=== PATIENT | male | born 1940 | race Two or more races ===

== ENCOUNTER 2017-01-29 12:46 | Observation (INO) | payer MEDICARE, BC ==
--- NOTE | 2017-01-29 13:29 | RAD ---
INDICATION: Near syncope COMPARISON: January 31, 2016; May 16, 2013 TECHNIQUE: PA and lateral dual-energy views were obtained. FINDINGS: Bones/Soft Tissues: There are no acute bony findings. Cardiomediastinal: The cardiomediastinal silhouette is unchanged. There is mild vascular ectasia. Lungs: There are no infiltrates. Pleura: There are no pleural effusions. Other: None IMPRESSION: NO ACTIVE DISEASE
--- NOTE | 2017-01-29 13:34 | RAD ---
INDICATION: Near syncope COMPARISON: January 31, 2016 TECHNIQUE: Noncontrast axial source images were acquired from the skull base to the vertex. FINDINGS: Ventricles/sulci: The ventricles and cisterns unchanged in size and configuration for age. 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 Brain parenchyma: There is no acute focal parenchymal finding, evidence of intracranial mass, or intracranial mass effect. There is an old left caudate nucleus infarct Intracranial hemorrhage:None. Extra-axial spaces: There are no abnormal extra axial fluid collections or evidence of extra-axial mass. Calvarium: There is no calvarial fracture or other calvarial abnormality. Scalp: There is no evidence of scalp or extracalvarial soft tissue abnormality. Paranasal sinuses/mastoid: The paranasal sinuses and mastoid air cells are clear. Other: None. IMPRESSION: No acute intracranial findings
[2017-01-29 14:11] LABS: Hematocrit 56 % (42-52); Hemoglobin 18.4 g/dl (14.0-18.0); Mean Corpuscular HGB Conc 33 g/dl (31-36); Mean Corpuscular Hemoglobin 29 pg (27-31); Mean Corpuscular Volume 87 fL (80-94); Mean Platelet Volume 8 um3 (7.4-10.4); Red Cell Distribution Width 15 % (10.5-15); White Blood Count 12.6 10^3/ul (3.5-10.8)
[2017-01-29 14:12] LABS: Albumin 4.2 g/dL (3.2-5.2); BUN/Creatinine Ratio 14.8 (8-20); Calcium 9.4 mg/dL (8.6-10.3); EGFR African American 62.7 (>60); EGFR Non-African American 48.7 (>60); Globulin 3.3 g/dL (2-4); Potassium 3.9 mmol/L (3.5-5.0); Total Bilirubin 0.8 mg/dL (0.2-1.0); Total Protein 7.5 g/dL (6.4-8.9)
[2017-01-29 14:17] LABS: Troponin I 0.08 ng/mL (<0.04)
[2017-01-29 14:35] LABS: TSH (Thyroid Stimulating Horm) 2.34 mcIU/mL (0.34-5.60)
[2017-01-29] MEDS ORDERED: Ondansetron INJ* 2 MG/ML VIAL IV PRN (17:12)
[2017-01-29] MEDS ORDERED: Acetaminophen TAB* 325 MG PO PRN (17:12)
[2017-01-29] MEDS ORDERED: NS 0.9% 1000 ML* 1,000 ML IV SCH (17:15)
[2017-01-29] MEDS ORDERED: Dextrose 50% Syringe 50 ML* 25 GM/50 ML SYRINGE IV PUSH PRN (17:26)
[2017-01-29] MEDS ORDERED: [UNRECOGNIZED DRUG - OTHER] SUBCUT SCH (18:00)
[2017-01-29] MEDS ORDERED: Atenolol TAB* 25 MG PO SCH ×2 (18:00→21:00)
[2017-01-29] MEDS ORDERED: INSULIN ASPART PROTAMINE SUBCUT SCH (18:00)
[2017-01-29] MEDS ORDERED: INSULIN ASPART SUBCUT SCH (18:00)
[2017-01-29] MEDS: Insulin LISPRO* 1 UNITS UNIT SUBCUT SCH (19:40)
[2017-01-29] MEDS ORDERED: Gabapentin CAP(*) 300 MG PO SCH (21:00)
[2017-01-29] MEDS ORDERED: metFORMIN* 850 MG TAB PO SCH (21:00)
[2017-01-29] MEDS ORDERED: Atorvastatin* 10 MG TAB PO SCH (21:00)
[2017-01-29] MEDS: Heparin VIAL(*) 5000 UNITS/ML VIAL (FIVE THOUSAND) SUBCUT SCH (22:29)
--- NOTE | 2017-01-29 23:31 | HP ---
CC: Dr. Nitesh Mendez* MEDICINE HISTORY AND PHYSICAL: DATE OF ADMISSION: 01/29/17 PROVIDER: Sandra Plummer NP ATTENDING PHYSICIAN: Dr. Dagmar Bennett* (dictated by Sandra Plummer NP) PRIMARY CARE PROVIDER: Dr. Nitesh Mendez. CHIEF COMPLAINT: Dizziness. HISTORY OF PRESENT ILLNESS: This is a 76-year-old gentleman who was brought in by ambulance for evaluation of dizziness and near syncopal episode. The patient was at his PCP office today for routine appointment. He states that he was feeling dizzy and was noted to have a blood sugar at 94 in the office. He states his normal sugar is around 200. Mr. Krueger endorses these dizzy episodes that have happened intermittently over the past few months. He states that usually occurs when he is looking up. He was demonstrating this to the physician today when he became dizzy. He says at home he usually takes something to eat with sugar and feels better. Of note, the patient does state that he took his morning insulin prior to his appointment, but did not eat, this was 90 units of NPH insulin. Mr. Krueger denies any recent fever, cold, or flu-like symptoms. He denies chest pain, palpitations, activity intolerance, or syncope. He denies any unintentional weight gain or edema. He denies cough, shortness of breath, abdominal pain, nausea, vomiting or diarrhea. He denies dysuria or focal weakness, aphasia or any sensory loss other than his chronic neuropathy. He denies any new complaints. In the ER, the patient notably had at WBC count of 12.6, H and H of 18.4 and 56, his troponin was 0.08. PAST MEDICAL HISTORY: Includes: 1. Hypertension. 2. Type 2 diabetes. 3. Neuropathy. 4. History of CVA in 2012. 5. Hypercholesterolemia. 6. 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 7. Obstructive sleep apnea. 8. Anxiety. HOME MEDICATIONS: 1. Metformin 850 mg b.i.d. 2. Glipizide XL 20 mg daily. 3. Amlodipine 5 mg daily. 4. Sertraline 25 mg daily. 5. Atorvastatin 20 mg at bedtime. 6. Lisinopril 40 mg daily. 7. NovoLog mixed 70/30 90 units q.a.m. and 44 units q.p.m. 8. Gabapentin 900 mg at bedtime. 9. Atenolol 25 mg q.p.m. 10. Aspirin 81 mg daily. ALLERGIES: No known drug allergies. FAMILY HISTORY: The patient is unable to answer as he is adopted. SOCIAL HISTORY: He denies tobacco, alcohol or illicit drug use. He is retired. He is a recent of approximately one and a half year ago. His son , Johnson Krueger, is his surrogate decision maker. REVIEW OF SYSTEMS: As per HPI. All those not mentioned are negative. PHYSICAL EXAMINATION GENERAL: This is a very pleasant well-developed, well-nourished male, who is lying comfortably in the stretcher. He is in no acute distress. VITAL SIGNS: Temperature 96.8, heart rate 56, respiratory rate 18, blood pressure 151/82, and O2 saturation 99% on room air. HEENT: Head is atraumatic, normocephalic. Face is symmetrical. Pupils are equal, round, and reactive to light. Extraocular movements are intact. Oral mucosa appears moist. There is no oropharyngeal erythema or exudate. NECK: Supple. No lymphadenopathy noted. No JVD noted. No carotid bruits noted. The patient has full range of motion to the neck. RESPIRATORY: Lungs are clear to auscultation. CARDIAC: S1 and S2 heart sounds, regular rate and rhythm. No murmurs, rubs, or gallops. No peripheral edema noted. Distal pulses are 2+ and equal. ABDOMEN: Soft, nontender, nondistended. Bowel sounds are normoactive. MUSCULOSKELETAL: There is no clubbing or cyanosis. The patient has full range of motion. NEURO: Cranial nerves II through XII are grossly intact. No acute focal deficits. He is alert and oriented x3. Speech is normal. He appropriately follows commands. Sensation is intact to light touch. LABORATORY DATA AND DIAGNOSTIC STUDIES: CBC: WBC 12.6, RBC 6.4, hemoglobin 18.4, hematocrit 56, platelet count 261. CMP: Sodium 133, potassium 3.9, chloride 99, carbon dioxide 25, BUN 21, creatinine 1.42, glucose 147, lactic acid 1.0, calcium 1.4, magnesium 2.0, total bilirubin 0.8, AST 23, ALT 25, alk phos 123, troponin 0.08, BNP 240, albumin 4.2, TSH 2.34. Chest x-ray shows no active cardiopulmonary disease. CT of the brain shows no acute intracranial findings. EKG shows sinus rhythm with prolonged WA interval and no ST changes and acute ischemia. Old medical records were reviewed. ASSESSMENT AND PLAN: Mr. Krueger is a 76-year-old male patient who presents today with complaint of dizziness. He will be admitted for further evaluation. The plan is as follows: 1. Complaint of dizziness. The origin of this is unclear. It is somewhat strange that the patient reports that he is dizzy whenever he is looking up and does not correspond with any other symptoms that he is having including the hypoglycemia that he reports to this morning. It could be a potential orthostatic hypotension as patient is positive for orthostasis here in the ER as his blood pressure did drop 20 points from sitting to standing; however, I did observe the monitoring of these orthostatics and he was asymptomatic at the time. In any event, we will continue to monitor him on telemetry and obtain an echocardiogram. We will recheck orthostatics again after further volume repletion, recheck labs in the morning. The patient appears neurologically intact. He did not show evidence for any acute neurological event and appears to be at his baseline. 2. Elevated troponin. The patient's initial troponin is 0.08. With his dizziness and other reports at home, it would be beneficial to continue trending his troponins. Additionally, I would like to evaluate the patient with a stress test as he does have risk factors for cardiac disease. 3. Polycythemia, the origin of this is unclear. The patient does not have a known history of chronic obstructive pulmonary disease. He is an ex smoker. He is not currently hypoxic. I have reviewed this patient with Dr. Cortes of Hematology, who recommended getting an overnight pulse oximetry as well as JAK2 mutation drawn. He could follow up with outpatient Hematology/Oncology unless there are findings that would precipitate a visit here in the hospital. Differential could include polycythemia vera and myeloproliferative neoplasm. The patient does not seem to be dehydrated, but again we will continue to follow these values and continue our evaluation. 4. Elevated creatinine. This appears to be within patient's baseline. I suspect an element of chronic kidney disease secondary to history of hypertension and diabetes. The patient's baseline appears to be between 1.3 and 1.45. 5. History of type 2 diabetes. The patient is on multiple medications at home including NPH, metformin, and glipizide. At this point in time, in the event that the patient will need contrast dye, I am going to hold his glipizide and metformin and he will be maintained on lispro sliding scale. I do wonder if the patient's blood sugars do dip down too low causing hypoglycemia and subsequent dizziness. We will monitor his blood sugars here on lispro sliding scale and see if he would benefit from medication adjustment. I will also check a hemoglobin A1c. 6. Hypertension. The patient's blood pressure has been rather labile here in the ER. We will maintain him on his current medication of atenolol and lisinopril and amlodipine. 7. Peripheral neuropathy. Continue on gabapentin. 8. History of cerebrovascular accident. Continue aspirin 81 mg. 9. History of hypercholesterolemia. Continue pravastatin. 10. FEN. The patient will be ordered additional fluids as well as consistent carbohydrate diet. 11. DVT prophylaxis. He is ordered subcu heparin. 12. Code status. He is a full code. TIME SPENT: Time spent on this admission was approximately 65 minutes, more than half that time was spent [id number] with the patient obtaining history and physical, performing the physical examination, and reviewing the plan of care. Plan of care was also reviewed with my attending, Dr. Bennett, who is in agreement. Of note, the patient initially was seen and evaluated and decided to leave A; however, after attempting to leave the ER, the patient's family was notified and the patient agreed to stay secondary to family discussion. SANDRA PLUMMER, LIDIA [id number]/[facility] #: [id number] GUIDO
[2017-01-30 05:21] LABS: Hematocrit 47 % (42-52); Mean Corpuscular HGB Conc 34 g/dl (31-36); Mean Corpuscular Hemoglobin 29 pg (27-31); Mean Corpuscular Volume 85 fL (80-94); Mean Platelet Volume 9 um3 (7.4-10.4); Red Blood Count 5.55 10^6/ul (4.0-5.4); Red Cell Distribution Width 14 % (10.5-15); White Blood Count 12.2 10^3/ul (3.5-10.8)
[2017-01-30 05:34] LABS: BUN/Creatinine Ratio 16.5 (8-20); Calcium 8.8 mg/dL (8.6-10.3); EGFR African American 75.4 (>60); EGFR Non-African American 58.6 (>60); Potassium 3.6 mmol/L (3.5-5.0)
[2017-01-30] MEDS: Heparin VIAL(*) 5000 UNITS/ML VIAL (FIVE THOUSAND) SUBCUT SCH ×2 (05:58→13:07)
[2017-01-30] MEDS ORDERED: Perflutren Lipid Microsphere* 3 ML VIAL ONE (08:00)
[2017-01-30] MEDS: Insulin LISPRO* 1 UNITS UNIT SUBCUT SCH ×3 (08:39→17:36)
[2017-01-30] MEDS ORDERED: INSULIN ASPART PROTAMINE SUBCUT SCH (09:00)
[2017-01-30] MEDS ORDERED: Sertraline* 25 MG TAB PO SCH (09:00)
[2017-01-30] MEDS ORDERED: amLODIPine TAB* 5 MG PO SCH (09:00)
[2017-01-30] MEDS ORDERED: INSULIN ASPART SUBCUT SCH (09:00)
[2017-01-30] MEDS ORDERED: glipiZIDE TAB.XL* 5 MG PO SCH (09:00)
[2017-01-30] MEDS ORDERED: Lisinopril TAB* 10 MG PO SCH (09:00)
[2017-01-30] MEDS ORDERED: Aspirin EC Low Dose* 81 MG TAB.EC PO SCH (09:00)
[2017-01-30] MEDS ORDERED: [UNRECOGNIZED DRUG - OTHER] SUBCUT SCH (09:00)
--- NOTE | 2017-01-30 10:05 | ECHO ---
Patient: ESTELLE BOUDREAUX V [facility] Rec#: [id number] : 1940 Date: 01/30/2017 Age: 76y Height: 175.26 cm / 69.0 in Weight: 97.98 kg / 215.9 lbs Sex: M BSA: 2.13 Room#: 453 Admit Date#: 01/29/2017 Type: Inpatient Referring: Denisse Sorto Reading: Airam Marrufo MD Floor Finisher Helper: Sarah Beth Dawkins [facility] Transthoracic Echocardiogram Indication: Syncope BP: 140/72 HR: 131 Rhythm: Tachycardia Findings History: DM,HTN,neuropathy,CVA 2002,KEILA,HLD. Technical Comments: The study is technically limited due to patient body habitus. Completed at 0850. Left Ventricle: The left ventricular chamber size is normal. Posterior wall hypertrophy is observed. The estimated ejection fraction is 50-55%. TDS and the endocardium is not well visualized. Abnormal left ventricular diastolic function is observed. Left Atrium: The left atrial chamber size is normal. Right Ventricle: The right ventricular cavity size is normal. The right ventricular global systolic function is normal. Right Atrium: The right atrial cavity size is normal. Aortic Valve: The aortic valve is trileaflet. The aortic valve leaflets are mildly thickened. There is evidence of aortic sclerosis without stenosis. There is a trace of aortic regurgitation. There is no evidence of aortic stenosis. Mitral Valve: The mitral valve leaflets are mildly thickened. There is a trace of mitral regurgitation. There is no evidence of mitral stenosis. Tricuspid Valve: The tricuspid valve leaflets are normal. There is no evidence of tricuspid valve regurgitation. Unable to estimate the right ventricular systolic pressure. There is no tricuspid stenosis. Pulmonic Valve: The pulmonic valve appears normal. There is no evidence of pulmonic regurgitation. There is no pulmonic stenosis. Pericardium: A pericardial fat pad is visualized. Aorta: There is no dilatation of the ascending aorta. There is no dilatation of the aortic arch. There is no dilation of the aortic root. Pulmonary Artery: The main pulmonary artery appears normal. Venous: The venous system is not well visualized. Contrast: Definity was used to optimize study. A total of 3 ml. utilized. Intravenous contrast was used to enhance endocardial border definition. Summary: There are changes noted when compared to the previous study done on 12/12/2012, now there is no sig instead of mild then. LV EF 50-55% instead of 55-60% then Conclusions The left ventricular chamber size is normal. The estimated ejection fraction is 50-55%. TDS and the endocardium is not well visualized. Abnormal left ventricular diastolic function is observed. There is a trace of aortic regurgitation. There is a trace of mitral regurgitation. Measurements Name Value Normal Range RVIDd (AP) 2D 2.5 cm (0.9 - 2.6) RVDdMajor (2D) 2.9 cm (2.2 - 4.4) RAd ISD 4CH 4.4 cm (3.4 - 4.9) RA (A4C)W 3 cm (2.9 - 4.6) IVSd (2D) 0.9 cm (0.6 - 1) LVPWd (2D) 1.5 cm (0.6 - 1) LVIDd (2D) 4.6 cm (3.6 - 5.4) LVIDs (2D) 3 cm - LV FS (2D) 35 % (25 - 45) Aortic Annulus 1.8 cm (1.4 - 2.6) Ao root diameter (2D) 2.9 cm (2.1 - 3.5) Ascending Ao 3.2 cm (2.1 - 3.4) Aortic arch 2.3 cm (1.8 - 3.4) Descending Ao 0.4 cm - LA dimension (AP) 2D 3.8 cm (2.3 - 3.8) LAd ISD 4CH 5.7 cm (2.9 - 5.3) LA ISD 4CH W 3.8 cm (2.5 - 4.5) Name Value Normal Range LA ESV SP 4CH (A/L) 43 ml - LA ESV SP 2CH (A/L) 58 ml - LA ESV BP (A/L) 52 ml - LA ESV BP (A/L) index 24.32 ml/m2 - LA ESV SP 4CH (MOD) 40 ml - LA ESV SP 2CH (MOD) 55 ml - Name Value Normal Range MV E-wave Vmax 0.9 m/sec - MV deceleration time 227 msec - MV A-wave Vmax 1 m/sec - MV E:A ratio 0.84 ratio - LV septal e' Vmax 0.05 m/sec - LV lateral e' Vmax 0.1 m/sec - LV E:e' septal ratio 18 ratio - LV E:e' lateral ratio 9 ratio - Name Value Normal Range AV Vmax 1.6 m/sec - AV VTI 36.1 cm - AV peak gradient 10.59 mmHg - AV mean gradient 4.72 mmHg - LVOT Vmax 0.8 m/sec - LVOT VTI 18.7 cm - LVOT peak gradient 2.61 mmHg - LVOT mean gradient 1.38 mmHg - Name Value Normal Range PV Vmax 0.7 m/sec - PV peak gradient 2.13 mmHg -
[2017-01-30] MEDS ORDERED: Regadenoson* 0.4 MG/5 ML SYRINGE ONE (11:22)
[2017-01-30] MEDS ORDERED: Aminophylline IV* 25 MG/ML 10 ML VIAL ONE (11:22)
--- NOTE | 2017-01-30 13:04 | RAD ---
INDICATION: Elevated troponin. Dizziness. Shortness of breath. Multiple risk factors for coronary artery disease. COMPARISON: No relevant prior exams available on the [facility] PACS for comparison. TECHNIQUE: 10.990 mCi of Tc-99m Myoview were administered IV. SPECT images of the heart were obtained. Later on the same day. Under the direction of Dr. Houston, the patient was given an IV injection of a pharmacologic stress agent. Subsequently, the patient was given an IV injection of 25.700 mCi Tc-99m Myoview. SPECT images of the heart were obtained and a gated wall motion study was performed. No CT performed due to limitation in range of motion of the arms. FINDINGS: Gated wall motion images were obtained at stress and demonstrate global hypokinesia with relative sparing of the anterior wall. The calculated left ventricular ejection fraction is 47 % at stress. Estimated LEFT ventricular end diastolic volume is 118 mL. TID 1.09. Diaphragmatic attenuation limiting assessment especially without CT for attenuation correction. Mild disproportionate decreased activity at the apical through mid inferolateral segments at stress relative to rest. No additional LEFT ventricular myocardial perfusion defects evident at stress or rest. IMPRESSION: 1. Global hypokinesia with relative sparing of the anterior wall. Mildly abnormal estimated LEFT ventricular ejection fraction at 47%. 2. Borderline elevated estimated LEFT ventricular end-diastolic volume of 118 mL. 3. While absence of CT for attenuation correction limits assessment in setting of diaphragmatic attenuation there is a potential small focus of stress-induced ischemia at the apical through mid inferolateral segments. ASSESSMENT: Intermediate risk Based on imaging criteria from ACC/AHA 2002 Guideline Update for the Management of Patients With Chronic Stable Angina Table 23. Noninvasive Risk Stratification.
[2017-01-30 17:05] VITALS: BP 138/63
--- NOTE | 2017-01-30 17:14 | PN ---
Subjective Date of Service: 01/30/17 Interval History: Patient seen and examined at bedside. Denies fever, chills, lightheadedness or dizziness, shortness of breath, chest discomfort, N/V/D. Pt states that he wants to go home and the plan is to return next week for a cardiac cath as an outpatient. Tele: Sinus rhythm, rate 80's. Family History: Unchanged from Admission Social History: Unchanged from Admission Past Medical History: Unchanged from Admission Objective Active Medications: Acetaminophen (Tylenol Tab*) 650 mg PO Q4H PRN Reason: FEVER/PAIN Amlodipine Besylate (Norvasc Tab*) 5 mg PO DAILY [facility] Aspirin (Aspirin Ec Low Dose*) 81 mg PO DAILY [facility] Atenolol (Tenormin Tab*) 25 mg PO QPM [facility] Atorvastatin Calcium (Lipitor*) 5 mg PO BEDTIME [facility] Dextrose (D50w Syringe 50 Ml*) 12.5 gm IV PUSH .FOR FS < 60 - SS PRN Reason: FS < 60 Gabapentin (Neurontin Cap(*)) 900 mg PO BEDTIME [facility] Heparin Sodium (Porcine) (Heparin Vial(*)) 5,000 units SUBCUT Q8HR [facility] Sodium Chloride (Ns 0.9% 1000 Ml*) 1,000 mls @ 100 mls/hr IV PER RATE [facility] Stop: 01/31/17 03:14 Insulin Human Lispro (Humalog*) 0 units SUBCUT AC [facility] Lisinopril (Prinivil Tab*) 40 mg PO DAILY [facility] Ondansetron HCl (Zofran Inj*) 4 mg IV Q6H PRN Reason: NAUSEA/VOMITING Sertraline HCl (Zoloft*) 25 mg PO DAILY [facility] Vital Signs 01/29/17 01/29/17 01/29/17 19:53 22:23 23:31 Temperature 98.2 F 97.7 F Pulse Rate 73 75 Respiratory 20 20 16 Rate Blood Pressure 155/80 158/82 (mmHg) O2 Sat by Pulse 100 Oximetry 01/30/17 01/30/17 01/30/17 00:23 03:29 08:00 Temperature 98.3 F Pulse Rate 65 Respiratory 16 16 18 Rate Blood Pressure 140/72 (mmHg) O2 Sat by Pulse 96 Oximetry 01/30/17 01/30/17 01/30/17 09:09 12:46 12:48 Temperature 97.3 F 97.1 F Pulse Rate 64 70 66 Respiratory 18 18 Rate Blood Pressure 158/77 148/73 153/80 (mmHg) O2 Sat by Pulse 99 98 99 Oximetry 01/30/17 12:49 Temperature Pulse Rate 68 Respiratory Rate Blood Pressure 135/80 (mmHg) O2 Sat by Pulse 98 Oximetry Oxygen Devices in Use Now: None Appearance: NAD, sitting up in a chair Ears/Nose/Mouth/Throat: Mucous Membranes Moist Respiratory: Symmetrical Chest Expansion and Respiratory Effort, Clear to Auscultation Cardiovascular: NL Sounds; No Murmurs; No JVD, RRR Abdominal: NL Sounds; No Tenderness; No Distention Extremities: No Edema Skin: No Rash or Ulcers Neurological: Alert and Oriented x 3, NL Muscle Strength and Tone Lines/Tubes/Other Access: Clean, Dry and Intact Peripheral IV - site benign Nutrition: Taking PO's Result Diagrams: 01/30/17 04:41 01/30/17 04:41 Assess/Plan/Problems-Billing Assessment: Mr. Krueger is a 76 yo male with PMH significant for DM, HTN, CVA, HLD, KEILA and anxiety who presented to the emergency room with complaints of dizziness. - Patient Problems (1) Dizziness Code(s): R42 - DIZZINESS AND GIDDINESS SNOMED Code(s): 557191707 Comment: - Resolved - Orthostatic in ED, but asymptomatic. - Orthostasis improved after IVFs (2) Elevated troponin Code(s): R74.8 - ABNORMAL LEVELS OF OTHER SERUM ENZYMES SNOMED Code(s): 968414857 Comment: - Tropinin 0.08, 0.03, 0.04, 0.04 - Denies chest pain - Has an intermediate stress test today - Cardiology consult, input appreciated (3) Abnormal cardiovascular stress test Code(s): R94.39 - ABNORMAL RESULT OF OTHER CARDIOVASCULAR FUNCTION STUDY SNOMED Code(s): 006357964 Comment: - Cardiology consult, input appreciated - Pt doesn't want to stay until Thursday - Plan for outpatient cardiac cath next week (4) Polycythemia Code(s): D75.1 - SECONDARY POLYCYTHEMIA SNOMED Code(s): 171236860 Comment: - ? partially related to dehydration and Hgb/Hct improved with hydration - RBCs continue to be elevated, but Hgb/Hct WNL - JAK2 mutation, pending - Pt will need to have overnight pulse oximetry as outpatient and possible sleep study - Will need outpatient follow-up with Hematology (5) Elevated serum creatinine Code(s): R79.89 - OTHER SPECIFIED ABNORMAL FINDINGS OF BLOOD CHEMISTRY SNOMED Code(s): 762452416 Comment: - Pt appears to be within his baseline - Suspect CKD stage 3 at baseline (6) Diabetes Code(s): E11.9 - TYPE 2 DIABETES MELLITUS WITHOUT COMPLICATIONS SNOMED Code(s) : 16633947 Comment: - HgA1C - 8.8 - Pt states that he has been eating a lot of sweats - Continue home medications - [facility] consult outpatient (7) HTN (hypertension) Code(s): I10 - ESSENTIAL (PRIMARY) HYPERTENSION SNOMED Code(s): 48417198 Comment: - SBP 130-170's - Continue home medications (8) Peripheral neuropathy Code(s): G62.9 - POLYNEUROPATHY, UNSPECIFIED SNOMED Code(s): 709655754 Comment: - Continue home gabapentin (9) History of CVA (cerebrovascular accident) Code(s): Z86.73 - PRSNL HX OF TIA (TIA), AND CEREB INFRC W/O RESID DEFICITS SNOMED Code(s): 264995143 Comment: - Continue ASA and statin (10) HLD (hyperlipidemia) Code(s): E78.5 - HYPERLIPIDEMIA, UNSPECIFIED SNOMED Code(s): 08810725 Comment: - Continue statin (11) DVT prophylaxis Code(s): RTI8888 - SNOMED Code(s): 742359143 (12) Full code status Code(s): Z78.9 - OTHER SPECIFIED HEALTH STATUS SNOMED Code(s): 756302231 Status and Disposition: OBV. Stable for discharge to home today.
--- NOTE | 2017-01-30 19:02 | ED ---
Edgar Tripathi Angela, scribed for Ranjeet Harvey MD on 01/29/17 at 1311 . Dizziness - HPI Summary HPI Summary: This pt is a 76 y/o male presenting to [facility] c/o dizziness today. Per EMS, pt was in his PCP's office for an appointment. Pt began to feel dizziness, like passing out, when looking up. EMS reports pt is diaphoretic. EMS states pt took 90 units of insulin at 09:30 with no food today. EMS notes pt's blood glucose is 95 and pt's normal sugar is around 200. EMS also states he has a new onset of bradycardia of 50-57, pt's baseline is 70-80. Pt has a stroke in 2012. PMHx: CVA (12/2012), DM2, HTN. - History Of Current Complaint Chief Complaint: EDDizziness Stated Complaint: LOW BLOOD SUGAR Hx Obtained From: Patient, EMS Onset/Duration: Still Present, Suddenly Timing: Constant Character: Dizzy Aggravating Factor(s): Change In Head Position - looking up Alleviating Factor(s): Nothing Associated Signs And Symptoms: Positive: Diaphoresis. Negative: Chest Pain, SOB , Palpitations - Allergies/Home Medications Allergies/Adverse Reactions: Allergies Allergy/AdvReac Type Severity Reaction Status Date / Time No Known Allergies Allergy Verified 12/09/15 18:50 Home Medications: Home Medications Aspirin EC Low Dose* [Ecotrin EC Low Dose 81 MG*] 81 mg PO DAILY 01/29/17 [ History Confirmed 01/29/17] Gabapentin CAP(*) [Neurontin 300 CAP(*)] 900 mg PO BEDTIME 01/29/17 [History Confirmed 01/29/17] Insulin Aspart Protamine & Asp [Novolog Mix 70/30 (70-30) 100 Unit/ml] 44 units SUBCUT QPM 01/29/17 [History Confirmed 01/29/17] Insulin Aspart Protamine & Asp [Novolog Mix 70/30 (70-30) 100 Unit/ml] 90 units SUBCUT QAM 01/29/17 [History Confirmed 01/29/17] Lisinopril [Lisinopril 40 MG-] 40 mg PO DAILY 01/29/17 [History Confirmed ] Sertraline* [Zoloft*] 25 mg PO DAILY 01/29/17 [History Confirmed 01/29/17] amLODIPine TAB* [Norvasc 5 mg TAB*] 5 mg PO DAILY 01/29/17 [History Confirmed ] glipiZIDE TAB.XL* [Glucotrol XL*] 20 mg PO DAILY 01/29/17 [History Confirmed ] PMH/Surg Hx/FS Hx/Imm Hx Endocrine/Hematology History: Reports: Hx Diabetes Cardiovascular History: Reports: Hx Hypertension Denies: Hx Pacemaker/ICD Respiratory History: Reports: Hx Sleep Apnea Musculoskeletal History: Reports: Hx Arthritis Sensory History: Reports: Hx Contacts or Glasses Denies: Hx Hearing Aid Opthamlomology History: Reports: Hx Contacts or Glasses Neurological History: Reports: Hx CVA Denies: Other Neuro Impairments/Disorders Psychiatric History: Denies: Hx Panic Disorder - Surgical History Surgery Procedure, Year, and Place: SEBACIOUS CYST REMOVED FROM BACK OF NECK Infectious Disease History: No Infectious Disease History: Denies: Traveled Outside the [place] in Last 30 Days - Family History Known Family History: Positive: Other - no ulcers or intestinal diseases - Social History Alcohol Use: None Hx Substance Use: No Substance Use Type: Reports: None Hx Tobacco Use: No Smoking Status (MU): Never Smoked Tobacco Review of Systems Positive: Skin Diaphoresis. Negative: Fever, Chills Negative: Palpitations, Chest Pain Negative: Shortness Of Breath Neurological: Other - dizziness, feeling of passing out All Other Systems Reviewed And Are Negative: Yes Physical Exam - Summary Physical Exam Summary: VITAL SIGNS: Reviewed. GENERAL: Patient is a well-developed and nourished male who is lying comfortable in the stretcher. Patient is not in any acute respiratory distress. Pt is diaphoretic. HEAD AND FACE: No signs of trauma. No ecchymosis, hematomas or skull depressions. No sinus tenderness. EYES: PERRLA, EOMI x 2, No injected conjunctiva, no nystagmus. EARS: Hearing grossly intact. Ear canals and tympanic membranes are within normal limits. MOUTH: Oropharynx within normal limits. NECK: Supple, trachea is midline, no adenopathy, no JVD, no carotid bruit, no c- spine tenderness, neck with full ROM. CHEST: Symmetric, no tenderness at palpation LUNGS: Clear to auscultation bilaterally. No wheezing or crackles. CVS: Regular rate and rhythm, S1 and S2 present, no murmurs or gallops appreciated. ABDOMEN: Soft, non-tender. No signs of distention. No rebound no guarding, and no masses palpated. Bowel sounds are normal. EXTREMITIES: FROM in all major joints, no edema, no cyanosis or clubbing. NEURO: Alert and oriented x 3. No acute neurological deficits. Speech is normal and follows commands. SKIN: Warm. Pt is diaphoretic. GCS: 15 Triage Information Reviewed: Yes Vital Signs On Initial Exam: Initial Vitals BP 142/75 01/29/17 12:50 Vital Signs Reviewed: Yes - Joe Coma Scale Coma Scale Total: 15 Diagnostics - Vital Signs Vital Signs Temp Pulse Resp BP Pulse Ox 01/29/17 12:51 98.1 F 60 16 142/75 100 01/29/17 12:50 142/75 - Laboratory Result Diagrams: 01/29/17 13:33 01/29/17 13:33 Lab Statement: Any lab studies that have been ordered have been reviewed, and results considered in the medical decision making process. - Radiology Chest XR Xray Interpretation: No Acute Changes - IMPRESSION: No active disease. ED physician has reviewed this radiology report and agrees. Radiology Interpretation Completed By: Radiologist - CT Brain CT CT Interpretation: No Acute Changes - IMPRESSION: No acute intracranial findings. ED physician has reviewed this radiology report and agrees. CT Interpretation Completed By: Radiologist - EKG 1323 Cardiac Rate: NL - 63 bpm EKG Rhythm: Sinus Rhythm EKG Interpretation: No ST elevation. Prolonged VA interval. Dizzy Course/Dx - Course Assessment/Plan: This pt is a 76 y/o male presenting to [facility] c/o dizziness today. Per EMS, pt was in his PCP's office for an appointment. Pt began to feel dizziness, like passing out, when looking up. EMS reports pt is diaphoretic. EMS states pt took 90 units of insulin at 09:30 with no food today. EMS notes pt 's blood glucose is 95 and pt's normal sugar is around 200. EMS also states he has a new onset of bradycardia of 50-57, pt's baseline is 70-80. Pt has a stroke in 2012. PMHx: CVA (12/2012), DM2, HTN. Test results show WBC of 12.6, increased H and H, possibly secondary to dehydration, creatinine of 1.42, troponin of 0.08, and BNP of 240. Chest XR shows no active disease. Head CT reveals no acute intracranial findings. Initially the pt was given IV fluids and the pt felt better. I discussed the case with Dr. Bennett, who accepted the pt for admission. Initially the pt accepted to be admitted but after the PA from Dr. Bennett saw the pt, the pt reported he wanted to sign out AMA. After I spoke to him he decided to stay to rule out acute coronary syndrome and therefore have a syncope workup. Pt is hemodynamically stable, alert and oriented x3. - Diagnoses Provider Diagnoses: near syncopal episode, increased troponin, rule out ACS - Provider Notifications Discussed Care Of Patient With: Dagmar Bennett Time Discussed With Above Provider: 14:46 Instructed by Provider To: Other - I discussed the pt's case with Dr. Bennett, hospitalist. She has accepted the pt for admission. Discharge - Discharge Plan Condition: Fair Disposition: ADMITTED TO [facility] The documentation as recorded by the Edgar arellano Angela accurately reflects the service I personally performed and the decisions made by me, Ranjeet Harvey MD.
--- NOTE | 2017-01-30 22:11 | CONS ---
CC: Hospital Service; Dr. Nitesh Mendez; Dr. Marrufo CARDIOLOGY CONSULTATION: DATE OF CONSULT: 01/30/17 HISTORY OF PRESENT ILLNESS: I was asked by hospitalist service to see this 76-year- old male patien t, who brought in from the PMD office after he had dizziness at Dr. Nitesh Mendez's office. Apparently , sugar was 90 in the notes, his usual sugar is 200. In talking to the patient, he said usually he had been having dizziness spells for a while, usually when he looks up, usually in a hot and humid r ooms. He had no syncopal episode. He gives no history of myocardial infarction or coronary artery disease. He gives no chest pain. No shortness of breath. No orthopnea. No PND. No syncope. No f ever. No chills. No skin rash. No tremors. No hematochezia. No swelling in the lower extremitie s is appreciated. Apparently, he was brought in and hospitalized. He did have a peak troponin of 0 .08. He never had symptoms of chest pain. His EKG showed no acute ST-T changes. He had an echocar diogram that was technically difficult to study and limited, but his EF was 50% to 55%. The endocar dium was not well visualized and there is no significant valvular disease. He is chest pain free. He feels much better actually today. He underwent nuclear Myoview stress test that showed intermedi ate risk with a global hypokinesis. EF was calculated at 47%. There is potential questionable smal l area of focus of ischemia of the apex through the mid lateral inferior wall. Cardiology consult w as further requested. PAST MEDICAL HISTORY: As mentioned above including systemic arterial hypertension, diabetes mellitu s type 2, neuropathy, history of CVA in 2013, hyperlipidemia, obstructive sleep apnea, and anxiety. MEDICATIONS: His medications as on outpatient include: 1. Metformin 850 mg twice a day. 2. Glipizide 20 mg daily. 3. Amlodipine 5 mg daily. 4. Lipitor 20 mg daily. 5. Lisinopril 40 mg daily. 6. Atenolol 25 mg daily. 7. Insulin. 8. Aspirin 81 mg daily. ALLERGIES: No known drug allergies. FAMILY HISTORY: No family history of premature coronary artery disease. SOCIAL HISTORY: No history of smoking, drinking, or illicit drug use. REVIEW OF SYSTEMS: Review of all other systems essentially is negative. PHYSICAL EXAM: On exam, he is awake, alert, and oriented. He is not in acute distress. His vitals , blood pressure 135/80, pulse is 60, sinus rhythm, he is afebrile. Head and Neck Exam: Normocepha lic, atraumatic head. Ears, Nose, and Throat: Essentially benign. Neck: Supple. JVP is not elev ated. No carotid bruit. No masses in the neck are appreciated. Chest: Clear to auscultation. No rales, no wheeze, no added sounds appreciated. Heart: Normal, regular, S1, S2. No added sounds, n o gallops and no rubs. Abdomen: Obese, soft, positive bowel sounds. Extremities: No edema, no cy anosis, no clubbing. Skin Exam: Normal. Psych: Normal affect and mood. 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 DIAGNOSTIC STUDIES/LAB DATA: White blood cells 12.2, hemoglobin 16, hematocrit 47, and platelets 27 1. Chemistry: Sodium 133, potassium 3.6, chloride 101, BUN 20, creatinine 1.21. Troponin 0.04 and 0.04, peak 0.08. BNP actually was mildly elevated at 240. TSH 2.234. EKG shows sinus rhythm, no acute ST-T changes. Echocardiogram as described. Nuclear as described. IMPRESSION: The patient is a 76-year-old male patient with: 1. Presentation with dizziness. From the way he describing, it is vasovagal in nature. 2. Troponin peaked at 0.08 of unclear etiology. Coronary artery disease cannot be ruled out. 3. Abnormal nuclear Myoview stress test as described. 4. Echo showed technically difficult study. EF 50% to 55%. No significant valvular disease. 5. Obesity. 6. Sleep apnea. 7. Diabetes mellitus type 2, insulin dependent. 8. Hyperlipidemia. 8. Systemic arterial hypertension. PLAN: I had a lengthy discussion with the patient. It is not immediately clear, his symptoms could be multifactorial, could be vasovagal, could be related to his blood sugar. I am concerned about c oronary artery disease. He does have significant comorbidities and risk factors as well. Unfortuna tely, his echo was technically difficult to study to visualize for wall motion abnormality. His nuc lear is abnormal as described. I strongly recommended a cardiac catheterization to the patient as a definite test to evaluate his coronary anatomy. He declined. He stated clearly that he wants to go home today. He does not want to stay in the hospital. I made him aware of the benefits and risks including arrhythmia, congestive heart failure, myocardial infarction, sudden . I have discuss ed him with the hospitalist service as well regarding his decision that he wants to go home and my r ecommendation for a cardiac catheterization to evaluate his coronary anatomy. There is no doubt he does have significant risks and comorbidities. At the present time, the patient wants to go home. We will leave a future discharge planning as per the hospitalist service. I will be more than happy to follow him as an outpatient for Cardiology. I did tell him that and if he decide to have a card iac catheterization in the future and agreeable, we will be more than happy to facilitate scheduling this. He is to avoid significant alcohol, caffeinated drinks, and stimulants. He is on low-salt, low-fat diet. He is to avoid any vigorous or exertional exercise activity till his cardiac evaluati on is completed. He is to continue on his outpatient medications. He is to continue on aspirin and we will add low dose beta-dale treatment for him. If he develops any further symptoms, he needs to come to the hospital for further evaluation including chest pain, shortness of breath, dizziness, near syncope, or syncope. Thank you very much for asking us to participate in the care of this patient. TIME SPENT: More than half of at least 60 to 65 plus minutes was in the education and counseling mo de, explaining all of the above and discussing this with the patient and the hospitalist service. [id number]/[facility] #: [id number]
--- NOTE | 2017-01-31 10:24 | DS ---
CC: Nitesh Mendez MD, [facility]* DISCHARGE SUMMARY: DATE OF ADMISSION: 01/29/17 DATE OF DISCHARGE: 01/30/17 ATTENDING PHYSICIAN: Miranda Valle MD* (dictated by Felicita Arshad NP) PRIMARY CARE PROVIDER: Nitesh Mendez MD PRIMARY DIAGNOSES: 1. Dizziness. 2. Abnormal stress test. 3. Orthostatic hypotension. 4. Polycythemia. 5. Elevated troponin. 6. Elevated creatinine, suspect chronic kidney disease stage 3. SECONDARY DIAGNOSES: 1. Uncontrolled diabetes mellitus. 2. Hypertension. 3. History of cerebrovascular accident. 4. Hypercholesterolemia. 5. Obstructive sleep apnea. 6. Peripheral neuropathy. CONSULTATIONS WHILE IN THE HOSPITAL: Dr. Germán Marrufo with Cardiology. STUDIES WHILE IN THE HOSPITAL: 1. Chest x-ray on 01/29/17. Radiologist's impression: No active cardiopulmonary disease. 2. Brain CT on 01/29/17. Radiologist's impression: No acute intracranial findings. 3. Transthoracic echocardiogram from today. [employer]'s summary, there are changes noted when compared to the previous study done on 12/12/12. Now, there is no significant evidence of aortic stenosis instead of mild then. LVEF 50% to 50% instead of 55% to 60% then. Conclusion: The left ventricular chamber size is normal. The estimated ejection fraction is 50% to 55%. ____ and the endocardium is not well visualized. Abnormal left ventricular diastolic function is observed. There is trace of aortic regurgitation. There is trace of mitral regurgitation. 4. Cardiac nuclear stress test from today. Radiologist's impression: Global hypokinesis with relative sparing of the anterior wall. Mildly abnormal estimated left ventricular ejection fraction at 47%. Borderline elevated estimated left ventricular end-diastolic volume of [address] for attenuation correct limits assessment in setting of diaphragmatic attenuation, there is a potential small focus of stress-induced ischemia at the apical through mid inferolateral segments. Assessment: Intermediate risk. [employer]'s observation: Resting EKG, normal sinus rhythm 64, average lead showed nonspecific T wave flattening. With administration of regadenoson, there were no definitive EKG changes of ischemia. No significant hemodynamic changes were seen. Conclusion: No definite evidence of myocardial ischemia by EKG criteria with regadenoson. DISCHARGE MEDICATIONS: Continued home medications: 1. NovoLog insulin 70/30, 44 units subcutaneous q.p.m. 2. NovoLog Mix 70/30 insulin 90 units subcutaneous every a.m. 3. Zoloft 25 mg oral daily. 4. Metformin 850 mg oral twice daily. 5. Atenolol 25 mg oral daily at bedtime. 6. Pravastatin 20 mg oral daily at bedtime. 7. Amlodipine 5 mg oral daily. 8. Glipizide XL 20 mg oral daily. 9. Lisinopril 40 mg oral daily. 10. Aspirin 81 mg oral daily. 11. Gabapentin 900 mg oral daily. HISTORY OF PRESENT ILLNESS/HOSPITAL COURSE: Mr. Krueger is a 76-year-old male with a past medical history significant for hypertension, diabetes mellitus, diabetic neuropathy, history of CVA, hyperlipidemia, and sleep apnea, who presented to the emergency room via ambulance for complaints of dizziness and a near-syncopal episode. The patient was at his primary care provider's office for routine appointment when he stated that he felt dizzy and was noted to have a blood glucose of 94 in the office. The patient states that his normal blood glucose is 200. Mr. Krueger endorsed a dizzy episode that happened intermittently over the past few months. He reported that it usually occurs when looking up. The patient was demonstrating this to his primary care provider when he became dizzy. The patient says at home he usually takes something with sugar and then feels better. It is to note that the patient had taken his morning insulin prior to his appointment, but had not eaten. He took a total of 90 units of NPH insulin. The patient denies any recent illnesses such as fever, cold, flu-like symptoms. He denied any chest pain, palpitations , activity intolerance, or syncope. The patient denies any unintentional weight gain or lower extremity swelling. Again, the patient was brought to the emergency room via EMS from his primary care provider's office. While in the emergency room, the patient had labs that were notable for white blood cell count of 12.6, hemoglobin of 18.4, and a hematocrit of 56. His troponin was 0.01. The patient also had a brain CT that was negative in addition to a chest x- ray with no acute findings. The patient had an EKG showing sinus rhythm, a prolonged MT interval and no ST changes or signs of acute ischemia. The hospitalists were asked to evaluate the patient for admission. While in the hospital, the patient was monitored on telemetry. He was noted to be in sinus rhythm with a rate of 70 to 80s. He was noted initially to have orthostasis while in the emergency room. He received IV fluids overnight and this did improve, although he was close to a 20-point drop from sitting to standing this morning. The patient did endorse not eating or drinking while the day prior to his admission. The patient has no neurological deficits. His troponins were trending down after the initial troponin. The patient again endorsed no chest pain, activity intolerance. He underwent a nuclear cardiac stress test today that showed an intermediate risk due to global hypokinesis with relative sparing of the anterior wall, an ejection fraction of 47%. There was a possibility of potential small focus of stress-induced ischemia at the apical through mid inferolateral segments, placing the patient at an intermediate risk. Dr. Marrufo saw the patient in consultation. He felt that the patient's symptoms could have been vasovagal in nature, but that these could also represent the potential of a 3- vessel heart disease and he recommended cardiac catheterization. The patient declined staying over the weekend and having a cardiac catheterization on Thursday. It was recommended that the patient be continued on aspirin and a beta-dale. During the patient's stay, his hemoglobin A1c was checked and it was found to be 8.8. The patient endorses eating sweets often. The patient was noted to have polycythemia on admission. This resolved after IV hydration. I suspect it could have been partially secondary to dehydration as the patient's hemoglobin was 16 and his hematocrit was 47 this morning. He does continue to have elevated red blood cells of 5.5, just barely above normal, although he looks like he consistently has elevated red blood cells. Dr. Cortes with Hematology was consulted. She recommended an overnight pulse oximetry study as well as a JULIO CÉSAR-2 mutation drawn. This lab is currently pending. The differential could include a polycythemia vera or a myeloproliferative neoplasm. The patient was also noted to have an elevated creatinine. This did improve after IV hydration, although I suspect he has chronic kidney disease stage 3 at baseline. The patient's blood pressures have been labile during his stay. He was continued on his home medications of atenolol, lisinopril, and amlodipine. Mr. Krueger is stable for discharge to home today. Vital signs are as follows: Temperature 97.5, heart rate 66, respiratory rate 18, O2 sat 97% on room air, blood pressure 138/63. DISCHARGE PLAN: Mr. Krueger will be discharged to home. Activity as tolerated. He should be on a consistent carbohydrate, heart healthy diet. As far as the patient's possibility of coronary artery disease, he will be set up for an outpatient cardiac catheterization next week. For the patient's dizziness, I suspect this was a combination of vasovagal and orthostasis. The patient has been encouraged to drink plenty of fluids and change his position slowly. He may need his blood pressure medications adjusted to assist with orthostasis if he continues to be symptomatic. As far as the patient's polycythemia, his hemoglobin and hematocrit are within normal range after hydration. I recommend that he have an overnight pulse oximetry reading as this could potentially be secondary to hypoxia and he should be followed up for his JULIO CÉSAR-[address] Cortes will see him as an outpatient. I did not set up any followup appointments. He should be assisted in referral to her if necessary. For the patient's diabetes, his hemoglobin A1c is 8.8. He has been encouraged to eat a healthy diet and he has been continued on his current home diabetic medications, although I have recommended and referred him to the [facility] if they can assist him with weight loss, hypertension, and his diabetes and in the event that he has coronary artery disease, he needs cardiac rehab. Again, please note we did discuss with the patient the risks of wheezing today without having a cardiac catheterization. He understands that he has high risk factors and comorbidities. The patient has a followup appointment with Juaquin Jo NP, on 02/03/17 at 10:45 a.m. The patient has been asked to return to the emergency room immediately for any chest discomfort, shortness of breath, or if he continues to have persistent dizziness. This is a summarized report of a complex medical history and hospitalization. For further details, please see the entire medical record. TIME SPENT: Time for this discharge is approximately 50 minutes, greater than half of that was spent with the patient and son discussing discharge plans and instructions. CONDITION ON DISCHARGE: Stable. FELICITA LIU, DIRECTOR OF BUSINESS SERVICES [id number]/[facility] #: [id number] GUIDO
[2017-02-02 18:04] LABS: JAK2 V617F Interpretation/Repo see interpretation
== END 2017-01-30 17:28 | disposition home or self-care (01) ==
LOC: ED 12:46 → UNDOADMOB 14:49 → MEDTELE 14:49 → ED 16:00
PROVIDERS: ADMIT Internal Medicine; ATTEND Internal Medicine
DX: R42 Dizziness and giddiness (principal); R94.39 Abnormal result of other cardiovascular function study; I95.1 Orthostatic hypotension; D75.1 Secondary polycythemia; R74.8 Abnormal levels of other serum enzymes; R94.4 Abnormal results of kidney function studies; E11.9 Type 2 diabetes mellitus without complications; I10 Essential (primary) hypertension; E78.00 Pure hypercholesterolemia, unspecified; G47.33 Obstructive sleep apnea (adult) (pediatric); G62.9 Polyneuropathy, unspecified; Z86.73 Personal history of transient ischemic attack (TIA), and cerebral infarction without residual deficits; Z79.899 Other long term (current) drug therapy; Z79.84 Long term (current) use of oral hypoglycemic drugs; Z79.82 Long term (current) use of aspirin; E66.9 Obesity, unspecified; R94.31 Abnormal electrocardiogram [ECG] [EKG]
CPT/HCPCS: 36415; 70450; 71020; 78452; 80048; 80053; 81270; 83036; 83605; 83735; 83880; 84443; 84484; 85025; 93005; 93017; 93306; 96360; 96361; 96372; 99283; A9270-GY; A9502; C8929; G0378; J0280; J1644; J2785

== ENCOUNTER 2017-09-19 12:45 | Emergency (ER) | payer BC, MEDICARE ==
--- NOTE | 2017-09-19 13:46 | RAD ---
INDICATION: Syncope COMPARISON: Most recent CT of the brain is dated January 29, 2017 TECHNIQUE: Contiguous axial sections of the brain were obtained from the skull base to the vertex without contrast. FINDINGS: Unless otherwise specified comparisons below reference the 1916 CT examination. The ventricles, cisterns and sulci involutional changes greater at the left anterior horn unchanged since the most recent CT examination.. There is stable encephalomalacia in the region of the left caudate head nucleus and anterior left basal ganglia unchanged from the previous CT of the brain. There is mild periventricular and subcortical white matter hypoattenuation, similar in appearance to the previous CT examination and most consistent with mild chronic microvascular disease. The bell-white matter differentiation is adequately maintained and there is no sulcal effacement. No significant focal abnormality or mass effect is present. There is no evidence for intracranial hemorrhage. No significant focal osseous abnormality is present. The visualized portion of the paranasal sinuses appear clear. The mastoid air cells are well aerated bilaterally. IMPRESSION: Chronic findings as described above have not changed significantly since the January 29, 2017 CT of the brain. There is no acute intracranial abnormality.
--- NOTE | 2017-09-19 14:01 | RAD ---
INDICATION: Syncope COMPARISON: Chest x-ray dated January 29, 2017 TECHNIQUE: PA and lateral views of the chest were obtained. FINDINGS: The heart and mediastinum are normal in size and contour. There is mild calcification overlying the arch of the aorta. The lungs are grossly clear. There is no evidence of large pleural effusion. Visualized bones are normal for the patient's age. There is no radiographic evidence of free air beneath the diaphragm IMPRESSION: No radiographic evidence of acute cardiopulmonary disease.
[2017-09-19 14:11] LABS: Hematocrit 53 % (42-52); Mean Corpuscular HGB Conc 34 g/dl (31-36); Mean Corpuscular Hemoglobin 30 pg (27-31); Mean Corpuscular Volume 86 fL (80-94); Platelet Count 302 10^3/ul (150-450); Red Blood Count 6.12 10^6/ul (4.0-5.4); Red Cell Distribution Width 14 % (10.5-15); White Blood Count 14.4 10^3/ul (3.5-10.8)
[2017-09-19 14:28] LABS: EGFR Non-African American 54.8 (>60)
[2017-09-19 14:34] LABS: ABS Basophils 0.3 10^3/ul (0-0.2); ABS Eosinophils 0.5 10^3/ul (0-0.6); ABS Lymphocytes 1.6 10^3/ul (1.0-4.8); ABS Monocytes 0.7 10^3/ul (0-0.8); ABS Neutrophils 11.4 10^3/ul (1.5-7.7); ABS Nucleated RBC 0 10^3/ul; Eosinophil % 3.2 % (0-6); Lymphocyte % 10.9 % (25-47); Nucleated Red Blood Cells % 0.2
[2017-09-19] MEDS ORDERED: NS 0.9% 1000 ML* 1,000 ML IV ONE (16:25)
--- NOTE | 2017-09-19 17:15 | ED ---
Gaviota Tripathi Julia, scribed for Ranjeet Harvey MD on 09/19/17 at 1355 . 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 Patient does not remember the syncopal event. Denies headache, CP , SOB, and fever. He ate breakfast this morning but no lunch. He has no other complaints at this time and is alert and oriented. - History Of Current Complaint Chief Complaint: EDSyncope Time Seen by Provider: 09/19/17 13:00 Hx Obtained From: Patient, EMS Onset/Duration: Sudden Onset Context: Witnessed, Loss Of Consciousness Activity At Onset: Unknown Alleviating Factor(s): Spontaneous Resolution Associated Signs And Symptoms: Negative - Allergies/Home Medications Allergies/Adverse Reactions: Allergies Allergy/AdvReac Type Severity Reaction Status Date / Time No Known Allergies Allergy Verified 12/09/15 18:50 Home Medications: Home Medications Gabapentin CAP(*) [Neurontin 300 CAP(*)] 900 mg PO BEDTIME 09/19/17 [History Confirmed 09/19/17] Insulin Lispro Protamin/Lispro [Humalog Mix 75/25 Kwikpen] 40 units SUBCUT QPM 09/19/17 [History Confirmed 09/19/17] Insulin Lispro Protamin/Lispro [Humalog Mix 75/25 Kwikpen] 80 units SUBCUT QAM 09/19/17 [History Confirmed 09/19/17] Lisinopril TAB* [Prinivil TAB*] 40 mg PO DAILY 09/19/17 [History Confirmed 09/19] Pravastatin (NF) [Pravachol (NF)] 20 mg PO BEDTIME 09/19/17 [History Confirmed 09/19/17] Sertraline* [Zoloft*] 25 mg PO DAILY 09/19/17 [History Confirmed 09/19/17] SitaGLIPtin (NF) [Januvia (NF)] 100 mg PO DAILY 09/19/17 [History Confirmed 12/29] amLODIPine TAB* [Norvasc 5 mg TAB*] 5 mg PO DAILY 09/19/17 [History Confirmed ] glipiZIDE TAB.XL* [Glucotrol XL*] 20 mg PO DAILY 09/19/17 [History Confirmed 12/29] metFORMIN* [Glucophage 850 MG TAB *] 850 mg PO BID 09/19/17 [History Confirmed 09/19/17] PMH/Surg Hx/FS Hx/Imm Hx Endocrine/Hematology History: Reports: Hx Diabetes Cardiovascular History: Reports: Hx Hypercholesterolemia, Hx Hypertension Denies: Hx Pacemaker/ICD Respiratory History: Reports: Hx Sleep Apnea Musculoskeletal History: Reports: Hx Arthritis Sensory History: Reports: Hx Contacts or Glasses Denies: Hx Hearing Aid Opthamlomology History: Reports: Hx Contacts or Glasses Neurological History: Reports: Hx CVA Denies: Other Neuro Impairments/Disorders Psychiatric History: Denies: Hx Panic Disorder - Surgical History Surgery Procedure, Year, and Place: SEBACIOUS CYST REMOVED FROM BACK OF NECK Infectious Disease History: No Infectious Disease History: Denies: Traveled Outside the [place] in Last 30 Days - Family History Known Family History: Positive: Other - no ulcers or intestinal diseases - Social History Alcohol Use: None Hx Substance Use: No Substance Use Type: Reports: None Hx Tobacco Use: No Smoking Status (MU): Never Smoked Tobacco Review of Systems Negative: Fever Negative: Chest Pain Negative: Shortness Of Breath Positive: Syncope. Negative: Headache All Other Systems Reviewed And Are Negative: Yes Physical Exam - Summary Physical Exam Summary: VITAL SIGNS: Reviewed. GENERAL: Patient is a well-developed and nourished male who is lying comfortable in the stretcher. Patient is not in any acute respiratory distress. HEAD AND FACE: No signs of trauma. No ecchymosis, hematomas or skull depressions. No sinus tenderness. EYES: PERRLA, EOMI x 2, No injected conjunctiva, no nystagmus. EARS: Hearing grossly intact. Ear canals and tympanic membranes are within normal limits. MOUTH: Oropharynx within normal limits. NECK: Supple, trachea is midline, no adenopathy, no JVD, no carotid bruit, no c- spine tenderness, neck with full ROM. CHEST: Symmetric, no tenderness at palpation LUNGS: Clear to auscultation bilaterally. No wheezing or crackles. CVS: Regular rate and rhythm, S1 and S2 present, no murmurs or gallops appreciated. ABDOMEN: Soft, non-tender. No signs of distention. No rebound no guarding, and no masses palpated. Bowel sounds are normal. EXTREMITIES: FROM in all major joints, no edema, no cyanosis or clubbing. NEURO: Alert and oriented x 3. No acute neurological deficits. Speech is normal and follows commands. SKIN: Dry and warm Triage Information Reviewed: Yes Vital Signs On Initial Exam: Initial Vitals Temp Pulse Resp BP Pulse Ox 97.4 F 72 14 134/79 99 09/19/17 13:02 09/19/17 13:02 09/19/17 13:02 09/19/17 13:02 09/19/17 13:02 Vital Signs Reviewed: Yes Diagnostics - Vital Signs Vital Signs Temp Pulse Resp BP Pulse Ox 09/19/17 13:05 71 18 98 09/19/17 13:02 97.4 F 72 14 134/79 99 - Laboratory Lab Results: Lab Results 09/19/17 09/19/17 09/19/17 Range/Units 14:03 14:03 14:03 WBC 14.4 H (3.5-10.8) 10^3/ul RBC 6.12 H (4.0-5.4) 10^6/ul Hgb 18.0 (14.0-18.0) g/dl Hct 53 H (42-52) % MCV 86 (80-94) fL MCH 30 (27-31) pg MCHC 34 (31-36) g/dl RDW 14 (10.5-15) % Plt Count 302 (150-450) 10^3/ul MPV 8.0 (7.4-10.4) um3 Neut % (Auto) 79.1 (38-83) % Lymph % (Auto) 10.9 L (25-47) % [place] % (Auto) 4.7 (0-7) % Eos % (Auto) 3.2 (0-6) % Baso % (Auto) 2.1 H (0-2) % Absolute Neuts (auto) 11.4 H (1.5-7.7) 10^3/ul Absolute Lymphs (auto) 1.6 (1.0-4.8) 10^3/ul Absolute Monos (auto) 0.7 (0-0.8) 10^3/ul Absolute Eos (auto) 0.5 (0-0.6) 10^3/ul Absolute Basos (auto) 0.3 H (0-0.2) 10^3/ul Absolute Nucleated RBC 0 10^3/ul Nucleated RBC % 0.2 APTT (26.0-36.3) seconds Sodium 137 L (139-145) mmol/L Potassium 5.0 (3.5-5.0) mmol/L Chloride 102 (101-111) mmol/L Carbon Dioxide 28 (22-32) mmol/L Anion Gap 7 (2-11) mmol/L BUN 25 H (6-24) mg/dL Creatinine 1.28 H (0.67-1.17) mg/dL Est GFR ( Amer) 70.5 (>60) Est GFR (Non-Af Amer) 54.8 (>60) BUN/Creatinine Ratio 19.5 (8-20) Glucose 69 L (70-100) mg/dL Lactic Acid 1.6 (0.5-2.0) mmol/L Calcium 10.0 (8.6-10.3) mg/dL Magnesium 2.1 (1.9-2.7) mg/dL Total Bilirubin 0.80 (0.2-1.0) mg/dL AST 18 (13-39) U/L ALT 19 (7-52) U/L Alkaline Phosphatase 111 H (34-104) U/L Total Creatine Kinase 35 (10-223) U/L Troponin I 0.02 (<0.04) ng/mL B-Natriuretic Peptide ( - 100) pg/mL Total Protein 7.3 (6.4-8.9) g/dL Albumin 4.1 (3.2-5.2) g/dL Globulin 3.2 (2-4) g/dL Albumin/Globulin Ratio 1.3 (1-3) TSH 2.34 (0.34-5.60) mcIU/mL 09/19/17 09/19/17 Range/Units 14:03 14:03 WBC (3.5-10.8) 10^3/ul RBC (4.0-5.4) 10^6/ul Hgb (14.0-18.0) g/dl Hct (42-52) % MCV (80-94) fL MCH (27-31) pg MCHC (31-36) g/dl RDW (10.5-15) % Plt Count (150-450) 10^3/ul MPV (7.4-10.4) um3 Neut % (Auto) (38-83) % Lymph % (Auto) (25-47) % [place] % (Auto) (0-7) % Eos % (Auto) (0-6) % Baso % (Auto) (0-2) % Absolute Neuts (auto) (1.5-7.7) 10^3/ul Absolute Lymphs (auto) (1.0-4.8) 10^3/ul Absolute Monos (auto) (0-0.8) 10^3/ul Absolute Eos (auto) (0-0.6) 10^3/ul Absolute Basos (auto) (0-0.2) 10^3/ul Absolute Nucleated RBC 10^3/ul Nucleated RBC % APTT 33.7 (26.0-36.3) seconds Sodium (139-145) mmol/L Potassium (3.5-5.0) mmol/L Chloride (101-111) mmol/L Carbon Dioxide (22-32) mmol/L Anion Gap (2-11) mmol/L BUN (6-24) mg/dL Creatinine (0.67-1.17) mg/dL Est GFR ( Amer) (>60) Est GFR (Non-Af Amer) (>60) BUN/Creatinine Ratio (8-20) Glucose (70-100) mg/dL Lactic Acid (0.5-2.0) mmol/L Calcium (8.6-10.3) mg/dL Magnesium (1.9-2.7) mg/dL Total Bilirubin (0.2-1.0) mg/dL AST (13-39) U/L ALT (7-52) U/L Alkaline Phosphatase (34-104) U/L Total Creatine Kinase (10-223) U/L Troponin I (<0.04) ng/mL B-Natriuretic Peptide 113 H ( - 100) pg/mL Total Protein (6.4-8.9) g/dL Albumin (3.2-5.2) g/dL Globulin (2-4) g/dL Albumin/Globulin Ratio (1-3) TSH (0.34-5.60) mcIU/mL Result Diagrams: 09/19/17 14:03 09/19/17 14:03 Lab Statement: Any lab studies that have been ordered have been reviewed, and results considered in the medical decision making process. - Radiology CXR Radiology Interpretation Completed By: Radiologist - No radiographic evidence of acute cardiopulmonary disease. ED Physician has reviewed this report. - CT Brain CT CT Interpretation Completed By: Radiologist - Chronic findings as described above have not changed significantly since the January 29, 2017 CT of the brain. There is no acute intracranial abnormality. ED Physician has reviewed this report. - EKG 1328 Cardiac Rate: NL - 70 BPM EKG Rhythm: Sinus Rhythm ST Segment: Normal EKG Interpretation: no ST elevation EKG Comparison: No Significant Change - 07/18/2017 Course/Dx Assessment/Plan: This patient is a 77-year-old male who presents to the emergency department after he sustained an syncopal episode with positive loss of consciousness. Hospital The Patient Did Not Have Any Tremors, Did Not Have Any diaphoresis typically from a hypoglycemic attack. He was on the and he syncopize. He has past medical history significant for dizziness. Polycythemia, Diabetes, Hypertension, CVA, Dyslipidemia. Blood test results without significant abnormality except for WBCs of 14.4,. 25, creatinine 1.28, glucose of 69, troponin is 0.02 and BNP is 113. Head CT impression: Chronic findings. There is no acute intracranial pathology. Chest x-ray impression: No radiographic evidence of acute cardiopulmonary disease. The patient continues to be asymptomatic. The patient had lunch and she doesnt have any complaints. Because of the extensive past medical history and syncopal episodes with positive loss of consciousness as per son. I believe that the patient should be admitted to the hospitalist services for further workup and management on syncope . Therefore, I discussed my physical exam, findings and to discuss with Dr. Bennett who requests for the patient to be discharged home with follow-up with primary care physician. Since I do not agree with discharge , I requested a consult from her before the patient is discharged. Dr. Bennett came and saw the patient and after her assessment she may recommendations to recheck the blood pressure, given IV fluids, and decreased the insulin dose to 60 units per day. I still do not believe that the patient should be discharged however Dr. Patel will be discharge the patient home with the recommendations and follow with PCP. I discussed the plan with the patient and the patients son and they agree. The patient is unremitting, he ate and he was given IV fluids. - Diagnoses Differential Diagnosis/HQI/PQRI: Positive: Cerebral Vascular Accident, Coronary Artery Disease, Hypoglycemia, Hypovolemia, Metabolic Reaction, Myocardial Infarction, Seizure, Transient Ischemic Attack, Vasovagal Episode, Other - Arrhytmia Provider Diagnoses: Syncope - Physician Notifications Discussed Care of Patient With: Dagmar Bennett - hospitalist Time Discussed With Above Provider: 15:35 Instructed by Provider To: Other - recommends discharging the patient and will see in ED. Dr. Bennett visted patient around 1600 and still recommends discharging patient. Discharge - Sign-Out/Discharge Documenting (check all that apply): Discharge/Admit/Transfer - Discharge Plan Condition: Stable Disposition: HOME Patient Education Materials: Syncope (ED) Referrals: Nitesh Mendez MD [Primary Care Provider] - 3 Days Additional Instructions: RETURN TO THE EMERGENCY DEPARTMENT FOR ANY WORSENING OR NEW SYMPTOMS. - Billing Disposition and Condition Condition: STABLE Disposition: Home The documentation as recorded by the Gaviota arellaon Julia accurately reflects the service I personally performed and the decisions made by Wes blanchard Walter, MD.
[2017-09-19 18:06] LABS: Urine Appearance Clear; Urine Blood Negative (Negative); Urine Color Yellow; Urine Ketones Negative (Negative); Urine Protein Negative (Negative); Urine Specific Gravity 1.012 (1.010-1.030); Urine Urobilinogen Negative (Negative)
[2017-09-19 18:09] VITALS: BP 155/92
--- NOTE | 2017-09-19 23:04 | CONS ---
CC: Dr. Harvey; Dr. Marrufo; Dr. Mendez * CONSULTATION REPORT: DATE OF CONSULTATION: 09/19/17 PRIMARY CARE PROVIDER: Dr. Nitesh Mendez. REASON FOR CONSULTATION: Near syncope and hypoglycemia and possibility of admission that was requested by Dr. Harvey. CHIEF COMPLAINT: Dizziness. HISTORY OF PRESENT ILLNESS: Dayton Krueger is a 77-year-old male with history of episodes of dizziness in the past that apparently got better when he ate something sweet. Mr. Krueger today ate cereal for breakfast at 4 a.m. in the morning and then at noon, he went to a friend's . He stood in the worship for about 10 minutes before the service started and he started feeling hot, sweaty and dizzy. He went to back to his car to sit down and continued to feel hot and his family brought him to the ED. The patient denies having a syncopal episode, losing consciousness, falling down, or hurting himself. Upon the evaluation in the emergency department, the patient had mild leukocytosis and his glucose level was 69. The patient was given crackers. His orthostatic blood pressures were also noted to be positive for orthostatic hypotension with a blood pressure systolic when lying down at 133 and when standing up at 114. A consultation was recommended with the possibility of patient's admission. History of recurrent episodes of dizziness in the past. During one of those episodes in January of 2017, the patient was admitted to the hospital and his cardiac evaluation noted to have cardiac stress test that showed small area of ischemia at the apical and inferolateral segments. His EF was noted to be 47. The patient's troponin at this point noted to be 0.08. The patient was offered cardiac catheterization for which he would have to stay over the weekend. He was not interested in that and he was discharged home with recommendation to follow up with cardiac catheterization a week later, that was still in January of 2017. So far, he has not had a cardiac catheterization. He himself is not sure what happened. It does not appear that he followed up with Dr. Marrufo as an outpatient. PAST MEDICAL HISTORY: 1. History of EF of 47% and inferior ischemia noted on stress in January of 2017. 2. History of hypertension. 3. Diabetes type 2. 4. Neuropathy. 5. History of CVA in 2012. 6. Hypercholesterolemia. 7. Carpal tunnel release in bilateral hands. 8. Obstructive sleep apnea. 9. Anxiety. MEDICATIONS: At home include: 1. Insulin 75/25 40 units in p.m. and 80 units in the morning. 2. Glipizide 20 mg daily. 3. Amlodipine 5 mg daily. 4. Zoloft 25 mg daily. 5. Pravachol 20 mg at bedtime. 6. Gabapentin 900 mg at bedtime. 7. Metformin 850 mg b.i.d. 8. Januvia 100 mg daily. 9. Lisinopril 40 mg daily. FAMILY HISTORY: Noncontributory. The patient is adopted and the history is unknown. SOCIAL HISTORY: The patient denies any tobacco, alcohol or drug use. He is retired from work in the [employer] department. He is a recent as of 2 years ago. He lives with his son, Johnson Krueger, who is his surrogate. REVIEW OF SYSTEMS: Please see history of present illness. All the remaining 12 systems were reviewed with the patient and were otherwise negative. PHYSICAL EXAM: Blood pressure of 114/64, heart rate of 69 and regular, respiratory rate 18, oxygen saturation 97% on room air, temperature of 97.4. General: The patient is a very pleasant 77-year-old male, who is in no acute distress. The patient is alert and oriented x3 with poor recall and rather poor historian. HEENT: Head: Atraumatic, normocephalic. Eyes: Pupils are equal, reactive to light and accommodation. Oropharynx clear. Mucosa moist. Neck: Supple. No JVD. No bruits bilaterally. Cardiovascular: Regular rate and rhythm. No murmur. Respiratory: Clear to auscultation bilaterally. Abdomen: Soft, nontender. Bowel sounds are present in all 4 quadrants. Extremities: There is no edema. No clubbing or cyanosis. Pedal pulses are +1 bilaterally. Neuro Evaluation: Speech clear. Cranial nerves II through XII are grossly intact. Motor strength is 5/5 bilaterally. LABORATORY DATA: Showed white blood cell count of 14.4, hemoglobin of 18.0, hematocrit of 43, and platelets of 302. Sodium was 137, potassium 5.0, chloride 102, carbon dioxide 28, BUN 25, creatinine 1.28. Liver function tests unremarkable. Glucose level of 69. Troponin of 0.02. Brain natriuretic peptide was 113. TSH was 2.3. The patient's EKG showed normal sinus rhythm with prolonged NC interval, unchanged from prior. No acute ST-T changes. Portable chest x-ray shows no radiographic evidence of cardiopulmonary disease. Brain CT, impression: "Chronic findings as described above. There are no changes significantly since the 01/29/17 CT of the brain." Furthermore in the body of the report, it shows that the patient has a stable encephalomalacia in the region of left caudate head nucleus and anterior left basal ganglia unchanged from the previous CT. ASSESSMENT AND PLAN: Today's near syncopal episode and the patient's symptoms are likely related to his hypoglycemia. He has not eaten for over 8 hours and he is diabetic. He also has orthostatic changes in blood pressure and orthostatic hypotension. At this point, my recommendations are as follows: 1. The patient should be treated with intravenous fluid bolus and rechecking his orthostatics. 2. I recommend feeding the patient a full meal and recheck his glucose level. I also advised for the patient to lower his morning insulin dose to 60 mg daily from previous 80. 3. The patient already has a scheduled appointment with his primary care provider on 09/22/17, which he is recommended to keep. Please note the patient was offered to be admitted for the near syncopal episodes and hypoglycemia, but he refused. The case was discussed with the Dr. Harvey from the emergency department. Thank you very much for allowing me to see your patient in consultation. TIME SPENT: Approximately 62 minutes were spent on the patient's consultation and half of that time was spent [id number] with the patient during evaluation. [id number]/[facility] #: [id number]
== END 2017-09-19 18:09 | disposition home or self-care (01) ==
LOC: ED 12:45
DX: R55 Syncope and collapse (principal); E11.9 Type 2 diabetes mellitus without complications; I10 Essential (primary) hypertension; D75.1 Secondary polycythemia; E78.5 Hyperlipidemia, unspecified; M19.90 Unspecified osteoarthritis, unspecified site; Z86.73 Personal history of transient ischemic attack (TIA), and cerebral infarction without residual deficits; Z79.4 Long term (current) use of insulin; Z79.84 Long term (current) use of oral hypoglycemic drugs
CPT/HCPCS: 36415; 70450; 71046; 80053; 80307; 81003; 82550; 83605; 83735; 83880; 84443; 84484; 85025; 85730; 93005; 99283

== ENCOUNTER 2017-09-21 11:00 | Observation (INO) | payer MEDICARE ==
[2017-09-21 12:33] LABS: ABS Basophils 0.1 10^3/ul (0-0.2); ABS Eosinophils 0.4 10^3/ul (0-0.6); ABS Lymphocytes 2.3 10^3/ul (1.0-4.8); ABS Monocytes 0.9 10^3/ul (0-0.8); ABS Neutrophils 8.3 10^3/ul (1.5-7.7); ABS Nucleated RBC 0 10^3/ul; Eosinophil % 3.3 % (0-6); Hematocrit 50 % (42-52); Hemoglobin 16.9 g/dl (14.0-18.0); Lymphocyte % 19.1 % (25-47); Mean Corpuscular HGB Conc 34 g/dl (31-36); Mean Corpuscular Hemoglobin 29 pg (27-31); Mean Corpuscular Volume 86 fL (80-94); Mean Platelet Volume 8.1 um3 (7.4-10.4); Nucleated Red Blood Cells % 0; Platelet Count 271 10^3/ul (150-450); Red Blood Count 5.78 10^6/ul (4.00-5.40); Red Cell Distribution Width 14 % (10.5-15); White Blood Count 11.9 10^3/ul (3.5-10.8)
[2017-09-21 12:53] LABS: EGFR Non-African American 59.6 (>60)
--- NOTE | 2017-09-21 13:11 | ED ---
Complex/Multi-Sys Presentation - HPI Summary HPI Summary: Patient presents here today for the second time since September 19 2017 - his chief complaint today is right mid axillary pain since syncopizing on the - concerned for rib fracture. He was seen September 19 for abrupt syncope while at a . He reports it was "hot in there" however after workup here, Dr. Harvey was concerned for possibly an arrhythmia among other differential diagnoses. Wes requested consult with Dr. Bennett who felt the patient's symptoms were due to hypoglycemia and that he could be d/c'd home w/ med adjustment. She recommended lowering his insulin outpatient from 80units to 60 units. He reports he takes this 2 x day. Patient has not been able to lease picker the new insulin order as he can't afford it so he has not been taking any insulin since 09/19. Furthermore, he reports he fell last night. It is unclear if it was a mechanical fall or a fall due to inbalance/weakness. He reports he was on the floor for "a while" and couldn't get up - was yelling to grandson who never came to help him. He eventually crawled to the couch to help himself up. He reports this was mostly due to pain in the right axillary area. He denies fever , chills, chest pain, shortness of breath, head injury, neck pain, numbness, tingling, weakness, cough, hemoptysis. He and his son reports he has been feeling "lethargic" over the past month or so and that he had unintentional weight loss (pt states he has been eating less but not sure why - appetite was decreased). Patient remarks he starting to gain some weight back but still feels lethargic. No other injuries as a result of fall. H/o CVA. - History Of Current Complaint Time Seen by Provider: 09/21/17 11:11 Hx Obtained From: Patient, Family/Survey Questionnaire Designer - son - Allergies/Home Medications Allergies/Adverse Reactions: Allergies Allergy/AdvReac Type Severity Reaction Status Date / Time No Known Allergies Allergy Verified 09/21/17 11:07 PMH/Surg Hx/FS Hx/Imm Hx Previously Healthy: Yes Endocrine/Hematology History: Reports: Hx Diabetes - insulin Denies: Hx Anticoagulant Therapy, Hx Thyroid Disease, Hx Anemia Cardiovascular History: Reports: Hx Hypercholesterolemia, Hx Hypertension Denies: Hx Pacemaker/ICD Respiratory History: Reports: Hx Sleep Apnea Musculoskeletal History: Reports: Hx Arthritis Sensory History: Reports: Hx Contacts or Glasses Denies: Hx Hearing Aid Opthamlomology History: Reports: Hx Contacts or Glasses Neurological History: Reports: Hx CVA Denies: Other Neuro Impairments/Disorders Psychiatric History: Denies: Hx Panic Disorder - Surgical History Surgery Procedure, Year, and Place: SEBACIOUS CYST REMOVED FROM BACK OF NECK Infectious Disease History: No Infectious Disease History: Denies: Traveled Outside the [place] in Last 30 Days - Family History Known Family History: Positive: Other - no ulcers or intestinal diseases - Social History Occupation: Retired Lives: With Family - lives in his house - son lives out back w/ grandson Alcohol Use: None Hx Substance Use: No Substance Use Type: Reports: None Hx Tobacco Use: No Smoking Status (MU): Never Smoked Tobacco Review of Systems Positive: Fatigue Eyes: Negative ENT: Negative Cardiovascular: Negative Respiratory: Negative Gastrointestinal: Negative Positive: no symptoms reported Positive: Arthralgia Skin: Negative Neurological: Negative Positive: Anxious All Other Systems Reviewed And Are Negative: Yes Physical Exam Triage Information Reviewed: Yes Vital Signs On Initial Exam: Initial Vitals Temp Pulse Resp BP Pulse Ox 96.7 F 67 17 134/62 99 09/21/17 11:03 09/21/17 11:03 09/21/17 11:03 09/21/17 11:03 09/21/17 11:03 Vital Signs Reviewed: Yes Appearance: Positive: Well-Appearing, Well-Nourished, Pain Distress - mild to moderate Skin: Positive: Warm, Skin Color Reflects Adequate Perfusion, Dry - no ecchymosis over affected area in Rt midaxillary region Head/Face: Positive: Normal Head/Face Inspection Eyes: Positive: Normal, EOMI, TRISHA, Conjunctiva Clear ENT: Positive: Normal ENT inspection, Hearing grossly normal, Pharynx normal - mucosa moist Neck: Positive: Supple, Nontender Respiratory/Lung Sounds: Positive: Clear to Auscultation, Breath Sounds Present , Other - pain w/ deep breathes. Negative: Stridor, Tracheal Deviation Cardiovascular: Positive: Normal, Pulses are Symmetrical in both Upper and Lower Extremities, S1, S2. Negative: Murmur, Rub, Leg Edema Left, Leg Edema Right Abdomen Description: Positive: Nontender, No Organomegaly, Soft Bowel Sounds: Positive: Present Musculoskeletal: Positive: Limited @ - Rt UE movement pain (shoulder) in Rt midaxillary region - TTP over ribs here - no flail chest, no crepitus, Other Neurological: Positive: Normal, Sensory/Motor Intact, Alert, Oriented to Person Place, Time, CN Intact II-III Psychiatric: Positive: Normal Diagnostics - Vital Signs Vital Signs Temp Pulse Resp BP Pulse Ox 09/21/17 12:30 70 116/69 09/21/17 11:03 96.7 F 67 17 134/62 99 - Laboratory Lab Results: Lab Results 09/21/17 09/21/17 09/21/17 Range/Units 12:20 12:20 12:20 WBC (3.5-10.8) 10^3/ul RBC (4.00-5.40) 10^6/ul Hgb (14.0-18.0) g/dl Hct (42-52) % MCV (80-94) fL MCH (27-31) pg MCHC (31-36) g/dl RDW (10.5-15) % Plt Count (150-450) 10^3/ul MPV (7.4-10.4) um3 Neut % (Auto) (38-83) % Lymph % (Auto) (25-47) % [place] % (Auto) (0-7) % Eos % (Auto) (0-6) % Baso % (Auto) (0-2) % Absolute Neuts (auto) (1.5-7.7) 10^3/ul Absolute Lymphs (auto) (1.0-4.8) 10^3/ul Absolute Monos (auto) (0-0.8) 10^3/ul Absolute Eos (auto) (0-0.6) 10^3/ul Absolute Basos (auto) (0-0.2) 10^3/ul Absolute Nucleated RBC 10^3/ul Nucleated RBC % D-Dimer, Quantitative (Less Than 230) ng/mL Sodium 134 L (139-145) mmol/L Potassium 4.2 (3.5-5.0) mmol/L Chloride 99 L (101-111) mmol/L Carbon Dioxide 28 (22-32) mmol/L Anion Gap 7 (2-11) mmol/L BUN 23 (6-24) mg/dL Creatinine 1.19 H (0.67-1.17) mg/dL Est GFR ( Amer) 76.6 (>60) Est GFR (Non-Af Amer) 59.6 (>60) BUN/Creatinine Ratio 19.3 (8-20) Glucose 211 H (70-100) mg/dL Lactic Acid 2.0 (0.5-2.0) mmol/L Calcium 9.3 (8.6-10.3) mg/dL Magnesium 1.8 L (1.9-2.7) mg/dL Total Bilirubin 1.10 H (0.2-1.0) mg/dL AST 13 (13-39) U/L ALT 16 (7-52) U/L Alkaline Phosphatase 93 (34-104) U/L C-Reactive Protein 26.95 H (< 5.00) mg/L B-Natriuretic Peptide 55 ( - 100) pg/mL Total Protein 6.6 (6.4-8.9) g/dL Albumin 3.6 (3.2-5.2) g/dL Globulin 3.0 (2-4) g/dL Albumin/Globulin Ratio 1.2 (1-3) 09/21/17 09/21/17 Range/Units 12:20 12:21 WBC 11.9 H (3.5-10.8) 10^3/ul RBC 5.78 H (4.00-5.40) 10^6/ul Hgb 16.9 (14.0-18.0) g/dl Hct 50 (42-52) % MCV 86 (80-94) fL MCH 29 (27-31) pg MCHC 34 (31-36) g/dl RDW 14 (10.5-15) % Plt Count 271 (150-450) 10^3/ul MPV 8.1 (7.4-10.4) um3 Neut % (Auto) 69.6 (38-83) % Lymph % (Auto) 19.1 L (25-47) % [place] % (Auto) 7.4 H (0-7) % Eos % (Auto) 3.3 (0-6) % Baso % (Auto) 0.6 (0-2) % Absolute Neuts (auto) 8.3 H (1.5-7.7) 10^3/ul Absolute Lymphs (auto) 2.3 (1.0-4.8) 10^3/ul Absolute Monos (auto) 0.9 H (0-0.8) 10^3/ul Absolute Eos (auto) 0.4 (0-0.6) 10^3/ul Absolute Basos (auto) 0.1 (0-0.2) 10^3/ul Absolute Nucleated RBC 0 10^3/ul Nucleated RBC % 0 D-Dimer, Quantitative 585 H (Less Than 230) ng/mL Sodium (139-145) mmol/L Potassium (3.5-5.0) mmol/L Chloride (101-111) mmol/L Carbon Dioxide (22-32) mmol/L Anion Gap (2-11) mmol/L BUN (6-24) mg/dL Creatinine (0.67-1.17) mg/dL Est GFR ( Amer) (>60) Est GFR (Non-Af Amer) (>60) BUN/Creatinine Ratio (8-20) Glucose (70-100) mg/dL Lactic Acid (0.5-2.0) mmol/L Calcium (8.6-10.3) mg/dL Magnesium (1.9-2.7) mg/dL Total Bilirubin (0.2-1.0) mg/dL AST (13-39) U/L ALT (7-52) U/L Alkaline Phosphatase (34-104) U/L C-Reactive Protein (< 5.00) mg/L B-Natriuretic Peptide ( - 100) pg/mL Total Protein (6.4-8.9) g/dL Albumin (3.2-5.2) g/dL Globulin (2-4) g/dL Albumin/Globulin Ratio (1-3) Result Diagrams: 09/21/17 12:21 09/21/17 12:20 Lab Statement: Any lab studies that have been ordered have been reviewed, and results considered in the medical decision making process. Complex Multi-Symp Course/Dx Course Of Treatment: Patient presents for second time to ED with persistent weakness and another fall last night. He initially came in to report he's having right-sided upper rib pain which he believes was the result of a fall on September 19 when he was first seen. Today, His CT of his chest does indicate he has a sixth rib fracture but no PE. Pain medication has been ordered for the rib fracture however after reviewing patient's last visit note which reveals ED provider wanted admission but he was DC'd home with efforts to better control his insulin and this has not helped, will admit today. Spoke w/ Dr. Harvey and Dr. Ca. Pt admitted in stable condition. - Diagnoses Provider Diagnoses: Rib fracture, Weakness Discharge - Sign-Out/Discharge Documenting (check all that apply): Discharge/Admit/Transfer - Discharge Plan Condition: Stable Disposition: ADMITTED TO [facility] - Billing Disposition and Condition Condition: STABLE Disposition: Admitted to [facility]
[2017-09-21] MEDS ORDERED: Iodixanol* (CONTRAST) 320 MG/ML 100 ML SDV IV ONE (13:16)
--- NOTE | 2017-09-21 13:53 | RAD ---
HISTORY: lethargy x 2 weeks, Rt axillary pain COMPARISONS: None TECHNIQUE: Multiple contiguous axial CT scans of the chest were obtained with intravenous contrast. Coronal and sagittal multiplanar reformations are also submitted for review. FINDINGS: NECK AND THYROID: The lower neck and thyroid are unremarkable. CHEST WALL: There is no lower cervical, axillary, or supraclavicular lymphadenopathy by size criteria. HEART AND PERICARDIUM: Coronary and valvular cardiac calcifications are noted. AORTA AND PULMONARY VASCULATURE: There is calcification of the thoracic aorta. The pulmonary vasculature is unremarkable. MEDIASTINUM: There are subcentimeter short axis lymph nodes with fatty gene. There is no lymphadenopathy by size criteria. GENE: There is no hilar lymphadenopathy by size criteria. AIRWAY AND ESOPHAGUS: The airway is unremarkable, without endobronchial filling defect. The esophagus is grossly normal. LUNG PARENCHYMA: The lungs are clear. PLEURA: No pleural abnormalities are noted. UPPER ABDOMEN: There is fatty infiltration of the liver. BONES AND SOFT TISSUES: Degenerative changes are noted of the spine. There is a nondisplaced fracture of the right sixth rib. OTHER: None. IMPRESSION: 1. NONDISPLACED FRACTURE OF THE RIGHT SIXTH RIB. 2. ATHEROSCLEROSIS. 3. FATTY INFILTRATION OF LIVER. 4. DEGENERATIVE CHANGES.
[2017-09-21] MEDS ORDERED: Acetaminophen TAB* 325 MG PO ONE (14:47)
[2017-09-21 16:31] LABS: Urine Appearance Clear; Urine Blood Negative (Negative); Urine Color Straw; Urine Ketones Trace (Negative); Urine Protein Negative (Negative); Urine Specific Gravity 1.028 (1.010-1.030); Urine Urobilinogen Negative (Negative)
[2017-09-21] MEDS ORDERED: [UNRECOGNIZED DRUG - OTHER] SUBCUT SCH (18:00)
[2017-09-21] MEDS ORDERED: INSULIN LISPRO PROTAMIN SUBCUT SCH (18:00)
[2017-09-21] MEDS ORDERED: LISPRO SUBCUT SCH (18:00)
[2017-09-21] MEDS ORDERED: Dextrose 50% Syringe 50 ML* 25 GM/50 ML SYRINGE IV PUSH PRN (20:06)
[2017-09-21] MEDS: Lidocaine PATCH 5%* 1 PATCH TRANSDERM SCH (20:39)
[2017-09-21] MEDS: Gabapentin CAP(*) 300 MG PO SCH (20:42)
[2017-09-21] MEDS: Acetaminophen TAB* 325 MG PO PRN (20:42)
[2017-09-21] MEDS: Atorvastatin* 10 MG TAB PO SCH (20:43)
[2017-09-21] MEDS: Heparin VIAL(*) 5000 UNITS/ML VIAL (FIVE THOUSAND) SUBCUT SCH ×2 (20:44→20:46)
--- NOTE | 2017-09-21 21:48 | HP ---
CC: Dr. Nitesh Mendez * HISTORY AND PHYSICAL: DATE OF ADMISSION: 09/21/17 PRIMARY CARE PROVIDER: Dr. Nitesh Mendez. ATTENDING PHYSICIAN: Milena Ca DO * (dictated by Christina Arshad NP). CHIEF COMPLAINT: Weakness and right axillary pain. HISTORY OF PRESENT ILLNESS: Mr. Krueger is a 77-year-old male with past medical history significant for hypertension, diabetes, neuropathy, history of CVA, hyperlipidemia, KEILA, and anxiety, who states that he was in his usual state of health, was attending a on 09/19/17 when he felt as though as he was not feeling well. So, he went out to go out to the car and waited out. He states that it was "hot in there" (at the ). Ultimately, he ended up syncopizing falling and hitting his right side on something in addition to his chin. He was seen in the emergency room and was seen in consultation by Dr. Bennett with the hospital medicine, who felt that the patient's symptoms were likely secondary to hypoglycemia and it was recommended that he be discharged home with medication adjustments, it was recommended that he decrease his insulin. The patient states that he ran out of insulin on 09/19/17 and he was unable to pick any up until Thursday, which has been 2 days and that he does not have money to pay for his insulin. The patient states that his insurance does not cover much of the cost of his insulin and it is very expensive for him to purchase his insulin. The patient reports that he fell last night. He reports this was a mechanical fall due to tripping over something. He reports lying on the floor for a little while and not being able to get up. He yelled for his grandson who he lives with who never came to help him. Eventually, he crawled to the couch and got himself up. He reports he was mostly unable to get up due to his right axillary pain. He denies any fevers, chills, chest pain, shortness of breath, head injuries, loss of consciousness with the fall yesterday, neck pain, numbness, tingling. He reports having a cough for one year. He reports poor appetite over the last few months and not eating well, but he feels that over the last week or so, he has been eating much better than he had previously. He reports feeling weak for approximately 3 months. He reports having an appointment tomorrow morning with his primary care doctor to discuss his insulin and the cost surrounding this. Due to his continued pain, he presented to the emergency room for further evaluation of his symptoms. While in the emergency room, he had an initial troponin that was 0.08 but repeat troponin was 0.01. He had a slightly elevated D-dimer of 585. CRP of 26.95. He had essentially negative urinalysis with trace ketones and glucose. He had an EKG showing sinus rhythm, rate of 75, and incomplete left bundle- branch block, just similar to previous EKGs from 09/19/17 and 07/18/17. Chest x -ray showing a nondisplaced fracture of his right 6th rib, atherosclerosis, fatty infiltrate of liver due to end-degenerative changes and the hospitalists were asked to evaluate the patient for admission. PAST MEDICAL HISTORY: 1. Hypertension. 2. Diabetes mellitus. 3. Neuropathy. 4. History of cerebrovascular accident. 5. Hyperlipidemia. 6. Obstructive sleep apnea. 7. Anxiety. PAST SURGICAL HISTORY: Status post excision of sebaceous cyst on his posterior neck. HOME MEDICATIONS: Include: 1. Metformin 850 mg oral twice daily. 2. Glipizide 20 mg oral daily. 3. Amlodipine 5 mg oral daily. 4. Januvia 100 mg oral daily. 5. Sertraline 25 mg oral daily. 6. Pravastatin 20 mg oral daily at bedtime. 7. Lisinopril 40 mg oral daily. 8. Humalog Mix 75/25, 80 units in the morning, 40 units in the evening. 9. Gabapentin 900 mg oral daily at bedtime. ALLERGIES: No known drug allergies. FAMILY HISTORY: He is unsure of his family history as he was adopted. SOCIAL HISTORY: He is a former smoker. He reports a pack lasting him approximately 2 weeks during the years that he smoked. He smoked for many years , reports quitting a few years ago. He denies alcohol or recreational drug use. His son, Johnson Krueger, will be his his surrogate decision maker in the event he is unable to make decisions for himself. Johnson's phone number is [phone]. REVIEW OF SYSTEMS: I performed an 11-point review of systems. All the pertinent positives and negatives are mentioned in the history of present illness. The remaining review of systems are negative. PHYSICAL EXAMINATION GENERAL APPEARANCE: The patient is alert, pleasant and appears to be in no acute distress. VITAL SIGNS: Temperature 96.7, heart rate 77, respiratory rate 17, O2 sat 98% on room air, blood pressure 162/94. HEENT: Normocephalic, atraumatic. Pupils are equal and reactive to light. Extraocular movements are intact. RESPIRATORY: There is no accessory muscle use. The lungs are clear to auscultation bilateral. CARDIOVASCULAR: Regular rate and rhythm. S1 and S2 present. There are no murmurs, rubs, or gallops heard. ABDOMEN: Soft, nontender, nondistended. Bowel sounds present x4. EXTREMITIES: No lower extremity edema. DP and PT pulses are 2+ and symmetric. MUSCULOSKELETAL: There is no clubbing or cyanosis noted. The patient exhibits good strength in all extremities. He does have tenderness to his right axillary area near his 6th rib to palpation. NEUROLOGIC: The patient is alert and oriented x4. Cranial nerves II through XII are grossly intact. PSYCHOLOGICAL: The patient is calm and cooperative. SKIN: There are no rashes or abnormalities seen. DIAGNOSTIC STUDIES/LABORATORY DATA: Sodium 134, potassium 4.2, chloride 99, CO2 of 28, BUN 23, creatinine 1.19, glucose 211, magnesium 1.8. D-dimer 585. Troponin 0.08 and 0.01. CRP 26.95. WBC 11.9, hemoglobin 16.9, hematocrit 50, and platelet count 271. Urinalysis significant for trace ketones and glucose. EKG shows a sinus rhythm at a rate of 75 and incomplete left bundle-branch block. The EKG is similar to previous from 09/19/17 and 07/18/17. Chest x-ray from today. Radiologist's impression: Nondisplaced fracture of the right 6th rib, atherosclerosis, fatty infiltrate of liver, and degenerative changes. IMPRESSION: Mr. Krueger is a 77-year-old with a past medical history significant for hypertension, diabetes mellitus, neuropathy, history of CVA, hyperlipidemia, obstructive sleep apnea, and anxiety who presents to the emergency room with complaints of weakness and right axillary pain. He will be admitted as an observation for weakness and orthostatic hypotension. ASSESSMENT AND PLAN: 1. Weakness. The patient reports generalized weakness for the last 3 months. I will have a physical therapy evaluate him in the morning. I suspect this could be secondary to deconditioning and hypotension. 2. Orthostatic hypotension. We will give the patient IV fluids overnight. We will recheck othostatic vital signs in the morning. it's to note that he was also orthostatic 2 days ago, when he was seen in the emergency room. 3. Inability to afford medications. I will ask social work to consult on the patient to see if they have anything that they can offer to assist with his inability to afford his insulin. 4. Right rib pain. The patient has a 6th right rib fracture from his syncopal episode 2 days ago. We will try a lidocaine patch. The patient will be encouraged to use an incentive spirometer. 5. Hypertension. Continue home lisinopril. 6. Diabetes mellitus. The patient was hypoglycemic 2 days ago when he was seen in the emergency room. He reports not eating that day. Today, his glucose is 211 and he has not been taking his insulin. I am going to hold his metformin, glipizide, and Januvia and to continue him on his Humalog Mix or something similar available while in the hospital. 7. Neuropathy. The patient will be continued on his home Neurontin. 8. Hyperlipidemia. Continue home Pravastatin or other substitute available at the hospital. 9. Obstructive sleep apnea. 10. Anxiety. The patient will receive supportive care and will be continued on his home sertraline. 11. Fluids, electrolytes, and nutrition. He will be on a consistent carbohydrate diet. 12. Code status. Full code. 13. DVT prophylaxis. High risk. 14. Disposition. Observation. TIME SPENT: Time for this admission was approximately 60 minutes, greater than half of that was spent [id number] discussing medications, past medical history , and the events leading up to his arrival today and performing a physical examination. The case has been reviewed with the attending, Dr. Ca, who agrees with the plan of care. Reviewed by SIDNEY JEFFRIES 09/24/17 1004 [id number]/[facility] [place]: [id number]
[2017-09-22] MEDS: Acetaminophen TAB* 325 MG PO PRN ×2 (04:41→20:32)
[2017-09-22] MEDS ORDERED: traMADol TAB* 50 MG PO PRN (04:53)
[2017-09-22] MEDS: Heparin VIAL(*) 5000 UNITS/ML VIAL (FIVE THOUSAND) SUBCUT SCH ×3 (05:19→20:58)
[2017-09-22] MEDS: Lidocaine Patch REMOVE* 1 NOTE MISC PATCH OFF SCH (05:19)
[2017-09-22] MEDS: Sertraline* 25 MG TAB PO SCH (08:07)
[2017-09-22] MEDS: amLODIPine TAB* 5 MG PO SCH (08:07)
[2017-09-22] MEDS: Insulin LISPRO* 1 UNITS UNIT SUBCUT SCH ×3 (08:44→17:11)
[2017-09-22] MEDS ORDERED: Lisinopril TAB* 10 MG PO SCH (09:00)
[2017-09-22] MEDS ORDERED: [UNRECOGNIZED DRUG - OTHER] SUBCUT SCH (09:00)
[2017-09-22] MEDS ORDERED: INSULIN LISPRO PROTAMIN SUBCUT SCH (09:00)
[2017-09-22] MEDS ORDERED: LISPRO SUBCUT SCH (09:00)
[2017-09-22] MEDS ORDERED: Lidocaine PATCH 5%* 1 PATCH TRANSDERM SCH (09:00)
[2017-09-22] MEDS ORDERED: NS 0.9% 500 ML* 500 ML IV ONE (10:21)
[2017-09-22] MEDS: NS 0.9% 1000 ML* 1,000 ML IV SCH ×2 (11:15→22:54)
[2017-09-22] MEDS ORDERED: NS 0.9% 1000 ML* 1,000 ML IV ONE (16:17)
[2017-09-22] MEDS: Lidocaine PATCH 5%* 1 PATCH TRANSDERM SCH (17:07)
[2017-09-22] MEDS: Gabapentin CAP(*) 300 MG PO SCH (20:31)
[2017-09-22] MEDS: Atorvastatin* 10 MG TAB PO SCH (20:34)
--- NOTE | 2017-09-22 23:09 | PN ---
Subjective Date of Service: 09/22/17 Interval History: Denies chest pain or shortness of breath. Denies abd pain n/v/d. Denies fever or chills. patient asymptomatic with BP drop when obtaining orthostatic vital signs. denies dizziness Family History: Unchanged from Admission Social History: Unchanged from Admission Past Medical History: Unchanged from Admission Objective Active Medications: Acetaminophen (Tylenol Tab*) 650 mg PO Q4H PRN PRN Reason: FEVER/PAIN Last Admin: 09/22/17 20:32 Dose: 650 mg Amlodipine Besylate (Norvasc Tab*) 5 mg PO DAILY [facility] Last Admin: 09/22/17 08:07 Dose: 5 mg Atorvastatin Calcium (Lipitor*) 5 mg PO BEDTIME [facility] PRN Reason: Protocol Last Admin: 09/22/17 20:34 Dose: 5 mg Dextrose (D50w Syringe 50 Ml*) 12.5 gm IV PUSH .FOR FS < 60 - SS PRN PRN Reason: FS < 60 Gabapentin (Neurontin Cap(*)) 900 mg PO BEDTIME [facility] Last Admin: 09/22/17 20:31 Dose: 900 mg Heparin Sodium (Porcine) (Heparin Vial(*)) 5,000 units SUBCUT Q8HR [facility] Last Admin: 09/22/17 20:58 Dose: Not Given Sodium Chloride (Ns 0.9% 1000 Ml*) 1,000 mls @ 100 mls/hr IV PER RATE [facility] Last Admin: 09/22/17 22:54 Dose: 100 mls/hr Insulin Human Lispro (Humalog*) 0 - 10 units SUBCUT AC [facility] PRN Reason: Protocol Last Admin: 09/22/17 17:11 Dose: 6 units Lidocaine (Lidoderm 5% Patch*) 1 patch TRANSDERM 1800 [facility] Last Admin: 09/22/17 17:07 Dose: 1 patch Lisinopril (Prinivil Tab*) 20 mg PO DAILY [facility] Pharmacy Profile Note (Lidocaine Patch Remove*) 1 note PATCH OFF 0600 [facility] Last Admin: 09/22/17 05:19 Dose: 1 note Sertraline HCl (Zoloft*) 25 mg PO DAILY [facility] Last Admin: 09/22/17 08:07 Dose: 25 mg Tramadol HCl (Ultram*) 50 mg PO Q8H PRN PRN Reason: PAIN Vital Signs - 8 hr 09/22/17 09/22/17 09/22/17 15:39 15:40 19:20 Temperature 98.2 F 97.5 F Pulse Rate 68 75 94 Respiratory 16 16 18 Rate Blood Pressure 122/73 108/76 141/65 (mmHg) O2 Sat by Pulse 100 97 Oximetry 09/22/17 09/22/17 20:00 20:31 Temperature Pulse Rate Respiratory 16 16 Rate Blood Pressure (mmHg) O2 Sat by Pulse Oximetry Oxygen Devices in Use Now: None Appearance: alert and oriented, elderly male, no acute distress Eyes: No Scleral Icterus Ears/Nose/Mouth/Throat: Clear Oropharnyx, Mucous Membranes Moist Neck: NL Appearance and Movements; NL JVP, Trachea Midline Respiratory: Symmetrical Chest Expansion and Respiratory Effort, Clear to Auscultation Cardiovascular: NL Sounds; No Murmurs; No JVD, RRR, No Edema Abdominal: NL Sounds; No Tenderness; No Distention Extremities: No Edema, No Clubbing, Cyanosis Skin: No Rash or Ulcers Neurological: Alert and Oriented x 3, NL Sensation, NL Muscle Strength and Tone Nutrition: Taking PO's Result Diagrams: 09/21/17 12:21 09/21/17 12:20 Additional Lab and Data: Lab Results 09/21/17 09/21/17 09/21/17 Range/Units 12:20 12:20 12:20 WBC (3.5-10.8) 10^3/ul RBC (4.00-5.40) 10^6/ul Hgb (14.0-18.0) g/dl Hct (42-52) % MCV (80-94) fL MCH (27-31) pg MCHC (31-36) g/dl RDW (10.5-15) % Plt Count (150-450) 10^3/ul MPV (7.4-10.4) um3 Neut % (Auto) (38-83) % Lymph % (Auto) (25-47) % Benson % (Auto) (0-7) % Eos % (Auto) (0-6) % Baso % (Auto) (0-2) % Absolute Neuts (auto) (1.5-7.7) 10^3/ul Absolute Lymphs (auto) (1.0-4.8) 10^3/ul Absolute Monos (auto) (0-0.8) 10^3/ul Absolute Eos (auto) (0-0.6) 10^3/ul Absolute Basos (auto) (0-0.2) 10^3/ul Absolute Nucleated RBC 10^3/ul Nucleated RBC % D-Dimer, Quantitative (Less Than 230) ng/mL Sodium 134 L (139-145) mmol/L Potassium 4.2 (3.5-5.0) mmol/L Chloride 99 L (101-111) mmol/L Carbon Dioxide 28 (22-32) mmol/L Anion Gap 7 (2-11) mmol/L BUN 23 (6-24) mg/dL Creatinine 1.19 H (0.67-1.17) mg/dL Est GFR ( Amer) 76.6 (>60) Est GFR (Non-Af Amer) 59.6 (>60) BUN/Creatinine Ratio 19.3 (8-20) Glucose 211 H (70-100) mg/dL Lactic Acid 2.0 (0.5-2.0) mmol/L Calcium 9.3 (8.6-10.3) mg/dL Magnesium 1.8 L (1.9-2.7) mg/dL Total Bilirubin 1.10 H (0.2-1.0) mg/dL AST 13 (13-39) U/L ALT 16 (7-52) U/L Alkaline Phosphatase 93 (34-104) U/L C-Reactive Protein 26.95 H (< 5.00) mg/L B-Natriuretic Peptide 55 ( - 100) pg/mL Total Protein 6.6 (6.4-8.9) g/dL Albumin 3.6 (3.2-5.2) g/dL Globulin 3.0 (2-4) g/dL Albumin/Globulin Ratio 1.2 (1-3) 09/21/17 09/21/17 Range/Units 12:20 12:21 WBC 11.9 H (3.5-10.8) 10^3/ul RBC 5.78 H (4.00-5.40) 10^6/ul Hgb 16.9 (14.0-18.0) g/dl Hct 50 (42-52) % MCV 86 (80-94) fL MCH 29 (27-31) pg MCHC 34 (31-36) g/dl RDW 14 (10.5-15) % Plt Count 271 (150-450) 10^3/ul MPV 8.1 (7.4-10.4) um3 Neut % (Auto) 69.6 (38-83) % Lymph % (Auto) 19.1 L (25-47) % Benson % (Auto) 7.4 H (0-7) % Eos % (Auto) 3.3 (0-6) % Baso % (Auto) 0.6 (0-2) % Absolute Neuts (auto) 8.3 H (1.5-7.7) 10^3/ul Absolute Lymphs (auto) 2.3 (1.0-4.8) 10^3/ul Absolute Monos (auto) 0.9 H (0-0.8) 10^3/ul Absolute Eos (auto) 0.4 (0-0.6) 10^3/ul Absolute Basos (auto) 0.1 (0-0.2) 10^3/ul Absolute Nucleated RBC 0 10^3/ul Nucleated RBC % 0 D-Dimer, Quantitative 585 H (Less Than 230) ng/mL Sodium (139-145) mmol/L Potassium (3.5-5.0) mmol/L Chloride (101-111) mmol/L Carbon Dioxide (22-32) mmol/L Anion Gap (2-11) mmol/L BUN (6-24) mg/dL Creatinine (0.67-1.17) mg/dL Est GFR ( Amer) (>60) Est GFR (Non-Af Amer) (>60) BUN/Creatinine Ratio (8-20) Glucose (70-100) mg/dL Lactic Acid (0.5-2.0) mmol/L Calcium (8.6-10.3) mg/dL Magnesium (1.9-2.7) mg/dL Total Bilirubin (0.2-1.0) mg/dL AST (13-39) U/L ALT (7-52) U/L Alkaline Phosphatase (34-104) U/L C-Reactive Protein (< 5.00) mg/L B-Natriuretic Peptide ( - 100) pg/mL Total Protein (6.4-8.9) g/dL Albumin (3.2-5.2) g/dL Globulin (2-4) g/dL Albumin/Globulin Ratio (1-3) Assess/Plan/Problems-Billing Assessment: Mr. Krueger is a 77 y.o male with a history of htn , hld, cva, dm, neuropathy and anxiety that presented to [facility] ER for the 2nd time for evaluation of weakness and right rib pain. patient fell on thursday hitting his chin. During the fall he sustained right fractured rib. - Patient Problems (1) Weakness Current Visit: Yes Status: Acute Code(s): R53.1 - WEAKNESS SNOMED Code(s) : 33051318 Comment: Suspect this could be related to hypotension or deconditioning - patient was found to have orthostatic hypotension today- will give fluid bolus and start IVF at 100 cc/hr (2) Orthostatic hypotension Current Visit: Yes Status: Acute Code(s): I95.1 - ORTHOSTATIC HYPOTENSION SNOMED Code(s): 28294525 Comment: suspect this could be related to dehydration or current BP medication dose, patient is asymptomatic - will given fluid bolus and IVF at 100 cc/hr and reassess - BP improved after fluid blous- will continue IVF at 100 cc/hr 1600 - orthostatic BP reassessed - remains orthostatic - will give another fluid bolus and run NS IV over night at 100 cc /hr - reassess orthostatic BP in the AM - decreased lisinopril to 20 mg po daily - did speak to PMD nurse and is aware of patient condition will see the patient next week (3) Diabetes Current Visit: No Status: Chronic Code(s): E11.9 - TYPE 2 DIABETES MELLITUS WITHOUT COMPLICATIONS SNOMED Code(s): 31149078 Comment: - blood sugar on arrival in the 200's - patient reports no insulin in 2 day because he is unable to afford the medicaiton.-SW consulted and MD office contact - new script sent to patient's pharmacy by PMD and is now able to afford new medicaiton. patient also is able to [employer] a box of insulin from his PMD. - will continue on lispro ss - fingersticks (4) HLD (hyperlipidemia) Current Visit: No Status: Chronic Code(s): E78.5 - HYPERLIPIDEMIA, UNSPECIFIED SNOMED Code(s): 45372852 Comment: - Continue statin (5) HTN (hypertension) Current Visit: No Status: Chronic Code(s): I10 - ESSENTIAL (PRIMARY) HYPERTENSION SNOMED Code(s): 58120274 Comment: - SBP 89-153 - lisinopril decreased to 20 mg d/t orthostatic hypotension (6) Full code status Current Visit: No Status: Acute Code(s): Z78.9 - OTHER SPECIFIED HEALTH STATUS SNOMED Code(s): 409605268 (7) DVT prophylaxis Current Visit: No Status: Acute Code(s): DVN4006 - SNOMED Code(s): 703382686 Status and Disposition: obv - suspect will most likely be discharged tomorrow
[2017-09-23] MEDS: Heparin VIAL(*) 5000 UNITS/ML VIAL (FIVE THOUSAND) SUBCUT SCH ×3 (05:10→12:46)
[2017-09-23] MEDS: Lidocaine Patch REMOVE* 1 NOTE MISC PATCH OFF SCH (05:11)
[2017-09-23] MEDS ORDERED: Lisinopril TAB* 10 MG PO SCH (09:00)
[2017-09-23] MEDS: NS 0.9% 1000 ML* 1,000 ML IV SCH (09:39)
[2017-09-23] MEDS: amLODIPine TAB* 5 MG PO SCH (09:40)
[2017-09-23] MEDS: Sertraline* 25 MG TAB PO SCH (09:40)
[2017-09-23] MEDS: Insulin LISPRO* 1 UNITS UNIT SUBCUT SCH ×2 (09:41→12:45)
[2017-09-23] MEDS: Acetaminophen TAB* 325 MG PO PRN (09:45)
[2017-09-23 10:32] VITALS: BP 128/73
--- NOTE | 2017-09-24 10:24 | DS ---
CC: Dr. Mendez * DISCHARGE SUMMARY: DATE OF ADMISSION: 09/21/17 DATE OF DISCHARGE: 09/23/17 PRINCIPAL DISCHARGE DIAGNOSES: 1. Fall. 2. Rib fracture. 3. Orthostatic hypotension. 4. Poorly controlled diabetes. SECONDARY DISCHARGE DIAGNOSES: 1. Hypertension. 2. Diabetic neuropathy. 3. History of cerebrovascular accident. 4. Obstructive sleep apnea. DISCHARGE MEDICATIONS: 1. Humalog 75/25 at 20 units b.i.d. 2. Glipizide 20 mg daily. 3. Amlodipine 5 mg daily. 4. Sertraline 25 mg daily. 6. Pravastatin 20 mg daily. 7. Gabapentin 900 mg q.h.s. 8. Metformin 850 mg b.i.d. 9. Januvia 100 mg daily. 10. Lisinopril 20 mg daily. HOSPITAL COURSE BY PROBLEM: 1. Recurrent falls. Mr. Krueger had been in the emergency room twice in 2 days for falls. He was then asked by the hospitalist to be evaluated for admission due to recurrent falls. At the first ED visit, he was found to be hypoglycemic, so his insulin dose was reduced; however, he did not go to pick up man the new prescription, because he said it was too expensive. His falls may be multifactorial and may have been related to orthostatic hypotension, hypoglycemia, and/or autonomic dysfunction. He was evaluated by physical therapy during this admission and they reported that he was able to ambulate independently without loss of balance and without drop in blood pressure and he was functioning at his baseline. He is instructed to stand from lying and sitting very slowly. 2. Rib fracture. A chest CT was obtained in the emergency department and found a right sixth rib fracture, likely secondary to the fall. He was encouraged to use incentive spirometer and is being discharged with an incentive spirometer and instructed to continue using it. 3. Orthostatic hypotension. He was found to be orthostatic at the time of admission, the subsequent day after IV fluids, and the third day after more IV fluids. Because he had no explanation for being being volume deplete and because the hypotension did not resolve after volume resuscitation, I suspect this is related to autonomic dysfunction due to poorly controlled diabetes. His lisinopril dose was cut in half and he is instructed to rise from lying and sitting very slowly. As mentioned above, he worked with Physical Therapy and felt well without lightheadedness or falls. 4. Poorly controlled type 2 diabetes. Mr. Krueger admitted to me that he does not always use his insulin and he also does not always have a steady diet. He sometimes is unable to purchase food due to not having enough money, so I discussed his case with case management and they provided him the contact information for [employer], encouraged him to get connected with meals on wheels. I decreased his dose of 75/25 to 20 units b.i.d. instead of 80 units in the morning 40 units in the evening. While he was admitted for the 2 days, he was here, he was on no long-acting insulin and his blood sugar was in the low 200s, so I suspect hypoglycemia may be contributing to his frequent falls. Mr. Krueger is discharged to home on 09/23/17 and is instructed to come back to the emergency department should he develop lightheadedness, shortness of breath, chest pain, weakness, and he is instructed to follow up with his PCP within 1 week. [id number]/[facility] #: [id number] GUIDO
== END 2017-09-23 14:20 | disposition home or self-care (01) ==
LOC: ED 11:00 → MED 16:54
PROVIDERS: ADMIT Internal Medicine; ATTEND Internal Medicine
DX: R53.1 Weakness (principal); Z91.81 History of falling; S22.31XA Fracture of one rib, right side, initial encounter for closed fracture; W19.XXXA Unspecified fall, initial encounter; Y92.9 Unspecified place or not applicable; I95.1 Orthostatic hypotension; Z79.4 Long term (current) use of insulin; I10 Essential (primary) hypertension; E11.40 Type 2 diabetes mellitus with diabetic neuropathy, unspecified; E11.65 Type 2 diabetes mellitus with hyperglycemia; Z86.73 Personal history of transient ischemic attack (TIA), and cerebral infarction without residual deficits; G47.33 Obstructive sleep apnea (adult) (pediatric); F41.9 Anxiety disorder, unspecified; E78.5 Hyperlipidemia, unspecified
CPT/HCPCS: 36415; 71260; 80053; 81003; 83605; 83735; 83880; 84484; 85025; 85379; 86140; 93005; 96374; 99284; A9270-GY; G0378; G8978-GP-CI; G8979-GP-CI; G8980-GP-CI; J1644; Q9967

== ENCOUNTER 2017-09-26 09:23 | Emergency (ER) | payer MEDICARE ==
[2017-09-26 11:26] VITALS: BP 177/85
--- NOTE | 2017-09-26 18:43 | ED ---
Miguel Tripathi Jade, scribed for Ole Driscoll MD on 09/26/17 at 1052 . Skin Complaint - HPI Summary HPI Summary: Pt is a 77 y/o male who presents to the ED c/o a rash. Pt states he was [place] [facility] [place], and a lidocaine patch was placed on his anterior chest. The patch has made his skin red and itchy over his chest, abdomen, and his back. Pain intensity is 2/10. Pt denies any difficulty swallowing. PMHx diabetes. - History of Current Complaint Chief Complaint: EDRashSkinAbscess Time Seen by Provider: 09/26/17 10:38 Stated Complaint: RASH Hx Obtained From: Patient Onset/Duration: Still Present Timing: Constant Current Severity: Mild Pain Intensity: 2 Pain Scale Used: 0-10 Numeric Skin Location: Chest, Abdomen, Other: - Back Character: Pruritus, Redness Aggravating Symptom(s): Other: - Lidocaine patch - Additional Pertinent History Primary Care Physician: [id number] - Allergy/Home Medications Allergies/Adverse Reactions: Allergies Allergy/AdvReac Type Severity Reaction Status Date / Time No Known Allergies Allergy Verified 09/26/17 09:34 PMH/Surg Hx/FS Hx/Imm Hx Endocrine/Hematology History: Reports: Hx Diabetes - insulin Denies: Hx Anticoagulant Therapy, Hx Thyroid Disease, Hx Anemia Cardiovascular History: Reports: Hx Hypercholesterolemia, Hx Hypertension Denies: Hx Pacemaker/ICD Respiratory History: Reports: Hx Sleep Apnea History: Denies: Hx Renal Disease Musculoskeletal History: Reports: Hx Arthritis Sensory History: Reports: Hx Contacts or Glasses Denies: Hx Hearing Aid Opthamlomology History: Reports: Hx Contacts or Glasses Neurological History: Reports: Hx CVA Denies: Other Neuro Impairments/Disorders Psychiatric History: Denies: Hx Panic Disorder - Surgical History Surgery Procedure, Year, and Place: SEBACIOUS CYST REMOVED FROM BACK OF NECK Infectious Disease History: No Infectious Disease History: Denies: Traveled Outside the [place] in Last 30 Days - Family History Known Family History: Positive: Other - no ulcers or intestinal diseases - Social History Alcohol Use: None Hx Substance Use: No Substance Use Type: Reports: None Hx Tobacco Use: No Smoking Status (MU): Never Smoked Tobacco Review of Systems Negative: Fever ENT: Negative - Difficulty swallowing Positive: Rash - Chest, abdomen, back, Other - Itching All Other Systems Reviewed And Are Negative: Yes Physical Exam - Summary Physical Exam Summary: Appearance: Well appearing, no pain distress Skin: warm, dry, reflects adequate perfusion. Rectangular pattern on anterior right chest where lidocaine patch was. Light papular rash over back and abdomen. Head/face: normal Eyes: EOMI, TRISHA ENT: normal. Moist mucosa. No tongue or lip swelling. Neck: supple, non-tender Respiratory: CTA, breath sounds present Cardiovascular: RRR, pulses symmetrical Abdomen: non-tender, soft Bowel Sounds: present Musculoskeletal: normal, strength/ROM intact Neuro: normal, sensory motor intact, A&Ox3 Triage Information Reviewed: Yes Vital Signs On Initial Exam: Initial Vitals Temp Pulse Resp BP Pulse Ox 98.1 F 73 20 144/70 100 09/26/17 09:29 09/26/17 09:29 09/26/17 09:29 09/26/17 09:29 09/26/17 09:29 Vital Signs Reviewed: Yes Diagnostics - Vital Signs Vital Signs Temp Pulse Resp BP Pulse Ox 09/26/17 09:29 98.1 F 73 20 144/70 100 - Laboratory Lab Statement: Any lab studies that have been ordered have been reviewed, and results considered in the medical decision making process. Course/Dx - Course Course Of Treatment: Patient with an area of contact dermatitis in the area of a Lidoderm patch. He now is light erythema and a papular eruption around the upper thorax. Likely this is drug allergy. Diabetic who will watch his sugars closely and add insulin as necessary while on steroids. No distress or sign of more significant allergy. Discharged in good condition. - Differential Diagnoses - Skin Complaint Differential Diagnoses: Other - Contact dermatitis, drug allergy, serum sickness - Diagnoses Provider Diagnoses: Contact dermatitis, Drug allergy Discharge - Sign-Out/Discharge Documenting (check all that apply): Discharge/Admit/Transfer - Discharge - Discharge Plan Condition: Good Disposition: HOME Prescriptions: Famotidine TAB* [Pepcid 20 MG TAB*] 20 mg PO BID PRN #10 tab PRN Reason: itching, allergy symptoms predniSONE [Prednisone 20 MG TAB] 40 mg PO DAILY #8 tablet Patient Education Materials: Contact Dermatitis (ED), Allergies (ED) Referrals: Nitesh Mendez MD [Primary Care Provider] - Additional Instructions: Used topical hydrocortisone 1% ointment which is [id number] to treat the itchy area on your anterior chest. Check her sugars frequently. You may need more insulin if there going up on the prednisone. Follow-up with Dr. Griffiths on Thursday as scheduled. - Billing Disposition and Condition Condition: GOOD Disposition: Home The documentation as recorded by the Miguel arellano Jade accurately reflects the service I personally performed and the decisions made by me, Ole Driscoll MD.
== END 2017-09-26 11:26 | disposition home or self-care (01) ==
LOC: ED 09:23
DX: L23.3 Allergic contact dermatitis due to drugs in contact with skin (principal); T41.45XA Adverse effect of unspecified anesthetic, initial encounter; Y92.9 Unspecified place or not applicable; E11.9 Type 2 diabetes mellitus without complications; Z79.4 Long term (current) use of insulin
CPT/HCPCS: 99282

== ENCOUNTER 2017-10-02 21:51 | Inpatient (IN) | payer MEDICARE ==
[2017-10-02] MEDS ORDERED: NS 0.9% 1000 ML* 1,000 ML IV ONE (22:05)
[2017-10-02 22:34] LABS: ABS Basophils 0.1 10^3/ul (0-0.2); ABS Eosinophils 0.3 10^3/ul (0-0.6); ABS Neutrophils 12.7 10^3/ul (1.5-7.7); ABS Nucleated RBC 0 10^3/ul; Eosinophil % 1.9 % (0-6); Hematocrit 50 % (42-52); Hemoglobin 17.5 g/dl (14.0-18.0); Lymphocyte % 12.4 % (25-47); Mean Corpuscular HGB Conc 35 g/dl (31-36); Mean Corpuscular Hemoglobin 30 pg (27-31); Mean Corpuscular Volume 85 fL (80-94); Mean Platelet Volume 8.1 um3 (7.4-10.4); Nucleated Red Blood Cells % 0; Platelet Count 270 10^3/ul (150-450); Red Blood Count 5.91 10^6/ul (4.00-5.40); Red Cell Distribution Width 14 % (10.5-15)
[2017-10-02 22:51] LABS: EGFR Non-African American 67.4 (>60)
[2017-10-02 23:14] LABS: INR 0.95 (0.77-1.02)
[2017-10-02] MEDS ORDERED: Iodixanol* (CONTRAST) 320 MG/ML 100 ML SDV IV ONE (23:15)
[2017-10-03 03:12] LABS: Urine Appearance Clear; Urine Blood Negative (Negative); Urine Color Straw; Urine Ketones Negative (Negative); Urine Protein Negative (Negative); Urine Specific Gravity 1.019 (1.010-1.030); Urine Urobilinogen Negative (Negative)
[2017-10-03] MEDS: Enoxaparin(*) 40 MG/0.4 ML SYR SUBCUT SCH (04:07)
[2017-10-03] MEDS: Insulin GLARGINE(*) 1 UNITS UNIT SUBCUT SCH (04:07)
--- NOTE | 2017-10-03 07:22 | RAD ---
INDICATION: Neurologic change. Code bell COMPARISON: Chest x-ray September 19, 2017 TECHNIQUE: An AP portable view obtained at 2235 hours is submitted. FINDINGS: Bones/Soft Tissues: There are no acute bony findings. Cardiomediastinal: The cardiomediastinal silhouette is normal. Lungs: There are no infiltrates. Pleura: There are no pleural effusions. Other: None IMPRESSION: NO ACTIVE DISEASE.
--- NOTE | 2017-10-03 07:22 | RAD ---
INDICATION: Right arm weakness. History of CVA. COMPARISON: CT brain September 19, 2017 TECHNIQUE: Noncontrast axial source images were acquired from the skull base to the vertex. FINDINGS: Ventricles/sulci: The ventricles are unchanged with expansion of the frontal horn left lateral ventricle secondary to prior infarct with volume loss. Brain parenchyma: There are no acute focal parenchymal findings. There is the sequela of prior left caudate nucleus with volume loss. There is underlying chronic microvascular ischemic change. Intracranial hemorrhage:None. Extra-axial spaces: There are no abnormal extra axial fluid collections or evidence of extra-axial mass. Calvarium: There is no calvarial fracture or other calvarial abnormality. Scalp: There is no evidence of scalp or extracalvarial soft tissue abnormality. Paranasal sinuses/mastoid: The paranasal sinuses and mastoid air cells are clear. Other: None. IMPRESSION: No acute intracranial findings. 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 Underlying chronic microvascular ischemic change.
--- NOTE | 2017-10-03 07:36 | RAD ---
INDICATION: Right arm weakness COMPARISON: CT brain same date TECHNIQUE: Axial source images were acquired with coronal and sagittal reconstructions. CT angiographic technique was utilized with injection of 80 mL Visipaque 320. FINDINGS: Aortic arch: There are no significant CT angiogram abnormalities of the arch or the great vessels arising from the arch. There are minor atherosclerotic changes. Right carotid: The common carotid artery, carotid bifurcation, extracranial portions of the internal carotid artery, carotid artery at the skull base, carotid siphon, and carotid termination appear patent. There is calcific plaque formation at the bifurcation with an estimated 50% diameter stenosis at the level of the bulb. There are calcifications of the cavernous segment on the right with an estimated 80% diameter stenosis. Left carotid:The common carotid artery, carotid bifurcation, extracranial portions of the internal carotid artery, carotid artery at the skull base, carotid siphon, and carotid termination appear patent. There are ossifications at the carotid bifurcation with an estimated 30% diameter stenosis at the bifurcation. There are calcifications of the cavernous segment of the left with estimated 70% diameter stenosis Right middle and anterior cerebral arteries: There are no CT angiographic abnormalities of the middle or anterior cerebral arteries. Left middle and anterior cerebral arteries: There are no CT angiographic abnormalities of the middle or anterior cerebral arteries Right vertebral: The CT angiographic appearance of the vertebral artery is patent. Left vertebral: The CT angiographic appearance of the vertebral artery is patent. Basilar artery: The basilar artery and basilar tip appear normal. Posterior cerebral arteries: The distal distribution of the right and left posterior cerebral arteries is normal. [place] of [place]: The CT angiographic appearance of the [place] of [place] is normal. Source images show no evidence of mass or adenopathy within the neck. There are no acute focal brain parenchymal abnormalities or abnormal areas of enhancement. IMPRESSION: Moderate bilateral calcific plaque formation about the carotid bifurcations bilaterally without evidence of a hemodynamically significant stenosis. There is atherosclerotic plaque formation about the cavernous and supracavernous segments bilaterally with high-grade stenoses estimated at 80% on the right and 70% on the left CPT II Codes: 3100F PQRS
[2017-10-03] MEDS: Insulin LISPRO* 1 UNITS UNIT SUBCUT SCH ×4 (08:42→21:40)
[2017-10-03] MEDS: glipiZIDE TAB.XL* 5 MG PO SCH (08:44)
[2017-10-03] MEDS: amLODIPine TAB* 5 MG PO SCH (08:44)
[2017-10-03] MEDS: Sertraline* 25 MG TAB PO SCH (08:44)
[2017-10-03] MEDS: Lisinopril TAB* 10 MG PO SCH (08:44)
[2017-10-03] MEDS: metFORMIN* 850 MG TAB PO SCH ×2 (08:44→21:14)
[2017-10-03] MEDS: SitaGLIPtin (NF) 100 MG TAB PO SCH (08:48)
[2017-10-03] MEDS ORDERED: LISPRO SQ SCH (09:00)
[2017-10-03] MEDS ORDERED: INSULIN LISPRO PROTAMIN SQ SCH (09:00)
[2017-10-03] MEDS ORDERED: Aspirin EC TAB* 325 MG PO ONE (10:59)
[2017-10-03] MEDS ORDERED: Aspirin EC TAB* 81 MG TAB.EC PO SCH (11:00)
[2017-10-03] MEDS ORDERED: Clopidogrel TAB* 75 MG PO SCH (11:00)
[2017-10-03] MEDS ORDERED: diPHENhydraMINE IV* 50 MG/ML 1 ml VIAL (BENADRYL) IV PRN (13:56)
[2017-10-03] MEDS ORDERED: diPHENhydraMINE IV* 50 MG/ML 1 ml VIAL (BENADRYL) ONE (13:58)
--- NOTE | 2017-10-03 14:01 | HP ---
CC: Dr. Nitesh Mendez* HISTORY AND PHYSICAL: DATE OF ADMISSION: 10/03/17 CHIEF COMPLAINT: Right arm weakness. HISTORY OF PRESENT ILLNESS: Mr. Krueger is a 77-year-old man who is a poor historian. He reports that he fell at home this afternoon around 2 p.m. He does not know whether he lost consciousness, but he thinks not. He does not know how he fell. He does not remember tripping but he says he spent 2 hours on the floor because he could not get up. He could not tell me why he could not get up but he says he was awake on the floor for 2 hours. Eventually, his son arrived and called the ambulance. When they tried to get him off the floor they noticed that his right hand was not moving and right arm was weak, so he was brought to the emergency department with suspicion of a stroke. The patient denies any trauma to the right arm. He was not lying on the right arm when he was on the floor. He denies any pain in the area. The patient reports he had a stroke in 2012 with no residual after effects. The patient was admitted to this hospital on 09/21/17 with generalized weakness and right axillary pain. At that point, the weakness was due to uncontrolled diabetes brought on by inability to pay for insulin and other medications. He states that this has been solved since discharge. PAST MEDICAL HISTORY: Hypertension, type 2 diabetes, obstructive sleep apnea, anxiety, peripheral neuropathy, history of stroke in 2012. PAST SURGICAL HISTORY: Sebaceous cyst removed from his neck on the left. MEDICATIONS: 1. Amlodipine 5 mg p.o. daily. 2. Gabapentin 900 mg p.o. q. h.s. 3. Glipizide XL 20 mg p.o. daily. 4. Metformin 850 mg p.o. b.i.d. 5. Pravastatin 20 mg p.o. q.h.s. 6. Sertraline 25 mg p.o. q.a.m. 7. Januvia 100 mg p.o. daily. 8. Insulin lispro protamine and regular lispro 75/25 ratio 20 units subcu b.i.d. 9. Lisinopril 20 mg p.o. q.a.m. FAMILY HISTORY: He does not know of his family history because he was adopted. 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 He is , he has three children, his son Johnson is his surrogate healthcare decision maker. He is a former smoker, no alcohol or drug use. REVIEW OF SYSTEMS: The patient denies any fevers, weight loss, or anorexia. The patient denies chest pain or palpitations. The patient denies any shortness of breath or cough. Remainder of a 14-point review of systems is negative other than mentioned in the HPI. PHYSICAL EXAMINATION GENERAL: He is alert in no distress VITAL SIGNS: Temperature is 36.7, pulse 67, respirations 16, blood pressure 178 /89, O2 sat is 100%. HEENT: Head is normocephalic and atraumatic. Sclerae anicteric. Pupils equally round, reactive to light and accommodation. Oropharynx is moist. No lesions. NECK: No JVD, no carotid bruits, no thyromegaly. LUNGS: Clear to auscultation and percussion. HEART: Regular rate and rhythm. No murmurs or gallops. ABDOMEN: Soft, nontender. Positive bowel sounds. No hepatosplenomegaly. EXTREMITIES: No peripheral edema. Dorsalis pedis pulses 1+ bilaterally. NEUROLOGIC: Cranial nerves II through XII are intact. The right arm has 0/5 weakness in shoulder abduction and 0/5 in elbow flexion. Hand marketing systems manager is 4/5 on the right and radials only 3/5 strength in his fingers. Deep tendon reflexes are absent. Bilateral leg strength is 5/5. He is alert and cooperative, oriented to place and self. LABORATORY DATA: Sodium 135, potassium 4.4, chloride 101, bicarb 27, BUN 22, creatinine 1.07, glucose 192, calcium 8.8, lactic acid 1.4, troponin 0.03. Alk phos 121, AST 14, ALT 17. White count of 16.0, hemoglobin 17.5, hematocrit 50% , platelets of 280, cholesterol 425, LDL 69, HDL 35. EKG shows normal sinus rhythm, normal axis no ischemic or ST-T wave changes. Chest x-ray negative for infiltrates or effusion. Head CT shows no infarct or bleed. CT angiogram of head and neck showed about 50% bilateral carotid stenosis but there are several branches in the internal cerebral vasculature that have up to 80% stenosis but there is no clear cutoff point to cause this particular syndrome in the left parietal area. IMPRESSION: 1. A 77-year-old man presenting with apparent stroke with possible right arm weakness. The patient's stroke could come from cardioembolic symptoms or atrial fibrillation so the patient will be admitted to observation, placed on telemetry for heart rhythm. The patient may benefit from upgrade from aspirin to aspirin and Plavix. The patient already has telemedicine and neurology consult to try if he is not a candidate for tPA or any interventional catheter- based treatment. Patient will have a consultation with our local neurologist in the morning regarding further management, but I think he will be integrated into the physical therapy, followed by evaluation, etc., to prevent complications to help recovery from stroke. His cholesterol treatment seems appropriate since his LDL is at goal less than 70. Blood pressure control may be inadequate and we will watch for this and titrate medications as needed. 2. Code status is full. 3. DVT prophylaxis will be with subcutaneous Lovenox and sequential compression device as he is high risk of DVT. Thank you very much. [id number]/[facility] #: [id number] GUIDO
[2017-10-03] MEDS ORDERED: Famotidine IV* 10 MG/ML 2 ML (20 mg) IV SLOW PU ONE (14:14)
[2017-10-03] MEDS: Hydrocortisone 1% CREAM* 30 GM TUBE TOPICAL SCH ×2 (16:55→22:34)
--- NOTE | 2017-10-03 17:31 | PN ---
Subjective Date of Service: 10/03/17 Interval History: Patient seen and examined. Per RN, patient having rash on trunk, back legs and arms. This has happened approximately 2 hours after having plavix for the first time. Patient states it is pruritic. 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 Objective Active Medications: Amlodipine Besylate (Norvasc Tab*) 5 mg PO DAILY [facility] Last Admin: 10/03/17 08:44 Dose: 5 mg Aspirin (Aspirin Ec Tab*) 81 mg PO DAILY [facility] Atorvastatin Calcium (Lipitor*) 20 mg PO BEDTIME [facility]; Protocol Diphenhydramine HCl (Benadryl Iv*) 25 mg IV Q6H PRN PRN Reason: PRURITIS Last Admin: 10/03/17 14:00 Dose: 25 mg Enoxaparin Sodium (Lovenox(*)) 40 mg SUBCUT Q24H [facility] Last Admin: 10/03/17 04:07 Dose: 40 mg Gabapentin (Neurontin Cap(*)) 900 mg PO BEDTIME [facility] Glipizide (Glucotrol Xl*) 20 mg PO DAILY [facility] Last Admin: 10/03/17 08:44 Dose: 20 mg Hydrocortisone (Hytone Cream 1%*) 1 applic TOPICAL TID [facility] Last Admin: 10/03/17 16:55 Dose: 1 applic Insulin Glargine (Lantus(*)) 25 units SUBCUT Q24H [facility] Last Admin: 10/03/17 04:07 Dose: 25 units Insulin Human Lispro (Humalog*) 0 units SUBCUT ACHS [facility]; Protocol Last Admin: 10/03/17 12:29 Dose: 3 unit Lisinopril (Prinivil Tab*) 20 mg PO DAILY [facility] Last Admin: 10/03/17 08:44 Dose: 20 mg Metformin HCl (Glucophage*) 850 mg PO BID [facility] Last Admin: 10/03/17 08:44 Dose: 850 mg Sertraline HCl (Zoloft*) 25 mg PO DAILY [facility] Last Admin: 10/03/17 08:44 Dose: 25 mg Sitagliptin Phosphate (Januvia (Nf)) 100 mg PO DAILY [facility]; Protocol Last Admin: 10/03/17 08:48 Dose: Not Given Vital Signs - 8 hr 10/03/17 10/03/17 10/03/17 11:19 14:00 15:50 Temperature 97.4 F 97.9 F Pulse Rate 91 92 Respiratory 16 18 14 Rate Blood Pressure 132/74 110/70 (mmHg) O2 Sat by Pulse 99 98 Oximetry 10/03/17 16:59 Temperature Pulse Rate Respiratory 18 Rate Blood Pressure (mmHg) O2 Sat by Pulse Oximetry Oxygen Devices in Use Now: None Appearance: Alert, NAD Eyes: No Scleral Icterus, PERRLA Ears/Nose/Mouth/Throat: NL Teeth, Lips, Gums, Mucous Membranes Moist Neck: NL Appearance and Movements; NL JVP, Trachea Midline Respiratory: Symmetrical Chest Expansion and Respiratory Effort, Clear to Auscultation Cardiovascular: NL Sounds; No Murmurs; No JVD, RRR, No Edema Abdominal: NL Sounds; No Tenderness; No Distention Extremities: No Edema, No Clubbing, Cyanosis Skin: - - generalized mac/pap body rash with significant erythema and pruritis Neurological: Alert and Oriented x 3, - - weak right side, difficulty opening fingers when in supercharge repair supervisor position Nutrition: Taking PO's Result Diagrams: 10/02/17 22:24 10/02/17 22:24 Diagnostic Imaging: Patient Name: ESTELLE BOUDREAUX V Medical Record#: [id number] Ordering Physician: Hilda Stanley MD Acct.#: [id number] : 1940 Age: 77 Sex: M Location: [address] [place] [address] MEDICAL/TELEMETRY Exam Date: 10/02/172205 ADM Status: ADM IN Order Information: CT BRAIN WO Accession Number: [id number] CPT: 07988 INDICATION: Right arm weakness. History of CVA. COMPARISON: CT brain September 19, 2017 TECHNIQUE: Noncontrast axial source images were acquired from the skull base to the vertex. FINDINGS: Ventricles/sulci: The ventricles are unchanged with expansion of the frontal horn left lateral ventricle secondary to prior infarct with volume loss. Brain parenchyma: There are no acute focal parenchymal findings. There is the sequela of prior left caudate nucleus with volume loss. There is underlying chronic microvascular ischemic change. Intracranial hemorrhage:None. Extra-axial spaces: There are no abnormal extra axial fluid collections or evidence of extra-axial mass. Calvarium: There is no calvarial fracture or other calvarial abnormality. Scalp: There is no evidence of scalp or extracalvarial soft tissue abnormality. Paranasal sinuses/mastoid: The paranasal sinuses and mastoid air cells are clear. Other: None. IMPRESSION: No acute intracranial findings. 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 Underlying chronic microvascular ischemic change. <Electronically signed by Nitish De Los Santos MD in [place]> 10/03/17717 Dictated By: Nitish De Los Santos MD Dictated Date/Time: 10/03/17717 Transcribed Date/Time: 10/03/17714 Copy to: Patient Name: ESTELLE BOUDREAUX V Medical Record#: [id number] Ordering Physician: Hilda Stanley MD Acct.#: [id number] : 1940 Age: 77 Sex: M Location: [address] [place] [address] MEDICAL/TELEMETRY Exam Date: 10/02/172241 ADM Status: ADM IN Order Information: CTA HEAD/NECK Accession Number: [id number] CPT: 62160 INDICATION: Right arm weakness COMPARISON: CT brain same date TECHNIQUE: Axial source images were acquired with coronal and sagittal reconstructions. CT angiographic technique was utilized with injection of 80 mL Visipaque 320. FINDINGS: Aortic arch: There are no significant CT angiogram abnormalities of the arch or the great vessels arising from the arch. There are minor atherosclerotic changes. Right carotid: The common carotid artery, carotid bifurcation, extracranial portions of the internal carotid artery, carotid artery at the skull base, carotid siphon, and carotid termination appear patent. There is calcific plaque formation at the bifurcation with an estimated 50% diameter stenosis at the level of the bulb. There are calcifications of the cavernous segment on the right with an estimated 80% diameter stenosis. Left carotid:The common carotid artery, carotid bifurcation, extracranial portions of the internal carotid artery, carotid artery at the skull base, carotid siphon, and carotid termination appear patent. There are ossifications at the carotid bifurcation with an estimated 30% diameter stenosis at the bifurcation. There are calcifications of the cavernous segment of the left with estimated 70% diameter stenosis Right middle and anterior cerebral arteries: There are no CT angiographic abnormalities of the middle or anterior cerebral arteries. Left middle and anterior cerebral arteries: There are no CT angiographic abnormalities of the middle or anterior cerebral arteries Right vertebral: The CT angiographic appearance of the vertebral artery is patent. Left vertebral: The CT angiographic appearance of the vertebral artery is patent. Basilar artery: The basilar artery and basilar tip appear normal. Posterior cerebral arteries: The distal distribution of the right and left posterior cerebral arteries is normal. [place]: The CT angiographic appearance of the [place] is normal. Source images show no evidence of mass or adenopathy within the neck. There are no acute focal brain parenchymal abnormalities or abnormal areas of enhancement. IMPRESSION: Moderate bilateral calcific plaque formation about the carotid bifurcations bilaterally without evidence of a hemodynamically significant stenosis. There is atherosclerotic plaque formation about the cavernous and supracavernous segments bilaterally with high-grade stenoses estimated at 80% on the right and 70% on the left CPT II Codes: 3100F PQRS <Electronically signed by Nitish De Los Santos MD in [place]> 10/03/17 0732 1 of 2 Assess/Plan/Problems-Billing Assessment: this is a 77 year old man that presents to ER with right-sided deficit 2/2 new CVA, with apparent allergy to plavix. - Patient Problems (1) Right sided weakness Code(s): R53.1 - WEAKNESS SNOMED Code(s): 607410671 Comment: - CTs as above - Neuro consult appreciated - Continue medical optimization with statin, ASA, glycemic control and PT/OT - No plavix 2/2 new allergy today, discussed with pharmacy and Dr. Rose (2) Diabetes Code(s): E11.9 - TYPE 2 DIABETES MELLITUS WITHOUT COMPLICATIONS SNOMED Code(s) : 71473327 Comment: - Uncontrolled - A1C=11.8 - Blood glucose ACHS - Lantus with lispro SS, home doses of metformin, sitagliptan, consistent carb diet (3) HLD (hyperlipidemia) Current Visit: No Status: Chronic Code(s): E78.5 - HYPERLIPIDEMIA, UNSPECIFIED SNOMED Code(s): 20906693 Comment: - Continue statin, dose increased per neuro (4) HTN (hypertension) Current Visit: No Status: Chronic Code(s): I10 - ESSENTIAL (PRIMARY) HYPERTENSION SNOMED Code(s): 65772239 Comment: - Orthostasis in the past admission - BP currently stable on home regimen (5) Peripheral neuropathy Code(s): G62.9 - POLYNEUROPATHY, UNSPECIFIED SNOMED Code(s): 438877414 Comment: - Continue home gabapentin (6) Allergy Code(s): T78.40XA - ALLERGY, UNSPECIFIED, INITIAL ENCOUNTER SNOMED Code(s): 929662078 Comment: - Rash errupted after plavix administration - Benadryl IVq6h with pepcid IV, topical steroid for comfort - Monitor skin, no airway compromise or wheez Status and Disposition: Remain inpatient - will need PT/OT rehab at [facility]
--- NOTE | 2017-10-03 17:58 | CONS ---
CC: Dr. Mendez.* CONSULTATION REPORT: DATE OF CONSULT: 10/03/17 ADMITTING PHYSICIAN: Lul Faith MD. PRIMARY CARE PROVIDER: Dr. Nitesh Mendez. REASON FOR CONSULTATION: Right-sided weakness. HISTORY OF PRESENT ILLNESS: Mr. Krueger is a 77-year-old gentleman who is somewhat of a poor historian. He has a history of hyperlipidemia, hypertension , diabetes, peripheral neuropathy, depression, has had a prior stroke in the past, about 4 years ago, with no residual but some left-sided involvement. He was in his usual state of health when visiting with a friend around 2 or 3 yesterday, he suddenly tried to get up and was unable to move his right arm. He states that he felt very unsteady on his legs. Meanwhile, he denies any right leg weakness; he appears to have some now. The symptoms came on suddenly. He denies any chest pain, shortness of breath, dyspnea on exertion, headache, vision changes, speech difficulties, swallowing difficulties. He denies any falls or head trauma. He has other been in his usual state of health. He states that his prior stroke did not present in a similar way, with no weakness at the time. Since his admission to the hospital, he has had dense right upper extremity hemiparesis and he has not tried to walk. He states that he was on aspirin at home, but he ran out several weeks ago and has not been on it for the last few weeks. He notes compliance with his other medications. PAST MEDICAL HISTORY: As noted above. PAST SURGICAL HISTORY: He denies. MEDICATIONS: At home include: 1. Lisinopril 20 mg daily. 2. Insulin 20 units subcu b.i.d. 3. Gabapentin 900 mg at bedtime. 4. Glipizide 20 mg daily. 5. Amlodipine 5 mg daily. 6. Januvia 100 mg daily. 7. Sertraline 25 mg daily. 8. Pravastatin 20 mg at bedtime. 9. Metformin 850 mg p.o. b.i.d. ALLERGIES: No known drug allergies. FAMILY HISTORY: Noncontributory. No history of strokes or neurologic disorders. No history of early heart attacks. SOCIAL HISTORY: No tobacco, alcohol, or drug use reported. PHYSICAL EXAMINATION: Vital Signs: Temperature 97.3 to 98.7, pulse is 60s to 81, respiratory rate in the 18 to 20 range, O2 sats 99% to 100%. Current blood pressure 145/88. He has been ranging 171/87 to 143/68. General: He is a well- nourished, well-developed gentleman sitting in his chair beside the bed. He is pleasant, well dressed, well groomed. He is a poor historian. HEENT: He is normocephalic, atraumatic. Sclerae are anicteric. Mucous membranes are moist. Oropharynx is clear. Nares are patent. Neck is supple. No thyromegaly. No carotid bruits. No meningismus. Chest: Clear to auscultation bilaterally. Cardiovascular: Has regular rate and rhythm without murmurs. Abdomen is nontender, nondistended, and obese. Extremities: No clubbing, cyanosis, or edema. His skin is warm and dry without lesions. On neurologic exam, he is awake, alert, oriented x3. His speech is fluent. There is no dysarthria. Repetition is intact. Recall of recent or remote events is intact. Vocabulary is intact. His mood is dysthymic. Affect, mood congruent. Cranial Nerves II through XII: Pupils are equally round and reactive to light. Extraocular muscles are intact. No nystagmus. No diplopia. Face has a slight right lower facial droop. Sensation is intact bilaterally. His hearing is intact bilaterally. His palate raises symmetrically. Tongue is midline. Sternocleidomastoid and trapezius are 5/5. He spontaneously moves his left upper extremity, 5/5 throughout. He is moving his left lower extremity 5/5 throughout. Tone is normal in those extremities. Right upper extremity has dense hemiparesis with some slight movement of his fingers. Otherwise, no movement. Tone is down. He has good movement in his right lower extremity with 4+/5 weakness proximally and distally in all muscle groups. His sensation is intact to light tough and pinprick throughout. There is no hemisensory loss. No extinction. Qvxruz-ae-ozsk and rapid alternating movements on the left were intact, could not perform on the right. DTRs were 1 + and symmetric at the biceps and brachioradialis, absent at the triceps, absent at the patella, absent at the ankles, downgoing Babinski's bilaterally. Gait was not tested as he is too unsteady. DIAGNOSTIC STUDIES/LAB DATA: Lab work includes a white count of 16, lymphocytes 12.4, absolute neutrophils 12.7, absolute monocytes 1.0, INR 0.95, PTT of 32.9. His complete metabolic profile is significant for BUN and creatinine of , glucose of 192, lactic acid of 148, triglycerides of 106, cholesterol of 125, LDL of 69, HDL of 35. Urine was negative. Studies: He had a head CTA done, shows moderate bilateral calcific plaque in the carotid bifurcations bilaterally without evidence of hemodynamically significant stenosis. There is atherosclerotic plaque formation about the cavernous and supracavernous segments bilaterally with high-grade stenosis estimated at 80% on the right and 70% on the left. The posterior circulation is patent, with normal flow. CT of the head, no acute intracranial findings, prior caudate stroke with encephalomalacia, underlying chronic microvascular changes. Chest x-ray, no active disease. ASSESSMENT AND PLAN: Mr. Krueger is a 77-year-old gentleman with multiple stroke risk factors including a prior stroke about 4 years ago, hypertension, diabetes, hyperlipidemia, who presented to the hospital with acute onset of right upper extremity and right lower extremity weakness, upper extremity much greater than lower extremity, with persistent dense hemiparesis in the right upper extremity. No sensory loss observed. He states he was previously on aspirin, but stopped it several weeks ago and presents with what appears to be a stroke, likely left subcortical in nature. Carotid ultrasound does show 80% stenosis on the right and 70% stenosis on the left. The plan is to add aspirin and I will start him on some Plavix as well. I am going to order an MRI of the brain as well as an echocardiogram to rule out any cardioembolic source, although my suspicion that this is an embolic stroke is low. We will check some blood work to rule out reversible causes of stroke. I would maintain his blood pressure in the mid to high range and not be aggressive with treatment given the likelihood of an acute stroke given his findings. He does have 70% stenosis on the left and 80% on the right, and this is something that will need to be followed. We will order physical therapy for him, continue to monitor him closely in the hospital. He will need to be discharged on aspirin and Plavix given his carotid stenosis and will need a followup with the vascular surgeon at discharge for long-term management of his carotid disease. I would recommend tight diabetes control at this point. He is a nonsmoker. I will continue to follow him closely and make further recommendations as necessary. Thank you for the opportunity to participate in the care of this very interesting patient. [id number] #: [id number] GUIDO
[2017-10-03] MEDS ORDERED: Atorvastatin* 10 MG TAB PO SCH ×2 (21:00)
--- NOTE | 2017-10-03 21:02 | ED ---
Ronni Tripathi Tariq, scribed for Hilda Stanley MD on 10/02/17 at 2253 . Complex/Multi-Sys Presentation - HPI Summary HPI Summary: A 77 y/o male ZACHARIAH presents to ED c/o right-arm weakness. According to pt's son , he found him on the floor around 2130. He was picked up by ambulance, but when he attempted to grab the rail when going up the stairs he could not do so. Additionally as per son, pt was dizzy at 1430. As per triage, "Left house at 1430, 15 before that he walked over to neighbors. Pt was moving arms before. He was laying on floor walk downstarts when first got and grabbed pillow, moving to left side". As per EMT, "pt was laying on back, and cringed down and could not hold handrail". According to the pt, he can squeeze his fingers, however he cannot move his arm. Currently, his arm is slightly starting to come back. PMHx of CVA. CODE JADE. No blood thinners. 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 Onset/Duration: Sudden Onset, Still Present Timing: Constant Severity Currently: None Aggravating Factor(s): nothing Alleviating Factor(s): nothing Associated Signs And Symptoms: Positive: Dizziness - Allergies/Home Medications Allergies/Adverse Reactions: Allergies Allergy/AdvReac Type Severity Reaction Status Date / Time clopidogrel [From Plavix] Allergy Severe Hives Verified 10/03/17 14:07 PMH/Surg Hx/FS Hx/Imm Hx Endocrine/Hematology History: Reports: Hx Diabetes - insulin Denies: Hx Anticoagulant Therapy, Hx Thyroid Disease, Hx Anemia Cardiovascular History: Reports: Hx Hypercholesterolemia, Hx Hypertension Denies: Hx Pacemaker/ICD Respiratory History: Reports: Hx Sleep Apnea History: Denies: Hx Renal Disease Musculoskeletal History: Reports: Hx Arthritis Sensory History: Reports: Hx Contacts or Glasses Denies: Hx Hearing Aid Opthamlomology History: Reports: Hx Contacts or Glasses Neurological History: Reports: Hx CVA Denies: Other Neuro Impairments/Disorders Psychiatric History: Denies: Hx Panic Disorder - Surgical History Surgery Procedure, Year, and Place: SEBACIOUS CYST REMOVED FROM BACK OF NECK Infectious Disease History: Denies: Traveled Outside the [place] in Last 30 Days - Family History Known Family History: Positive: Other - no ulcers or intestinal diseases - Social History Alcohol Use: None Hx Substance Use: No Substance Use Type: Reports: None Hx Tobacco Use: No Smoking Status (MU): Never Smoked Tobacco Review of Systems Positive: Fever Positive: Other - Unable to move right arm Neurological: Other - POSITIVE: Dizziness All Other Systems Reviewed And Are Negative: Yes Physical Exam - Summary Physical Exam Summary: GENERAL: Patient is a well developed and nourished male who is lying comfortable in the stretcher. Patient is not in any acute respiratory distress. HEAD AND FACE: Normocephalic EYES: PERRLA, EOMI x 2. EARS: Hearing grossly intact. MOUTH: Oropharynx within normal limits. NECK: Supple, trachea is midline, no adenopathy, no JVD, no carotid bruit. CHEST: Symmetric, no tenderness at palpation LUNGS: Clear to auscultation bilaterally. No wheezing or crackles. CVS: Regular rate and rhythm, S1 and S2 present, no murmurs or gallops appreciated. ABDOMEN: Soft, non-tender. Bowel sounds are normal. No abdominal abnormal pulsations. EXTREMITIES: Full ROM in all major joints, no edema, no cyanosis or clubbing. NEURO: Alert and oriented x 3. Weak RUE 2/5 motor on RUE, 5/5 otherside. Speech is normal and follows commands. SKIN: Dry and warm Neuro exam extended: Cranial nerves II-XII grossly intact, no dysmetria finger to nose, nml heel to chaudhry GCS: 15 Triage Information Reviewed: Yes Vital Signs On Initial Exam: Initial Vitals Temp Pulse Resp BP Pulse Ox 36.7 C 67 19 166/93 98 10/02/17 22:05 10/02/17 22:05 10/02/17 22:05 10/02/17 22:05 10/02/17 22:05 Vital Signs Reviewed: Yes Diagnostics - Vital Signs Vital Signs Temp Pulse Resp BP Pulse Ox 10/03/17 01:45 17 168/95 10/03/17 01:15 19 176/94 10/03/17 01:00 19 10/03/17 00:45 19 158/98 10/03/17 00:16 17 164/85 10/03/17 00:00 14 10/02/17 23:59 21 10/02/17 23:15 67 16 178/89 100 10/02/17 23:14 70 99 10/02/17 22:46 64 18 155/72 98 10/02/17 22:15 68 16 166/93 98 10/02/17 22:05 36.7 C 67 19 166/93 98 - Laboratory Lab Results: Lab Results 10/02/17 10/02/17 10/02/17 Range/Units 22:24 22:24 22:24 WBC 16.0 H (3.5-10.8) 10^3/ul RBC 5.91 H (4.00-5.40) 10^6/ul Hgb 17.5 (14.0-18.0) g/dl Hct 50 (42-52) % MCV 85 (80-94) fL MCH 30 (27-31) pg MCHC 35 (31-36) g/dl RDW 14 (10.5-15) % Plt Count 270 (150-450) 10^3/ul MPV 8.1 (7.4-10.4) um3 Neut % (Auto) 79.4 (38-83) % Lymph % (Auto) 12.4 L (25-47) % [place] % (Auto) 6.0 (0-7) % Eos % (Auto) 1.9 (0-6) % Baso % (Auto) 0.3 (0-2) % Absolute Neuts (auto) 12.7 H (1.5-7.7) 10^3/ul Absolute Lymphs (auto) 2.0 (1.0-4.8) 10^3/ul Absolute Monos (auto) 1.0 H (0-0.8) 10^3/ul Absolute Eos (auto) 0.3 (0-0.6) 10^3/ul Absolute Basos (auto) 0.1 (0-0.2) 10^3/ul Absolute Nucleated RBC 0 10^3/ul Nucleated RBC % 0 Sodium 135 (135-145) mmol/L Potassium 4.4 (3.5-5.0) mmol/L Chloride 101 (101-111) mmol/L Carbon Dioxide 27 (22-32) mmol/L Anion Gap 7 (2-11) mmol/L BUN 22 (6-24) mg/dL Creatinine 1.07 (0.67-1.17) mg/dL Est GFR ( Amer) 81.5 (>60) Est GFR (Non-Af Amer) 67.4 (>60) BUN/Creatinine Ratio 20.6 H (8-20) Glucose 192 H (70-100) mg/dL Lactic Acid 1.4 (0.5-2.0) mmol/L Calcium 8.8 (8.6-10.3) mg/dL Total Bilirubin 0.70 (0.2-1.0) mg/dL AST 14 (13-39) U/L ALT 17 (7-52) U/L Alkaline Phosphatase 121 H (34-104) U/L Troponin I Pending Total Protein 6.3 L (6.4-8.9) g/dL Albumin 3.6 (3.2-5.2) g/dL Globulin 2.7 (2-4) g/dL Albumin/Globulin Ratio 1.3 (1-3) Triglycerides 106 mg/dL Cholesterol 125 mg/dL LDL Cholesterol 69 mg/dL HDL Cholesterol 35.0 mg/dL Blood Type Antibody Screen 10/02/17 Range/Units 22:24 WBC (3.5-10.8) 10^3/ul RBC (4.00-5.40) 10^6/ul Hgb (14.0-18.0) g/dl Hct (42-52) % MCV (80-94) fL MCH (27-31) pg MCHC (31-36) g/dl RDW (10.5-15) % Plt Count (150-450) 10^3/ul MPV (7.4-10.4) um3 Neut % (Auto) (38-83) % Lymph % (Auto) (25-47) % [place] % (Auto) (0-7) % Eos % (Auto) (0-6) % Baso % (Auto) (0-2) % Absolute Neuts (auto) (1.5-7.7) 10^3/ul Absolute Lymphs (auto) (1.0-4.8) 10^3/ul Absolute Monos (auto) (0-0.8) 10^3/ul Absolute Eos (auto) (0-0.6) 10^3/ul Absolute Basos (auto) (0-0.2) 10^3/ul Absolute Nucleated RBC 10^3/ul Nucleated RBC % Sodium (135-145) mmol/L Potassium (3.5-5.0) mmol/L Chloride (101-111) mmol/L Carbon Dioxide (22-32) mmol/L Anion Gap (2-11) mmol/L BUN (6-24) mg/dL Creatinine (0.67-1.17) mg/dL Est GFR ( Amer) (>60) Est GFR (Non-Af Amer) (>60) BUN/Creatinine Ratio (8-20) Glucose (70-100) mg/dL Lactic Acid (0.5-2.0) mmol/L Calcium (8.6-10.3) mg/dL Total Bilirubin (0.2-1.0) mg/dL AST (13-39) U/L ALT (7-52) U/L Alkaline Phosphatase (34-104) U/L Troponin I Total Protein (6.4-8.9) g/dL Albumin (3.2-5.2) g/dL Globulin (2-4) g/dL Albumin/Globulin Ratio (1-3) Triglycerides mg/dL Cholesterol mg/dL LDL Cholesterol mg/dL HDL Cholesterol mg/dL Blood Type O Positive Antibody Screen Pending Result Diagrams: 10/02/17 22:24 10/02/17 22:24 Lab Statement: Any lab studies that have been ordered have been reviewed, and results considered in the medical decision making process. - Radiology CXR Radiology Interpretation Completed By: ED Physician - NO PNEUMONIA - CT CT HEAD CT Interpretation Completed By: Radiologist - No evidence of intracranial hemorrhage or mass. Minimal patchy and focal areas of low-attenuation are present in the brain. Findings suggest chronic ischemic changes. Note: Negative or nonspecific CT should not exclude further evaluation if the patients current symptoms persist. If further evaluation is felt to be indicated, follow-up should be considered with MRI. ED PHYSICIAN REVIEWED THIS RADIOLOGY REPORT. CTA HEAD NECK CT Interpretation Completed By: Radiologist - DOMINANT LEFT VERTEBRAL ARTERY. MODERATE VASCULAR CALCIFICATION AND THE PROIMAL 3RD. THIS EXTENDS FROM NEAR THE BIFURCATION. UP TO 50% STENOSIS SUGGESTED. REMAINDER OF THE VESSEL THROUGH THE FORAMEN MAGNUM IS UNREMARKABLE. MODERATE DEGENERATIVE SPONDYLOSIS. IF INDICATED FOR FURTHER EVALUATION, SPECIFIC EXAMINATION SHOULD BE OBTAINED. ED PHYSICIAN REVIEWED THIS RADIOLOGY REPORT. - EKG 2229 Cardiac Rate: NL - 65 BPM EKG Rhythm: Sinus Rhythm EKG Interpretation: No ischemic changes. Complex Multi-Symp Course/Dx Course Of Treatment: 77-year-old male who presents to the emergency room of right arm weakness. CT head of the head shows no acute intracranial etiology. CTA head and neck show stenosis of the internal carotids. Patient is not a TPA candidate because his NH stroke scale is a 1 plus last known normal is outside the window. Patient will be admitted for full stroke workup. Case discussed with hospitalist. Results and plan of care discussed the patient. - Diagnoses Provider Diagnoses: CVA (cerebral vascular accident) During the Visit The Following Alert/Code Occurred: Code Jade Discharge - Sign-Out/Discharge Documenting (check all that apply): Discharge/Admit/Transfer - Discharge Plan Condition: Stable Disposition: ADMITTED TO [facility] - Billing Disposition and Condition Condition: STABLE Disposition: Admitted to [facility] The documentation as recorded by the Ronni arellano Tariq accurately reflects the service I personally performed and the decisions made by , Hilda Stanley MD.
[2017-10-03] MEDS: Atorvastatin* 10 MG TAB PO SCH (21:11)
[2017-10-03] MEDS: Gabapentin CAP(*) 300 MG PO SCH (21:12)
[2017-10-04] MEDS: Enoxaparin(*) 40 MG/0.4 ML SYR SUBCUT SCH (01:31)
[2017-10-04] MEDS: Insulin GLARGINE(*) 1 UNITS UNIT SUBCUT SCH (02:24)
--- NOTE | 2017-10-04 07:56 | PN ---
Subjective Date of Service: 10/04/17 Interval History: Developed a pruritic rash yesterday about 2 hours after Plavix. This was stopped and cream applied. No SOA, no dysphagia reported. VSS. The nurse this morning reports and episode where he was sitting in a chair and got weak. BP lower, and has a history of orthostatis. The nurse was unclear if it was BG or BP but he recovered and has had no further episodes. No seizure like activity reported and the patient was awake and responsive during. Otherwise, he feels that the right sided weakness may be slightly better. No new focal weakness or problems Objective Active Medications: Amlodipine Besylate (Norvasc Tab*) 5 mg PO DAILY [facility] Last Admin: 10/03/17 08:44 Dose: 5 mg Aspirin (Ecotrin Ec Tab*) 325 mg PO DAILY [facility] Atorvastatin Calcium (Lipitor*) 20 mg PO BEDTIME [facility]; Protocol Last Admin: 10/03/17 21:11 Dose: 20 mg Diphenhydramine HCl (Benadryl Iv*) 25 mg IV Q6H PRN PRN Reason: PRURITIS Last Admin: 10/03/17 14:00 Dose: 25 mg Enoxaparin Sodium (Lovenox(*)) 40 mg SUBCUT Q24H [facility] Last Admin: 10/04/17 01:31 Dose: 40 mg Gabapentin (Neurontin Cap(*)) 900 mg PO BEDTIME [facility] Last Admin: 10/03/17 21:12 Dose: 900 mg Glipizide (Glucotrol Xl*) 20 mg PO DAILY [facility] Last Admin: 10/03/17 08:44 Dose: 20 mg Hydrocortisone (Hytone Cream 1%*) 1 applic TOPICAL TID [facility] Last Admin: 10/03/17 22:34 Dose: 1 applic Insulin Glargine (Lantus(*)) 25 units SUBCUT Q24H [facility] Last Admin: 10/04/17 02:24 Dose: 25 units Insulin Human Lispro (Humalog*) 0 units SUBCUT ACHS [facility]; Protocol Last Admin: 10/03/17 21:40 Dose: 9 unit Lisinopril (Prinivil Tab*) 20 mg PO DAILY [facility] Last Admin: 10/03/17 08:44 Dose: 20 mg Metformin HCl (Glucophage*) 850 mg PO BID [facility] Last Admin: 10/03/17 21:14 Dose: 850 mg Sertraline HCl (Zoloft*) 25 mg PO DAILY [facility] Last Admin: 10/03/17 08:44 Dose: 25 mg Sitagliptin Phosphate (Januvia (Nf)) 100 mg PO DAILY [facility]; Protocol Last Admin: 10/03/17 08:48 Dose: Not Given Vital Signs 10/03/17 10/03/17 10/03/17 08:00 11:19 14:00 Temperature 97.4 F Pulse Rate 91 Respiratory 18 16 18 Rate Blood Pressure 132/74 (mmHg) O2 Sat by Pulse 99 99 Oximetry 10/03/17 10/03/17 10/03/17 15:50 16:59 19:27 Temperature 97.9 F 95.3 F Pulse Rate 92 80 Respiratory 14 18 12 Rate Blood Pressure 110/70 118/68 (mmHg) O2 Sat by Pulse 98 99 Oximetry 10/03/17 10/03/17 10/03/17 20:00 21:12 23:50 Temperature 99.0 F Pulse Rate 85 Respiratory 12 18 16 Rate Blood Pressure 107/65 (mmHg) O2 Sat by Pulse 97 Oximetry 10/04/17 01:20 Temperature Pulse Rate Respiratory 18 Rate Blood Pressure (mmHg) O2 Sat by Pulse Oximetry Oxygen Devices in Use Now: None Neurology Exam: General: HEENT: Normocephalic/atraumatic, sclera anicteric, mucous membranes moist Neck: Supple Chest: Clear to auscultation bilaterally Cardiovascular: Regular rate and rhythm without murmurs, rubs, gallops Abdomen: Soft, nontender/nondistended Extremities: No clubbing, cyanosis, or edema Neurological Findings: Awake, Alert, Oriented x3 Speech: fluent without dysarthria, repetition intact, recall intact. Slow to answer at times but appropriate Cranial Nerve: PEERL, EOM intact, VFF, no nystagmus, flattening of right NLF, facial sensation intact, hearing intact to finger rub bilaterally, palate elevates symmetrically, tongue midline Motor: Dense HP of the RUE with minimal movement of fingers. 4+/5 weakness of the RLE proximally with some drift, 5/5 distally. 5/5 left side upper and lower. Tone is down in the RUE Sensation: Approx 10% loss of LT/PP in the right upper and lower extremity Finger to nose, rapid alternating movements intact without tremor on the right, could not test on the left Result Diagrams: 10/02/17 22:24 10/02/17 22:24 Additional Lab and Data: Lab Results 10/02/17 10/02/17 10/02/17 Range/Units 22:24 22:24 22:24 WBC 16.0 H (3.5-10.8) 10^3/ul RBC 5.91 H (4.00-5.40) 10^6/ul Hgb 17.5 (14.0-18.0) g/dl Hct 50 (42-52) % MCV 85 (80-94) fL MCH 30 (27-31) pg MCHC 35 (31-36) g/dl RDW 14 (10.5-15) % Plt Count 270 (150-450) 10^3/ul MPV 8.1 (7.4-10.4) um3 Neut % (Auto) 79.4 (38-83) % Lymph % (Auto) 12.4 L (25-47) % [place] % (Auto) 6.0 (0-7) % Eos % (Auto) 1.9 (0-6) % Baso % (Auto) 0.3 (0-2) % Absolute Neuts (auto) 12.7 H (1.5-7.7) 10^3/ul Absolute Lymphs (auto) 2.0 (1.0-4.8) 10^3/ul Absolute Monos (auto) 1.0 H (0-0.8) 10^3/ul Absolute Eos (auto) 0.3 (0-0.6) 10^3/ul Absolute Basos (auto) 0.1 (0-0.2) 10^3/ul Absolute Nucleated RBC 0 10^3/ul Nucleated RBC % 0 Sodium 135 (135-145) mmol/L Potassium 4.4 (3.5-5.0) mmol/L Chloride 101 (101-111) mmol/L Carbon Dioxide 27 (22-32) mmol/L Anion Gap 7 (2-11) mmol/L BUN 22 (6-24) mg/dL Creatinine 1.07 (0.67-1.17) mg/dL Est GFR ( Amer) 81.5 (>60) Est GFR (Non-Af Amer) 67.4 (>60) BUN/Creatinine Ratio 20.6 H (8-20) Glucose 192 H (70-100) mg/dL Lactic Acid 1.4 (0.5-2.0) mmol/L Calcium 8.8 (8.6-10.3) mg/dL Total Bilirubin 0.70 (0.2-1.0) mg/dL AST 14 (13-39) U/L ALT 17 (7-52) U/L Alkaline Phosphatase 121 H (34-104) U/L Troponin I Pending Total Protein 6.3 L (6.4-8.9) g/dL Albumin 3.6 (3.2-5.2) g/dL Globulin 2.7 (2-4) g/dL Albumin/Globulin Ratio 1.3 (1-3) Triglycerides 106 mg/dL Cholesterol 125 mg/dL LDL Cholesterol 69 mg/dL HDL Cholesterol 35.0 mg/dL Blood Type Antibody Screen 10/02/17 Range/Units 22:24 WBC (3.5-10.8) 10^3/ul RBC (4.00-5.40) 10^6/ul Hgb (14.0-18.0) g/dl Hct (42-52) % MCV (80-94) fL MCH (27-31) pg MCHC (31-36) g/dl RDW (10.5-15) % Plt Count (150-450) 10^3/ul MPV (7.4-10.4) um3 Neut % (Auto) (38-83) % Lymph % (Auto) (25-47) % [place] % (Auto) (0-7) % Eos % (Auto) (0-6) % Baso % (Auto) (0-2) % Absolute Neuts (auto) (1.5-7.7) 10^3/ul Absolute Lymphs (auto) (1.0-4.8) 10^3/ul Absolute Monos (auto) (0-0.8) 10^3/ul Absolute Eos (auto) (0-0.6) 10^3/ul Absolute Basos (auto) (0-0.2) 10^3/ul Absolute Nucleated RBC 10^3/ul Nucleated RBC % Sodium (135-145) mmol/L Potassium (3.5-5.0) mmol/L Chloride (101-111) mmol/L Carbon Dioxide (22-32) mmol/L Anion Gap (2-11) mmol/L BUN (6-24) mg/dL Creatinine (0.67-1.17) mg/dL Est GFR ( Amer) (>60) Est GFR (Non-Af Amer) (>60) BUN/Creatinine Ratio (8-20) Glucose (70-100) mg/dL Lactic Acid (0.5-2.0) mmol/L Calcium (8.6-10.3) mg/dL Total Bilirubin (0.2-1.0) mg/dL AST (13-39) U/L ALT (7-52) U/L Alkaline Phosphatase (34-104) U/L Troponin I Total Protein (6.4-8.9) g/dL Albumin (3.2-5.2) g/dL Globulin (2-4) g/dL Albumin/Globulin Ratio (1-3) Triglycerides mg/dL Cholesterol mg/dL LDL Cholesterol mg/dL HDL Cholesterol mg/dL Blood Type O Positive Antibody Screen Pending Diagnostic Imaging: Patient Name: ESTELLE BOUDREAUX V Medical Record#: [id number] Ordering Physician: Hilda Stanley MD Acct.#: [id number] : 1940 Age: 77 Sex: M Location: [address] [place] [address] MEDICAL/TELEMETRY Exam Date: 10/02/172205 ADM Status: ADM IN Order Information: CT BRAIN WO Accession Number: [id number] CPT: 24062 INDICATION: Right arm weakness. History of CVA. COMPARISON: CT brain September 19, 2017 TECHNIQUE: Noncontrast axial source images were acquired from the skull base to the vertex. FINDINGS: Ventricles/sulci: The ventricles are unchanged with expansion of the frontal horn left lateral ventricle secondary to prior infarct with volume loss. Brain parenchyma: There are no acute focal parenchymal findings. There is the sequela of prior left caudate nucleus with volume loss. There is underlying chronic microvascular ischemic change. Intracranial hemorrhage:None. Extra-axial spaces: There are no abnormal extra axial fluid collections or evidence of extra-axial mass. Calvarium: There is no calvarial fracture or other calvarial abnormality. Scalp: There is no evidence of scalp or extracalvarial soft tissue abnormality. Paranasal sinuses/mastoid: The paranasal sinuses and mastoid air cells are clear. Other: None. IMPRESSION: No acute intracranial findings. 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 Underlying chronic microvascular ischemic change. <Electronically signed by Nitish De Los Santos MD in [facility]> 10/03/17717 Dictated By: Nitish De Los Santos MD Dictated Date/Time: 10/03/17717 Transcribed Date/Time: 10/03/17714 Copy to: Patient Name: ESTELLE BOUDREAUX V Medical Record#: [id number] Ordering Physician: Hilda Stanley MD Acct.#: [id number] : 1940 Age: 77 Sex: M Location: [address] [place] [address] MEDICAL/TELEMETRY Exam Date: 10/02/172241 ADM Status: ADM IN Order Information: CTA HEAD/NECK Accession Number: [id number] CPT: 57720 INDICATION: Right arm weakness COMPARISON: CT brain same date TECHNIQUE: Axial source images were acquired with coronal and sagittal reconstructions. CT angiographic technique was utilized with injection of 80 mL Visipaque 320. FINDINGS: Aortic arch: There are no significant CT angiogram abnormalities of the arch or the great vessels arising from the arch. There are minor atherosclerotic changes. Right carotid: The common carotid artery, carotid bifurcation, extracranial portions of the internal carotid artery, carotid artery at the skull base, carotid siphon, and carotid termination appear patent. There is calcific plaque formation at the bifurcation with an estimated 50% diameter stenosis at the level of the bulb. There are calcifications of the cavernous segment on the right with an estimated 80% diameter stenosis. Left carotid:The common carotid artery, carotid bifurcation, extracranial portions of the internal carotid artery, carotid artery at the skull base, carotid siphon, and carotid termination appear patent. There are ossifications at the carotid bifurcation with an estimated 30% diameter stenosis at the bifurcation. There are calcifications of the cavernous segment of the left with estimated 70% diameter stenosis Right middle and anterior cerebral arteries: There are no CT angiographic abnormalities of the middle or anterior cerebral arteries. Left middle and anterior cerebral arteries: There are no CT angiographic abnormalities of the middle or anterior cerebral arteries Right vertebral: The CT angiographic appearance of the vertebral artery is patent. Left vertebral: The CT angiographic appearance of the vertebral artery is patent. Basilar artery: The basilar artery and basilar tip appear normal. Posterior cerebral arteries: The distal distribution of the right and left posterior cerebral arteries is normal. [place]: The CT angiographic appearance of the [place] is normal. Source images show no evidence of mass or adenopathy within the neck. There are no acute focal brain parenchymal abnormalities or abnormal areas of enhancement. IMPRESSION: Moderate bilateral calcific plaque formation about the carotid bifurcations bilaterally without evidence of a hemodynamically significant stenosis. There is atherosclerotic plaque formation about the cavernous and supracavernous segments bilaterally with high-grade stenoses estimated at 80% on the right and 70% on the left CPT II Codes: 3100F PQRS <Electronically signed by Nitish De Los Santos MD in [facility]> 10/03/17 0732 1 of 2 Assessment/Plan Assessment: 77 year old with prior stroke 4 years ago (no residuals) with multiple risk factors including hyperlipidemia, HTN, DM presented with acute onset RUE>>RLE weakness (dense in RUE) with some mild sensory loss on the right as well. MRI/ Echo pending. CT shows no acute changes. Has 80% ICA stenosis on the non- right side (non-symptomatic) and 70% on the left. He was previously on ASA for his prior stroke but ran out several weeks and and did not resume. Stroke: --Continue tele monitoring: no evidence of A.fib at this point --MRI Brain tomorrow --Echo this evening --Increase ASA to 325 mg q day. Allergic to Plavix. --Maximize stroke risk factor reduction: BP control, DM control, Lipid control with goal LDL < 70. Can start to titrate BP meds tomorrow if necessary. Watch for hypotension in the setting of acute stroke. Most recent BPs are soft. Will bolus 1 L NS. --Carotid stenosis: non-critical at this point but will need close follow up. I can see him as outpatient and arrange for appointment with vascular surgery or PCP can do this. Continue full strength ASA, cannot take Plavix. --PT/OT are paramount for his RUE weakness. May be good candidate for inpatient rehab. PM&R referral sent --Fall precautions --Please arrange for outpatient follow up with me in 1 month
[2017-10-04] MEDS ORDERED: NS 0.9% 1000 ML* 1,000 ML IV ONE (08:03)
[2017-10-04] MEDS: Insulin LISPRO* 1 UNITS UNIT SUBCUT SCH ×4 (08:53→21:02)
[2017-10-04] MEDS: amLODIPine TAB* 5 MG PO SCH (08:55)
[2017-10-04] MEDS: glipiZIDE TAB.XL* 5 MG PO SCH (08:55)
[2017-10-04] MEDS: Aspirin EC TAB* 325 MG PO SCH (08:55)
[2017-10-04] MEDS: Sertraline* 25 MG TAB PO SCH (08:55)
[2017-10-04] MEDS: metFORMIN* 850 MG TAB PO SCH ×2 (08:55→21:01)
[2017-10-04] MEDS: Lisinopril TAB* 10 MG PO SCH (08:55)
[2017-10-04] MEDS: SitaGLIPtin (NF) 100 MG TAB PO SCH (08:57)
[2017-10-04] MEDS ORDERED: Aspirin EC TAB* 81 MG TAB.EC PO SCH (09:00)
[2017-10-04] MEDS: Hydrocortisone 1% CREAM* 30 GM TUBE TOPICAL SCH ×3 (09:19→21:08)
--- NOTE | 2017-10-04 18:11 | PN ---
Subjective Date of Service: 10/04/17 Interval History: Patient has regained a moderate amount of movement in right hand but still dense hemiparesis. Denies symptomatic hypostension with dizziness, palpitations , CP, SOB. Denies F/C, N/V, abdominal pain, diarrhea, constipation, or other pain. Family History: Unchanged from Admission Social History: Unchanged from Admission Past Medical History: Unchanged from Admission Objective Active Medications: Amlodipine Besylate (Norvasc Tab*) 5 mg PO DAILY [facility] Last Admin: 10/04/17 08:55 Dose: 5 mg Aspirin (Ecotrin Ec Tab*) 325 mg PO DAILY [facility] Last Admin: 10/04/17 08:55 Dose: 325 mg Atorvastatin Calcium (Lipitor*) 20 mg PO BEDTIME [facility]; Protocol Last Admin: 10/03/17 21:11 Dose: 20 mg Diphenhydramine HCl (Benadryl Iv*) 25 mg IV Q6H PRN PRN Reason: PRURITIS Last Admin: 10/03/17 14:00 Dose: 25 mg Enoxaparin Sodium (Lovenox(*)) 40 mg SUBCUT Q24H [facility] Last Admin: 10/04/17 01:31 Dose: 40 mg Gabapentin (Neurontin Cap(*)) 900 mg PO BEDTIME [facility] Last Admin: 10/03/17 21:12 Dose: 900 mg Glipizide (Glucotrol Xl*) 20 mg PO DAILY [facility] Last Admin: 10/04/17 08:55 Dose: 20 mg Hydrocortisone (Hytone Cream 1%*) 1 applic TOPICAL TID [facility] Last Admin: 10/04/17 17:49 Dose: Not Given Insulin Glargine (Lantus(*)) 25 units SUBCUT Q24H [facility] Last Admin: 10/04/17 02:24 Dose: 25 units Insulin Human Lispro (Humalog*) 0 units SUBCUT ACHS [facility]; Protocol Last Admin: 10/04/17 17:55 Dose: 3 unit Lisinopril (Prinivil Tab*) 20 mg PO DAILY [facility] Last Admin: 10/04/17 08:55 Dose: 20 mg Metformin HCl (Glucophage*) 850 mg PO BID [facility] Last Admin: 10/04/17 08:55 Dose: 850 mg Sertraline HCl (Zoloft*) 25 mg PO DAILY [facility] Last Admin: 10/04/17 08:55 Dose: 25 mg Sitagliptin Phosphate (Januvia (Nf)) 100 mg PO DAILY [facility]; Protocol Last Admin: 10/04/17 08:57 Dose: Not Given Vital Signs - 8 hr 10/04/17 11:25 Temperature 98.9 F Pulse Rate 83 Respiratory 12 Rate Blood Pressure 118/62 (mmHg) O2 Sat by Pulse 96 Oximetry Oxygen Devices in Use Now: None Appearance: Patient is a 77yo male who appears stated age and is sitting in the bed in [facility]. Eyes: No Scleral Icterus, PERRLA Ears/Nose/Mouth/Throat: NL Teeth, Lips, Gums, Clear Oropharnyx, Mucous Membranes Moist Neck: NL Appearance and Movements; NL JVP, Trachea Midline Respiratory: Symmetrical Chest Expansion and Respiratory Effort, Clear to Auscultation Cardiovascular: NL Sounds; No Murmurs; No JVD, RRR, No Edema Abdominal: NL Sounds; No Tenderness; No Distention, No Hepatosplenomegaly Lymphatic: No Cervical Adenopathy Extremities: No Edema, No Clubbing, Cyanosis Skin: No Rash or Ulcers, No Nodules or Sclerosis Neurological: Alert and Oriented x 3, NL Sensation, - - 2/5 stength in right hand. 1/5 in RUE. 4/5 in RLE. Result Diagrams: 10/02/17 22:24 10/02/17 22:24 Additional Lab and Data: Lab Results Diagnostic Imaging: Patient Name: ESTELLE BOUDREAUX V Medical Record#: [id number] Ordering Physician: Hilda Stanley MD Acct.#: [id number] : 1940 Age: 77 Sex: M Location: [address] [place] [address] MEDICAL/TELEMETRY Exam Date: 10/02/172205 ADM Status: ADM IN Order Information: CT BRAIN WO Accession Number: [id number] CPT: 80330 INDICATION: Right arm weakness. History of CVA. COMPARISON: CT brain September 19, 2017 TECHNIQUE: Noncontrast axial source images were acquired from the skull base to the vertex. FINDINGS: Ventricles/sulci: The ventricles are unchanged with expansion of the frontal horn left lateral ventricle secondary to prior infarct with volume loss. Brain parenchyma: There are no acute focal parenchymal findings. There is the sequela of prior left caudate nucleus with volume loss. There is underlying chronic microvascular ischemic change. Intracranial hemorrhage:None. Extra-axial spaces: There are no abnormal extra axial fluid collections or evidence of extra-axial mass. Calvarium: There is no calvarial fracture or other calvarial abnormality. Scalp: There is no evidence of scalp or extracalvarial soft tissue abnormality. Paranasal sinuses/mastoid: The paranasal sinuses and mastoid air cells are clear. Other: None. IMPRESSION: No acute intracranial findings. 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 Underlying chronic microvascular ischemic change. <Electronically signed by Nitish De Los Santos MD in [place]> 10/03/17717 Dictated By: Nitish De Los Santos MD Dictated Date/Time: 10/03/17717 Transcribed Date/Time: 10/03/17714 Copy to: Patient Name: ESTELLE BOUDREAUX V Medical Record#: [id number] Ordering Physician: Hilda Stanley MD Acct.#: [id number] : 1940 Age: 77 Sex: M Location: [address] [place] [address]/TELEMETRY Exam Date: 10/02/172241 ADM Status: ADM IN Order Information: CTA HEAD/NECK Accession Number: [id number] CPT: 08076 INDICATION: Right arm weakness COMPARISON: CT brain same date TECHNIQUE: Axial source images were acquired with coronal and sagittal reconstructions. CT angiographic technique was utilized with injection of 80 mL Visipaque 320. FINDINGS: Aortic arch: There are no significant CT angiogram abnormalities of the arch or the great vessels arising from the arch. There are minor atherosclerotic changes. Right carotid: The common carotid artery, carotid bifurcation, extracranial portions of the internal carotid artery, carotid artery at the skull base, carotid siphon, and carotid termination appear patent. There is calcific plaque formation at the bifurcation with an estimated 50% diameter stenosis at the level of the bulb. There are calcifications of the cavernous segment on the right with an estimated 80% diameter stenosis. Left carotid:The common carotid artery, carotid bifurcation, extracranial portions of the internal carotid artery, carotid artery at the skull base, carotid siphon, and carotid termination appear patent. There are ossifications at the carotid bifurcation with an estimated 30% diameter stenosis at the bifurcation. There are calcifications of the cavernous segment of the left with estimated 70% diameter stenosis Right middle and anterior cerebral arteries: There are no CT angiographic abnormalities of the middle or anterior cerebral arteries. Left middle and anterior cerebral arteries: There are no CT angiographic abnormalities of the middle or anterior cerebral arteries Right vertebral: The CT angiographic appearance of the vertebral artery is patent. Left vertebral: The CT angiographic appearance of the vertebral artery is patent. Basilar artery: The basilar artery and basilar tip appear normal. Posterior cerebral arteries: The distal distribution of the right and left posterior cerebral arteries is normal. [place]: The CT angiographic appearance of the [place] is normal. Source images show no evidence of mass or adenopathy within the neck. There are no acute focal brain parenchymal abnormalities or abnormal areas of enhancement. IMPRESSION: Moderate bilateral calcific plaque formation about the carotid bifurcations bilaterally without evidence of a hemodynamically significant stenosis. There is atherosclerotic plaque formation about the cavernous and supracavernous segments bilaterally with high-grade stenoses estimated at 80% on the right and 70% on the left CPT II Codes: 3100F PQRS <Electronically signed by Nitish De Los Santos MD in [facility]> 10/03/17 0732 1 of 2 Assess/Plan/Problems-Billing Neurology Progress Note 77 year old with prior stroke 4 years ago (no residuals) with multiple risk factors including hyperlipidemia, HTN, DM presented with acute onset RUE>>RLE weakness (dense in RUE) with some mild sensory loss on the right as well. MRI/ Echo pending. CT shows no acute changes. Has 80% ICA stenosis on the non- right side (non-symptomatic) and 70% on the left. He was previously on ASA for his prior stroke but ran out several weeks and and did not resume. Stroke: --Continue tele monitoring: no evidence of A.fib at this point --MRI Brain tomorrow --Echo this evening --Increase ASA to 325 mg q day. Allergic to Plavix. --Maximize stroke risk factor reduction: BP control, DM control, Lipid control with goal LDL < 70. Can start to titrate BP meds tomorrow if necessary. Watch for hypotension in the setting of acute stroke. Most recent BPs are soft. Will bolus 1 L NS. --Carotid stenosis: non-critical at this point but will need close follow up. I can see him as outpatient and arrange for appointment with vascular surgery or PCP can do this. Continue full strength ASA, cannot take Plavix. --PT/OT are paramount for his RUE weakness. May be good candidate for inpatient rehab. PM&R referral sent --Fall precautions --Please arrange for outpatient follow up with me in 1 month - Patient Problems (1) Right sided weakness Current Visit: Yes Status: Acute Code(s): R53.1 - WEAKNESS SNOMED Code(s) : 307623659 Comment: Neuro consult appreciated Continue medical optimization with statin, ASA, glycemic control and PT/OT No plavix, full dose aspirin. Possible LORNA. (2) Allergy Current Visit: Yes Status: Acute Code(s): T78.40XA - ALLERGY, UNSPECIFIED, INITIAL ENCOUNTER SNOMED Code(s): 459113729 Comment: Rash errupted after plavix administration. Significantly improved Topical steroid and PRN benadryl for comfort No Airway involvement. (3) Elevated serum creatinine Current Visit: No Status: Acute Code(s): R79.89 - OTHER SPECIFIED ABNORMAL FINDINGS OF BLOOD CHEMISTRY SNOMED Code(s): 546150920 Comment: Pt appears to be within his baseline Suspect CKD stage 3 at baseline (4) Diabetes Current Visit: No Status: Chronic Code(s): E11.9 - TYPE 2 DIABETES MELLITUS WITHOUT COMPLICATIONS SNOMED Code(s): 50683293 Comment: Uncontrolled, A1C=11.8 Blood glucose ACHS Lantus with lispro SS, home doses of metformin, sitagliptan, consistent carb diet (5) HLD (hyperlipidemia) Current Visit: No Status: Chronic Code(s): E78.5 - HYPERLIPIDEMIA, UNSPECIFIED SNOMED Code(s): 50361005 Comment: Continue statin, dose increased per neuro LDL 69 (6) HTN (hypertension) Current Visit: No Status: Chronic Code(s): I10 - ESSENTIAL (PRIMARY) HYPERTENSION SNOMED Code(s): 97541607 Comment: Orthostasis in the past admission BP decreased this AM. Bolused. No new neuroligcal deficits. Will monitor. Currently normotensive. (7) Peripheral neuropathy Current Visit: No Status: Chronic Code(s): G62.9 - POLYNEUROPATHY, UNSPECIFIED SNOMED Code(s): 271267034 Comment: Continue home gabapentin Likely due to DM. (8) Full code status Current Visit: No Status: Acute Code(s): Z78.9 - OTHER SPECIFIED HEALTH STATUS SNOMED Code(s): 272193378 (9) DVT prophylaxis Current Visit: No Status: Acute Code(s): ISL2253 - SNOMED Code(s): 340991047 Comment: Lovenox Status and Disposition: Remain inpatient - will need PT/OT rehab at [place]
[2017-10-04] MEDS: Atorvastatin* 10 MG TAB PO SCH (21:02)
[2017-10-04] MEDS: Gabapentin CAP(*) 300 MG PO SCH (21:02)
[2017-10-05] MEDS: Enoxaparin(*) 40 MG/0.4 ML SYR SUBCUT SCH (02:40)
[2017-10-05] MEDS: Insulin GLARGINE(*) 1 UNITS UNIT SUBCUT SCH (02:40)
[2017-10-05 05:57] LABS: ABS Basophils 0.1 10^3/ul (0-0.2); ABS Eosinophils 0.9 10^3/ul (0-0.6); ABS Lymphocytes 3.9 10^3/ul (1.0-4.8); ABS Monocytes 0.9 10^3/ul (0-0.8); ABS Neutrophils 7.3 10^3/ul (1.5-7.7); ABS Nucleated RBC 0 10^3/ul; Hematocrit 47 % (42-52); Hemoglobin 15.9 g/dl (14.0-18.0); Lymphocyte % 29.5 % (25-47); Mean Corpuscular HGB Conc 34 g/dl (31-36); Mean Corpuscular Hemoglobin 29 pg (27-31); Mean Corpuscular Volume 86 fL (80-94); Mean Platelet Volume 8.2 um3 (7.4-10.4); Nucleated Red Blood Cells % 0.1; Platelet Count 239 10^3/ul (150-450); Red Blood Count 5.49 10^6/ul (4.00-5.40); Red Cell Distribution Width 14 % (10.5-15); White Blood Count 13.2 10^3/ul (3.5-10.8)
[2017-10-05 06:16] LABS: EGFR Non-African American 57.9 (>60)
[2017-10-05] MEDS: glipiZIDE TAB.XL* 5 MG PO SCH (08:42)
[2017-10-05] MEDS: Hydrocortisone 1% CREAM* 30 GM TUBE TOPICAL SCH ×3 (08:42→22:43)
[2017-10-05] MEDS: Aspirin EC TAB* 325 MG PO SCH (08:42)
[2017-10-05] MEDS: Lisinopril TAB* 10 MG PO SCH (08:42)
[2017-10-05] MEDS: Insulin LISPRO* 1 UNITS UNIT SUBCUT SCH ×4 (08:43→22:43)
[2017-10-05] MEDS: amLODIPine TAB* 5 MG PO SCH (08:43)
[2017-10-05] MEDS: CMC: SitaGLIPtin (NF) 100 MG TAB PO SCH (08:43)
[2017-10-05] MEDS: Sertraline* 25 MG TAB PO SCH (08:43)
[2017-10-05] MEDS: metFORMIN* 850 MG TAB PO SCH ×2 (08:43→22:41)
--- NOTE | 2017-10-05 17:00 | PN ---
Subjective Date of Service: 10/05/17 Interval History: Patient has no new complaints. No progression of neurological deficits. No CP, SOB, N/V, abdominal pain, diarrhea, F/C, new weakness, or other pain. Patient states that he does not believe he would be able to function at home and is interested in rehab at discharge. Family History: Unchanged from Admission Social History: Unchanged from Admission Past Medical History: Unchanged from Admission Objective Active Medications: Amlodipine Besylate (Norvasc Tab*) 5 mg PO DAILY [facility] Last Admin: 10/05/17 08:43 Dose: 5 mg Aspirin (Ecotrin Ec Tab*) 325 mg PO DAILY [facility] Last Admin: 10/05/17 08:42 Dose: 325 mg Atorvastatin Calcium (Lipitor*) 20 mg PO BEDTIME [facility]; Protocol Last Admin: 10/04/17 21:02 Dose: 20 mg Diphenhydramine HCl (Benadryl Iv*) 25 mg IV Q6H PRN PRN Reason: PRURITIS Last Admin: 10/03/17 14:00 Dose: 25 mg Enoxaparin Sodium (Lovenox(*)) 40 mg SUBCUT Q24H [facility] Last Admin: 10/05/17 02:40 Dose: 40 mg Gabapentin (Neurontin Cap(*)) 900 mg PO BEDTIME [facility] Last Admin: 10/04/17 21:02 Dose: 900 mg Glipizide (Glucotrol Xl*) 20 mg PO DAILY [facility] Last Admin: 10/05/17 08:42 Dose: 20 mg Hydrocortisone (Hytone Cream 1%*) 1 applic TOPICAL TID [facility] Last Admin: 10/05/17 14:31 Dose: Not Given Insulin Glargine (Lantus(*)) 25 units SUBCUT Q24H [facility] Last Admin: 10/05/17 02:40 Dose: 25 units Insulin Human Lispro (Humalog*) 0 units SUBCUT ACHS [facility]; Protocol Last Admin: 10/05/17 12:52 Dose: 6 unit Lisinopril (Prinivil Tab*) 20 mg PO DAILY [facility] Last Admin: 10/05/17 08:42 Dose: 20 mg Metformin HCl (Glucophage*) 850 mg PO BID [facility] Last Admin: 10/05/17 08:43 Dose: 850 mg Sertraline HCl (Zoloft*) 25 mg PO DAILY [facility] Last Admin: 10/05/17 08:43 Dose: 25 mg Sitagliptin Phosphate (Januvia (Nf)) 100 mg PO DAILY [facility]; Protocol Last Admin: 10/05/17 08:43 Dose: 100 mg Vital Signs - 8 hr 10/05/17 10/05/17 11:15 15:32 Temperature 97.5 F 98.0 F Pulse Rate 77 81 Respiratory 16 16 Rate Blood Pressure 127/61 135/65 (mmHg) O2 Sat by Pulse 97 98 Oximetry Oxygen Devices in Use Now: None Appearance: Patient is a 77yo male who appears stated age and is sitting in the bed in [facility]. Eyes: No Scleral Icterus, PERRLA Ears/Nose/Mouth/Throat: NL Teeth, Lips, Gums, Clear Oropharnyx, Mucous Membranes Moist Neck: NL Appearance and Movements; NL JVP, Trachea Midline Respiratory: Symmetrical Chest Expansion and Respiratory Effort, Clear to Auscultation Cardiovascular: NL Sounds; No Murmurs; No JVD, RRR, No Edema Abdominal: NL Sounds; No Tenderness; No Distention, No Hepatosplenomegaly Lymphatic: No Cervical Adenopathy Extremities: No Edema, No Clubbing, Cyanosis Skin: No Rash or Ulcers, No Nodules or Sclerosis Neurological: Alert and Oriented x 3, NL Sensation, - - CN II-XII intact. 0/5 strength in the RUE proximally. 4/5 strength in wrist and hand intrinsics. Normal sensation. Result Diagrams: 10/05/17 05:41 10/05/17 05:41 Additional Lab and Data: Lab Results Diagnostic Imaging: Patient Name: ESTELLE BOUDREAUX V Medical Record#: [id number] Ordering Physician: Hilda Stanley MD Acct.#: [id number] : 1940 Age: 77 Sex: M Location: [address] [place] [address] MEDICAL/TELEMETRY Exam Date: 10/02/172205 ADM Status: ADM IN Order Information: CT BRAIN WO Accession Number: [id number] CPT: 88887 INDICATION: Right arm weakness. History of CVA. COMPARISON: CT brain September 19, 2017 TECHNIQUE: Noncontrast axial source images were acquired from the skull base to the vertex. FINDINGS: Ventricles/sulci: The ventricles are unchanged with expansion of the frontal horn left lateral ventricle secondary to prior infarct with volume loss. Brain parenchyma: There are no acute focal parenchymal findings. There is the sequela of prior left caudate nucleus with volume loss. There is underlying chronic microvascular ischemic change. Intracranial hemorrhage:None. Extra-axial spaces: There are no abnormal extra axial fluid collections or evidence of extra-axial mass. Calvarium: There is no calvarial fracture or other calvarial abnormality. Scalp: There is no evidence of scalp or extracalvarial soft tissue abnormality. Paranasal sinuses/mastoid: The paranasal sinuses and mastoid air cells are clear. Other: None. IMPRESSION: No acute intracranial findings. 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 Underlying chronic microvascular ischemic change. <Electronically signed by Nitish De Los Santos MD in [facility]> 10/03/17717 Dictated By: Nitish De Los Santos MD Dictated Date/Time: 10/03/17717 Transcribed Date/Time: 10/03/17714 Copy to: Patient Name: ESTELLE BOUDREAUX V Medical Record#: [id number] Ordering Physician: iHlda Stanley MD Acct.#: [id number] : 1940 Age: 77 Sex: M Location: [address] [place] [address] MEDICAL/TELEMETRY Exam Date: 10/02/172241 ADM Status: ADM IN Order Information: CTA HEAD/NECK Accession Number: [id number] CPT: 25257 INDICATION: Right arm weakness COMPARISON: CT brain same date TECHNIQUE: Axial source images were acquired with coronal and sagittal reconstructions. CT angiographic technique was utilized with injection of 80 mL Visipaque 320. FINDINGS: Aortic arch: There are no significant CT angiogram abnormalities of the arch or the great vessels arising from the arch. There are minor atherosclerotic changes. Right carotid: The common carotid artery, carotid bifurcation, extracranial portions of the internal carotid artery, carotid artery at the skull base, carotid siphon, and carotid termination appear patent. There is calcific plaque formation at the bifurcation with an estimated 50% diameter stenosis at the level of the bulb. There are calcifications of the cavernous segment on the right with an estimated 80% diameter stenosis. Left carotid:The common carotid artery, carotid bifurcation, extracranial portions of the internal carotid artery, carotid artery at the skull base, carotid siphon, and carotid termination appear patent. There are ossifications at the carotid bifurcation with an estimated 30% diameter stenosis at the bifurcation. There are calcifications of the cavernous segment of the left with estimated 70% diameter stenosis Right middle and anterior cerebral arteries: There are no CT angiographic abnormalities of the middle or anterior cerebral arteries. Left middle and anterior cerebral arteries: There are no CT angiographic abnormalities of the middle or anterior cerebral arteries Right vertebral: The CT angiographic appearance of the vertebral artery is patent. Left vertebral: The CT angiographic appearance of the vertebral artery is patent. Basilar artery: The basilar artery and basilar tip appear normal. Posterior cerebral arteries: The distal distribution of the right and left posterior cerebral arteries is normal. [place]: The CT angiographic appearance of the [place] is normal. Source images show no evidence of mass or adenopathy within the neck. There are no acute focal brain parenchymal abnormalities or abnormal areas of enhancement. IMPRESSION: Moderate bilateral calcific plaque formation about the carotid bifurcations bilaterally without evidence of a hemodynamically significant stenosis. There is atherosclerotic plaque formation about the cavernous and supracavernous segments bilaterally with high-grade stenoses estimated at 80% on the right and 70% on the left CPT II Codes: 3100F PQRS <Electronically signed by Nitish De Los Santos MD in [facility]> 10/03/17 0732 1 of 2 Assess/Plan/Problems-Billing Neurology Progress Note 77 year old with prior stroke 4 years ago (no residuals) with multiple risk factors including hyperlipidemia, HTN, DM presented with acute onset RUE>>RLE weakness (dense in RUE) with some mild sensory loss on the right as well. MRI/ Echo pending. CT shows no acute changes. Has 80% ICA stenosis on the non- right side (non-symptomatic) and 70% on the left. He was previously on ASA for his prior stroke but ran out several weeks and and did not resume. Stroke: --Continue tele monitoring: no evidence of A.fib at this point --MRI Brain tomorrow --Echo this evening --Increase ASA to 325 mg q day. Allergic to Plavix. --Maximize stroke risk factor reduction: BP control, DM control, Lipid control with goal LDL < 70. Can start to titrate BP meds tomorrow if necessary. Watch for hypotension in the setting of acute stroke. Most recent BPs are soft. Will bolus 1 L NS. --Carotid stenosis: non-critical at this point but will need close follow up. I can see him as outpatient and arrange for appointment with vascular surgery or PCP can do this. Continue full strength ASA, cannot take Plavix. --PT/OT are paramount for his RUE weakness. May be good candidate for inpatient rehab. PM&R referral sent --Fall precautions --Please arrange for outpatient follow up with me in 1 month - Patient Problems (1) Right sided weakness Current Visit: Yes Status: Acute Code(s): R53.1 - WEAKNESS SNOMED Code(s) : 574869733 Comment: Neuro consult appreciated Continue medical optimization with statin, ASA, glycemic control and PT/OT No plavix, full dose aspirin. Possible LORAN. Concern for dermatomal distribution on right side with possible cervical spine pathology. MRI cervical spine ordered. (2) Allergy Current Visit: Yes Status: Acute Code(s): T78.40XA - ALLERGY, UNSPECIFIED, INITIAL ENCOUNTER SNOMED Code(s): 159218271 Comment: Rash errupted after plavix administration. Significantly improved Topical steroid and PRN benadryl for comfort No Airway involvement. (3) Elevated serum creatinine Current Visit: No Status: Acute Code(s): R79.89 - OTHER SPECIFIED ABNORMAL FINDINGS OF BLOOD CHEMISTRY SNOMED Code(s): 254593660 Comment: Pt appears to be within his baseline Suspect CKD stage 3 at baseline (4) Diabetes Current Visit: No Status: Chronic Code(s): E11.9 - TYPE 2 DIABETES MELLITUS WITHOUT COMPLICATIONS SNOMED Code(s): 46825627 Comment: Uncontrolled, A1C=11.8 Blood glucose ACHS Lantus with lispro SS, home doses of metformin, sitagliptan, consistent carb diet (5) HLD (hyperlipidemia) Current Visit: No Status: Chronic Code(s): E78.5 - HYPERLIPIDEMIA, UNSPECIFIED SNOMED Code(s): 46707648 Comment: Continue statin, dose increased per neuro LDL 69 (6) HTN (hypertension) Current Visit: No Status: Chronic Code(s): I10 - ESSENTIAL (PRIMARY) HYPERTENSION SNOMED Code(s): 30156566 Comment: Orthostasis in the past admission BP decreased this AM. Bolused. No new neuroligcal deficits. Will monitor. Currently normotensive. (7) Peripheral neuropathy Current Visit: No Status: Chronic Code(s): G62.9 - POLYNEUROPATHY, UNSPECIFIED SNOMED Code(s): 792767107 Comment: Continue home gabapentin Likely due to DM. (8) Full code status Current Visit: No Status: Acute Code(s): Z78.9 - OTHER SPECIFIED HEALTH STATUS SNOMED Code(s): 737510800 (9) DVT prophylaxis Current Visit: No Status: Acute Code(s): UIN0150 - SNOMED Code(s): 044941952 Comment: Lovenox Status and Disposition: Remain inpatient - will need PT/OT rehab at [place]
--- NOTE | 2017-10-05 18:24 | RAD ---
HISTORY: Right-sided weakness COMPARISONS: MR the brain June 27, 2013 TECHNIQUE: The following sequences were obtained of the head: Sagittal T1-weighted images, axial T2-weighted images, axial FLAIR images, axial susceptibility weighted images, axial T1-weighted images. Additionally, axial diffusion-weighted images were obtained with calculated apparent diffusion coefficients.. FINDINGS: HEMORRHAGE/INFARCT: On the diffusion-weighted imaging there are multiple foci of bright signal involving the postcentral gyrus on the left parietal lobe and further posterior at the bilateral right parietal lobes, overall more severely affecting the right than the left. At the white matter tracts of the right parietal lobe there is a focus of T2 bright signal measuring 7 x 14 mm corresponding to bright signal on diffusion-weighted imaging. MASSES/SHIFT: There is no mass or shift. EXTRA-AXIAL SPACES/MENINGES: There are no extra-axial fluid collections. SULCI AND VENTRICLES: The sulci and ventricles are normal in size and position for the patient's stated age. CEREBRUM: Corresponding to the diffusion-weighted imaging there are T2 bright foci at the bilateral parietal lobes. In addition there is periventricular and subcortical white matter T2 bright foci that does not correspond to increase his and diffusion-weighted imaging more consistent with chronic microvascular disease. There is encephalomalacia involving the white matter adjacent to the left frontal horn as well as the caudate head nucleus stable when compared to the 2014 MRI of the brain. The bell-white matter differentiation is otherwise adequately maintained. BRAINSTEM: There are no focal parenchymal abnormalities. CEREBELLUM: There are no focal parenchymal abnormalities. The cerebellar tonsils are normal in size and position. SELLA: The sella is normal. PINEAL: The pineal region is clear. CP ANGLE/TEMPORAL BONES: The labyrinthine structures are grossly normal. VESSELS: Normal flow-voids are noted within the visualized vertebral vasculature. DIFFUSION ABNORMALITIES: There are no diffusion abnormalities. PARANASAL SINUSES/MASTOIDS: The paranasal sinuses are clear. ORBITS: The orbits are unremarkable. BONES AND SOFT TISSUE: No bone or soft tissue abnormalities are noted. IMPRESSION: 1. MR FINDINGS ARE CONSISTENT WITH MULTIFOCAL CORTICAL AND WHITE MATTER INFARCTS INVOLVING THE BILATERAL PARIETAL LOBES, OVERALL AFFECTING THE RIGHT POSTERIOR PARIETAL LOBE MOST SEVERELY. 2. ENCEPHALOMALACIA INVOLVING THE LEFT CAUDATE HEAD NUCLEUS, PUTAMEN AND LEFT INTERNAL CAPSULE.
--- NOTE | 2017-10-05 20:28 | ECHO ---
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 Technical Comments: The study quality is good. Completed at 1410. Left Ventricle: The left ventricular chamber size is normal. Septal wall hypertrophy is observed. Global left ventricular wall motion and contractility are within normal limits. There is normal left ventricular systolic function. The estimated ejection fraction is 50-55%. Abnormal left ventricular diastolic function is observed. Left Atrium: The left atrium is mildly dilated. Right Ventricle: The right ventricular cavity size is normal. Right Atrium: There is no patent foramen ovale visualized. There is no evidence of patent foramen ovale shunting. A patent foramen ovale is not demonstrated with color Doppler and agitated contrast. Aortic Valve: The aortic valve is trileaflet. There is a trace of aortic regurgitation. There is no evidence of aortic stenosis. Mitral Valve: The mitral valve leaflets are mildly thickened. There is no evidence of mitral regurgitation. There is no evidence of mitral stenosis. Tricuspid Valve: The tricuspid valve leaflets are normal. There is no evidence of tricuspid valve regurgitation. Unable to estimate the right ventricular systolic pressure. There is no tricuspid stenosis. Pulmonic Valve: The pulmonic valve appears normal. There is no evidence of pulmonic regurgitation. There is no pulmonic stenosis. Pericardium: A pericardial fat pad is visualized. Aorta: There is no dilatation of the ascending aorta. There is no dilatation of the aortic arch. There is no dilation of the aortic root. Pulmonary Artery: The main pulmonary artery appears normal. Venous: The venous system is not well visualized. Contrast: Normal saline was used as contrast for the bubble study. Intravenous contrast was used to help determine presence of intracardiac shunting. Conclusions Global left ventricular wall motion and contractility are within normal limits. There is normal left ventricular systolic function. The estimated ejection fraction is 50-55%. Abnormal left ventricular diastolic function is observed. A patent foramen ovale is not demonstrated with color Doppler and agitated contrast. There is no evidence of aortic stenosis. There is no evidence of mitral regurgitation. There is no evidence of tricuspid valve regurgitation. Unable to estimate the right ventricular systolic pressure. Measurements Name Value Normal Range RVIDd (AP) 2D 2.8 cm (0.9 - 2.6) RVDdMajor (2D) 2.8 cm (2.2 - 4.4) RAd ISD 4CH 4.4 cm (3.4 - 4.9) RA (A4C)W 3.1 cm (2.9 - 4.6) IVSd (2D) 1.1 cm (0.6 - 1) LVPWd (2D) 1 cm (0.6 - 1) LVIDd (2D) 4.2 cm (3.6 - 5.4) LVIDs (2D) 3.3 cm - LV FS (2D) 23 % (25 - 45) Aortic Annulus 1.8 cm (1.4 - 2.6) Ao root diameter (2D) 3 cm (2.1 - 3.5) Ascending Ao 2.8 cm (2.1 - 3.4) Aortic arch 2.8 cm (1.8 - 3.4) Descending Ao 0.6 cm - LA dimension (AP) 2D 4.3 cm (2.3 - 3.8) LAd ISD 4CH 5.7 cm (2.9 - 5.3) LA ISD 4CH W 3.7 cm (2.5 - 4.5) Name Value Normal Range LA ESV SP 4CH (A/L) 61 ml - LA ESV SP 2CH (A/L) 28 ml - LA ESV BP (A/L) 47 ml - LA ESV BP (A/L) index 23.03 ml/m2 - LA ESV SP 4CH (MOD) 56 ml - LA ESV SP 2CH (MOD) 26 ml - Name Value Normal Range MV E-wave Vmax 1.1 m/sec - MV deceleration time 172 msec - MV A-wave Vmax 1.2 m/sec - MV E:A ratio 0.91 ratio - LV septal e' Vmax 0.06 m/sec - LV lateral e' Vmax 0.1 m/sec - LV E:e' septal ratio 18.33 ratio - LV E:e' lateral ratio 11 ratio - Name Value Normal Range AV Vmax 1.9 m/sec - AV VTI 37.3 cm - AV peak gradient 14 mmHg - AV mean gradient 6.92 mmHg - LVOT Vmax 0.7 m/sec - LVOT VTI 16.8 cm - LVOT peak gradient 2.15 mmHg - LVOT mean gradient 1.02 mmHg - AR PHT 479 msec - AR peak gradient 46.58 mmHg - Name Value Normal Range PV Vmax 1.1 m/sec - PV peak gradient 5.03 mmHg -
[2017-10-05] MEDS: Atorvastatin* 10 MG TAB PO SCH (22:41)
[2017-10-05] MEDS: Gabapentin CAP(*) 300 MG PO SCH (22:42)
[2017-10-06] MEDS: Insulin GLARGINE(*) 1 UNITS UNIT SUBCUT SCH (04:00)
[2017-10-06] MEDS: Enoxaparin(*) 40 MG/0.4 ML SYR SUBCUT SCH (04:01)
--- NOTE | 2017-10-06 07:03 | PN ---
NEUROLOGY PROGRESS NOTE: DATE OF SERVICE: 10/05/17 PRIMARY PROVIDER: MARLYN Burgess REASON FOR FOLLOWUP: Neurology is following for the evaluation of right arm and right leg weakness. CHIEF COMPLAINT: Right arm weakness. SUBJECTIVE: The patient continues to have a significant weakness in the right arm. The weakness is mostly localized to the myotomal distribution of C5-6 as he cannot raise the arm up or flex and extend the elbow. He does have some retained strength on wrist extension and flexion. He does not have any facial involvement. He denied any double vision, blurry vision, headaches, swallowing dysfunction, or slurred speech. The problem is fixed since Thursday. The patient also reported that he had fallen Thursday, a night before EMS picked him up. He did not have any weakness before the fall but did notice the right arm weakness after he fell. He denied any loss of consciousness. He denied any head injury. He was unable to stand up independently. He has not walked since then. I reviewed the images and the workup that was obtained since 10/02/17. The CT of the brain that was obtained on 10/02/17 showed no acute intracranial abnormality but there is left caudate nucleus infarction with encephalomalacia. The patient does report a history of stroke in 2012. He has no residual deficits. He had a CTA of the head and neck that was done in the ER that showed moderate bilateral calcific plaque formation in the carotid bifurcation bilaterally without any evidence of hemodynamically significant stenosis. There is also an atherosclerotic plaque formation in the cavernous in the supracavernous segment, bilaterally with high-grade stenosis estimated at 80% on the right and 70% on the left. It is important to note that the patient was taking aspirin at home, but he was not taking it regularly and he ran out over the last few weeks. I was called by Nitish Ramon who informed me that the MRI is occupied today and the patient will obtain an MRI study tomorrow. I agreed with this recommendation as obtaining MRI at this time will not change the medical management. MEDICATIONS: 1. Amlodipine. 2. Aspirin 325 mg daily. 3. Lipitor 20 mg daily. 4. Benadryl 25 mg as needed for pruritus. 5. Enoxaparin for DVT prophylaxis 40 mg subcutaneous every 24 hours. 6. Gabapentin 900 mg p.o. at bedtime. 7. Glipizide 20 mg p.o. daily. 8. Hydrocortisone cream. 9. Insulin. 10. Lisinopril. 11. Metformin. 12. Sertraline. 13. Januvia. Important to add that the patient received a dose of PLAVIX and had an allergic reaction. Therefore, aspirin was increased. REVIEW OF SYSTEMS: As stated in the HPI. PHYSICAL EXAMINATION: Vitals: Temperature 97.5, pulse of 77, respiratory rate of 16, oxygen saturation is 97%, blood pressure 127/61. 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 He is alert, cooperative and appears stated age. Head: Normocephalic without obvious abnormality. Eyes: Conjunctivae/corneas are clear. Neck: Supple and symmetrical. There are no carotid bruits. He has no Spurling sign bilaterally. Lungs are clear to auscultation bilaterally. Cardiovascular: Regular rhythm. Normal S1, S2. Extremities: Normal range of motion with no cyanosis on the left or bilateral lower extremity. Restrictive range of motion on the right due to weakness. Skin: No skin lesions or lacerations. Psych: Affect is broad and normal mood. He is easy to establish rapport with. Neurologic Examination: Mental status, the patient is awake, alert, oriented to person, place, time, and general circumstance. Speech and language including expression, naming, repetition, and comprehension were assessed and found to be normal. Cranial nerves: Normal confrontation testing. Pupils equal, round, and reactive to light with pupils constricting from 4 mm to 3 mm bilaterally and symmetrically. Extraocular muscles are intact with no ptosis. Sensation is intact on forehead, cheeks, and jaw region bilaterally. There is no facial asymmetry or facial droop. The patient is able to hear throughout the history process. There is a symmetrical palatal elevation. Tongue is symmetric and midline with no atrophy or fasciculation. Motor right/left: No abnormal movements. There is slight increase in tone in the right upper extremity. He has significant weakness on the right upper extremity. Shoulder abduction 2/5. Elbow flexion 1/5, extension 2/5. Wrist flexion 3/5, extension 3/5. Finger flexion 4/5, extension 4/5, abduction 4/5. Hip flexion 4/5, abduction 4/5. Knee flexion/extension 5/5. Ankle dorsiflexion 4/5. Plantar flexion 4/5. Reflexes right/left: Brachioradialis trace/trace, biceps trace/trace, triceps trace/trace, patella 2+/2+, ankle 0/0, plantar mute on the right and flexor on the left. Sensation is intact to light touch, vibratory sensation and proprioception were normal at the toes. Coordination normal finger- to-nose and rapid alternating movement on the left, but unable to perform on the right. Gait was not assessed due to the patient's weakness. LABORATORY DATA: WBC 13.2. Sodium of 134, glucose of 244. ASSESSMENT: 1. Mr. Dayton Krueger is a pleasant 77-year-old man with multiple risk factors for cerebrovascular disease including hypertension, dyslipidemia, diabetes, carotid disease who presented with inability to ambulate and fall followed by significant right arm weakness. Based on my clinical evaluation today, I suspect the patient most likely has focal infarction involving the motor strip on the left precentral gyrus or cervical spondylosis with myelopathy as an explanation to his right hemiparesis, which is involving the right upper extremity in a myotomal distribution of the C5-C6 and C6-7. I cannot entirely exclude a cerebrovascular insult especially given his risk factors. However, the patient does not have any facial involvement. If we suspect this is a lacunar stroke, we should have more facial involvement and more dysarthria. If this is a cortical infarct, I doubt there is one cortical distribution that may only affect the arm and leg, but again, given his risk factors, I would initially evaluate for stroke and then evaluate for degenerative disk disease of the cervical spine causing spinal cord compression worse on the right side. I have ordered an MRI of the cervical spine without contrast in addition to the MRI of the brain. We will also please obtain a PT/OT evaluation and treatment. Continue aspirin 325 mg daily. Continue Lipitor 20 mg at nighttime. His LDL was checked and it was 69 and given his age, the risk of increasing the statin therapy and causing myalgia outweighs the benefit. 2. Bilateral internal carotid artery stenosis involving the right greater than the left - continue aspirin and statin therapy. 3. Diabetes, hypertension, defer to the primary team. 4. DVT prophylaxis: The patient is on enoxaparin. 5. Anticoagulation therapy not required as the patient has no history of atrial arrhythmia. I will continue to follow. I have discussed this case with Nitish. [id number]/[facility] #: [id number] GUIDO
[2017-10-06] MEDS: metFORMIN* 850 MG TAB PO SCH (08:28)
[2017-10-06] MEDS: amLODIPine TAB* 5 MG PO SCH (08:28)
[2017-10-06] MEDS: Lisinopril TAB* 10 MG PO SCH (08:28)
[2017-10-06] MEDS: CMC: SitaGLIPtin (NF) 100 MG TAB PO SCH (08:29)
[2017-10-06] MEDS: Sertraline* 25 MG TAB PO SCH (08:29)
[2017-10-06] MEDS: Aspirin EC TAB* 325 MG PO SCH (08:30)
[2017-10-06] MEDS: glipiZIDE TAB.XL* 5 MG PO SCH (08:30)
[2017-10-06] MEDS: Insulin LISPRO* 1 UNITS UNIT SUBCUT SCH ×2 (08:31→12:49)
[2017-10-06] MEDS: Hydrocortisone 1% CREAM* 30 GM TUBE TOPICAL SCH (08:31)
[2017-10-06] MEDS ORDERED: amLODIPine TAB* 5 MG PO SCH (09:00)
[2017-10-06] MEDS ORDERED: Lisinopril TAB* 10 MG PO SCH (09:00)
--- NOTE | 2017-10-06 09:10 | PN ---
Subjective Date of Service: 10/06/17 Interval History: Mr. Krueger is having breakfast this morning. He continues to have fixed right hemiplegia mostly involving the proximal limb. He denied any worsening of weakness. He denied any swallowing difficulty, headaches, visual disturbance, or left sided weakness. ROS: Denied CP, SOB, or palpitations. Family History: Unchanged from Admission Social History: Unchanged from Admission Past Medical History: Unchanged from Admission Objective Active Medications: Amlodipine Besylate (Norvasc Tab*) 5 mg PO DAILY [facility] Aspirin (Ecotrin Ec Tab*) 325 mg PO DAILY [facility] Last Admin: 10/06/17 08:30 Dose: 325 mg Atorvastatin Calcium (Lipitor*) 20 mg PO BEDTIME [facility]; Protocol Last Admin: 10/05/17 22:41 Dose: 20 mg Diphenhydramine HCl (Benadryl Iv*) 25 mg IV Q6H PRN PRN Reason: PRURITIS Last Admin: 10/03/17 14:00 Dose: 25 mg Enoxaparin Sodium (Lovenox(*)) 40 mg SUBCUT Q24H [facility] Last Admin: 10/06/17 04:01 Dose: 40 mg Gabapentin (Neurontin Cap(*)) 900 mg PO BEDTIME [facility] Last Admin: 10/05/17 22:42 Dose: 900 mg Glipizide (Glucotrol Xl*) 20 mg PO DAILY [facility] Last Admin: 10/06/17 08:30 Dose: 20 mg Hydrocortisone (Hytone Cream 1%*) 1 applic TOPICAL TID [facility] Last Admin: 10/06/17 08:31 Dose: 1 applic Insulin Glargine (Lantus(*)) 25 units SUBCUT Q24H [facility] Last Admin: 10/06/17 04:00 Dose: 25 units Insulin Human Lispro (Humalog*) 0 units SUBCUT ACHS [facility]; Protocol Last Admin: 10/06/17 08:31 Dose: 3 unit Lisinopril (Prinivil Tab*) 20 mg PO DAILY [facility] Metformin HCl (Glucophage*) 850 mg PO BID [facility] Last Admin: 10/06/17 08:28 Dose: 850 mg Sertraline HCl (Zoloft*) 25 mg PO DAILY [facility] Last Admin: 10/06/17 08:29 Dose: 25 mg Sitagliptin Phosphate (Januvia (Nf)) 100 mg PO DAILY [facility]; Protocol Last Admin: 10/06/17 08:29 Dose: 100 mg Vital Signs 10/05/17 10/05/17 10/05/17 11:15 15:32 19:34 Temperature 97.5 F 98.0 F 98.1 F Pulse Rate 77 81 92 Respiratory 16 16 16 Rate Blood Pressure 127/61 135/65 135/46 (mmHg) O2 Sat by Pulse 97 98 99 Oximetry 10/05/17 10/05/17 10/05/17 20:30 22:42 23:21 Temperature 98.5 F Pulse Rate 87 Respiratory 16 16 16 Rate Blood Pressure 136/66 (mmHg) O2 Sat by Pulse 98 Oximetry 10/06/17 10/06/17 02:29 03:50 Temperature 98.7 F Pulse Rate 87 Respiratory 14 14 Rate Blood Pressure 142/84 (mmHg) O2 Sat by Pulse 98 Oximetry Oxygen Devices in Use Now: None Neurology Exam: General: Well nourished obese man in no acute distress. HEENT: Normocephelic/atraumstic, sclera anicteric, mucous membranes moist Neck: Supple Chest: Clear to auscultation bilaterally Cardiovascular: Regular rate and rhythm without murmurs, rubs, gallops Extremities: No clubing, cyanosis, or edema Neurological Findings: Awake, Alert, Oriented x3 Speech: fluent without dysarthric, repetition intact Cranial Nerve: PEERL, EOM intact, VFF, no nystagmus, face symmetric bilaterally , facial sensation intact, hearing intact to finger rub bilaterally, palate elevates symmetrically, tongue midline, SCM and Trapezius s/s. Motor R/L: flaccid tone on the right arm. He has 0/5 strength to right shoulder abduction, elbow flexion and extension, and 4/5 wrist extension and flexion, and finger abduction. He has normal strength in the left arm and leg and 4/5 strength in the left lower extremity mostly to hip flexion, knee flexion , and ankle dorsiflexion. Sensation: intact to LT/PP bilaterally upper and lower extremities Deep Tendon Reflex: 0 to right biceps and brachioradialis, 1 on the left biceps and brachioradialis. 0 at the knees and ankles bilaterally. Finger to nose, rapid alternating movements intact without tremor, no dysdiadochokinesia Gait: not assessed due to weakness Result Diagrams: 10/05/17 05:41 06/25/18 05:41 Additional Lab and Data: Total Cholesterol: 125 LDL 69 Diagnostic Imaging: CT head without contrast: No acute intracranial abnormalities. CTA HEAD/NECK- reviewed. Reported to show moderate bilateral calcific plaque formation about the carotid bifurcations bilaterally without evidence of a hemodynamically significant stenosis. There is atherosclerotic plaque formation about the cavernous and supracavernous segments bilaterally with high-grade stenoses estimated at 80% on the right and 70% on the left. MRI brain without contrast: bilateral parietal stroke in a MCA-COIN MACHINE OPERATOR watershed distribution. There is also some areas of infarct in the cortical region on the precentral gyrus in the left frontal lobe in the MCA distribution. Transthoracic ECHO: no PFO. EF 50-55%. ` EKG Data: Reviewed telemetry. There has been no atrial fibrillation since admission. Assessment/Plan Mr. Dayton Krueger is a 77-year-old man with bilateral distal ICA stenosis, hypertension, DMII, dyslipidemia who presented with acute onset right hemiparesis. He had an episode of hypotension during hospitalization. Unfortunately he has fixed motor plegia on the proximal right upper extremity. MRI brain without contrast showed bilateral cortical infarctions in the MCA distribution with a component of MCA-COIN MACHINE OPERATOR watershed infarction involving the right more than left cerebral hemisphere. The patient is symptomatic from the left focal pre-central cortical infarction. ECHO showed no left atrial enlargement, EF of 50-55%, and no PFO. 1. Acute multifocal infarction in the watershed distribution in the setting of bilateral distal carotid stenosis 2. Bilateral carotid stenosis involving the supracavernous portions 80% on the right and 70% on the left 3. Hypertension 4. DMII 5. Dyslipidemia Recommendations: - Continue aspirin 325 mg daily. He had a rash on Plavix. - Increased atorvastatin to 80 mg nightly. Monitor for myalgia. - Place holding parameters on all anti-hypertensive medications (e.g., hold if SBP is less than 140 mmHg). His SBP should be on the higher range of normal or event slightly hypertensive (e.g., 120-<160 mmHg). - We discussed secondary stroke preventions that include taking aspirin daily, watching his diet, and exercising regularly. - I contacted vascular neurosurgery to schedule an outpatient follow-up as the patient should be following up with a vascular specialist for the ICA stenosis. Please fax a demographic sheet, recent imaging studies (e.g., CTA and MRI), and my progress note to [phone]. An appointment will be scheduled the same day the patient's information is sent. Please make sure the patient has a follow-up appointment before discharge within the next 4-6 weeks. - Cancelled the MRI C spine as his stroke is the cause of the right arm weakness. - The patient will benefit from acute rehabilitation. He is ready for rehabilitation from the neurology stand-point. I spent a total of 40 minutes of which 50% was spent examining the patient, reviewing intracranial imaging, and discussing the case and prognosis with the patient and primary provider.
[2017-10-06] MEDS ORDERED: Hydrocortisone 1% CREAM* 30 GM TUBE TOPICAL PRN (09:41)
[2017-10-06] MEDS ORDERED: Nystatin TOP POWDER* 15 GM BTL TOPICAL SCH (10:00)
[2017-10-06 15:29] VITALS: BP 149/74
[2017-10-06] MEDS ORDERED: Atorvastatin* 80 MG TAB PO SCH (21:00)
[2017-10-07] MEDS ORDERED: Enoxaparin(*) 40 MG/0.4 ML SYR SUBCUT SCH (06:00)
[2017-10-07] MEDS ORDERED: Insulin GLARGINE(*) 1 UNITS UNIT SUBCUT SCH ×2 (06:00)
--- NOTE | 2017-10-07 08:59 | DS ---
CC: Dr. Nitesh Mendez; Dr. Clay Rose * DISCHARGE SUMMARY: DATE OF ADMISSION: 10/02/17 DATE OF DISCHARGE: 10/06/17 PRIMARY CARE PROVIDER: Dr. Nitesh Mendez. CONSULTING NEUROLOGIST: Dr. Clay Rose. MY ATTENDING WHILE IN THE HOSPITAL: Dr. Mega Solorzano.* (DICTATED BY MARLYN VALENTINO) PRIMARY DISCHARGE DIAGNOSES: 1. 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 2. Carotid stenosis. SECONDARY DISCHARGE DIAGNOSES: 1. Diabetes mellitus, type 2. 2. Hyperlipidemia. 3. Hypertension. 4. Obstructive sleep apnea. 5. Peripheral neuropathy. 6. History of previous stroke. 7. Anxiety. 8. Chronic kidney disease, stage 3. STUDIES DONE WHILE IN THE HOSPITAL: Brain CT from 10/02/17 read as no acute intracranial findings. Findings compatible with prior left caudate nucleus encephalomalacia, chronic microvascular ischemic change. Chest x-ray from 10/02/17 read as no active disease. Electrocardiogram from 10/02/17 shows normal sinus rhythm, early repolarization in V1, V2, V3. No other significant abnormalities. Left axis deviation. Rate of 65, QTc of 451. No hypertrophy or enlargement. Head CTA from 10/02/17 read as mild bilateral calcific plaque formation about the carotid bifurcation bilaterally without evidence of hemodynamic significant stenosis with atherosclerotic plaque formation about the cavernous and supracavernous segments bilaterally with high-grade stenosis, estimated 80% on the right and 70% on the left. Transthoracic echocardiogram from 10/03/17 read as global left ventricular wall motion and contractility within normal limits. There is normal left ventricular systolic function. Estimated ejection fraction of 50% to 55% and normal left ventricular diastolic function. Patent foramen ovale was not demonstrated with color Doppler and agitated contrast. There is no evidence for aortic stenosis. No evidence for mitral regurgitation. No evidence for tricuspid regurgitation. Unable to estimate right ventricular systolic pressure. Brain MRI of from 10/05/17 read as MR findings consistent with multifocal cortical and white matter infarcts involving the bilateral parietal lobes, overall affecting the right posterior parietal lobe most severely. Encephalomalacia involving left caudate head nucleus retained in left internal capsule. MEDICATIONS AT DISCHARGE: 1. Glipizide 20 mg p.o. daily. 2. Amlodipine 5 mg p.o. daily, hold for systolic blood pressure less than 140. 3. Sertraline 25 mg p.o. daily. 4. Gabapentin 900 mg p.o. at bedtime. 5. Metformin 850 mg p.o. b.i.d. 6. Januvia 100 mg p.o. daily. 7. Lisinopril 20 mg p.o. daily. 8. Aspirin 325 mg p.o. daily. 9. Lipitor 80 mg p.o. at bedtime. 10. Lovenox 40 mg subcutaneous daily. 11. Hydrocortisone 1% topical t.i.d. as needed for itching. 12. Insulin glargine 30 units subcutaneous q.a.m. 13. Insulin lispro sliding scale at a.c. and h.s. 14. Nystatin topical powder 1 application to groin b.i.d. Medications discontinued at discharge: 1. Pravastatin 20 mg p.o. daily. 2. Insulin protamine lispro mix 75/25, 20 units subcutaneous b.i.d. HOSPITAL COURSE: This is a brief summary of the patient's presentation. For more details, please see the history and physical from Dr. Lul Faith on and the consultation from Dr. Clay Rose on 10/03/17. In brief, the patient is a 77-year-old male with past medical history significant for the above, who presents after a fall. He does not know how he fell. He does not remember tripping or any other mechanical fall. He says he was on the floor for 2 hours and could not get up. He was eventually found by ambulance and when he was gotten up, his right hand was not moving. He was brought to emergency department for a concern for stroke and was seen in consultation by Dr. Clay Rose of Neurology who diagnosed him with dense right upper hemiparesis. The patient was found to have not been taking his aspirin now for several weeks. His CTA of his head was read as above, but it was not deemed that he would need emergent transport for endarterectomy. The patient was started on aspirin and Plavix and his statin was increased with a goal of less than 70. His lipid profile came back with a LDL of 69. The patient was recommended for follow up with the vascular surgeon. The patient's diabetes was uncontrolled with a hemoglobin A1c of 11.5. The patient was continued on his glipizide, metformin, Januvia as well as his basal insulin and sliding scale insulin while in the hospital and still only had moderate blood glucose control. The patient regained a slight amount of movement in his right hand and right arm during the hospital. The patient had a rash that erupted on his trunk 2 hours after he had his Plavix for the first time and it was pruritic. The patient also had slight weakness in his right leg. In the morning of , the patient's blood pressure dropped. He was given fluids to help bring this back up to maintain perfusion to his ischemic area. The patient's blood pressure at one point dropped as low as 92/52. The patient's blood pressure then came back up to be approximately in the one teens to 140s. The patient had no hypoxia, difficulty swallowing or other laboratory abnormalities while in the hospital. The patient's blood pressure on admission was 178/89 and then decreased without intervention as above. The patient was seen in consultation by Physical Therapy and Occupational Therapy and they identified rehab needs for him, particularly pertaining to using his right arm. The patient was unable to feed himself when first seen by Occupational Therapy. The patient had no other acute symptoms. The patient had no progression in his neurological symptoms or other new weakness. The patient was accepted for rehab at [facility] and was stable and amenable with discharge on 10/06/17. Referrals were sent out to [facility] on 10/06/17, who were contacted by Dr. Lam of Neurology for followup appointment within the 4 to 6 weeks. The patient's blood pressure was also deemed to be too tightly controlled, and Dr. Lam recommended trying to maintain the blood pressure between 120 and 160 with hold parameter on his antihypertensives with SBP above 140 as above. PHYSICAL EXAM ON THE DAY OF DISCHARGE: General: The patient is 77-year-old male who appears of stated age and sitting comfortably in the chair, in no acute distress. Vital Signs: At the time of evaluation, temperature 98.1, pulse rate 67, respiratory rate 16, oxygen saturation 100% on room air, blood pressure 155/66. HEENT: Head normocephalic, atraumatic. Sclerae anicteric. No conjunctival injection. Nasal mucosa moist. Oral mucosa moist. No pharyngeal erythema, discharge or exudate. Neck: Supple, nontender. No lymphadenopathy. No carotid bruit auscultated. No JVD. Cardiac: Regular rate and rhythm. No clicks, murmurs, gallops or rubs. Pulses are 2+ in the bilateral dorsalis pedis, posterior tibialis and radial areas. No lower extremity edema noted. No bilateral calf tenderness noted. Respiratory: Clear to auscultation bilaterally. No wheezes, rales or rhonchi. Good air exchange bilaterally. Abdomen: Soft, nontender, nondistended. Bowel sounds present and normoactive in all 4 quadrants. No hepatosplenomegaly. No abdominal bruits auscultated. No hepatojugular reflux. Genitourinary: No suprapubic or CVA tenderness. Skin: Yeast-like rash in the bilateral axillae and groin. Varicose veins in the bilateral lower extremities. Neurological: Cranial nerves II through XII intact. 1/5 strength in right shoulder abduction , 0/5 strength in elbow flexion and extension, 4/5 strength in wrist extension and extracorporeal technician. Normal strength in the left arm and left leg. 4/5 strength in left lower extremity. Hyperactive reflex in the right compared to the left, 2+ on the right, 1+ on the left. Sensation intact to light touch. Cerebellar testing without abnormality. Psychiatric: Pleasant and cooperative. LABORATORY DATA: Most recently, white blood cell count 13.2, hemoglobin 15.9, platelet count 239. Sodium 134, potassium 3.9, chloride 104, carbon dioxide 22 , anion gap 8, BUN 26, creatinine 1.22, glucose 244, calcium 8.1. DISCHARGE PLAN: The patient will be discharged to [facility] for occupational therapy and physical therapy with the goal of restoring independence and returning home. The patient should follow up with Dr. Clay Rose of Neurology within 1 month to assess his improvement. The patient should be continued on increased statin, increased aspirin. The patient should have blood pressure control as above. Due to carotid stenosis, the patient should follow up in 4 to 6 weeks with [facility] at [facility]. The patient should have tight glucose control as much as possible. The patient should have oral medications as above as well as basal Lantus insulin of 30 units daily as well as insulin sliding while he is in the hospital. The patient should have repeat hemoglobin A1c in 3 months. The patient should follow up with his primary care provider within 1 week from discharge from rehab for general medical management. The patient should have a heart-healthy diet without caffeine and consistent carbohydrate. The patient should engage in activity as tolerated. MARLYN VALENTINO [id number]/[facility] #: [id number] [place]
== END 2017-10-06 16:08 | DRG 65 ==
LOC: ED 21:51 → MEDTELE 10-03 01:58
PROVIDERS: ADMIT Internal Medicine; ATTEND Student in an Organized Health Care Education/Training Program
DX: I63.233 Cerebral infarction due to unspecified occlusion or stenosis of bilateral carotid arteries (principal); G81.91 Hemiplegia, unspecified affecting right dominant side; E11.42 Type 2 diabetes mellitus with diabetic polyneuropathy; E78.00 Pure hypercholesterolemia, unspecified; M19.90 Unspecified osteoarthritis, unspecified site; G47.33 Obstructive sleep apnea (adult) (pediatric); R40.2412 Glasgow coma scale score 13-15, at arrival to emergency department; E66.9 Obesity, unspecified; E11.22 Type 2 diabetes mellitus with diabetic chronic kidney disease; N18.3 Chronic kidney disease, stage 3 (moderate); I12.9 Hypertensive chronic kidney disease with stage 1 through stage 4 chronic kidney disease, or unspecified chronic kidney disease; F32.9 Major depressive disorder, single episode, unspecified; W19.XXXA Unspecified fall, initial encounter; G93.89 Other specified disorders of brain; F41.9 Anxiety disorder, unspecified; I95.9 Hypotension, unspecified; L27.0 Generalized skin eruption due to drugs and medicaments taken internally; T45.525A Adverse effect of antithrombotic drugs, initial encounter; Y92.239 Unspecified place in hospital as the place of occurrence of the external cause; Z68.29 Body mass index [BMI] 29.0-29.9, adult; Z87.891 Personal history of nicotine dependence; Z86.73 Personal history of transient ischemic attack (TIA), and cerebral infarction without residual deficits; Z88.8 Allergy status to other drugs, medicaments and biological substances; Z79.4 Long term (current) use of insulin; Z79.82 Long term (current) use of aspirin; Z79.01 Long term (current) use of anticoagulants; Y92.009 Unspecified place in unspecified non-institutional (private) residence as the place of occurrence of the external cause
CPT/HCPCS: 36415; 70450; 70496; 70498; 70551; 71045; 80048; 80053; 80061; 81003; 83036; 83605; 84484; 85025; 85610; 85730; 86850; 86900; 86901; 93005; 93306; 99285; A9270-GY; G8978-GP-CL; G8979-GP-CJ; J1200; J1650; Q9967

== ENCOUNTER 2017-10-06 13:49 | Inpatient (IN) | payer MEDICARE ==
[2017-10-06] MEDS ORDERED: Bisacodyl SUPP* 10 MG SUPP PR PRN (18:15)
[2017-10-06] MEDS ORDERED: Senna TAB PO PRN (18:15)
[2017-10-06] MEDS ORDERED: Magnesium Hydroxide LIQ* 30 ML UDC PO PRN (18:15)
[2017-10-06] MEDS ORDERED: Dextrose 50% Syringe 50 ML* 25 GM/50 ML SYRINGE IV PUSH PRN (18:24)
[2017-10-06] MEDS ORDERED: Atorvastatin* 80 MG TAB PO ONE (21:00)
[2017-10-06] MEDS: Gabapentin CAP(*) 300 MG PO SCH (22:33)
[2017-10-06] MEDS: Docusate CAP* 100 MG PO SCH (22:34)
[2017-10-06] MEDS: Insulin LISPRO* 1 UNITS UNIT SUBCUT SCH (22:35)
[2017-10-06] MEDS: Hydrocortisone 1% CREAM* 30 GM TUBE TOPICAL SCH (23:30)
[2017-10-07] MEDS ORDERED: diPHENhydraMINE PO* 25 MG PO ONE (01:00)
--- NOTE | 2017-10-07 04:36 | HP ---
HISTORY AND PHYSICAL: DATE OF ADMISSION: 10/06/17 REASON FOR ADMISSION: Left-sided stroke with right hemiparesis. HISTORY OF PRESENT ILLNESS: Dayton Krueger is a 77-year-old male with a medical history significant for diabetes mellitus. He was in his normal state of health until 10/02/17. He was sitting on the steps with a friend and when he went to get up, he felt very unsteady on his legs. The patient went back to his own home with his son. The patient went down to his family room and fell and was unable to get up. When his son returned from work, he called for his son who called 911 and brought him to the hospital. The patient was found to have right upper extremity and lower extremity weakness more so in the right arm. He was admitted with what was felt to be a new stroke. He was seen in consultation by Dr. Rose, the neurologist. Dr. Rose recommended adding Plavix to his aspirin. It was noted that the patient was on aspirin, but ran out and did not resume. The patient developed a rash, which was felt to be secondary to Plavix. His baby aspirin was then increased to a full strength aspirin. He had an MRI showing multiple old strokes. He had multifocal cortical and white matter infarcts involving the bilateral parietal lobes felt to be more severe in the right posterior parietal lobe. However, he was symptomatic from the stroke noted on the left internal capsule. He had a CTA of his head and neck showing bilateral calcific plaque formation at the carotid bifurcations, but there was also high grade stenosis noted. It is 80% on the right and 70% on the left. Echo showed no left atrial enlargement with an ejection fraction of 50% to 55% with no PFO. It was felt that he had an acute multifocal infarct in the watershed distribution in the setting of bilateral distal carotid stenosis. It was felt that he should continue on aspirin and increase his Lipitor to 80 mg nightly unless his blood pressure ride high. The patient was felt to have physical therapy and occupational therapy needs. He is now being admitted for inpatient rehab so that he might return to independent living. PAST MEDICAL HISTORY: Significant for a prior infarct 4 years ago. He has a history of diabetes mellitus. He has noted diabetic peripheral neuropathy, obstructive sleep apnea. CURRENT MEDICATIONS: Include: 1. Full strength aspirin every day. 2. He is on Lipitor. 3. Norvasc. 4. Lovenox. 5. Colace. 6. Neurontin. 7. Glucotrol. 8. Lantus insulin. 9. Lisinopril. 10. Metformin. 11. Zoloft. 12. Januvia. ALLERGIES: To PLAVIX. SOCIAL HISTORY: He is a nonsmoker, nondrinker. He lives with his son in a 1- story house with a family room in the basement. REVIEW OF SYSTEMS: The patient reports no current shortness of breath or chest pain. PHYSICAL EXAMINATION VITAL SIGNS: The patient's temperature is 97.9, blood pressure is 137/77, pulse 87, respirations 14. HEENT: His extraocular movements were intact. NECK: Supple. LUNGS: Sounded clear to auscultation bilaterally. HEART: Sounds were regular. S1 and S2 audible. ABDOMEN: Soft and nontender. EXTREMITIES: His right upper extremity has decreased tone. Some edema is noted in the right hand. Peripheral pulses were intact. NEUROLOGIC: He is awake and alert. Muscle strength in his right arm is no active movement in his biceps or triceps. No active movement with wrist extension. He has some hand stem cutter on the right side. His right leg shows roughly 4/5 strength. Left side appear to be close to normal. FUNCTIONAL EXAM: He transferred with min-to-mod assistance. ASSESSMENT: Multifocal cerebrovascular accident symptomatic from the left focal precentral cortical infarct. PLAN: Integrate him into a comprehensive and therapeutic rehab program with the following goals: 1. Physical Therapy will see with the patient. They are going to work on functional transfer training and ambulation training with a walker. 2. Occupational Therapy will see the patient and work on his activities of daily living including toileting and toilet transfers. 3. We will have Speech Therapy see the patient, evaluate his swallow and his speech. 4. His bowels will be regulated. 5. Lovenox for DVT prophylaxis. 6. Aspirin for secondary stroke prevention. 7. The patient is on low-dose Zoloft now. We may discontinue this in favor of Prozac. 8. Family training as indicated. 9. [employer] Program Coordinator will be closely involved to make sure that any services and equipment that the patient requires are in place prior to discharge. 10. Home with appropriate services. ESTIMATED LENGTH OF STAY: 7 days. [id number]/[facility] #: [id number] [facility] [place] [facility]
[2017-10-07] MEDS: Insulin GLARGINE(*) 1 UNITS UNIT SUBCUT SCH (05:30)
[2017-10-07 05:43] LABS: ABS Basophils 0.1 10^3/ul (0-0.2); ABS Eosinophils 0.6 10^3/ul (0-0.6); ABS Lymphocytes 3.1 10^3/ul (1.0-4.8); ABS Monocytes 0.9 10^3/ul (0-0.8); ABS Neutrophils 6.5 10^3/ul (1.5-7.7); ABS Nucleated RBC 0 10^3/ul; Eosinophil % 5.3 % (0-6); Hematocrit 47 % (42-52); Hemoglobin 16.5 g/dl (14.0-18.0); Lymphocyte % 27.9 % (25-47); Mean Corpuscular HGB Conc 35 g/dl (31-36); Mean Corpuscular Hemoglobin 30 pg (27-31); Mean Corpuscular Volume 85 fL (80-94); Mean Platelet Volume 7.9 um3 (7.4-10.4); Nucleated Red Blood Cells % 0; Platelet Count 249 10^3/ul (150-450); Red Blood Count 5.56 10^6/ul (4.00-5.40); Red Cell Distribution Width 14 % (10.5-15); White Blood Count 11.2 10^3/ul (3.5-10.8)
[2017-10-07 05:58] LABS: EGFR Non-African American 62.6 (>60)
[2017-10-07] MEDS: Hydrocortisone 1% CREAM* 30 GM TUBE TOPICAL SCH ×3 (09:55→20:20)
[2017-10-07] MEDS: Insulin LISPRO* 1 UNITS UNIT SUBCUT SCH ×4 (09:55→21:06)
[2017-10-07] MEDS: Enoxaparin(*) 40 MG/0.4 ML SYR SUBCUT SCH (09:56)
[2017-10-07] MEDS: glipiZIDE TAB.XL* 5 MG PO SCH (09:58)
[2017-10-07] MEDS: amLODIPine TAB* 5 MG PO SCH (09:58)
[2017-10-07] MEDS: Aspirin EC TAB* 325 MG PO SCH (09:58)
[2017-10-07] MEDS: metFORMIN* 850 MG TAB PO SCH ×2 (09:58→17:05)
[2017-10-07] MEDS: Lisinopril TAB* 10 MG PO SCH (09:58)
[2017-10-07] MEDS: CMC:SitaGLIPtin (NF) 100 MG TAB PO SCH (09:58)
[2017-10-07] MEDS: Sertraline* 25 MG TAB PO SCH (09:58)
[2017-10-07] MEDS: Docusate CAP* 100 MG PO SCH ×2 (09:58→20:19)
[2017-10-07] MEDS ORDERED: diPHENhydraMINE PO* 25 MG PO PRN (17:14)
--- NOTE | 2017-10-07 18:30 | PN ---
Progress Note Date of Service: 10/07/17 Note: ESTELLE BOUDREAUX was visited. Therapy notes read and reviewed. Some increased movement in his right arm. Feels excited he is doing better. Blood sugars fairly well controlled Current Medications: Active Medications Generic Name Dose Route Start Last Admin Trade Name Napoleon PRN Reason Stop Dose Admin Amlodipine Besylate 5 mg 10/07/17 09:00 10/07/17 09:58 Norvasc Tab* PO 5 mg DAILY YUMIKO Administration Aspirin 325 mg 10/07/17 09:00 10/07/17 09:58 Ecotrin Ec Tab* PO 325 mg DAILY YUMIKO Administration Bisacodyl 10 mg 10/06/17 18:15 Dulcolax Supp* MN DAILY PRN CONSTIPATION Dextrose 12.5 gm 10/06/17 18:24 D50w Syringe 50 Ml* IV PUSH .FOR FS < 60 - SS PRN FS < 60 Diphenhydramine HCl 12.5 mg 10/07/17 17:14 Benadryl Po* PO Q6H PRN ITCHING Docusate Sodium 100 mg 10/06/17 21:00 10/07/17 09:58 Colace Cap* PO 100 mg BID YUMIKO Administration Enoxaparin Sodium 40 mg 10/07/17 07:00 10/07/17 09:56 Lovenox(*) SUBCUT 40 mg Q24H YUMIKO Administration Gabapentin 900 mg 10/06/17 21:00 10/06/17 22:33 Neurontin Cap(*) PO 900 mg BEDTIME YUMIKO Administration Glipizide 20 mg 10/07/17 09:00 10/07/17 09:58 Glucotrol Xl* PO 20 mg DAILY YUMIKO Administration Hydrocortisone 1 applic 10/06/17 23:00 10/07/17 14:16 Hytone Cream 1%* TOPICAL 1 applic TID YUMIKO Administration Insulin Glargine 25 units 10/07/17 06:00 10/07/17 05:30 Lantus(*) SUBCUT 25 units 0600 YUMIKO Administration Insulin Human Lispro 0 - 18 units 10/06/17 21:00 10/07/17 17:06 Humalog* SUBCUT 9 units ACHS YUMIKO Administration Protocol Lisinopril 20 mg 10/07/17 09:00 10/07/17 09:58 Prinivil Tab* PO 20 mg DAILY YUMIKO Administration Magnesium Hydroxide 30 ml 10/06/17 18:15 Milk Of Christal Liq* PO Q6H PRN CONSTIPATION Metformin HCl 850 mg 10/07/17 08:00 10/07/17 17:05 Glucophage* PO 850 mg 0800,1700 YUMIKO Administration Nystatin 1 applic 10/07/17 21:00 Nystatin Top Powder* TOPICAL BID YUMIKO Senna 2 tab 10/06/17 18:15 Senokot Tab* PO BEDTIME PRN CONSTIPATION Sertraline HCl 25 mg 10/07/17 09:00 10/07/17 09:58 Zoloft* PO 25 mg DAILY YUMIKO Administration Sitagliptin Phosphate 100 mg 10/07/17 09:00 10/07/17 09:58 Januvia (Nf) PO 100 mg DAILY YUMIKO Administration Vital Signs: Vital Signs Temp Pulse Resp BP Pulse Ox 97.7 F 87 16 145/74 100 10/07/17 15:46 10/07/17 15:46 10/07/17 15:46 10/07/17 15:46 10/07/17 16:39 Lab Results: Laboratory Results - last 24 hr 10/06/17 10/07/17 10/07/17 21:09 05:26 05:27 WBC 11.2 H RBC 5.56 H Hgb 16.5 Hct 47 MCV 85 MCH 30 MCHC 35 RDW 14 Plt Count 249 MPV 7.9 Neut % (Auto) 57.6 Lymph % (Auto) 27.9 [place] % (Auto) 8.3 H Eos % (Auto) 5.3 Baso % (Auto) 0.9 Absolute Neuts (auto) 6.5 Absolute Lymphs (auto) 3.1 Absolute Monos (auto) 0.9 H Absolute Eos (auto) 0.6 Absolute Basos (auto) 0.1 Absolute Nucleated RBC 0 Nucleated RBC % 0 Sodium 137 Potassium 4.0 Chloride 104 Carbon Dioxide 28 Anion Gap 5 BUN 18 Creatinine 1.14 Est GFR ( Amer) 75.8 Est GFR (Non-Af Amer) 62.6 BUN/Creatinine Ratio 15.8 Glucose 161 H POC Glucose (mg/dL) POC Glucose Confirm 233 H Calcium 8.8 Total Bilirubin 0.80 AST 19 ALT 22 Alkaline Phosphatase 94 Total Protein 5.8 L Albumin 3.2 Globulin 2.6 Albumin/Globulin Ratio 1.2 10/07/17 10/07/17 10/07/17 05:28 07:37 11:33 WBC RBC Hgb Hct MCV MCH MCHC RDW Plt Count MPV Neut % (Auto) Lymph % (Auto) [place] % (Auto) Eos % (Auto) Baso % (Auto) Absolute Neuts (auto) Absolute Lymphs (auto) Absolute Monos (auto) Absolute Eos (auto) Absolute Basos (auto) Absolute Nucleated RBC Nucleated RBC % Sodium Potassium Chloride Carbon Dioxide Anion Gap BUN Creatinine Est GFR ( Amer) Est GFR (Non-Af Amer) BUN/Creatinine Ratio Glucose POC Glucose (mg/dL) 157 H 151 H 249 H POC Glucose Confirm Calcium Total Bilirubin AST ALT Alkaline Phosphatase Total Protein Albumin Globulin Albumin/Globulin Ratio 10/07/17 16:27 WBC RBC Hgb Hct MCV MCH MCHC RDW Plt Count MPV Neut % (Auto) Lymph % (Auto) [place] % (Auto) Eos % (Auto) Baso % (Auto) Absolute Neuts (auto) Absolute Lymphs (auto) Absolute Monos (auto) Absolute Eos (auto) Absolute Basos (auto) Absolute Nucleated RBC Nucleated RBC % Sodium Potassium Chloride Carbon Dioxide Anion Gap BUN Creatinine Est GFR ( Amer) Est GFR (Non-Af Amer) BUN/Creatinine Ratio Glucose POC Glucose (mg/dL) 269 H POC Glucose Confirm Calcium Total Bilirubin AST ALT Alkaline Phosphatase Total Protein Albumin Globulin Albumin/Globulin Ratio Exam: HEENT: Face symmetric LUNGS: Clear bilaterally HEART: reg rhythm ABDOMEN: Soft, +BS EXTREMITIES: Some swelling right hand NEUROLOGIC: Alert and oriented. Biceps in right arm 3/5 Assessment/Plan: 1. Left CVA/left precentral gyrus infarct: PT/OT/REBRANDER. ASA. He's allergic to Plavix 2. DM: Lantus/Glucophage/Januvia/Glipizide 3. DVT Prophylaxis: Lovenox 4. HTN: Norvasc/Zestril. BPs are acceptable 5. Advanced Directives: Full code 10/07/17 18:31
[2017-10-07] MEDS: Gabapentin CAP(*) 300 MG PO SCH (20:18)
[2017-10-07] MEDS ORDERED: diPHENhydraMINE LIQ* 12.5 MG/5 ML UDC PO PRN (21:00)
[2017-10-07] MEDS: Nystatin TOP POWDER* 15 GM BTL TOPICAL SCH (21:07)
[2017-10-08] MEDS: Insulin GLARGINE(*) 1 UNITS UNIT SUBCUT SCH (06:58)
[2017-10-08] MEDS: glipiZIDE TAB.XL* 5 MG PO SCH (09:03)
[2017-10-08] MEDS: Docusate CAP* 100 MG PO SCH ×2 (09:04→21:03)
[2017-10-08] MEDS: Aspirin EC TAB* 325 MG PO SCH (09:04)
[2017-10-08] MEDS: Lisinopril TAB* 10 MG PO SCH (09:04)
[2017-10-08] MEDS: metFORMIN* 850 MG TAB PO SCH ×2 (09:04→16:55)
[2017-10-08] MEDS: amLODIPine TAB* 5 MG PO SCH (09:04)
[2017-10-08] MEDS: Sertraline* 25 MG TAB PO SCH (09:04)
[2017-10-08] MEDS: CMC:SitaGLIPtin (NF) 100 MG TAB PO SCH (09:04)
[2017-10-08] MEDS: Enoxaparin(*) 40 MG/0.4 ML SYR SUBCUT SCH (09:06)
[2017-10-08] MEDS: Insulin LISPRO* 1 UNITS UNIT SUBCUT SCH ×4 (09:09→21:04)
[2017-10-08] MEDS: Nystatin TOP POWDER* 15 GM BTL TOPICAL SCH ×2 (09:44→21:16)
[2017-10-08] MEDS: Hydrocortisone 1% CREAM* 30 GM TUBE TOPICAL SCH ×3 (09:47→21:04)
--- NOTE | 2017-10-08 12:57 | PMRUTEAM ---
PMRU: Team Meeting Current Status: Nursing: Current Status Skin Deviations [Groin] Other Skin Deviations [Back] Rash Skin Deviation Description [ Yeasty rash. Nystatin powder applied. Groin] Skin Deviation Description [ Benadry given, and Hydrocortisone applied to his Back] back. Physical Therapy: Current Status Bed Mobility Assistance Supervision Transfer Moblility Assistance Contact Guard Assist Transfer/Bed Mobility Rolling Walker Recommended Devices Ambulation Assistance Unable Ambulation Assistive Devices Rolling Walker Number of Feet Patient 100, 300 Ambulated Stairs Assistance Supervision Stairs Recommended Devices One Rail Number of Stairs 3 Occupational Therapy: Current Status Upper Body Dressing Mod Assist Lower Body Dressing Mod Assist Bathing Min Assist Toileting Supervision Toilet Transfer Contact Guard Assist Shower Transfer Contact Guard Assist Eating Supervision Rec Therapy: Current Status Summary of Assessment and Pt. was open to conversation - very engaged Clinical Impression throughout. Pt. was pleasant and cooperative. Pt . states he enjoys his life and was open to leisure visits on the unit. Treatment Goals Pt. will engage in leisure activities while on the unit. Treatment Plan Provide RT services and encourage involvement. Social Work: Current Status Discharge Plan return home with home care svs and family support Potential for Family Training TBD Anticipated Discharge Home Destination Discharge With home care svs and family support Speech: Current Status Speech Current Status Goal 1 Mild-Moderate impairment Goals: Physical Therapy: Updated Goals Transfer/Bed Mobility Hand Hold Recommended Devices Occupational Therapy: Initial Goals Goals to be Completed in (Days 7-10 ) Upper Body Bathing Routine Modified Independent with Lower Body Bathing Routine Modified Independent with Upper Body Dressing Routine Modified Independent with Lower Body Dressing Routine Modified Independent with Toilet Hygeine and Clothing Modified Independent with Management Routine Toilet Transfer Routine Modified Independent with Step-In Shower Transfer Modified Independent with Routine Functional Transfers for ADL Independent Grooming Routine Modified Independent with Feeding Routine Modified Independent with Speech: Goals Speech Goal 1 Expressive language Speech Evaluation Status Goal Mild-Moderate impairment 1 Speech Current Status Goal 1 Mild-Moderate impairment Goal 1 Comments Long-Term Goal: Pt will use conversational repair strategies to cooperatively find words in structured conversation, 100% accuracy, given extra time, Independently. Short-Term Goal: Pt will use conversational repair strategies to cooperatively find words in structured language activities, 80% accuracy, given Moderate skilled instruction and cueing. Social Work: Goals Discharge Plan return home with home care svs and family support Potential for Family Training TBD Anticipated Discharge Home Destination Discharge With home care svs and family support Care Plan: Care Plan DVT Prophylaxis- Improve/Maintain Start: 10/06/17 17:58 Freq: QSHIFT Status: Active Target: Protocol: Activity Type Activity Date Activity User E-Sign Co-Sign Detail Recorded Client Recorded Date Recorded By Document 10/08/17 01:35 [id number] [email or web address] 10/08/17 01:35 [id number] 10/08/17 01:35 PMRU Outcome: DVT Prophylaxis Outcome/Goals Free of complications from current DVT Complies with DVT Prophylaxis /Treatment Demonstrates Knowledge of DVT Prevention/ Treatment Progression Toward Outcome/Goals Progressing Discharge Planning - Improve/Maintain Start: 10/06/17 17:58 Freq: DAILY Status: Active Target: Protocol: Activity Type Activity Date Activity User E-Sign Co-Sign Detail Recorded Client Recorded Date Recorded By Document 10/08/17 01:35 [id number] [email or web address] 10/08/17 01:35 [id number] 10/08/17 01:35 PMRU Outcome: Discharge Planning Update Patient Family No Outcome/Goals Demonstrates Understanding of Discharge Plan Education-Improve/Maintain Start: 10/06/17 17:58 Freq: QSHIFT Status: Active Target: Protocol: Activity Type Activity Date Activity User E-Sign Co-Sign Detail Recorded Client Recorded Date Recorded By Document 10/08/17 01:35 [id number] [email or web address] 10/08/17 01:35 [id number] 10/08/17 01:35 PMRU Outcome: Education Outcome/Goals Encourage Questions Progression Toward Outcome/Goals Progressing Medication Administration Start: 10/06/17 17:58 Freq: QSHIFT Status: Active Target: Protocol: Activity Type Activity Date Activity User E-Sign Co-Sign Detail Recorded Client Recorded Date Recorded By Document 10/08/17 01:35 [id number] [email or web address] 10/08/17 01:35 [id number] 10/08/17 01:35 PMRU Outcome: Medication Administration Assess Patient Knowledge/Teach Med Yes Education for all Meds Outcome/Goals Demonstrates Understanding Progression Towards Outcome/Goals Progressing Is Patient Going Home on Lovenox? No Metabolic Status- Improve/Maintain Start: 10/06/17 17:58 Freq: QSHIFT Status: Active Target: Protocol: Activity Type Activity Date Activity User E-Sign Co-Sign Detail Recorded Client Recorded Date Recorded By Document 10/08/17 01:35 [id number] [email or web address] 10/08/17 01:35 [id number] 10/08/17 01:35 PMRU Outcome: Metabolic Status Have Fingersticks Been Ordered Yes Fingerstick Order Frequency AC & HS Outcome/Goals Demonstrate Knowledge of Prevention/ Treatment of Metabolic Imbalances Progression Toward Outcome/Goals Progressing Neurological- Improve/Maintain Start: 10/06/17 17:58 Freq: QSHIFT Status: Active Target: Protocol: Activity Type Activity Date Activity User E-Sign Co-Sign Detail Recorded Client Recorded Date Recorded By Document 10/08/17 01:35 [id number] [email or web address] 10/08/17 01:35 [id number] 10/08/17 01:35 PMRU Outcome: Neurological Weakness/Aphasia Weakness Outcome/Goals Maintain/ Achieve Baseline Neurological Status Improve Neurological Status Prevent Avoidable Neurological Decline Maintain/ Improve Strength/ROM Progression Toward Outcome/Goals Progressing Safety- Improve/Maintain Start: 10/06/17 17:58 Freq: QSHIFT Status: Active Target: Protocol: Activity Type Activity Date Activity User E-Sign Co-Sign Detail Recorded Client Recorded Date Recorded By Document 10/08/17 01:35 [id number] [email or web address] 10/08/17 01:35 [id number] 10/08/17 01:35 PMRU Outcome: Safety Outcome/Goals Remain Free of Injury or Harm Cooperates with Safety Measures for Least Restrictive Environment Progression Toward Outcome/Goals Progressing Outcome/Goals Met Comment PA in place Skin- Improve/Maintain Start: 10/06/17 17:58 Freq: QSHIFT Status: Active Target: Protocol: Activity Type Activity Date Activity User E-Sign Co-Sign Detail Recorded Client Recorded Date Recorded By Document 10/08/17 01:35 [id number] [email or web address] 10/08/17 01:35 [id number] 10/08/17 01:35 PMRU Outcome: Skin Skin Risk Level Medium Skin Orders Turn/Position q2hr While in Bed Outcome/Goals Maintain/ Improve Skin Intergrity Free from Decubitus Progression Toward Outcome/Goals Progressing Medicine Note: Length of Stay: 8 days Anticipated Discharge Destination: Home Tentative Discharge Date: 10/16/17 Discharged to: Home
[2017-10-08] MEDS: NS 0.9% 1000 ML* 1,000 ML IV SCH (15:42)
[2017-10-08] MEDS: Gabapentin CAP(*) 300 MG PO SCH (21:03)
--- NOTE | 2017-10-08 21:11 | PN ---
Progress Note Date of Service: 10/08/17 Note: ESTELLE BOUDREAUX was visited. Therapy notes read and reviewed. He was discussed in interdisciplinary plan of care rounds. Seems to be getting some return with his arm. He was dizzy with therapy today. BP was low, 82/50 standing. Ordered IV fluids. Will check CBC in am, holding Norvasc Current Medications: Active Medications Generic Name Dose Route Start Last Admin Trade Name Freq PRN Reason Stop Dose Admin Aspirin 325 mg 10/07/17 09:00 10/08/17 09:04 Ecotrin Ec Tab* PO 325 mg DAILY YUMIKO Administration Bisacodyl 10 mg 10/06/17 18:15 Dulcolax Supp* [place] DAILY PRN CONSTIPATION Dextrose 12.5 gm 10/06/17 18:24 D50w Syringe 50 Ml* IV PUSH .FOR FS < 60 - SS PRN FS < 60 Diphenhydramine HCl 12.5 mg 10/07/17 21:00 10/08/17 09:04 Benadryl Liq* PO 12.5 mg Q6H PRN Administration ITCHING Docusate Sodium 100 mg 10/06/17 21:00 10/08/17 21:03 Colace Cap* PO 100 mg BID YUMIKO Administration Enoxaparin Sodium 40 mg 10/07/17 07:00 10/08/17 09:06 Lovenox(*) SUBCUT 40 mg Q24H YUMIKO Administration Gabapentin 900 mg 10/06/17 21:00 10/08/17 21:03 Neurontin Cap(*) PO 900 mg BEDTIME YUMIKO Administration Glipizide 20 mg 10/07/17 09:00 10/08/17 09:03 Glucotrol Xl* PO 20 mg DAILY YUMIKO Administration Hydrocortisone 1 applic 10/06/17 23:00 10/08/17 21:04 Hytone Cream 1%* TOPICAL 1 applic TID YUMIKO Administration Sodium Chloride 1,000 mls @ 75 mls/hr 10/08/17 15:00 10/08/17 15:42 Ns 0.9% 1000 Ml* IV 10/10/17 04:19 75 mls/hr PER RATE YUMIKO Administration Insulin Glargine 25 units 10/07/17 06:00 10/08/17 06:58 Lantus(*) SUBCUT 25 units 0600 YUMIKO Administration Insulin Human Lispro 0 - 18 units 10/06/17 21:00 10/08/17 21:04 Humalog* SUBCUT 6 units ACHS YUMIKO Administration Protocol Lisinopril 5 mg 10/09/17 09:00 Prinivil Tab* PO DAILY YUMIKO Magnesium Hydroxide 30 ml 10/06/17 18:15 Milk Of Magntrinidad Liq* PO Q6H PRN CONSTIPATION Metformin HCl 850 mg 10/07/17 08:00 10/08/17 16:55 Glucophage* PO 850 mg 0800,1700 YUMIKO Administration Nystatin 1 applic 10/07/17 21:00 10/08/17 09:44 Nystatin Top Powder* TOPICAL 1 applic BID YUMIKO Administration Senna 2 tab 10/06/17 18:15 Senokot Tab* PO BEDTIME PRN CONSTIPATION Sertraline HCl 25 mg 10/07/17 09:00 10/08/17 09:04 Zoloft* PO 25 mg DAILY YUMIKO Administration Sitagliptin Phosphate 100 mg 10/07/17 09:00 10/08/17 09:04 Januvia (Nf) PO 100 mg DAILY YUMIKO Administration Vital Signs: Vital Signs Temp Pulse Resp BP Pulse Ox 97.5 F 92 18 108/75 95 10/08/17 16:22 10/08/17 16:22 10/08/17 21:03 10/08/17 16:22 10/08/17 18:09 Lab Results: Laboratory Results - last 24 hr 10/08/17 10/08/17 10/08/17 08:18 12:08 16:27 POC Glucose (mg/dL) 276 H 266 H 208 H 10/08/17 20:26 POC Glucose (mg/dL) 245 H Exam: HEENT: Face symmetric LUNGS: Clear bilaterally HEART: reg rhythm ABDOMEN: Soft, +BS EXTREMITIES: Some swelling right hand NEUROLOGIC: Alert and oriented. Biceps in right arm 2-3/5 Assessment/Plan: 1. 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 He's allergic to Plavix 2. DM: Lantus/Glucophage/Januvia/Glipizide 3. DVT Prophylaxis: Lovenox. Check CBC in am 4. Orthostatic Hypotension: Have held Norvasc and lowered Zestril. IV fluids 5. Advanced Directives: Full code 10/08/17 21:12 10/08/17 21:13
[2017-10-09] MEDS: NS 0.9% 1000 ML* 1,000 ML IV SCH (04:43)
[2017-10-09] MEDS: Insulin GLARGINE(*) 1 UNITS UNIT SUBCUT SCH (04:52)
--- NOTE | 2017-10-09 05:21 | PN ---
Progress Note Date of Service: 10/09/17 Note: ESTELLE BOUDREAUX was visited. Therapy notes read and reviewed. His BP which was low yesterday is high this morning. Have adjusted Lisinopril to 10 mg instead of 20. Will hold Norvasc and see how he does. May stop IV fluids Current Medications: Active Medications Generic Name Dose Route Start Last Admin Trade Name Freq PRN Reason Stop Dose Admin Aspirin 325 mg 10/07/17 09:00 10/08/17 09:04 Ecotrin Ec Tab* PO 325 mg DAILY YUMIKO Administration Bisacodyl 10 mg 10/06/17 18:15 Dulcolax Supp* [place] DAILY PRN CONSTIPATION Dextrose 12.5 gm 10/06/17 18:24 D50w Syringe 50 Ml* IV PUSH .FOR FS < 60 - SS PRN FS < 60 Diphenhydramine HCl 12.5 mg 10/07/17 21:00 10/08/17 09:04 Benadryl Liq* PO 12.5 mg Q6H PRN Administration ITCHING Docusate Sodium 100 mg 10/06/17 21:00 10/08/17 21:03 Colace Cap* PO 100 mg BID YUMIKO Administration Enoxaparin Sodium 40 mg 10/07/17 07:00 10/08/17 09:06 Lovenox(*) SUBCUT 40 mg Q24H YUMIKO Administration Gabapentin 900 mg 10/06/17 21:00 10/08/17 21:03 Neurontin Cap(*) PO 900 mg BEDTIME YUMIKO Administration Glipizide 20 mg 10/07/17 09:00 10/08/17 09:03 Glucotrol Xl* PO 20 mg DAILY YUMIKO Administration Hydrocortisone 1 applic 10/06/17 23:00 10/08/17 21:04 Hytone Cream 1%* TOPICAL 1 applic TID YUMIKO Administration Sodium Chloride 1,000 mls @ 75 mls/hr 10/08/17 15:00 10/09/17 04:43 Ns 0.9% 1000 Ml* IV 10/10/17 04:19 75 mls/hr PER RATE YUMIKO Administration Insulin Glargine 25 units 10/07/17 06:00 10/09/17 04:52 Lantus(*) SUBCUT 25 units 0600 YUMIKO Administration Insulin Human Lispro 0 - 18 units 10/06/17 21:00 10/08/17 21:04 Humalog* SUBCUT 6 units ACHS YUMIKO Administration Protocol Magnesium Hydroxide 30 ml 10/06/17 18:15 Milk Of Magntrinidad Liq* PO Q6H PRN CONSTIPATION Metformin HCl 850 mg 10/07/17 08:00 10/08/17 16:55 Glucophage* PO 850 mg 0800,1700 YUMIKO Administration Nystatin 1 applic 10/07/17 21:00 10/08/17 21:16 Nystatin Top Powder* TOPICAL 1 applic BID YUMIKO Administration Senna 2 tab 10/06/17 18:15 Senokot Tab* PO BEDTIME PRN CONSTIPATION Sertraline HCl 25 mg 10/07/17 09:00 10/08/17 09:04 Zoloft* PO 25 mg DAILY YUMIKO Administration Sitagliptin Phosphate 100 mg 10/07/17 09:00 10/08/17 09:04 Januvia (Nf) PO 100 mg DAILY YUMIKO Administration Vital Signs: Vital Signs Temp Pulse Resp BP Pulse Ox 98.4 F 84 18 178/105 98 10/09/17 04:54 10/09/17 04:54 10/09/17 04:54 10/09/17 04:54 10/09/17 04:54 Lab Results: Laboratory Results - last 24 hr 10/08/17 10/08/17 10/08/17 08:18 12:08 16:27 POC Glucose (mg/dL) 276 H 266 H 208 H 10/08/17 20:26 POC Glucose (mg/dL) 245 H Exam: HEENT: Face symmetric LUNGS: Clear bilaterally HEART: reg rhythm ABDOMEN: Soft, +BS EXTREMITIES: Some swelling right hand NEUROLOGIC: Alert and oriented. Biceps in right arm 2-3/5 Assessment/Plan: 1. 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 DM: Lantus/Glucophage/Januvia/Glipizide 3. DVT Prophylaxis: Lovenox. Check CBC in am 4. Orthostatic Hypotension: Have held Norvasc and lowered Zestril. IV fluids. BP now rising. 5. Advanced Directives: Full code 10/09/17 05:21
[2017-10-09 07:15] LABS: ABS Basophils 0.1 10^3/ul (0-0.2); ABS Eosinophils 0.7 10^3/ul (0-0.6); ABS Lymphocytes 2.8 10^3/ul (1.0-4.8); ABS Monocytes 0.9 10^3/ul (0-0.8); ABS Neutrophils 6.6 10^3/ul (1.5-7.7); ABS Nucleated RBC 0 10^3/ul; Hematocrit 47 % (42-52); Hemoglobin 16.4 g/dl (14.0-18.0); Lymphocyte % 25.2 % (25-47); Mean Corpuscular HGB Conc 35 g/dl (31-36); Mean Corpuscular Hemoglobin 30 pg (27-31); Mean Corpuscular Volume 85 fL (80-94); Mean Platelet Volume 8.3 um3 (7.4-10.4); Nucleated Red Blood Cells % 0; Platelet Count 242 10^3/ul (150-450); Red Blood Count 5.53 10^6/ul (4.00-5.40); Red Cell Distribution Width 14 % (10.5-15)
[2017-10-09] MEDS: Docusate CAP* 100 MG PO SCH ×2 (08:31→21:11)
[2017-10-09] MEDS: Sertraline* 25 MG TAB PO SCH (08:31)
[2017-10-09] MEDS: metFORMIN* 850 MG TAB PO SCH ×2 (08:31→17:03)
[2017-10-09] MEDS: Aspirin EC TAB* 325 MG PO SCH (08:32)
[2017-10-09] MEDS: glipiZIDE TAB.XL* 5 MG PO SCH (08:32)
[2017-10-09] MEDS: CMC:SitaGLIPtin (NF) 100 MG TAB PO SCH (08:32)
[2017-10-09] MEDS: Insulin LISPRO* 1 UNITS UNIT SUBCUT SCH ×4 (08:35→21:12)
[2017-10-09] MEDS: Enoxaparin(*) 40 MG/0.4 ML SYR SUBCUT SCH (08:37)
[2017-10-09] MEDS ORDERED: Lisinopril TAB* 10 MG PO SCH (09:00)
[2017-10-09] MEDS ORDERED: Lisinopril TAB* 5 MG PO SCH (09:00)
[2017-10-09] MEDS: Hydrocortisone 1% CREAM* 30 GM TUBE TOPICAL SCH ×3 (09:38→22:02)
[2017-10-09] MEDS: Nystatin TOP POWDER* 15 GM BTL TOPICAL SCH ×2 (09:48→22:02)
[2017-10-09] MEDS ORDERED: NS 0.9% 1000 ML* 1,000 ML IV SCH (19:15)
[2017-10-09] MEDS ORDERED: hydrOXYzine HCL TAB* 25 MG PO PRN (19:18)
--- NOTE | 2017-10-09 19:30 | PN ---
Hospitalist Progress Note Date of Service: 10/09/17 Pt seen and examined after CAT call. Pt seen interacting with staff and oriented and able to state why he is at PMRU. He stated he has had a recent stroke and since then his right side had been weaker than the other side, although it has gotten better. He mentions that he felt "weird" as if he had a hot flush. He mentions that this is nothing new for him and has been previously diagnosed with anxiety although unclear if he had been diagnosed with panic attacks. Pt was found to have SBPs in 180s and when repeated was in the 130s-140s ROS: Denies any CORDOVA/Dizziness, F/C, N/V/D, abd pain, myalgias, arthralgias, other than hot flashes, the rest of the 14 point ROS was unremarkable PE: AAOx3 NC/AT, PERRL, (-) icterus Neck: Soft, supple, (-)CLAD HEART: S1S2 slightly tachycardic, RRR, No MRG CHEST: CTA, BL ABD: Soft, ND/NT, NABS 4 xQ EXT: No C/C/E Neuro: Right sided weakness due to recent CVA; no other forcal lesions identified A/P: 1. Flushing -Possibly due to panic attack where pt mentioned that this was not the first time he experienced hot flashes and had been diagnosed with anxiety in the past but unclear if there was any diagnosed panic attacks -Given recent history of CVA, will ask nursing staff to perform Neurochecks q4 -EKG sent, will send troponins and defer to night hospitalist -CXR pending -CBC and CMP -ordered for Buspirone 10 mg BID and PRN Hydroxyzine 2. Uncontrolled DM: -Continue SS insulin -Adjusted Lantus
[2017-10-09 19:40] LABS: ABS Basophils 0.1 10^3/ul (0-0.2); ABS Eosinophils 0.6 10^3/ul (0-0.6); ABS Lymphocytes 2.7 10^3/ul (1.0-4.8); ABS Monocytes 0.8 10^3/ul (0-0.8); ABS Neutrophils 7.1 10^3/ul (1.5-7.7); ABS Nucleated RBC 0 10^3/ul; Hematocrit 47 % (42-52); Hemoglobin 16.1 g/dl (14.0-18.0); Lymphocyte % 24.1 % (25-47); Mean Corpuscular HGB Conc 34 g/dl (31-36); Mean Corpuscular Hemoglobin 29 pg (27-31); Mean Corpuscular Volume 85 fL (80-94); Mean Platelet Volume 8.1 um3 (7.4-10.4); Nucleated Red Blood Cells % 0.1; Platelet Count 263 10^3/ul (150-450); Red Blood Count 5.48 10^6/ul (4.00-5.40); Red Cell Distribution Width 14 % (10.5-15); White Blood Count 11.3 10^3/ul (3.5-10.8)
--- NOTE | 2017-10-09 19:46 | RAD ---
Indication: Chest pressure. Comparison: October 02, 2017 and January 29, 2017 Technique: Upright AP 1915 hours Report: No focal pulmonary lesion, compelling alveolar consolidation, pleural effusion, pneumothorax. Negative for cardiomegaly. Tortuous thoracic aorta without significant change. Unremarkable central pulmonary vasculature. Stable mediastinal contours compared with the 2017 exam without concern. IMPRESSION: #. No evidence for acute intrathoracic disease.
--- NOTE | 2017-10-09 19:47 | PN ---
Progress Note Date of Service: 10/09/17 Note: ESTELLE BOUDREAUX was visited. Came to see patient after call that he felt weird with heavy numbness that included his chest. His SBP was 180's and HR 117. Clinical assessment team was called and he was seen by Dr. Solorzano. Symptoms were resolving and vital signs had improved. Pt reports having similar episodes in the past which he has not sought medical attention. Last was months ago. Denies chest pain or dyspnea. No nausea or vomiting. Earlier this week was dizzy and orthostatic. He received IVF and medications were adjusted. Current Medications: Active Medications Generic Name Dose Route Start Last Admin Trade Name Freq PRN Reason Stop Dose Admin Aspirin 325 mg 10/07/17 09:00 10/09/17 08:32 Ecotrin Ec Tab* PO 325 mg DAILY YUMIKO Administration Bisacodyl 10 mg 10/06/17 18:15 Dulcolax Supp* [place] DAILY PRN CONSTIPATION Buspirone HCl 10 mg 10/09/17 21:00 Buspar Tab* PO BID YUMIKO Dextrose 12.5 gm 10/06/17 18:24 D50w Syringe 50 Ml* IV PUSH .FOR FS < 60 - SS PRN FS < 60 Diphenhydramine HCl 12.5 mg 10/07/17 21:00 10/08/17 09:04 Benadryl Liq* PO 12.5 mg Q6H PRN Administration ITCHING Docusate Sodium 100 mg 10/06/17 21:00 10/09/17 08:31 Colace Cap* PO 100 mg BID YUMIKO Administration Enoxaparin Sodium 40 mg 10/07/17 07:00 10/09/17 08:37 Lovenox(*) SUBCUT 40 mg Q24H YUMIKO Administration Gabapentin 900 mg 10/06/17 21:00 10/08/17 21:03 Neurontin Cap(*) PO 900 mg BEDTIME YUMIKO Administration Glipizide 20 mg 10/07/17 09:00 10/09/17 08:32 Glucotrol Xl* PO 20 mg DAILY YUMIKO Administration Hydrocortisone 1 applic 10/06/17 23:00 10/09/17 14:34 Hytone Cream 1%* TOPICAL 1 applic TID YUMIKO Administration Hydroxyzine HCl 25 mg 10/09/17 19:18 Atarax Tab* PO Q6H PRN ANXIETY Sodium Chloride 1,000 mls @ 75 mls/hr 10/08/17 15:00 10/09/17 04:43 Ns 0.9% 1000 Ml* IV 10/10/17 04:19 75 mls/hr PER RATE YUMIKO Administration Sodium Chloride 1,000 mls @ 100 mls/hr 10/09/17 19:15 10/09/17 19:33 Ns 0.9% 1000 Ml* IV 10/10/17 05:14 100 mls/hr PER RATE YUMIKO Administration Insulin Glargine 27 units 10/10/17 06:00 Lantus(*) SUBCUT 0600 YUMIKO Insulin Human Lispro 0 - 18 units 10/06/17 21:00 10/09/17 17:03 Humalog* SUBCUT 6 units ACHS YUMIKO Administration Protocol Lisinopril 10 mg 10/09/17 09:00 10/09/17 08:32 Prinivil Tab* PO 10 mg DAILY YUMIKO Administration Magnesium Hydroxide 30 ml 10/06/17 18:15 Milk Of Magnesia Liq* PO Q6H PRN CONSTIPATION Metformin HCl 850 mg 10/07/17 08:00 10/09/17 17:03 Glucophage* PO 850 mg 0800,1700 YUMIKO Administration Nystatin 1 applic 10/07/17 21:00 10/09/17 09:48 Nystatin Top Powder* TOPICAL Not Given BID YUMIKO Senna 2 tab 10/06/17 18:15 Senokot Tab* PO BEDTIME PRN CONSTIPATION Sertraline HCl 25 mg 10/07/17 09:00 10/09/17 08:31 Zoloft* PO 25 mg DAILY YUMIKO Administration Sitagliptin Phosphate 100 mg 10/07/17 09:00 10/09/17 08:32 Januvia (Nf) PO 100 mg DAILY YUMIKO Administration Vital Signs: Vital Signs Temp Pulse Resp BP Pulse Ox 98.3 F 109 18 139/91 98 10/09/17 18:50 10/09/17 19:07 10/09/17 15:51 10/09/17 19:07 10/09/17 19:07 Lab Results: Laboratory Results - last 24 hr 10/08/17 10/09/17 10/09/17 20:26 06:37 07:58 WBC 11.0 H RBC 5.53 H Hgb 16.4 Hct 47 MCV 85 MCH 30 MCHC 35 RDW 14 Plt Count 242 MPV 8.3 Neut % (Auto) 60.0 Lymph % (Auto) 25.2 [place] % (Auto) 7.9 H Eos % (Auto) 6.0 Baso % (Auto) 0.9 Absolute Neuts (auto) 6.6 Absolute Lymphs (auto) 2.8 Absolute Monos (auto) 0.9 H Absolute Eos (auto) 0.7 H Absolute Basos (auto) 0.1 Absolute Nucleated RBC 0 Nucleated RBC % 0 POC Glucose (mg/dL) 245 H 218 H 10/09/17 10/09/17 10/09/17 11:26 16:41 19:03 WBC RBC Hgb Hct MCV MCH MCHC RDW Plt Count MPV Neut % (Auto) Lymph % (Auto) [place] % (Auto) Eos % (Auto) Baso % (Auto) Absolute Neuts (auto) Absolute Lymphs (auto) Absolute Monos (auto) Absolute Eos (auto) Absolute Basos (auto) Absolute Nucleated RBC Nucleated RBC % POC Glucose (mg/dL) 292 H 225 H 245 H 10/09/17 19:33 WBC 11.3 H RBC 5.48 H Hgb 16.1 Hct 47 MCV 85 MCH 29 MCHC 34 RDW 14 Plt Count 263 MPV 8.1 Neut % (Auto) 63.0 Lymph % (Auto) 24.1 L [place] % (Auto) 7.3 H Eos % (Auto) 5.0 Baso % (Auto) 0.6 Absolute Neuts (auto) 7.1 Absolute Lymphs (auto) 2.7 Absolute Monos (auto) 0.8 Absolute Eos (auto) 0.6 Absolute Basos (auto) 0.1 Absolute Nucleated RBC 0 Nucleated RBC % 0.1 POC Glucose (mg/dL) Exam: GEN: no acute distress. Noted intermittently left corner of mouth twitching. Speech is with pauses, but he stays on subject. LUNGS: clear bilaterally CV: slightly tachy and regular ABD: + bowel sounds, soft, non-tender, non-distended EXT: no edema NEURO: CN II-XII intact. Follows commands easily. Motor LUE/LLE grade 4 with normal sensation. EKG 10/09/17 shows sinus tachycardia rate 106. Compared to 10/02/17 it looks similar except there is some flattening of T-waves on V4/5/6 that is new. CXR 10/09/17 is negative for acute process. 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 1. 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 DM: Lantus/Glucophage/Januvia/Glipizide. Lantus adjusted by hospitalist 3. DVT Prophylaxis: Lovenox. Check CBC stable 4. Orthostatic Hypotension 10/08 now with some tachycardia, brief hypertension and body heaviness: Seen by hospitalist this evening. May be some anxiety. Otherwise unclear event. Keep off norvasc for now and still on lower 10mg zestril (prior 20mg). Receiving additional IVF now per hospitalist and troponins pending now and in 6hrs. Hospitalist f/u. 5. Left lip twitching: follow clinically. D/w neurology if persistent. 6. Advanced Directives: Full code 7. Estimated LOS: anticipate potential d/c on 10/16. 10/09/17 19:53
[2017-10-09 20:04] LABS: EGFR Non-African American 68.1 (>60)
[2017-10-09] MEDS ORDERED: busPIRone TAB* 10 MG PO SCH (21:00)
[2017-10-09] MEDS: Gabapentin CAP(*) 300 MG PO SCH (21:10)
--- NOTE | 2017-10-10 05:17 | PN ---
Progress Note Date of Service: 10/10/17 Note: Troponin elevated on recheck overnight. He has no additional symptoms, but after discussion with hospitalist decided to have him worked up and evaluated on telemetry. Current Medications: Active Medications Generic Name Dose Route Start Last Admin Trade Name Freq PRN Reason Stop Dose Admin Aspirin 325 mg 10/07/17 09:00 10/09/17 08:32 Ecotrin Ec Tab* PO 325 mg DAILY YUMIKO Administration Bisacodyl 10 mg 10/06/17 18:15 Dulcolax Supp* TN DAILY PRN CONSTIPATION Buspirone HCl 10 mg 10/09/17 21:00 10/09/17 21:11 Buspar Tab* PO 10 mg BID YUMIKO Administration Dextrose 12.5 gm 10/06/17 18:24 D50w Syringe 50 Ml* IV PUSH .FOR FS < 60 - SS PRN FS < 60 Diphenhydramine HCl 12.5 mg 10/07/17 21:00 10/08/17 09:04 Benadryl Liq* PO 12.5 mg Q6H PRN Administration ITCHING Docusate Sodium 100 mg 10/06/17 21:00 10/09/17 21:11 Colace Cap* PO 100 mg BID YUMIKO Administration Enoxaparin Sodium 40 mg 10/07/17 07:00 10/09/17 08:37 Lovenox(*) SUBCUT 40 mg Q24H YUMIKO Administration Gabapentin 900 mg 10/06/17 21:00 10/09/17 21:10 Neurontin Cap(*) PO 900 mg BEDTIME YUMIKO Administration Glipizide 20 mg 10/07/17 09:00 10/09/17 08:32 Glucotrol Xl* PO 20 mg DAILY YUMIKO Administration Hydrocortisone 1 applic 10/06/17 23:00 10/09/17 22:02 Hytone Cream 1%* TOPICAL 1 applic TID YUMIKO Administration Hydroxyzine HCl 25 mg 10/09/17 19:18 Atarax Tab* PO Q6H PRN ANXIETY Sodium Chloride 1,000 mls @ 100 mls/hr 10/09/17 19:15 10/09/17 19:33 Ns 0.9% 1000 Ml* IV 10/10/17 05:14 100 mls/hr PER RATE YUMIKO Administration Insulin Glargine 27 units 10/10/17 06:00 Lantus(*) SUBCUT 0600 [facility] Insulin Human Lispro 0 - 18 units 10/06/17 21:00 10/09/17 21:12 Humalog* SUBCUT 6 units ACHS YUMIKO Administration Protocol Lisinopril 10 mg 10/09/17 09:00 10/09/17 08:32 Prinivil Tab* PO 10 mg DAILY YUMIKO Administration Magnesium Hydroxide 30 ml 10/06/17 18:15 Milk Of Magnesia Liq* PO Q6H PRN CONSTIPATION Metformin HCl 850 mg 10/07/17 08:00 10/09/17 17:03 Glucophage* PO 850 mg 0800,1700 YUMIKO Administration Nystatin 1 applic 10/07/17 21:00 10/09/17 22:02 Nystatin Top Powder* TOPICAL 1 applic BID YUMIKO Administration Senna 2 tab 10/06/17 18:15 Senokot Tab* PO BEDTIME PRN CONSTIPATION Sertraline HCl 25 mg 10/07/17 09:00 10/09/17 08:31 Zoloft* PO 25 mg DAILY YUMIKO Administration Sitagliptin Phosphate 100 mg 10/07/17 09:00 10/09/17 08:32 Januvia (Nf) PO 100 mg DAILY YUMIKO Administration Vital Signs: Vital Signs Temp Pulse Resp BP Pulse Ox 97.9 F 92 18 145/78 99 10/09/17 23:01 10/09/17 23:01 10/09/17 23:33 10/09/17 23:01 10/09/17 23:01 Lab Results: Laboratory Results - last 24 hr 10/09/17 10/09/17 10/09/17 06:37 07:58 11:26 WBC 11.0 H RBC 5.53 H Hgb 16.4 Hct 47 MCV 85 MCH 30 MCHC 35 RDW 14 Plt Count 242 MPV 8.3 Neut % (Auto) 60.0 Lymph % (Auto) 25.2 [place] % (Auto) 7.9 H Eos % (Auto) 6.0 Baso % (Auto) 0.9 Absolute Neuts (auto) 6.6 Absolute Lymphs (auto) 2.8 Absolute Monos (auto) 0.9 H Absolute Eos (auto) 0.7 H Absolute Basos (auto) 0.1 Absolute Nucleated RBC 0 Nucleated RBC % 0 Sodium Potassium Chloride Carbon Dioxide Anion Gap BUN Creatinine Est GFR ( Amer) Est GFR (Non-Af Amer) BUN/Creatinine Ratio Glucose POC Glucose (mg/dL) 218 H 292 H Calcium Total Bilirubin AST ALT Alkaline Phosphatase Troponin I Total Protein Albumin Globulin Albumin/Globulin Ratio 10/09/17 10/09/17 10/09/17 16:41 19:03 19:33 WBC 11.3 H RBC 5.48 H Hgb 16.1 Hct 47 MCV 85 MCH 29 MCHC 34 RDW 14 Plt Count 263 MPV 8.1 Neut % (Auto) 63.0 Lymph % (Auto) 24.1 L [place] % (Auto) 7.3 H Eos % (Auto) 5.0 Baso % (Auto) 0.6 Absolute Neuts (auto) 7.1 Absolute Lymphs (auto) 2.7 Absolute Monos (auto) 0.8 Absolute Eos (auto) 0.6 Absolute Basos (auto) 0.1 Absolute Nucleated RBC 0 Nucleated RBC % 0.1 Sodium Potassium Chloride Carbon Dioxide Anion Gap BUN Creatinine Est GFR ( Amer) Est GFR (Non-Af Amer) BUN/Creatinine Ratio Glucose POC Glucose (mg/dL) 225 H 245 H Calcium Total Bilirubin AST ALT Alkaline Phosphatase Troponin I Total Protein Albumin Globulin Albumin/Globulin Ratio 10/09/17 10/10/17 10/10/17 19:33 00:52 03:28 WBC RBC Hgb Hct MCV MCH MCHC RDW Plt Count MPV Neut % (Auto) Lymph % (Auto) [place] % (Auto) Eos % (Auto) Baso % (Auto) Absolute Neuts (auto) Absolute Lymphs (auto) Absolute Monos (auto) Absolute Eos (auto) Absolute Basos (auto) Absolute Nucleated RBC Nucleated RBC % Sodium 134 L Potassium 4.2 Chloride 101 Carbon Dioxide 22 Anion Gap 11 BUN 17 Creatinine 1.06 Est GFR ( Amer) 82.4 Est GFR (Non-Af Amer) 68.1 BUN/Creatinine Ratio 16.0 Glucose 246 H POC Glucose (mg/dL) Calcium 9.1 Total Bilirubin 0.40 AST 18 ALT 30 Alkaline Phosphatase 115 H Troponin I 0.03 0.12 H* 0.12 H* Total Protein 6.1 L Albumin 3.4 Globulin 2.7 Albumin/Globulin Ratio 1.3 Assessment/Plan: 77yo man with 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 1. Left CVA/left precentral gyrus infarct: PT/OT/[employer]. ASA. 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 DM: Lantus/Glucophage/Januvia/Glipizide. 3. DVT Prophylaxis: Lovenox. 4. Orthostatic Hypotension 10/08 with tachycardia 10/09, brief hypertension and body heaviness: Elevated troponins. D/c to hospitalist service. 5. Left lip twitching: follow clinically. D/w neurology if persistent. 6. Advanced Directives: Full code 7. Dispo to telemetry in hospital. 10/10/17 05:15
[2017-10-10 05:19] VITALS: BP 154/82
[2017-10-10] MEDS ORDERED: Insulin GLARGINE(*) 1 UNITS UNIT SUBCUT SCH (06:00)
--- NOTE | 2017-10-10 10:29 | DS ---
CC: Dr. Mendez. REHABILITATION DISCHARGE NOTE: DATE OF ADMISSION: 10/06/17. DATE OF DISCHARGE: 10/10/17. PRIMARY CARE PROVIDER: Dr. Mendez. REASON FOR ADMISSION: Left-sided stroke with right hemiparesis. HISTORY OF PRESENT ILLNESS: For full details of his acute hospitalization leading up to his admission, please see the note dictated by Dr. Mcclani on . Briefly, he is a 77-year-old man. On 10/02/17, he developed new right sided weakness, arm more than leg. He was seen by Neurology and was found to have carotid disease bilaterally. It was felt that this was the likely cause of multifocal infarcts in watershed areas of his MRI, but it was the left area acutely affected causing right sided hemiparesis. He started Plavix, but developed a rash. He has been treated with full dose aspirin. He was also started on atorvastatin 80 mg daily. REHABILITATION COURSE: During his time on the [facility], on 10/08/17, he developed dizziness and was found to be orthostatic with a systolic blood pressure in the 80s. He responded to 2 liters of IV fluids, discontinuation of his Norvasc, and decrease of his lisinopril. On the following day, he became hypertensive and later in the day had tachycardia with heart rate up to 117 and a sensation of heaviness through his body, which included his chest. He was seen by the hospitalist service. EKG was unrevealing and his initial troponin was negative. Repeat troponin six hours later was elevated at 0.12. This was repeated to make sure it was not the lab error and it stayed the same. On followup with the hospitalist, it was decided that he should be transferred to the telemetry unit for further evaluation. During the time of the RU, he participated with Occupational Therapy. At his last visit, he was requiring a minimum amount of assistance for upper and lower body dressing. Minimum assistance for bathing and supervision for eating using a rocker knife. With Physical Therapy, he required supervision for bed mobility and contact guard assistance for transfers and ambulation using a rolling walker. He was evaluated by Speech Therapy and is able to eat regular consistency foods with thin liquids and a straw is okay. He was also seen with Speech Therapy for some deficits in expressive language with a [id number] impairment. It was noted during his rehabilitation course that he was having some twitching of his left lower lip. The patient stated he did this due to a chronic tooth issue. DISCHARGE DISPOSITION: Telemetry at [facility]. DISCHARGE CONDITION: Guarded. DISCHARGE MEDICATIONS: 1. Aspirin 325 mg daily. 2. Atorvastatin 80 mg q.p.m. 3. Dulcolax p.r.n. 4. BuSpar 10 mg b.i.d., recently started by the hospitalist when he had this heaviness event questioning anxiety. 5. Benadryl 12.5 mg q.6 hours p.r.n. itching. 6. Colace 100 mg b.i.d. 7. Lovenox 40 mg subcutaneously daily for DVT prophylaxis. 8. Gabapentin 900 mg q.h.s.. 9. Glucotrol XL 20 mg daily. 10. Hydrocortisone cream 1% t.i.d. 11. Lantus 27 units q.a.m. 12. Humalog sliding scale insulin. 13. Lisinopril 10 mg daily. 14. Milk of magnesia p.r.n. 15. Glucophage 850 mg b.i.d. 16. Nystatin Topical b.i.d. 17. Senna p.r.n. 18. Zoloft 25 mg daily. 19. Januvia 100 mg daily. DISCHARGE DIAGNOSES: 1. Right-sided hemiplegia secondary to ischemic stroke. 2. Carotid stenosis, bilateral. 3. Poorly controlled diabetes mellitus. 4. Hypertension. 5. Diabetic peripheral neuropathy. 6. Obstructive sleep apnea. 7. Depression. 8. Elevated troponins in setting of tachycardia. 9. Orthostatic hypotension. [id number]/[facility] #: [id number] [facility] LANGONE HEALTH SYSTEMTiffanie
== END 2017-10-10 05:14 | disposition short-term general hospital (02) | DRG 57 ==
LOC: PMRU 16:09
PROVIDERS: ADMIT Physical Medicine & Rehabilitation; ATTEND Physical Medicine & Rehabilitation
PROC: F07Z5ZZ Bed Mobility Treatment (ICD-10-PCS; principal; 2017-10-06)
PROC: F07Z9ZZ Gait Training/Functional Ambulation Treatment (ICD-10-PCS; 2017-10-06)
PROC: F07Z8ZZ Transfer Training Treatment (ICD-10-PCS; 2017-10-06)
PROC: F08Z0ZZ Bathing/Showering Techniques Treatment (ICD-10-PCS; 2017-10-06)
PROC: F08Z1ZZ Dressing Techniques Treatment (ICD-10-PCS; 2017-10-06)
PROC: F08Z3ZZ Feeding/Eating Treatment (ICD-10-PCS; 2017-10-06)
PROC: F06ZBZZ Receptive/Expressive Language Treatment (ICD-10-PCS; 2017-10-06)
DX: I69.351 Hemiplegia and hemiparesis following cerebral infarction affecting right dominant side (principal); I65.23 Occlusion and stenosis of bilateral carotid arteries; I10 Essential (primary) hypertension; E11.65 Type 2 diabetes mellitus with hyperglycemia; E11.42 Type 2 diabetes mellitus with diabetic polyneuropathy; G47.33 Obstructive sleep apnea (adult) (pediatric); F32.9 Major depressive disorder, single episode, unspecified; R74.8 Abnormal levels of other serum enzymes; F41.0 Panic disorder [episodic paroxysmal anxiety]; R25.3 Fasciculation; I95.1 Orthostatic hypotension; Z79.84 Long term (current) use of oral hypoglycemic drugs; Z79.82 Long term (current) use of aspirin; Z79.4 Long term (current) use of insulin; Z79.899 Other long term (current) drug therapy; Z88.8 Allergy status to other drugs, medicaments and biological substances
CPT/HCPCS: 36415; 71045; 80053; 82947; 84484; 85025; 93005; A9270-GY; J1650

== ENCOUNTER 2017-10-10 05:23 | Inpatient (IN) | payer MEDICARE ==
--- NOTE | 2017-10-10 05:42 | HP ---
H&P (Free Text) History and Physical: PCP: Yrn Mendez MD Date: 10/10/2017 CC: flushing, elevated troponin HPI: Mr Krueger is a 77YO male HX DM2, KEILA, anxiety, peripheral neuropathy, HX CVA 2012 who was admitted to [facility] 10/04/2015 with an acute CVA and subsequently discharged to [facility]. On the evening of 10/09 he was a CAT call for "feeling funny ", HTN, mild tachycardia, & feeling flushed in the face. Please see CAT report for further details. He denies any chest pain/pressure, SOB, N/V, sweating, palpitations, or light-headedness associated with the CAT call. Initial labwork from was reasonably stable. However, a repeat troponin came back at 0.12 from 0.00. Patient has remained asymptomatic. A recheck was done to determine the accuracy. It was unable to be drawn for 2-3 hours and again returned at 0.12. He has known carotid vascular disease which is a significant risk factor for concurrent cardiovascular disease. Case was reviewed with Dr Workman, equipment records supervisor who agreed to discharge from [facility] in order to be admitted observation and further work up. PMedHx DM2 carotid artery disease w/ plan for CEA HX CVA 2017 KEILA not on CPAP peripheral neuropathy Ambulatory Orders Gabapentin CAP(*) [Neurontin 300 CAP(*)] 900 mg PO BEDTIME 09/19/17 Sertraline* [Zoloft*] 25 mg PO DAILY 09/19/17 SitaGLIPtin (NF) [Januvia (NF)] 100 mg PO DAILY 09/19/17 amLODIPine TAB* [Norvasc 5 mg TAB*] 5 mg PO DAILY 09/19/17 glipiZIDE TAB.XL* [Glucotrol Xl*] 20 mg PO DAILY 09/19/17 metFORMIN* [Glucophage 850 MG TAB *] 850 mg PO BID 09/19/17 Lisinopril TAB* [Prinivil TAB 10 MG*] 20 mg PO DAILY tab 09/23/17 Aspirin EC TAB* [Ecotrin EC TAB*] 325 mg PO DAILY tab.ec 10/06/17 Atorvastatin* [Lipitor 80 MG*] 80 mg PO BEDTIME tab 10/06/17 Enoxaparin(*) [Lovenox(*)] 40 mg SUBCUT 0600 #0 syringe 10/06/17 Hydrocortisone 1% CREAM* [Hytone Cream 1%*] 1 applic TOPICAL TID PRN tube 10/06 Insulin GLARGINE(*) [Lantus(*)] 30 units SUBCUT BID 10/06/17 Insulin LISPRO* [HumaLOG*] 0 units SUBCUT ACHS unit 10/06/17 Nystatin TOP POWDER* 1 applic TOPICAL BID btl 10/06/17 Additionally he should be on atorvastatin 80mg PO daily. 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 status FamHx: adopted, no information known ROS: as above, otherwise reviewed and all were negative vitals to be done on arrival to 3 S Constitutional: NAD, normally developed, overweight elderly white male HEENM: atraumatic; sclera/conjunctiva: anicteric; hearing: clinically intact; oropharynx: clear, mucosa moist Neck: soft tissue: non-tender; thyroid: normal Pulmonary: clear to auscultation bilaterally, good aeration, no accessory muscle use CV: RR/RR, normal S1S2, no carotid bruit, no jugular venous distention, 2+ B DP/ PT Abdominal: soft, non-distended, non-tender, no rebound/guarding/rigidity, normoactive bowel sounds, no hepatosplenomegaly or masses, no costovertebral angle tenderness Musculoskeletal: general: grossly intact; 4/5 strength with reduced ROM of RUE as sequlae of recent CVA Integumental: normal appearance and texture of exposed skin Psychiatric orientation: AA&O to PPS affect: calm mood: cooperative eye contact: fair to good content: reliable responses: timely insight: good to fair Testing: AM labs ordered ECG, personally reviewed: 1st degree sinus AV block rate 85, no ischemia Impression: 77M HX CVA x2, HTN, HLD, DM2 carotid artery disease admitted to [facility] post-CVA w/ CAT call evening of 10/09 and now with elevated troponin DIAGNOSIS & PLAN Primary elevated troponin : telemetry : trend : supplemental oxygen : aspirin 325mg po daily : supplemental oxygen : consider cardiology consult in AM : supportive care Secondary DM2 : 11.5 A1c 09/2017 : insulin carb ratio diet : basal/bolus/correctional insulin : hold metformin : continue sitagliptin & glipizide carotid artery disease w/ plan for CEA @ [facility] CVA 2012, 2018 : hold PT until cardiac evaluation complete : no exertional OT until cardia evaluation is complete : continue atrovastatin KEILA not on CPAP : no acute issues peripheral neuropathy : continue gabapentin HTN : continue lisinopril & amlodipine depression : continue sertraline Admission Rational: observation for elevated troponin in setting of carotid artery disease, HTN, HLD, recent CVA DVTp: enoxaparin SQ Code Status: full HCP: son, Johnson
[2017-10-10] MEDS ORDERED: Acetaminophen TAB* 325 MG PO PRN (05:58)
[2017-10-10] MEDS ORDERED: Hydrocortisone 1% CREAM* 30 GM TUBE TOPICAL PRN (05:59)
[2017-10-10] MEDS: Enoxaparin(*) 40 MG/0.4 ML SYR SUBCUT SCH (06:21)
[2017-10-10 07:09] LABS: ABS Basophils 0.1 10^3/ul (0-0.2); ABS Eosinophils 0.6 10^3/ul (0-0.6); ABS Lymphocytes 2.7 10^3/ul (1.0-4.8); ABS Monocytes 0.8 10^3/ul (0-0.8); ABS Neutrophils 7.3 10^3/ul (1.5-7.7); ABS Nucleated RBC 0 10^3/ul; Eosinophil % 5.5 % (0-6); Hematocrit 49 % (42-52); Hemoglobin 16.8 g/dl (14.0-18.0); Lymphocyte % 23.3 % (25-47); Mean Corpuscular HGB Conc 34 g/dl (31-36); Mean Corpuscular Hemoglobin 29 pg (27-31); Mean Corpuscular Volume 86 fL (80-94); Mean Platelet Volume 8.1 um3 (7.4-10.4); Nucleated Red Blood Cells % 0.2; Platelet Count 259 10^3/ul (150-450); Red Blood Count 5.71 10^6/ul (4.00-5.40); Red Cell Distribution Width 14 % (10.5-15); White Blood Count 11.6 10^3/ul (3.5-10.8)
[2017-10-10 07:27] LABS: EGFR Non-African American 74.6 (>60)
[2017-10-10] MEDS: Nystatin TOP POWDER* 15 GM BTL TOPICAL SCH ×2 (09:51→21:55)
[2017-10-10] MEDS: amLODIPine TAB* 5 MG PO SCH (09:52)
[2017-10-10] MEDS: Aspirin EC TAB* 325 MG PO SCH (09:53)
[2017-10-10] MEDS: Sertraline* 25 MG TAB PO SCH (09:53)
[2017-10-10] MEDS: Lisinopril TAB* 10 MG PO SCH (09:53)
[2017-10-10] MEDS: CMC:SitaGLIPtin (NF) 100 MG TAB PO SCH (09:55)
--- NOTE | 2017-10-10 18:38 | PN ---
Subjective Date of Service: 10/10/17 Interval History: Pt seen and examined. Meds and labs reviewed. Responded to pt CAT call last night and was found to be hypertensive and tachycardic. Serial troponins were found to be mildly elevated, hence, pt transferred to [facility]. ROS: Denied CORDOVA/dizziness, F/C, N/V, CP, SOB, increased cough, sputum production , abd pain, diarrhea, constipation, dysuria, myalgias, arthralgias, throat pain , and new skin lesions. The rest of the 14 point ROS are unremarkable. PHYSICAL EXAM: GEN APPEARANCE: Awake, not in acute distress HEENT: NC/AT, PERRLA, moist oral mucosa, (-) throat erythema NECK: Soft, supple, (-) cervical LAD, (-)JVD HEART: S1S2 WNL, RRR, No MRG CHEST: CTA, BL, GAE, No W/R/R ABD: Soft, ND/NT, NABS 4x Q EXT: No C/C/E SKIN: Warm to touch PSYCH: No active psychosis, hallucinations, depression, SI/HI Objective Active Medications: Acetaminophen (Tylenol Tab*) 650 mg PO Q6H PRN PRN Reason: FEVER/PAIN Amlodipine Besylate (Norvasc Tab*) 5 mg PO DAILY [facility] Last Admin: 10/10/17 09:52 Dose: 5 mg Aspirin (Ecotrin Ec Tab*) 325 mg PO DAILY [facility] Last Admin: 10/10/17 09:53 Dose: 325 mg Atorvastatin Calcium (Lipitor*) 80 mg PO BEDTIME [facility] Carvedilol (Coreg Tab*) 12.5 mg PO BID [facility] Enoxaparin Sodium (Lovenox(*)) 40 mg SUBCUT 0600 [facility] Last Admin: 10/10/17 06:21 Dose: 40 mg Gabapentin (Neurontin Cap(*)) 900 mg PO BEDTIME [facility] Hydrocortisone (Hytone Cream 1%*) 1 applic TOPICAL TID PRN PRN Reason: ITCHING Lisinopril (Prinivil Tab*) 20 mg PO DAILY [facility] Last Admin: 10/10/17 09:53 Dose: 20 mg Nystatin (Nystatin Top Powder*) 1 applic TOPICAL BID [facility] Last Admin: 10/10/17 09:51 Dose: 1 applic Sertraline HCl (Zoloft*) 25 mg PO DAILY [facility] Last Admin: 10/10/17 09:53 Dose: 25 mg Sitagliptin Phosphate (Januvia (Nf)) 100 mg PO DAILY YUMIKO; Protocol Last Admin: 10/10/17 09:55 Dose: Not Given Vital Signs - 8 hr 10/10/17 10/10/17 11:47 15:25 Temperature 97.3 F 98.3 F Pulse Rate 85 93 Respiratory 20 16 Rate Blood Pressure 152/72 149/77 (mmHg) O2 Sat by Pulse 99 98 Oximetry Oxygen Devices in Use Now: None Result Diagrams: 10/10/17 06:51 10/10/17 06:51 Assess/Plan/Problems-Billing Assessment: - Patient Problems (1) Elevated troponin Current Visit: No Status: Acute Code(s): R74.8 - ABNORMAL LEVELS OF OTHER SERUM ENZYMES SNOMED Code(s): 529030195 Comment: -Likely due to demand ischemia in the setting of obesity, DM, JARRET, and recent CVA -2D echo pending -Added Carvedilol 12.5 mg to his regimen given CAD equivalent conditions and hypertension and will continue watchful waiting -Continue ASA and consider decreasing to baby ASA, Lisinopril, and statin; pt allergic to plavix -D/W Dr. Fragoso to see in AM and will await any further recommendations (2) HTN (hypertension) Current Visit: Yes Status: Acute Code(s): I10 - ESSENTIAL (PRIMARY) HYPERTENSION SNOMED Code(s): 63610407 Comment: -Please see above discussion -Continue Amlodipine (3) Diabetes Current Visit: No Status: Chronic Code(s): E11.9 - TYPE 2 DIABETES MELLITUS WITHOUT COMPLICATIONS SNOMED Code(s): 15195574 Comment: -Continue to monitor -On Sitagliptin (4) Depression Current Visit: Yes Status: Acute Code(s): F32.9 - MAJOR DEPRESSIVE DISORDER , SINGLE EPISODE, UNSPECIFIED SNOMED Code(s): 63342941 Comment: -Continue Sertraline (5) DVT prophylaxis Current Visit: No Status: Acute Code(s): ZVN6162 - SNOMED Code(s): 663296729 Comment: -Continue Lovenox SQ Status and Disposition: -Will await any further recommendations from Dr. Fragoso and if stress test is necessary prior to transfer back to [facility]; awaiting echo; will defer
[2017-10-10] MEDS: Carvedilol TAB* 25 MG PO SCH (19:45)
[2017-10-10] MEDS: Gabapentin CAP(*) 300 MG PO SCH (19:45)
[2017-10-10] MEDS: Atorvastatin* 80 MG TAB PO SCH (19:46)
[2017-10-10] MEDS ORDERED: Metoprolol Tartrate IV* 1 MG/ML 5 ML VIAL IV ONE (22:20)
[2017-10-10] MEDS: Insulin LISPRO* 1 UNITS UNIT SUBCUT SCH (22:43)
[2017-10-11] MEDS: Enoxaparin(*) 40 MG/0.4 ML SYR SUBCUT SCH (05:30)
[2017-10-11 06:23] LABS: Hematocrit 48 % (42-52); Hemoglobin 16.1 g/dl (14.0-18.0); Mean Corpuscular HGB Conc 34 g/dl (31-36); Mean Corpuscular Hemoglobin 29 pg (27-31); Mean Corpuscular Volume 85 fL (80-94); Mean Platelet Volume 8.1 um3 (7.4-10.4); Platelet Count 294 10^3/ul (150-450); Red Blood Count 5.63 10^6/ul (4.00-5.40); Red Cell Distribution Width 13 % (10.5-15); White Blood Count 11.9 10^3/ul (3.5-10.8)
[2017-10-11 06:39] LABS: EGFR Non-African American 64.6 (>60)
[2017-10-11] MEDS: Carvedilol TAB* 25 MG PO SCH ×2 (09:10→20:23)
[2017-10-11] MEDS: amLODIPine TAB* 5 MG PO SCH (09:10)
[2017-10-11] MEDS: Sertraline* 25 MG TAB PO SCH (09:11)
[2017-10-11] MEDS: Lisinopril TAB* 10 MG PO SCH (09:11)
[2017-10-11] MEDS: Aspirin EC TAB* 325 MG PO SCH (09:11)
[2017-10-11] MEDS: Insulin LISPRO* 1 UNITS UNIT SUBCUT SCH ×7 (09:13→21:03)
[2017-10-11] MEDS: CMC:SitaGLIPtin (NF) 100 MG TAB PO SCH (09:29)
[2017-10-11] MEDS: Nystatin TOP POWDER* 15 GM BTL TOPICAL SCH ×2 (09:30→20:23)
--- NOTE | 2017-10-11 10:24 | RAD ---
Indication: Leukocytosis. Single frontal view of the chest performed at 0950 hours was reviewed. Comparison is made with previous exam dated October 09, 2017. No mediastinal shift is noted. Heart is of normal size and configuration. Lung bourgeois appear clear. IMPRESSION: NO ACTIVE CARDIOPULMONARY DISEASE IS NOTED.
--- NOTE | 2017-10-11 11:33 | ECHO ---
Patient: ESTELLE BOUDREAUX [facility] Rec#: [id number] : 1940 Date: 10/11/2017 Age: 77y Height: 175 cm / 68.9 in Weight: 92 kg / 202.8 lbs Sex: M BSA: 2.1 Room#: [facility] Admit Date#: 10/10/2017 Type: Inpatient Referring: Ponce Fragoso MD Reading: Ponec Fragoso MD Press Clipper: Raquel Núñez RN RDCS CC: Nitesh Mendez MD Transthoracic Echocardiogram Indication: Elevated troponin levels BP: 134/71 HR: 80 Rhythm: NSR Findings History: CVA 2012, HTN, DM, KEILA, obesity, former smoker, recent CVA 10/03/2017. This is a LIMITED echo to reassess LV systolic function and wall motion. A full echocardiogram was performed on 10/05/2017. Technical Comments: The study quality is fair. The study is technically limited due to patient body habitus. The study is technically limited due to the patient's smoking history. Left Ventricle: Global left ventricular wall motion and contractility are within normal limits. Left ventricular systolic function is at the lower limits of normal. The estimated ejection fraction is 50-55%. Right Ventricle: The right ventricular global systolic function is normal. Conclusions Limited study to evaluate LV function Global left ventricular wall motion and contractility are within normal limits. Left ventricular systolic function is at the lower limits of normal. The estimated ejection fraction is 50-55%. Compared to study of 10/05/17, there is no change
[2017-10-11 13:28] LABS: Urine Appearance Clear; Urine Blood Negative (Negative); Urine Color Straw; Urine Ketones Negative (Negative); Urine Protein Negative (Negative); Urine Specific Gravity 1.011 (1.010-1.030); Urine Urobilinogen Negative (Negative)
--- NOTE | 2017-10-11 14:18 | CONS ---
CARDIOLOGY CONSULTATION REPORT: DATE OF CONSULT: 10/11/17 INDICATION FOR CONSULTATION: Hypertensive urgency, abnormal troponin. HISTORY OF PRESENT ILLNESS: The patient is a 77-year-old gentleman with a history of diabetes, sleep apnea, peripheral neuropathy, who had a CVA in 2012 and a second episode on October 03. He was admitted to the hospital. He had dense hemiplegia of the right side. The patient was admitted to the hospital and evaluation showed a carotid stenosis. His echocardiogram showed normal LV function. The patient had recently gone down to rehab for his stroke. Yesterday, the patient had a "funny feeling" and had a warm feeling all over his chest. At that time, his blood pressure was 180/100 and a CAT call was initiated. The patient was transported back up to the fourth floor for evaluation. Since being up in the floor, he has actually done quite well. He has had no further symptoms. His blood pressure is slightly under better control. He had a minimally elevated troponin. His initial troponin was 0.03, second troponin was 0.12, and then down to 0.08. His EKG showed normal sinus rhythm. PAST MEDICAL HISTORY: Diabetes, carotid disease with a planned carotid endarterectomy in the near future, CVA, obstructive sleep apnea, peripheral neuropathy. PAST SURGICAL HISTORY: None. He is planned for a carotid endarterectomy in the near future. OUTPATIENT MEDICATIONS: 1. Gabapentin 300 mg 3 tablets at night. 2. Sertraline 25 mg a day. 3. Januvia 100 mg a day. 4. Amlodipine 5 mg a day. 5. Glipizide 20 mg a day. 6. Metformin 850 mg b.i.d. 7. Lisinopril 20 mg a day. 8. Aspirin 325 a day. 9. Atorvastatin 80 mg a day. 10. Insulin as directed. ALLERGIES: To PLAVIX, with which he gets hives. FAMILY HISTORY: He is adopted and family history could not be obtained. SOCIAL HISTORY: He is a previous smoker. He denies any alcohol. He is . He has 3 adult children. 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 PHYSICAL EXAMINATION: Height is 5 feet 9 inches, weight 203 pounds. Temperature 97.6, blood pressure 134/71, respiratory rate is 18, oxygen saturation 98% on room air. Sclerae anicteric. Oropharynx is pink without erythema. Carotids are 2+, with soft bilateral bruits. JVD is normal. Thyroid is normal. Cardiac exam: S1, S2, without any murmurs, rubs, or gallops. PMI is normal. Lungs are clear to auscultation bilaterally. There is no dullness to percussion. Abdomen is soft, nontender, and nondistended with normoactive bowel sounds. Extremities show no edema. He has 2+ pulses throughout. The patient is awake, alert, and oriented. He moves his left side normally. His right side is weak. DIAGNOSTIC STUDIES/LAB DATA: CBC within normal limits. Chemistries within normal limits. Troponin levels as described above. AST and ALT are normal. The patient did have a stress test here at [facility] in January of 2017, which showed potential area of ischemia to his inferior wall. He also had dilated left ventricular size. No definitive areas of ischemia or infarct were noted. IMPRESSION: This is a 77-year-old gentleman with a history of peripheral vascular disease who was down at rehab after his stroke and noted an episode of "feeling funny" and chest heaviness and feeling warm all over. At that time he had a hypertensive urgency. Currently, the patient is doing quite well. His troponin levels were minimally elevated. At this point, I do not think any medication changes are necessary. The patient 's blood pressure has been quite labile over the last couple of days. His blood pressure has been as low as 90 and as high as 170 systolic. For now my recommendation is for the patient to undergo chemical nuclear stress test to reevaluate his cardiac perfusion given his symptoms and minimally elevated troponin levels. Further recommendations pending results of his stress test. [id number]/[facility] #: [id number] [facility]
--- NOTE | 2017-10-11 17:00 | PN ---
Subjective Date of Service: 10/11/17 Interval History: Pt seen and examined. Meds and labs reviewed. ROS: Denied CORDOVA/dizziness, F/C, N/V, CP, SOB, increased cough, sputum production , abd pain, diarrhea, constipation, dysuria, myalgias, arthralgias, throat pain , and new skin lesions. The rest of the 14 point ROS are unremarkable. PHYSICAL EXAM: GEN APPEARANCE: Awake, not in acute distress HEENT: NC/AT, PERRLA, moist oral mucosa, (-) throat erythema NECK: Soft, supple, (-) cervical LAD, (-)JVD HEART: S1S2 WNL, RRR, No MRG CHEST: CTA, BL, GAE, No W/R/R ABD: Soft, ND/NT, NABS 4x Q EXT: No C/C/E SKIN: Warm to touch PSYCH: No active psychosis, hallucinations, depression, SI/HI Objective Active Medications: Acetaminophen (Tylenol Tab*) 650 mg PO Q6H PRN PRN Reason: FEVER/PAIN Amlodipine Besylate (Norvasc Tab*) 5 mg PO DAILY [facility] Last Admin: 10/11/17 09:10 Dose: 5 mg Aspirin (Ecotrin Ec Tab*) 325 mg PO DAILY [facility] Last Admin: 10/11/17 09:11 Dose: 325 mg Atorvastatin Calcium (Lipitor*) 80 mg PO BEDTIME [facility] Last Admin: 10/10/17 19:46 Dose: 80 mg Carvedilol (Coreg Tab*) 12.5 mg PO BID [facility] Last Admin: 10/11/17 09:10 Dose: 12.5 mg Enoxaparin Sodium (Lovenox(*)) 40 mg SUBCUT 0600 [facility] Last Admin: 10/11/17 05:30 Dose: 40 mg Gabapentin (Neurontin Cap(*)) 900 mg PO BEDTIME [facility] Last Admin: 10/10/17 19:45 Dose: 900 mg Hydrocortisone (Hytone Cream 1%*) 1 applic TOPICAL TID PRN PRN Reason: ITCHING Insulin Glargine (Lantus(*)) 22 units 0.24 units/kg (22 units) SUBCUT 2100 [facility] Insulin Human Lispro (Humalog*) 0 units SUBCUT AC [facility]; Protocol Last Admin: 10/11/17 13:46 Dose: 9 units Insulin Human Lispro (Humalog*) 0 units SUBCUT ACHS [facility]; Protocol Last Admin: 10/11/17 13:46 Dose: 12 units Lisinopril (Prinivil Tab*) 20 mg PO DAILY [facility] Last Admin: 10/11/17 09:11 Dose: 20 mg Nystatin (Nystatin Top Powder*) 1 applic TOPICAL BID [facility] Last Admin: 10/11/17 09:30 Dose: 1 applic Sertraline HCl (Zoloft*) 25 mg PO DAILY [facility] Last Admin: 10/11/17 09:11 Dose: 25 mg Sitagliptin Phosphate (Januvia (Nf)) 100 mg PO DAILY [facility]; Protocol Last Admin: 10/11/17 09:29 Dose: 100 mg Vital Signs - 8 hr 10/11/17 10/11/17 10/11/17 11:57 15:26 16:00 Temperature 99.9 F 99.1 F Pulse Rate 77 88 Respiratory 16 16 Rate Blood Pressure 147/74 144/72 (mmHg) O2 Sat by Pulse 96 97 87 Oximetry Oxygen Devices in Use Now: None Result Diagrams: 10/11/17 06:01 10/11/17 06:01 Assess/Plan/Problems-Billing Assessment: - Patient Problems (1) Elevated troponin Current Visit: No Status: Acute Code(s): R74.8 - ABNORMAL LEVELS OF OTHER SERUM ENZYMES SNOMED Code(s): 269369932 Comment: -Likely due to demand ischemia in the setting of obesity, DM, JARRET, and recent CVA -Continue Carvedilol 12.5 mg to his regimen given CAD equivalent conditions and hypertension and will continue watchful waiting -Continue ASA and consider decreasing to baby ASA, Lisinopril, and statin; pt allergic to plavix -Appreciate Dr. Spicer input -For nuclear stress test in AM -No significant change on repeat limited echo (2) HTN (hypertension) Current Visit: Yes Status: Acute Code(s): I10 - ESSENTIAL (PRIMARY) HYPERTENSION SNOMED Code(s): 29496852 Comment: -Please see above discussion -Continue Amlodipine (3) Diabetes Current Visit: No Status: Chronic Code(s): E11.9 - TYPE 2 DIABETES MELLITUS WITHOUT COMPLICATIONS SNOMED Code(s): 81741466 Comment: -Continue to monitor -On Sitagliptin, Lantus, and Insulin SS (4) Depression Current Visit: Yes Status: Acute Code(s): F32.9 - MAJOR DEPRESSIVE DISORDER , SINGLE EPISODE, UNSPECIFIED SNOMED Code(s): 10659068 Comment: -Continue Sertraline (5) DVT prophylaxis Current Visit: No Status: Acute Code(s): PQD9358 - SNOMED Code(s): 804173066 Comment: -Continue Lovenox SQ Status and Disposition: -For stress test in AM -D/C back to PMRU if workup uneventful
[2017-10-11] MEDS: Gabapentin CAP(*) 300 MG PO SCH (20:23)
[2017-10-11] MEDS: Atorvastatin* 80 MG TAB PO SCH (20:24)
[2017-10-11] MEDS ORDERED: Insulin LISPRO* 1 UNITS UNIT SUBCUT ONE (20:55)
[2017-10-11] MEDS: Insulin GLARGINE(*) 1 UNITS UNIT SUBCUT SCH (21:02)
[2017-10-12] MEDS: Enoxaparin(*) 40 MG/0.4 ML SYR SUBCUT SCH (05:18)
[2017-10-12 06:27] LABS: ABS Basophils 0.1 10^3/ul (0-0.2); ABS Eosinophils 0.4 10^3/ul (0-0.6); ABS Monocytes 1.1 10^3/ul (0-0.8); ABS Neutrophils 7.4 10^3/ul (1.5-7.7); ABS Nucleated RBC 0 10^3/ul; Eosinophil % 3.4 % (0-6); Hematocrit 46 % (42-52); Hemoglobin 15.8 g/dl (14.0-18.0); Lymphocyte % 18.5 % (25-47); Mean Corpuscular HGB Conc 34 g/dl (31-36); Mean Corpuscular Hemoglobin 29 pg (27-31); Mean Corpuscular Volume 85 fL (80-94); Nucleated Red Blood Cells % 0.1; Platelet Count 276 10^3/ul (150-450); Red Blood Count 5.42 10^6/ul (4.00-5.40); Red Cell Distribution Width 14 % (10.5-15); White Blood Count 10.9 10^3/ul (3.5-10.8)
[2017-10-12 07:01] LABS: EGFR Non-African American 55.3 (>60)
[2017-10-12] MEDS ORDERED: Regadenoson* 0.4 MG/5 ML SYRINGE ONE (07:33)
[2017-10-12] MEDS: Insulin LISPRO* 1 UNITS UNIT SUBCUT SCH ×7 (07:38→21:42)
[2017-10-12] MEDS: Sertraline* 25 MG TAB PO SCH (08:53)
[2017-10-12] MEDS: CMC:SitaGLIPtin (NF) 100 MG TAB PO SCH (08:53)
[2017-10-12] MEDS: Lisinopril TAB* 10 MG PO SCH (08:54)
[2017-10-12] MEDS: amLODIPine TAB* 5 MG PO SCH (08:54)
[2017-10-12] MEDS: Aspirin EC TAB* 325 MG PO SCH (08:54)
[2017-10-12] MEDS: Carvedilol TAB* 25 MG PO SCH ×2 (08:55→21:39)
[2017-10-12] MEDS: Nystatin TOP POWDER* 15 GM BTL TOPICAL SCH ×2 (08:56→22:50)
--- NOTE | 2017-10-12 13:37 | RAD ---
HISTORY: Mildly elevated LFTs, hypertension, obesity, elevated troponins COMPARISONS: January 30, 2017 TECHNIQUE: A 1 day stress/rest myocardial perfusion study was performed, with pharmacologic stress. The stress portion was monitored by Dr. Anna. Gated SPECT imaging was performed, without CT-based attenuation correction secondary to limitations of body habitus DOSE: Stress: Technetium 99m tetrofosmin, 25.7 millicuries, injected at 11:31 AM on October 12, 2017 Rest: Technetium 99m tetrofosmin, and 0.2 millicuries, injected at 7:30 AM on October 12, 2017 Pharmacologic agent: Lexiscan FINDINGS: CARDIAC MONITORING: No EKG criteria for ischemia with stress EF: 49% TID: 1.1 MOTION: There is septal hypokinesia with mild dyskinesia PERFUSION: There is small areas of partially reversible hypoperfusion of the inferior wall. OTHER: None 1. IMPRESSION: SMALL AREAS OF PARTIALLY REVERSIBLE HYPOPERFUSION OF THE INFERIOR WALL SUGGESTIVE OF ISCHEMIA. 2. DECREASED EJECTION FRACTION WITH SEPTAL HYPOKINESIA AND MILD DYSKINESIA ASSESSMENT: INTERMEDIATE RISK. Based on imaging criteria from ACC/AHA 2002. Guideline Update for the Management of Patient's with Chronic Stable Angina, table 23. Noninvasive Risk Stratification.
--- NOTE | 2017-10-12 17:27 | PN ---
Subjective Date of Service: 10/12/17 Interval History: Concern for new facial droop and word slurring this AM with PT. Consistent exam with previous exam by this author. Denies Cp, SOB, N/V, abdominal pain, diarrhea , F/C, dysuria, syncope, presyncope, dizziness, or other pain. No Chest Pain with stress test. Significantly improved movement in right arm. Family History: Unchanged from Admission Social History: Unchanged from Admission Past Medical History: Unchanged from Admission Objective Active Medications: Acetaminophen (Tylenol Tab*) 650 mg PO Q6H PRN PRN Reason: FEVER/PAIN Amlodipine Besylate (Norvasc Tab*) 5 mg PO DAILY [facility] Last Admin: 10/12/17 08:54 Dose: 5 mg Aspirin (Ecotrin Ec Tab*) 325 mg PO DAILY [facility] Last Admin: 10/12/17 08:54 Dose: 325 mg Atorvastatin Calcium (Lipitor*) 80 mg PO BEDTIME [facility] Last Admin: 10/11/17 20:24 Dose: 80 mg Carvedilol (Coreg Tab*) 12.5 mg PO BID [facility] Last Admin: 10/12/17 08:55 Dose: 12.5 mg Enoxaparin Sodium (Lovenox(*)) 40 mg SUBCUT 0600 [facility] Last Admin: 10/12/17 05:18 Dose: 40 mg Gabapentin (Neurontin Cap(*)) 900 mg PO BEDTIME [facility] Last Admin: 10/11/17 20:23 Dose: 900 mg Hydrocortisone (Hytone Cream 1%*) 1 applic TOPICAL TID PRN PRN Reason: ITCHING Last Admin: 10/12/17 09:31 Dose: 1 applic Insulin Glargine (Lantus(*)) 22 units 0.24 units/kg (22 units) SUBCUT 2100 [facility] Last Admin: 10/11/17 21:02 Dose: 22 units Insulin Human Lispro (Humalog*) 0 units SUBCUT AC [facility]; Protocol Last Admin: 10/12/17 14:28 Dose: Not Given Insulin Human Lispro (Humalog*) 0 units SUBCUT ACHS [facility]; Protocol Last Admin: 10/12/17 14:29 Dose: Not Given Lisinopril (Prinivil Tab*) 20 mg PO DAILY [facility] Last Admin: 10/12/17 08:54 Dose: 20 mg Nystatin (Nystatin Top Powder*) 1 applic TOPICAL BID [facility] Last Admin: 10/12/17 08:56 Dose: Not Given Sertraline HCl (Zoloft*) 25 mg PO DAILY [facility] Last Admin: 10/12/17 08:53 Dose: 25 mg Sitagliptin Phosphate (Januvia (Nf)) 100 mg PO DAILY [facility]; Protocol Last Admin: 10/12/17 08:53 Dose: 100 mg Oxygen Devices in Use Now: None Appearance: Patient is a 77yo male who appears stated age and is sitting in the bed in [facility]. Eyes: No Scleral Icterus, PERRLA Ears/Nose/Mouth/Throat: NL Teeth, Lips, Gums, Clear Oropharnyx, Mucous Membranes Moist Neck: NL Appearance and Movements; NL JVP, Trachea Midline Respiratory: Symmetrical Chest Expansion and Respiratory Effort, Clear to Auscultation Cardiovascular: NL Sounds; No Murmurs; No JVD, RRR, No Edema Abdominal: NL Sounds; No Tenderness; No Distention, No Hepatosplenomegaly Lymphatic: No Cervical Adenopathy Extremities: No Edema, No Clubbing, Cyanosis Skin: No Rash or Ulcers, No Nodules or Sclerosis Neurological: Alert and Oriented x 3, NL Sensation, - - 2/5 strength in RUE, 4/ 5 iron worker strength, 4+/5 RLE, 5/5 in all other muscle groups tested. Slight right sided facial droop, present on previous exam. Result Diagrams: 10/12/17 06:10 10/12/17 06:10 Microbiology and Other Data: Microbiology 10/11/17 17:07 Aerobic Blood Culture - Preliminary Blood Venous No Growth Day 1 Anaerobic Blood Culture - Preliminary No Growth Day 1 10/11/17 17:07 Aerobic Blood Culture - Preliminary Blood Venous No Growth Day 1 Anaerobic Blood Culture - Preliminary No Growth Day 1 Assess/Plan/Problems-Billing Assessment: Patient is a 77yo male with a PMH for HTN, CVA, CAD, DM II, who presents back from acute rehab where he was with a recent CVA with elevated troponin in the setting of elevated BP. Patient has had an abnormal stress test and is having current consideration for a catheterization. - Patient Problems (1) Abnormal cardiovascular stress test Current Visit: No Status: Acute Code(s): R94.39 - ABNORMAL RESULT OF OTHER CARDIOVASCULAR FUNCTION STUDY SNOMED Code(s): 610645819 Comment: Cardiology consult, input appreciated Plan for catheterization. 2 abnormal stress tests. (2) Right sided weakness Current Visit: No Status: Acute Code(s): R53.1 - WEAKNESS SNOMED Code(s): 260272159 Comment: Neuro consult appreciated Continue medical optimization with statin, ASA, glycemic control and PT/OT No plavix, full dose aspirin. Possible LORNA. Concern for dermatomal distribution on right side with possible cervical spine pathology. MRI cervical spine ordered. (3) Elevated serum creatinine Current Visit: No Status: Acute Code(s): R79.89 - OTHER SPECIFIED ABNORMAL FINDINGS OF BLOOD CHEMISTRY SNOMED Code(s): 410009578 Comment: Pt appears to be within his baseline Suspect CKD stage 3 at baseline (4) Elevated troponin Current Visit: No Status: Acute Code(s): R74.8 - ABNORMAL LEVELS OF OTHER SERUM ENZYMES SNOMED Code(s): 524544858 Comment: Likely due to demand ischemia in the setting of obesity, DM, JARRET, and recent CVA Continue Carvedilol 12.5 mg to his regimen given CAD equivalent conditions and hypertension and will continue watchful waiting Continue ASA, Lisinopril, and statin Appreciate Dr. Spicer input (5) Diabetes Current Visit: No Status: Chronic Code(s): E11.9 - TYPE 2 DIABETES MELLITUS WITHOUT COMPLICATIONS SNOMED Code(s): 94367697 Comment: Continue to monitor On Sitagliptin, Metformin, Glipizide, Lantus, and Insulin SS (6) HLD (hyperlipidemia) Current Visit: No Status: Chronic Code(s): E78.5 - HYPERLIPIDEMIA, UNSPECIFIED SNOMED Code(s): 47488748 Comment: Continue statin, dose increased per neuro LDL 69 (7) HTN (hypertension) Current Visit: No Status: Chronic Code(s): I10 - ESSENTIAL (PRIMARY) HYPERTENSION SNOMED Code(s): 14855037 Comment: Orthostasis in PMRU Medications decreased recently and then patient had hypertensive emergency with demand ischemia. Currently normotensive. Aim for SBP between 120 and 160. (8) History of CVA (cerebrovascular accident) Current Visit: No Status: Chronic Code(s): Z86.73 - PRSNL HX OF TIA (TIA), AND CEREB INFRC W/O RESID DEFICITS SNOMED Code(s): 574304598 Comment: Continue ASA and statin (9) Peripheral neuropathy Current Visit: No Status: Chronic Code(s): G62.9 - POLYNEUROPATHY, UNSPECIFIED SNOMED Code(s): 693757286 Comment: Continue home gabapentin Likely due to DM. (10) DVT prophylaxis Current Visit: No Status: Acute Code(s): INT1067 - SNOMED Code(s): 637093906 Comment: Continue Lovenox SQ Status and Disposition: Inpatient.
--- NOTE | 2017-10-12 18:18 | CONS ---
CC: Dr. Fragoso * NEUROLOGY CONSULTATION: DATE OF CONSULT: 10/12/17 LOCATION: He is an inpatient in room 447. REFERRING PROVIDER: MARLYN Burgess CHIEF COMPLAINT: History of stroke, coronary artery disease. HISTORY OF PRESENT ILLNESS: Dayton Krueger is a 77-year-old right-handed man who was in the [facility] recuperating from a stroke when he developed blood pressure changes. He was transferred back to telemetry. He had an abnormal nuclear medicine scan consistent with reversible ischemia in the inferior left ventricle. Dr. Fragoso was recommending cardiac catheterization and I was asked to consult regarding his risk of stroke and use of antiplatelet therapy. There were also concerns about carotid artery stenosis bilaterally. I reviewed the prior hospitalization records and looked at the neuroimaging personally. He had an episode of loss of consciousness and presented to the emergency room on 09/19/17. He was attending a , started to feel very hot. He went outside and collapsed. An ambulance was summoned and he was brought into the emergency room. He had an unremarkable evaluation and was discharged. He returned because of rib pain. It was determined he had a fractured rib. He was at his home on 10/03/17. He fell and could not get up and he is not sure why. He was on the ground for about 2 to 3 hours when his son came home. He was unable to lift him and they called an ambulance. The ambulance got him up and put him on a stretcher and he realized his right arm was weak. He is not sure if it was weak prior to that, but he did not think so. He had no difficulty speaking. He was brought into the hospital and admitted. An MRI scan of the brain revealed bihemispheric multifocal small acute infarctions. He has an old left subcortical infarction as well. He was treated with aspirin and Plavix, but had a rash after his first dose of Plavix, so that was stopped. He saw Dr. Luis F Rose in consultation. He had a CT angiogram of the neck and brain, which revealed 70% carotid stenosis in the intracavernous section and 80 % carotid stenosis in the right intracavernous section. There was mild carotid stenosis at the carotid bulbs of less than 50% bilaterally. He was not taking aspirin at the onset of his stroke on 10/03/17. He reports significant improvement in right arm and functioning well in the [facility] Unit. He was able to ambulate independently. He then developed hypertensive changes and then the abnormal nuclear stress test. PAST MEDICAL HISTORY: Notable for a left subcortical infarction in 2012. He [address] Dr. Mcneil in consultation at that time. Carotid ultrasound studies back did not reveal significant cervical carotid stenosis either. Past medical history is also notable for hypertension, diabetes, diabetic neuropathy, obstructive sleep apnea, not on CPAP. CURRENT MEDICATIONS: Consist of: 1. Amlodipine 5 mg p.o. q. day. 2. Aspirin 325 mg p.o. q. day. 3. Atorvastatin 80 mg p.o. q. day. 4. Coreg 12.5 mg p.o. b.i.d. 5. Lovenox 40 mg subcutaneous q. day. 6. Gabapentin 900 mg p.o. q.h.s. 7. Sliding scale insulin. 8. Lisinopril 20 mg p.o. q. day. 9. Sertraline 25 mg p.o. q. day. 10. Januvia 100 mg p.o. q. day. ALLERGIES: He is listed as having an allergy to CLOPIDOGREL because of the rash after his first dose. REVIEW OF SYSTEMS: Negative for chest pain or shortness of breath. No difficulty with speech or language. No change in vision. No numbness of his limbs. He still has some rib pain from his fall. No head or neck injuries. He is an ex-smoker. He does not drink alcohol. PHYSICAL EXAMINATION: He is well nourished. On examination, temperature is 98.2 orally, most recent blood pressure 123/63, heart rate 70 and regular. Respiratory rate 18, oxygen saturation is 98% on room air. Heart is in a regular rhythm without murmurs heard. Carotid pulses are present. I do not hear any bruits. Lungs are clear. Neurologic Exam: Pupils react equally from 3 to 2.5 mm. Eye movements are normal. Visual bourgeois are full to confrontation. Facial musculature is notable for a mild right lower facial weakness. Facial sensation to light touch is symmetric. Palate and tongue appear normal and there is no dysarthria. He is a little hard of hearing bilaterally. Motor exam reveals grade 4 weakness of the right upper extremity fairly diffusely. He has normal strength in the legs and left upper extremity. Sensory exam is notable for stocking loss to light touch. Reflexes are grade 2 with biceps and triceps, 1 at the knees, absent at the ankles. Plantar responses are flexor bilaterally. Finger taps are very slow in the right hand, normal on the left. There is no rest tremor. He is alert and oriented and a good historian. Memory seems preserved. Language is fluent. He has good attention, concentration, adequate fund of knowledge. DIAGNOSTIC STUDIES/LAB DATA: Laboratory data is reviewed. The imaging from his MRI earlier in September is reviewed as well as the CT angiogram. It confirms that he has intracranial carotid stenosis, but not cervical carotid stenosis of any magnitude. Last CBC is unremarkable. Chemistry is notable for a persistent hyperglycemia, it was 239 this morning. Creatinine is 1.27, sodium 133. IMPRESSION: Impression is that of bihemispheric infarctions within the last couple of weeks. It looks like there could be cardioembolic, although there has been no cardiac source found yet; however, he also has evidence of coronary artery disease and needs cardiac catheterization, possibly stenting. I think with his relatively small infarct volume and the necessity of diagnosing and treating coronary artery disease that cardiac catheterization is warranted. Dual antiplatelet therapy would usually be recommended anyways after his strokes so as far as I see there is no increase risk with aspirin and Brilinta therapy. He does not have surgical carotid artery disease, but rather intracranial stenosis and so maximum medical therapy is the preferred mode of treatment. He does not need to see a vascular surgeon. He clearly has multiple vascular risk factors and clearly at recurrent risk of stroke, but I think it is imperative that his coronary arteries be adequately assessed and any disease treated. Currently, his blood pressure management seems very good. He is on high- dose atorvastatin appropriately. His diabetes needs continued monitoring and management. [id number]/[facility] #: [id number] [facility]
[2017-10-12] MEDS: Gabapentin CAP(*) 300 MG PO SCH (21:40)
[2017-10-12] MEDS: Atorvastatin* 80 MG TAB PO SCH (21:40)
[2017-10-12] MEDS: Insulin GLARGINE(*) 1 UNITS UNIT SUBCUT SCH (21:43)
[2017-10-13] MEDS: Enoxaparin(*) 40 MG/0.4 ML SYR SUBCUT SCH (05:59)
[2017-10-13 06:14] LABS: ABS Basophils 0.1 10^3/ul (0-0.2); ABS Eosinophils 0.4 10^3/ul (0-0.6); ABS Lymphocytes 2.4 10^3/ul (1.0-4.8); ABS Monocytes 1.1 10^3/ul (0-0.8); ABS Neutrophils 5.3 10^3/ul (1.5-7.7); ABS Nucleated RBC 0 10^3/ul; Eosinophil % 4.5 % (0-6); Hematocrit 45 % (42-52); Hemoglobin 15.5 g/dl (14.0-18.0); Mean Corpuscular HGB Conc 35 g/dl (31-36); Mean Corpuscular Hemoglobin 29 pg (27-31); Mean Corpuscular Volume 85 fL (80-94); Nucleated Red Blood Cells % 0.1; Platelet Count 275 10^3/ul (150-450); Red Blood Count 5.29 10^6/ul (4.00-5.40); Red Cell Distribution Width 13 % (10.5-15); White Blood Count 9.3 10^3/ul (3.5-10.8)
[2017-10-13 07:04] LABS: EGFR Non-African American 58.5 (>60)
[2017-10-13] MEDS: Insulin LISPRO* 1 UNITS UNIT SUBCUT SCH ×4 (09:00→12:49)
[2017-10-13] MEDS: Nystatin TOP POWDER* 15 GM BTL TOPICAL SCH (09:00)
[2017-10-13] MEDS: CMC:SitaGLIPtin (NF) 100 MG TAB PO SCH (09:01)
[2017-10-13] MEDS: Lisinopril TAB* 10 MG PO SCH (09:01)
[2017-10-13] MEDS: Carvedilol TAB* 25 MG PO SCH (09:01)
[2017-10-13] MEDS: Sertraline* 25 MG TAB PO SCH (09:01)
[2017-10-13] MEDS: Aspirin EC TAB* 325 MG PO SCH (09:01)
[2017-10-13] MEDS: amLODIPine TAB* 5 MG PO SCH (09:02)
[2017-10-13] MEDS ORDERED: glipiZIDE TAB.XL* 5 MG PO SCH (09:53)
[2017-10-13] MEDS ORDERED: metFORMIN* 850 MG TAB PO SCH (10:00)
[2017-10-13 13:26] VITALS: BP 117/59
--- NOTE | 2017-10-13 21:35 | DS ---
CC: Power Mcclain MD; Caitlyn Workman MD* DISCHARGE SUMMARY: DATE OF ADMISSION: 10/10/17 DATE OF DISCHARGE: 10/13/17 PRIMARY CARE PROVIDER: Nitesh Mendez MD MY ATTENDING WHILE IN THE HOSPITAL: Miranda Valle MD* (dictated by MARLYN Valentino). CONSULTING ASSEMBLER GOLF WOOD HEAD: Ponce Fragoso MD OUTPATIENT NEUROLOGIST: Clay Rose MD PRIMARY DISCHARGE DIAGNOSES: 1. Hypertensive emergency. 2. Elevated troponin. 3. Abnormal stress test. SECONDARY DISCHARGE DIAGNOSES: 1. Recent cerebrovascular accident. 2. Diabetes mellitus type 2. 3. Obstructive sleep apnea. 4. Supracavernous carotid disease. 5. Peripheral neuropathy. STUDIES DONE WHILE IN THE HOSPITAL: An echocardiogram from 10/10/17 shows normal sinus rhythm, early repolarization in V2, T-wave flattening in III. No other T- wave abnormalities. CO of 227, QTc of 459, rate of 85 consistent with previous examination from 10/08/17. Repeat EKG from 10/10/17 shows no significant changes. Left axis deviation was present on both of these EKGs. Transthoracic echocardiogram limited from 10/10/17 shows global left ventricular wall motion and contractility within normal limits, left ventricular systolic function at lower limits of normal, estimated ejection fraction of 50% to 55%. No change from study from 10/05/17. Chest x-ray from 10/11/17 shows no active cardiopulmonary disease. Nuclear medicine scan from 10/12/17 read as intermediate risk, decreased ejection fraction with septal hypokinesia, mild dyskinesia, small areas of partially reversible hypoperfusion in the inferior wall suggestive of ischemia. MEDICATIONS AT DISCHARGE: 1. Glipizide 20 mg p.o. daily. 2. Amlodipine 5 mg p.o. daily. 3. Sertraline 25 mg p.o. daily. 4. Gabapentin 900 mg p.o. at bedtime. 5. Metformin 850 mg p.o. b.i.d. 6. Januvia 100 mg p.o. daily. 7. Lisinopril 20 mg p.o. daily. 8. Aspirin 325 mg p.o. daily. 9. Lipitor 80 mg p.o. at bedtime. 10. Lovenox 40 mg subcutaneous daily while in the hospital. 11. Hydrocortisone cream 1 application topical t.i.d. as needed. 12. Insulin lispro subcutaneous a.c. and h.s. sliding scale. 13. Nystatin topical powder 1 application topical b.i.d. 14. Insulin glargine 30 units subcutaneous b.i.d. 15. Tylenol 650 mg p.o. q.6 hours as needed. 16. Carvedilol 12.5 mg p.o. b.i.d. 17. Amlodipine 2.5 mg p.o. b.i.d. as needed for blood pressure greater than 180. New medications at discharge: 1. Carvedilol. 2. Tylenol. 3. Amlodipine. Medications discontinued at discharge: None. HOSPITAL COURSE: This is a brief summary of the patient's presentation. The patient was previously admitted to this institution from 10/03/17 through . Please see the discharge summary from this author on 10/06/17 for details of that hospitalization. In brief, the patient is a 77-year-old male with past medical history significant for the above, who recently had the CVA with an acute rehab at the physical medical rehabilitation unit at [facility] where he was discharged on 10/06/17. The patient recently had his blood pressure medications decreased while in RU and then had to have a clinical assessment team called for high blood pressure and a heavy feeling in his chest. The patient's blood pressure medications were re-increased at that time and it was found that he had an elevated troponin. The patient was readmitted to the acute floor under observation on 10/10/17 due to elevated troponin. The patient recently had an abnormal nuclear medicine stress test read as intermediate risk with the plan at which time when he was discharged from the hospital was for him to follow up with cardiology outpatient and it does not appear that the patient ever did so. The patient while admitted inpatient, initially had hypertension with blood pressure as high as 181/96, which controlled with IV hydralazine as needed. The patient's blood pressure afterwards was better controlled with a low blood pressure of 95/49 on . The patient had no orthostatic hypotension while he was in the hospital. No dizziness. No repeat chest pain. There was concern for new onset right- sided facial drooping, but this was previously noted by Dr. Clay Rsoe on his consultation when the patient initially presented with a stroke and it is likely just a slight worsening of his previous CVA deficits. It improved again on reexamination by this author. The patient would not have been a tPA candidate any ways due to recent large distribution CVA. The patient's repeat stress test was read as above. The patient was seen in consultation by Dr. Ponce Fragoso. He was started on carvedilol. The plan is for cardiac catheterization, which was deferred to 3 weeks due to the patient's recent large distribution CVA due to the potential need for dual antiplatelet therapy with clopidogrel. The patient was stable for discharge back to [facility] on . PHYSICAL EXAM ON DAY OF DISCHARGE: General: The patient is a 77-year-old male who appears stated age and sitting comfortably in bed, in no acute distress. Vital Signs: At the time of discharge, temperature 98.7, pulse rate 71, respiratory rate 16, oxygen saturation 99% on room air, blood pressure 117/59. HEENT: Head normocephalic, atraumatic. Sclerae anicteric. No conjunctival injection. Nasal mucosa moist. Oral mucosa moist. No pharyngeal erythema, discharge, or exudate. Neck: Supple and nontender. No lymphadenopathy. No carotid bruits auscultated. No JVD. Cardiac: Regular rate and rhythm. No clicks, murmurs, gallops, or rubs. Pulses 2+ in bilateral dorsalis pedis, posterior tibialis, and radial areas. Respiratory: Clear to auscultation bilaterally. No wheezes, rales, or rhonchi. Good air exchange bilaterally. Abdomen: Soft, nontender, nondistended. Bowel sounds present, normoactive in all 4 quadrants. No hepatosplenomegaly. No abdominal bruits auscultated. No hepatojugular reflux. Genitourinary: No suprapubic or CVA tenderness. Skin: Papules on back consistent with previous exam with several scabs in all the same stage of healing without warmth or erythema. Neuro: Slight facial droop down the right side of the patient's face, which does not correct with smiling. The patient is able to keep eyes closed to pressure, forehead wrinkles symmetrically. The patient is able to inflate his cheeks and has no weakness in his buccal muscles. Cranial nerves II through XII otherwise intact. No visual field deficits. 3/5 strength in the proximal right upper extremity. 4/ 5 strength tire balancer in the distal right upper extremity. Strength 4/5 in the left lower extremity, 5/5 otherwise. Cerebellar testing performed without difficulty. Reflexes 1+ in bilateral biceps and patellar areas. Psychiatric: Pleasant and cooperative. DISCHARGE PLAN: The patient will be discharged back to [facility]. The patient is making great progress with his right upper extremity hemiparesis. My understanding is the patient will have hopeful discharge for later this week. The patient will be continued on blood pressure medication as above with amlodipine as needed for hypertensive urgency. The patient should aim for a blood pressure range between systolic 120 and 160 due to carotid disease. The patient was discussed with Dr. Eric Fam of Neurology, who saw the patient in consultation and states that he could have a cardiac catheterization at anytime and that he does not need stenting for his intracranial carotid artery and should be continued on maximum medical therapy. The patient should be continued on his antihyperglycemic medications as above. The patient has very uncontrolled diabetes. The patient should follow up with his primary care provider and discuss evaluation by an prison teacher upon his discharge from the hospital. The patient should follow up with Dr. Fragoso in 3 weeks for a cardiac catheterization and possible stenting. The patient will be monitored for orthostatic hypotension and have his blood pressure medications adjusted again as needed. The patient should engage in activity as tolerated, work in PT and OT, and have a heart healthy diet without caffeine with consistent carbohydrate. TIME SPENT: Approximately 60 minutes were spent on this discharge, 30 of which was spent [id number] with the patient obtaining history and physical and discussing treatment plan. MARLYN VALENTINO [id number]/[facility] #: [id number] GUIDO
== END 2017-10-13 12:50 | DRG 305 ==
LOC: MEDTELE 05:23 → OBSVTOIN 10-11 13:39
PROVIDERS: ADMIT Hospitalist; ATTEND Internal Medicine
DX: I16.1 Hypertensive emergency (principal); R74.8 Abnormal levels of other serum enzymes; G47.33 Obstructive sleep apnea (adult) (pediatric); F41.9 Anxiety disorder, unspecified; E11.42 Type 2 diabetes mellitus with diabetic polyneuropathy; I77.89 Other specified disorders of arteries and arterioles; I10 Essential (primary) hypertension; E78.5 Hyperlipidemia, unspecified; F32.9 Major depressive disorder, single episode, unspecified; I65.29 Occlusion and stenosis of unspecified carotid artery; R94.39 Abnormal result of other cardiovascular function study; R53.1 Weakness; R79.89 Other specified abnormal findings of blood chemistry; E66.9 Obesity, unspecified; R00.0 Tachycardia, unspecified; I95.9 Hypotension, unspecified; I69.392 Facial weakness following cerebral infarction; Z88.8 Allergy status to other drugs, medicaments and biological substances; Z87.891 Personal history of nicotine dependence; Z68.29 Body mass index [BMI] 29.0-29.9, adult; Z79.4 Long term (current) use of insulin; Z79.82 Long term (current) use of aspirin; Z79.52 Long term (current) use of systemic steroids
CPT/HCPCS: 36415; 71045; 78452; 80048; 80053; 81003; 83735; 84100; 84484; 85025; 85027; 87040; 93005; 93017; 93308; A9270-GY; A9502; G0378; G8987-GO-CK; G8988-GO-CI; J1650; J2785; J3490

== ENCOUNTER 2017-10-13 10:18 | Inpatient (IN) | payer MEDICARE ==
[2017-10-13] MEDS ORDERED: Senna TAB PO PRN (12:50)
[2017-10-13] MEDS ORDERED: Acetaminophen TAB* 325 MG PO PRN (12:50)
[2017-10-13] MEDS ORDERED: Al Hydrox/Mg Hydrox/Simet LIQ* 30 ML UDC PO PRN (12:50)
[2017-10-13] MEDS ORDERED: Dextrose 50% Syringe 50 ML* 25 GM/50 ML SYRINGE IV PUSH PRN (12:58)
[2017-10-13] MEDS: Enoxaparin(*) 40 MG/0.4 ML SYR SUBCUT SCH (14:03)
--- NOTE | 2017-10-13 15:19 | PMRUTEAM ---
PMRU: Team Meeting Current Status: Nursing: Current Status Skin Deviations [Upper Back] Rash Skin Deviations [Right Knee] Abrasion Skin Deviation Description [ edema, raised on a pillow Right Arm] Skin Deviation Description [ red spots Upper Back] Physical Therapy: Current Status Bed Mobility Assistance contact guard Transfer Moblility Assistance contact guard Transfer/Bed Mobility Rolling Walker Recommended Devices Ambulation Assistance contact guard Ambulation Assistive Devices Rolling Walker Stairs Assistance contact guard Stairs Recommended Devices One Rail Number of Stairs 3 Occupational Therapy: Current Status Upper Body Dressing Min Assist Lower Body Dressing Min Assist Bathing Min Assist Toileting Min Assist Toilet Transfer Contact Guard Assist Shower Transfer Contact Guard Assist Eating Supervision Rec Therapy: Current Status Summary of Assessment and Pt. was open to conversation - very engaged Clinical Impression throughout. Pt. was pleasant and cooperative. Pt . states he enjoys his life and was open to leisure visits on the unit. Goals: Physical Therapy: Initial Goals Bed Mobility Assistance Independent Transfer Mobility Assistance Independent Transfer/Bed Mobility Rolling Walker Recommended Devices Ambulation Independent Ambulation Recommended Devices Rolling Walker Ambulation Distance 300 Stairs Assistance Independent Stair Recommended Devices One Rail Number of Stairs 12 Occupational Therapy: Initial Goals Goals to be Completed in (Days 5-7 ) Upper Body Bathing Routine Independent Lower Body Bathing Routine Modified Independent with Upper Body Dressing Routine Modified Independent with Lower Body Dressing Routine Modified Independent with Toilet Hygeine and Clothing Modified Independent with Management Routine Toilet Transfer Routine Modified Independent with Tub Transfer Routine Modified Independent with Functional Transfers for ADL Modified Independent with Feeding Routine Modified Independent with Care Plan: Care Plan ADL's - Improve/Maintain Start: 10/13/17 14:52 Freq: DAILY Status: Active Target: Protocol: Activity Type Activity Date Activity User E-Sign Co-Sign Detail Recorded Client Recorded Date Recorded By Document 10/13/17 14:52 [id number] 10/13/17 14:53 [id number] 10/13/17 14:52 PMRU Outcome: ADL's/ADL Transfers Orders/Interventions Occupational Therapy Evaluation & Treatment Communication Tool in Patient Room Device Yes Patient to receive OT 5x/wk for 60-120 Therex min/day Self Care Management Group Therapy Neuromuscular ReEducation UE/LE ADL's with Assist Yes: mod I ADL Transfers with Assist Yes: mod I Toileting: Transfers,Clothing Management Yes: mod I ,Hygeine w/Assist Light Kitchen/Laundry w/Assist Yes: mod I Progression Toward Outcome/Goals Progressing Self administration of medications Medicine Note: Length of Stay: [1 week] Anticipated Discharge Destination: home Tentative Discharge Date: [10/20/17] Discharged to: [home]
[2017-10-13] MEDS ORDERED: Insulin LISPRO* 1 UNITS UNIT SUBCUT SCH (16:30)
[2017-10-13] MEDS: metFORMIN* 850 MG TAB PO SCH (17:34)
--- NOTE | 2017-10-13 17:35 | HP ---
CC: Dr. Mendez; Dr. Fragoso; Dr. Rose REHABILITATION ADMISSION NOTE: DATE OF ADMISSION: 10/13/17 PRIMARY CARE PROVIDER: Dr. Mendez. ROLLER SKATE REPAIRER: Dr. Fragoso. NEUROLOGIST: Dr. Rose. REASON FOR ADMISSION: Left-sided stroke with right hemiparesis. HISTORY OF PRESENT ILLNESS: For details of his initial acute hospitalization leading up to his admission, please see the note dictated by Dr. Mcclain on as well as my discharge summary on 10/10/17 when he was transferred to the acute hospital with elevated troponins. His troponins were elevated after an episode where he had hypertension and heart rate of 117. On the acute care service, Cardiology, was consulted and he was seen by Dr. Fragoso. Nuclear stress test on 10/12/17 showed small areas of partially reversible hypoperfusion of the inferior wall suggestive of ischemia. He also had decreased ejection fraction with septal hypokinesis and mild dyskinesia. The estimated ejection fraction was 49%. It was recommended that he have a cardiac catheterization; however, given the proximity to his stroke, Cardiology decided that this should wait approximately 3 weeks before occurring and giving him additional antiplatelet medications as part of the catheterization. Dr. Fam was consulted in Neurology on this particular issue as well. His impression was that he had sustained bihemispheric infarctions in the last couple of weeks, which could have been cardioembolic, but there was no cardiac source found to date. Given a reaction to PLAVIX with a rash after his first dose, he is continuing on full dose aspirin. Prior to his stroke, he was independent with all mobility and activities of daily living. At this stage with occupational therapy, he requires contact guard assistance for transfers and ambulation. He requires supervision for bed mobility. He requires contact guard assistance for toileting and dressing. He requires a minimum amount of assistance for upper body dressing. He had been seen by Speech Therapy on the rehabilitation unit during his initial stay. He was able to eat regular food consistencies with thin liquids. They have also worked with him on some deficits in expressive language in which he has shown a [id number] impairment. He denies any further symptoms. PAST MEDICAL HISTORY: 1. Left subcortical infarction in 2012 and current bihemispheric ischemic infarctions, see history of present illness. 2. Coronary artery disease, see history of present illness. 3. Carotid stenosis. 4. Hypertension. 5. Diabetes mellitus. 6. Diabetic neuropathy. 7. Obstructive sleep apnea, not on CPAP. 8. Hyperlipidemia. MEDICATIONS: 1. Coreg 12.5 mg b.i.d. 2. Ecotrin 325 mg daily. 3. Glucophage 850 mg b.i.d. 4. Glucotrol XL 20 mg daily. 5. Sliding scale insulin. 6. Januvia 100 mg daily. 7. Lantus 22 units q. p.m. 8. Lipitor 80 mg q. h.s. 9. Lovenox 40 mg subcutaneously for DVT prophylaxis. 10. Neurontin 900 mg q. h.s. 11. Norvasc 5 mg daily. 12. Nystatin topical powder b.i.d. 13. Prinivil 20 mg daily. 14. Zoloft 25 mg daily. 15. Hydrocortisone 1% cream topically t.i.d. p.r.n. itching. 16. Tylenol 650 mg q. 6 hours p.r.n. pain or fever. ALLERGIES: PLAVIX. SOCIAL HISTORY: He lives with his grandson who works during the day in a 1- story house with 4 steps to enter. No smoking. No drinking. REVIEW OF SYSTEMS: See history of present illness and past medical history. The remainder of a 13-system review was completed. No significant findings. PHYSICAL EXAMINATION GENERAL: Well developed, well nourished, appearing stated age. Mental Status: Alert and oriented x3. VITAL SIGNS: Temperature 97.4, heart rate 68, respirations 20, oxygenation 99% on room air, blood pressure 107/57. HEENT: Normocephalic, atraumatic. Oropharynx is clear. Moist mucous membranes. LUNGS: Clear to auscultation bilaterally. HEART: Regular rate and rhythm, although he has been noted at times to have first- degree heart block on telemetry. ABDOMEN: Active bowel sounds. Soft, nontender, nondistended. EXTREMITIES: No clubbing, cyanosis, or edema. MUSCULOSKELETAL: He has functional range of motion of all of his major joints. NEUROLOGIC: Cranial nerves II through XII are intact. Motor testing is 5/5 in left upper and bilateral lower extremities. He has 4/5 motor in the right upper extremity. Sensation is intact except for some stocking distribution loss of sensation in his legs. IMPRESSION: A 77-year-old man with right hemiparesis after ischemic stroke. He will be readmitted to [facility] so he can return to independent living. PLAN: 1. Stroke. Continue with aspirin. It appears that MRI of the cervical spine has been ordered for possible spine pathology given that just his right arm is affected. This could be done as an outpatient if needed. Follow up with Neurology. 2. Abnormal cardiovascular stress test. He will have a cardiac catheterization in approximately 3 weeks when he is further out from his stroke. f/u with cardiology. 3. Chronic kidney disease, stage 3. Has been at his baseline. Follow up on laboratory studies. 4. Hypertension. Continue with current medications. 5. Diabetes mellitus. Continue with current medications, Lantus and sliding scale insulin. Teach self-administration. 6. Hyperlipidemia. Continue with atorvastatin. 7. Peripheral neuropathy. Continue with gabapentin. 8. DVT prophylaxis: Continue with subcutaneous Lovenox. 9. Impaired mobility. He will be seen by Physical Therapy for ongoing bed mobility, transfer, gait training and stair training, using the least restrictive assistive device. 10. Impaired self-care. He will be seen by Occupational Therapy for ADL and IADL training and evaluation for equipment. 11. [id number] expressive aphasia. He will be seen by Speech Therapy for ongoing evaluation. 12. Advance directives: He is a full code. If he cannot make decisions for himself, he would like his daughter, Rachelle, to make decisions for him. Estimated length of stay is 1 week, then return to home. [id number]/[facility] #: [id number] GUIDO
[2017-10-13] MEDS: Hydrocortisone 1% CREAM* 30 GM TUBE TOPICAL PRN (19:23)
[2017-10-13] MEDS ORDERED: Atorvastatin* 80 MG TAB PO ONE (21:00)
[2017-10-13] MEDS: Nystatin TOP POWDER* 15 GM BTL TOPICAL SCH (21:08)
[2017-10-13] MEDS: Gabapentin CAP(*) 300 MG PO SCH (21:08)
[2017-10-13] MEDS: Docusate CAP* 100 MG PO SCH (21:09)
[2017-10-13] MEDS: Carvedilol TAB* 6.25 MG PO SCH (21:09)
[2017-10-13] MEDS: Atorvastatin* 80 MG TAB PO SCH (21:09)
[2017-10-13] MEDS: Insulin LISPRO* 1 UNITS UNIT SUBCUT SCH (21:09)
[2017-10-13] MEDS: Insulin GLARGINE(*) 1 UNITS UNIT SUBCUT SCH (21:10)
[2017-10-14] MEDS: Lisinopril TAB* 10 MG PO SCH (08:24)
[2017-10-14] MEDS: SitaGLIPtin (NF) 100 MG TAB PO SCH (08:25)
[2017-10-14] MEDS: amLODIPine TAB* 5 MG PO SCH (08:25)
[2017-10-14] MEDS: Sertraline* 25 MG TAB PO SCH (08:25)
[2017-10-14] MEDS: glipiZIDE TAB.XL* 5 MG PO SCH (08:25)
[2017-10-14] MEDS: metFORMIN* 850 MG TAB PO SCH ×2 (08:26→17:08)
[2017-10-14] MEDS: Aspirin EC TAB* 325 MG PO SCH (08:26)
[2017-10-14 09:00] LABS: ABS Basophils 0.1 10^3/ul (0-0.2); ABS Eosinophils 0.5 10^3/ul (0-0.6); ABS Lymphocytes 2.7 10^3/ul (1.0-4.8); ABS Monocytes 0.8 10^3/ul (0-0.8); ABS Neutrophils 5.4 10^3/ul (1.5-7.7); ABS Nucleated RBC 0 10^3/ul; Eosinophil % 4.9 % (0-6); Hematocrit 46 % (42-52); Hemoglobin 15.7 g/dl (14.0-18.0); Mean Corpuscular HGB Conc 34 g/dl (31-36); Mean Corpuscular Hemoglobin 29 pg (27-31); Mean Corpuscular Volume 85 fL (80-94); Nucleated Red Blood Cells % 0.1; Platelet Count 282 10^3/ul (150-450); Red Cell Distribution Width 14 % (10.5-15); White Blood Count 9.5 10^3/ul (3.5-10.8)
[2017-10-14] MEDS: Insulin LISPRO* 1 UNITS UNIT SUBCUT SCH ×4 (09:12→20:53)
[2017-10-14] MEDS: Docusate CAP* 100 MG PO SCH ×2 (09:14→20:52)
[2017-10-14] MEDS: Carvedilol TAB* 6.25 MG PO SCH ×2 (09:14→20:52)
[2017-10-14 09:21] LABS: EGFR Non-African American 62.6 (>60)
[2017-10-14] MEDS: Nystatin TOP POWDER* 15 GM BTL TOPICAL SCH ×2 (09:30→20:54)
--- NOTE | 2017-10-14 09:54 | PN ---
Progress Note Date of Service: 10/14/17 Note: ESTELLE BOUDREAUX was visited. Nursing and therapy notes read and reviewed. No chest pain, shortness of breath or abdominal pain. Current Medications: Active Medications Generic Name Dose Route Start Last Admin Trade Name Freq PRN Reason Stop Dose Admin Acetaminophen 650 mg 10/13/17 12:50 Tylenol Tab* PO Q6H PRN FEVER > 101 Al Hydrox/Mg Hydrox/Simethicone 30 ml 10/13/17 12:50 Maalox Plus* PO Q6H PRN INDIGESTION Amlodipine Besylate 5 mg 10/14/17 09:00 10/14/17 08:25 Norvasc Tab* PO 5 mg DAILY YUMIKO Administration Aspirin 325 mg 10/14/17 09:00 10/14/17 08:26 Ecotrin Ec Tab* PO 325 mg DAILY YUMIKO Administration Atorvastatin Calcium 80 mg 10/13/17 21:00 10/13/17 21:09 Lipitor* PO 80 mg 2100 YUMIKO Administration Carvedilol 12.5 mg 10/13/17 21:00 10/14/17 09:14 Coreg Tab* PO 12.5 mg BID YUMIKO Administration Dextrose 12.5 gm 10/13/17 12:58 D50w Syringe 50 Ml* IV PUSH .FOR FS < 60 - SS PRN FS < 60 Docusate Sodium 100 mg 10/13/17 21:00 10/14/17 09:14 Colace Cap* PO 100 mg BID YUMIKO Administration Enoxaparin Sodium 40 mg 10/13/17 13:00 10/13/17 14:03 Lovenox(*) SUBCUT Not Given Q24H YUMIKO Gabapentin 900 mg 10/13/17 21:00 10/13/17 21:08 Neurontin Cap(*) PO 900 mg BEDTIME YUMIKO Administration Glipizide 20 mg 10/14/17 09:00 10/14/17 08:25 Glucotrol Xl* PO 20 mg DAILY YUMIKO Administration Hydrocortisone 1 applic 10/13/17 13:04 10/13/17 19:23 Hytone Cream 1%* TOPICAL 1 applic TID PRN Administration itching Insulin Glargine 22 units 10/13/17 21:00 10/13/17 21:10 Lantus(*) SUBCUT 22 units Q24H YUMIKO Administration Insulin Human Lispro 0 units 10/13/17 17:24 10/14/17 09:12 Humalog* SUBCUT 3 units ACHS YUMIKO Administration Protocol Lisinopril 20 mg 10/14/17 09:00 10/14/17 08:24 Prinivil Tab* PO 20 mg DAILY YUMIKO Administration Metformin HCl 850 mg 10/13/17 17:00 10/14/17 08:26 Glucophage* PO 850 mg 0800,1700 YUMIKO Administration Nystatin 1 applic 10/13/17 21:00 10/13/17 21:08 Nystatin Top Powder* TOPICAL 1 applic BID YUMIKO Administration Senna 2 tab 10/13/17 12:50 Senokot Tab* PO BEDTIME PRN CONSTIPATION Sertraline HCl 25 mg 10/14/17 09:00 10/14/17 08:25 Zoloft* PO 25 mg DAILY YUMIKO Administration Sitagliptin Phosphate 100 mg 10/14/17 09:00 10/14/17 08:25 Januvia (Nf) PO 100 mg DAILY YUMIKO Administration Vital Signs: Vital Signs Temp Pulse Resp BP Pulse Ox 98.1 F 69 18 118/60 97 10/14/17 05:35 10/14/17 05:35 10/14/17 05:35 10/14/17 05:35 10/14/17 05:35 Lab Results: Laboratory Results - last 24 hr 10/13/17 10/13/17 10/14/17 16:25 20:21 08:21 WBC RBC Hgb Hct MCV MCH MCHC RDW Plt Count MPV Neut % (Auto) Lymph % (Auto) [place] % (Auto) Eos % (Auto) Baso % (Auto) Absolute Neuts (auto) Absolute Lymphs (auto) Absolute Monos (auto) Absolute Eos (auto) Absolute Basos (auto) Absolute Nucleated RBC Nucleated RBC % Sodium Potassium Chloride Carbon Dioxide Anion Gap BUN Creatinine Est GFR ( Amer) Est GFR (Non-Af Amer) BUN/Creatinine Ratio Glucose POC Glucose (mg/dL) 226 H 228 H 192 H Calcium Total Bilirubin AST ALT Alkaline Phosphatase Total Protein Albumin Globulin Albumin/Globulin Ratio 10/14/17 10/14/17 08:52 08:52 WBC 9.5 RBC 5.40 Hgb 15.7 Hct 46 MCV 85 MCH 29 MCHC 34 RDW 14 Plt Count 282 MPV 8.0 Neut % (Auto) 57.0 Lymph % (Auto) 28.0 [place] % (Auto) 8.9 H Eos % (Auto) 4.9 Baso % (Auto) 1.2 Absolute Neuts (auto) 5.4 Absolute Lymphs (auto) 2.7 Absolute Monos (auto) 0.8 Absolute Eos (auto) 0.5 Absolute Basos (auto) 0.1 Absolute Nucleated RBC 0 Nucleated RBC % 0.1 Sodium 135 Potassium 4.6 Chloride 100 L Carbon Dioxide 29 Anion Gap 6 BUN 21 Creatinine 1.14 Est GFR ( Amer) 75.8 Est GFR (Non-Af Amer) 62.6 BUN/Creatinine Ratio 18.4 Glucose 244 H POC Glucose (mg/dL) Calcium 8.7 Total Bilirubin 0.60 AST 15 ALT 24 Alkaline Phosphatase 96 Total Protein 6.1 L Albumin 3.3 Globulin 2.8 Albumin/Globulin Ratio 1.2 Exam: GEN: no acute distress. alert and appropriate. LUNGS: clear to auscultation bilaterally. CV: regular rate and rhythm. ABD: + bowel sounds, soft, non-tender, non-distended EXT: no edema NEURO: CN II-XII intact. Motor 4/5 throughout right upper extremity. Normal sensation. Assessment/Plan: 77yo man s/p bihemispheric ischemic strokes with carotid disease, possible cardioembolic source no observed, and recent abnormal cardiac stress test #Stroke with right arm hemiplegia and mild to moderate dysnomia: allergic to plavix. ASA 325mg qday and Lipitor 80mg qday. f/u neurology. PT/OT/speech. #Cardiac reversible ischemia on nuclear stress test: Plan cardiac cath in 3weeks when further out from stroke. f/u with cardiology. #Chronic kidney disease: follow labs #Hypertension: continue current meds. #Diabetes mellitus: continue oral meds, lantus and ssI. Teach self- administration of lantus and fingersticks. #DVT prophyllaxis: lovenox #Advanced directives: full code. Daughter, Rachelle, is hcp. #Estimated LOS: anticipate d/c 10/20. He is agreeable. 10/14/17 10:09
[2017-10-14] MEDS: Enoxaparin(*) 40 MG/0.4 ML SYR SUBCUT SCH (12:58)
[2017-10-14] MEDS: Hydrocortisone 1% CREAM* 30 GM TUBE TOPICAL PRN (19:28)
[2017-10-14] MEDS: Insulin GLARGINE(*) 1 UNITS UNIT SUBCUT SCH (20:53)
[2017-10-14] MEDS: Atorvastatin* 80 MG TAB PO SCH (20:53)
[2017-10-14] MEDS: Gabapentin CAP(*) 300 MG PO SCH (20:54)
[2017-10-15] MEDS: Insulin LISPRO* 1 UNITS UNIT SUBCUT SCH ×4 (09:06→20:50)
[2017-10-15] MEDS: Lisinopril TAB* 10 MG PO SCH (09:07)
[2017-10-15] MEDS: glipiZIDE TAB.XL* 5 MG PO SCH (09:07)
[2017-10-15] MEDS: metFORMIN* 850 MG TAB PO SCH ×2 (09:08→17:08)
[2017-10-15] MEDS: Docusate CAP* 100 MG PO SCH ×2 (09:08→22:12)
[2017-10-15] MEDS: Sertraline* 25 MG TAB PO SCH (09:08)
[2017-10-15] MEDS: Carvedilol TAB* 6.25 MG PO SCH ×2 (09:08→22:11)
[2017-10-15] MEDS: amLODIPine TAB* 5 MG PO SCH (09:08)
[2017-10-15] MEDS: Aspirin EC TAB* 325 MG PO SCH (09:08)
[2017-10-15] MEDS: SitaGLIPtin (NF) 100 MG TAB PO SCH (09:08)
[2017-10-15] MEDS: Nystatin TOP POWDER* 15 GM BTL TOPICAL SCH ×2 (09:15→22:12)
[2017-10-15] MEDS: Hydrocortisone 1% CREAM* 30 GM TUBE TOPICAL PRN (09:15)
--- NOTE | 2017-10-15 09:22 | PN ---
Progress Note Date of Service: 10/15/17 Note: ESTELLE BOUDREAUX was visited. Nursing notes read and reviewed. No therapy on 10/14. No chest pain, shortness of breath or abdominal pain. Current Medications: Active Medications Generic Name Dose Route Start Last Admin Trade Name Freq PRN Reason Stop Dose Admin Acetaminophen 650 mg 10/13/17 12:50 Tylenol Tab* PO Q6H PRN FEVER > 101 Al Hydrox/Mg Hydrox/Simethicone 30 ml 10/13/17 12:50 Maalox Plus* PO Q6H PRN INDIGESTION Amlodipine Besylate 5 mg 10/14/17 09:00 10/15/17 09:08 Norvasc Tab* PO 5 mg DAILY YUMIKO Administration Aspirin 325 mg 10/14/17 09:00 10/15/17 09:08 Ecotrin Ec Tab* PO 325 mg DAILY YUMIKO Administration Atorvastatin Calcium 80 mg 10/13/17 21:00 10/14/17 20:53 Lipitor* PO 80 mg 2100 YUMIKO Administration Carvedilol 12.5 mg 10/13/17 21:00 10/15/17 09:08 Coreg Tab* PO 12.5 mg BID YUMIKO Administration Dextrose 12.5 gm 10/13/17 12:58 D50w Syringe 50 Ml* IV PUSH .FOR FS < 60 - SS PRN FS < 60 Docusate Sodium 100 mg 10/13/17 21:00 10/15/17 09:08 Colace Cap* PO 100 mg BID YUMIKO Administration Enoxaparin Sodium 40 mg 10/13/17 13:00 10/14/17 12:58 Lovenox(*) SUBCUT 40 mg Q24H YUMIKO Administration Gabapentin 900 mg 10/13/17 21:00 10/14/17 20:54 Neurontin Cap(*) PO 900 mg BEDTIME YUMIKO Administration Glipizide 20 mg 10/14/17 09:00 10/15/17 09:07 Glucotrol Xl* PO 20 mg DAILY YUMIKO Administration Hydrocortisone 1 applic 10/13/17 13:04 10/15/17 09:15 Hytone Cream 1%* TOPICAL 1 applic TID PRN Administration itching Insulin Glargine 22 units 10/13/17 21:00 10/14/17 20:53 Lantus(*) SUBCUT 22 units Q24H YUMIKO Administration Insulin Human Lispro 0 units 10/13/17 17:24 10/15/17 09:06 Humalog* SUBCUT 2 units ACHS YUMIKO Administration Protocol Lisinopril 20 mg 10/14/17 09:00 10/15/17 09:07 Prinivil Tab* PO 20 mg DAILY YUMIKO Administration Metformin HCl 850 mg 10/13/17 17:00 10/15/17 09:08 Glucophage* PO 850 mg 0800,1700 YUMIKO Administration Nystatin 1 applic 10/13/17 21:00 10/15/17 09:15 Nystatin Top Powder* TOPICAL 1 applic BID YUMIKO Administration Senna 2 tab 10/13/17 12:50 Senokot Tab* PO BEDTIME PRN CONSTIPATION Sertraline HCl 25 mg 10/14/17 09:00 10/15/17 09:08 Zoloft* PO 25 mg DAILY YUMIKO Administration Sitagliptin Phosphate 100 mg 10/14/17 09:00 10/15/17 09:08 Januvia (Nf) PO 100 mg DAILY YUMIKO Administration Vital Signs: Vital Signs Temp Pulse Resp BP Pulse Ox 97.5 F 69 18 142/67 100 10/15/17 06:00 10/15/17 06:00 10/15/17 06:00 10/15/17 06:00 10/15/17 06:00 Lab Results: Laboratory Results - last 24 hr 10/14/17 10/14/17 10/14/17 08:52 11:36 16:24 Sodium 135 Potassium 4.6 Chloride 100 L Carbon Dioxide 29 Anion Gap 6 BUN 21 Creatinine 1.14 Est GFR ( Amer) 75.8 Est GFR (Non-Af Amer) 62.6 BUN/Creatinine Ratio 18.4 Glucose 244 H POC Glucose (mg/dL) 351 H 306 H Calcium 8.7 Total Bilirubin 0.60 AST 15 ALT 24 Alkaline Phosphatase 96 Total Protein 6.1 L Albumin 3.3 Globulin 2.8 Albumin/Globulin Ratio 1.2 10/14/17 10/15/17 20:14 07:32 Sodium Potassium Chloride Carbon Dioxide Anion Gap BUN Creatinine Est GFR ( Amer) Est GFR (Non-Af Amer) BUN/Creatinine Ratio Glucose POC Glucose (mg/dL) 268 H 131 H Calcium Total Bilirubin AST ALT Alkaline Phosphatase Total Protein Albumin Globulin Albumin/Globulin Ratio Exam: GEN: no acute distress. alert and appropriate. EYES: right greater than left conjunctivitis with some purulence. LUNGS: clear to auscultation bilaterally. CV: regular rate and rhythm. ABD: + bowel sounds, soft, non-tender, non-distended EXT: no edema NEURO: CN II-XII intact. Motor 4/5 throughout right upper extremity. Normal sensation. Assessment/Plan: 77yo man s/p bihemispheric ischemic strokes with carotid disease, possible cardioembolic source no observed, and recent abnormal cardiac stress test #Stroke with right arm hemiplegia and mild to moderate dysnomia: allergic to plavix. ASA 325mg qday and Lipitor 80mg qday. f/u neurology. PT/OT/speech. #Cardiac reversible ischemia on nuclear stress test: Plan cardiac cath in 3weeks when further out from stroke. f/u with cardiology. #Chronic kidney disease: follow labs #Hypertension: continue current meds. #Diabetes mellitus: continue oral meds, lantus and ssI. Teach self- administration of lantus and fingersticks. #Conjunctivitis: tobradex eye drops Q4h while awake. #DVT prophyllaxis: lovenox #Advanced directives: full code. Daughter, Rachelle, is hcp. #Estimated LOS: anticipate d/c 10/20. He is agreeable. 10/15/17 09:22
[2017-10-15] MEDS: Enoxaparin(*) 40 MG/0.4 ML SYR SUBCUT SCH (12:27)
[2017-10-15] MEDS: Tobramycin 0.3% OPHTH.SOL* 5 ML BOT (regular eye drops) BOTH EYES SCH ×4 (14:15→22:13)
[2017-10-15] MEDS: Insulin GLARGINE(*) 1 UNITS UNIT SUBCUT SCH (20:49)
[2017-10-15] MEDS: Gabapentin CAP(*) 300 MG PO SCH (22:11)
[2017-10-15] MEDS: Atorvastatin* 80 MG TAB PO SCH (22:12)
[2017-10-16] MEDS: Hydrocortisone 1% CREAM* 30 GM TUBE TOPICAL PRN (05:55)
[2017-10-16] MEDS: Tobramycin 0.3% OPHTH.SOL* 5 ML BOT (regular eye drops) BOTH EYES SCH ×3 (06:01→13:41)
[2017-10-16] MEDS: Sertraline* 25 MG TAB PO SCH (08:31)
[2017-10-16] MEDS: Insulin LISPRO* 1 UNITS UNIT SUBCUT SCH ×2 (08:31→12:16)
[2017-10-16] MEDS: metFORMIN* 850 MG TAB PO SCH (08:31)
[2017-10-16] MEDS: amLODIPine TAB* 5 MG PO SCH (08:31)
[2017-10-16] MEDS: Carvedilol TAB* 6.25 MG PO SCH (08:31)
[2017-10-16] MEDS: Docusate CAP* 100 MG PO SCH (08:31)
[2017-10-16] MEDS: SitaGLIPtin (NF) 100 MG TAB PO SCH (08:31)
[2017-10-16] MEDS: Lisinopril TAB* 10 MG PO SCH (08:31)
[2017-10-16] MEDS: glipiZIDE TAB.XL* 5 MG PO SCH (08:32)
[2017-10-16] MEDS: Aspirin EC TAB* 325 MG PO SCH (08:32)
[2017-10-16] MEDS: Nystatin TOP POWDER* 15 GM BTL TOPICAL SCH (08:32)
--- NOTE | 2017-10-16 09:54 | PN ---
Progress Note Date of Service: 10/16/17 Note: ESTELLE BOUDREAUX was visited. Nursing and therapy notes read and reviewed. He initially was refusing therapy this morning since he felt too tired. He was up and ate breakfast and is participating now. No chest pain, shortness of breath or abdominal pain. No changes in strength or sensation. Current Medications: Active Medications Generic Name Dose Route Start Last Admin Trade Name Freq PRN Reason Stop Dose Admin Acetaminophen 650 mg 10/13/17 12:50 Tylenol Tab* PO Q6H PRN FEVER > 101 Al Hydrox/Mg Hydrox/Simethicone 30 ml 10/13/17 12:50 Maalox Plus* PO Q6H PRN INDIGESTION Amlodipine Besylate 5 mg 10/14/17 09:00 10/16/17 08:31 Norvasc Tab* PO 5 mg DAILY YUMIKO Administration Aspirin 325 mg 10/14/17 09:00 10/16/17 08:32 Ecotrin Ec Tab* PO 325 mg DAILY YUMIKO Administration Atorvastatin Calcium 80 mg 10/13/17 21:00 10/15/17 22:12 Lipitor* PO 80 mg 2100 YUMIKO Administration Carvedilol 12.5 mg 10/13/17 21:00 10/16/17 08:31 Coreg Tab* PO 12.5 mg BID YUMIKO Administration Dextrose 12.5 gm 10/13/17 12:58 D50w Syringe 50 Ml* IV PUSH .FOR FS < 60 - SS PRN FS < 60 Docusate Sodium 100 mg 10/13/17 21:00 10/16/17 08:31 Colace Cap* PO 100 mg BID YUMIKO Administration Enoxaparin Sodium 40 mg 10/13/17 13:00 10/15/17 12:27 Lovenox(*) SUBCUT 40 mg Q24H YUMIKO Administration Gabapentin 900 mg 10/13/17 21:00 10/15/17 22:11 Neurontin Cap(*) PO 900 mg BEDTIME YUMIKO Administration Glipizide 20 mg 10/14/17 09:00 10/16/17 08:32 Glucotrol Xl* PO 20 mg DAILY YUMIKO Administration Hydrocortisone 1 applic 10/13/17 13:04 10/16/17 05:55 Hytone Cream 1%* TOPICAL 1 applic TID PRN Administration itching Insulin Glargine 22 units 10/13/17 21:00 10/15/17 20:49 Lantus(*) SUBCUT 22 units Q24H YUMIKO Administration Insulin Human Lispro 0 units 10/13/17 17:24 10/16/17 08:31 Humalog* SUBCUT 6 units ACHS YUMIKO Administration Protocol Lisinopril 20 mg 10/14/17 09:00 10/16/17 08:31 Prinivil Tab* PO 20 mg DAILY YUMIKO Administration Metformin HCl 850 mg 10/13/17 17:00 10/16/17 08:31 Glucophage* PO 850 mg 0800,1700 YUMIKO Administration Nystatin 1 applic 10/13/17 21:00 10/16/17 08:32 Nystatin Top Powder* TOPICAL 1 applic BID YUMIKO Administration Senna 2 tab 10/13/17 12:50 10/15/17 22:15 Senokot Tab* PO 2 tab BEDTIME PRN Administration CONSTIPATION Sertraline HCl 25 mg 10/14/17 09:00 10/16/17 08:31 Zoloft* PO 25 mg DAILY YUMIKO Administration Sitagliptin Phosphate 100 mg 10/14/17 09:00 10/16/17 08:31 Januvia (Nf) PO 100 mg DAILY YUMIKO Administration Tobramycin Sulfate 1 drop 10/15/17 10:00 10/16/17 09:42 Tobramycin 0.3% Ophth.Marie* BOTH EYES Not Given [id number] AWAKE [facility] Vital Signs: Vital Signs Temp Pulse Resp BP Pulse Ox 97.7 F 84 18 128/70 100 10/16/17 05:53 10/16/17 05:53 10/16/17 05:53 10/16/17 05:53 10/16/17 05:53 Lab Results: Laboratory Results - last 24 hr 10/15/17 10/15/17 10/15/17 11:32 16:37 20:01 POC Glucose (mg/dL) 282 H 196 H 178 H 10/16/17 07:32 POC Glucose (mg/dL) 250 H Exam: GEN: no acute distress. alert and appropriate. EYES: conjunctivitis looks less today. LUNGS: clear to auscultation bilaterally. CV: regular rate and rhythm. ABD: + bowel sounds, soft, non-tender, non-distended EXT: no edema NEURO: CN II-XII intact. Motor 4/5 throughout right upper extremity. 5/5 in LUE and BLE. Normal sensation. Assessment/Plan: 77yo man s/p bihemispheric ischemic strokes with carotid disease, possible cardioembolic source no observed, and recent abnormal cardiac stress test #Stroke with right arm hemiplegia and mild to moderate dysnomia: allergic to plavix. ASA 325mg qday and Lipitor 80mg qday. f/u neurology. PT/OT/speech. #Cardiac reversible ischemia on nuclear stress test: Plan cardiac cath in 3weeks when further out from stroke. f/u with cardiology. #Chronic kidney disease: follow labs #Hypertension: continue current meds. #Diabetes mellitus: continue oral meds, lantus and ssI. Increase lantus to 25u. Teach self-administration of lantus and fingersticks. #Conjunctivitis: tobradex eye drops Q4h while awake. #DVT prophyllaxis: lovenox #Advanced directives: full code. Daughter, Rachelle, is hcp. #Estimated LOS: anticipate d/c 10/20. 10/16/17 10:02 10/16/17 10:03
[2017-10-16] MEDS ORDERED: NS 0.9% 1000 ML* 2,000 ML IV ONE (10:11)
[2017-10-16] MEDS: Enoxaparin(*) 40 MG/0.4 ML SYR SUBCUT SCH (12:16)
[2017-10-16] MEDS ORDERED: NS 0.9% 250 ML* 250 ML IV ONE (13:56)
[2017-10-16 14:16] LABS: ABS Basophils 0.1 10^3/ul (0-0.2); ABS Eosinophils 0.5 10^3/ul (0-0.6); ABS Lymphocytes 2.9 10^3/ul (1.0-4.8); ABS Monocytes 0.7 10^3/ul (0-0.8); ABS Neutrophils 7.4 10^3/ul (1.5-7.7); ABS Nucleated RBC 0 10^3/ul; Eosinophil % 4.6 % (0-6); Hematocrit 47 % (42-52); Hemoglobin 16.1 g/dl (14.0-18.0); Mean Corpuscular HGB Conc 34 g/dl (31-36); Mean Corpuscular Hemoglobin 29 pg (27-31); Mean Corpuscular Volume 84 fL (80-94); Mean Platelet Volume 8.2 um3 (7.4-10.4); Nucleated Red Blood Cells % 0; Platelet Count 306 10^3/ul (150-450); Red Blood Count 5.56 10^6/ul (4.00-5.40); Red Cell Distribution Width 14 % (10.5-15); White Blood Count 11.6 10^3/ul (3.5-10.8)
[2017-10-16 14:31] LABS: EGFR Non-African American 65.3 (>60)
[2017-10-16] MEDS ORDERED: NS 0.9% 1000 ML* 3,000 ML IV ONE (14:39)
[2017-10-16] MEDS ORDERED: Vancomycin(*) 1,000 MG in NS 0.9% 250 ML* 250 ML IVPB ONE (14:43)
[2017-10-16] MEDS ORDERED: Piperacillin/Tazobac ADVAN(*) 3.375 GM in NS 0.9% 100 ML* 100 ML IVPB ONE (14:44)
[2017-10-16] MEDS ORDERED: Zosyn per Pharmacy* NOTE FOLLOW UP SCH (15:00)
--- NOTE | 2017-10-16 15:21 | PN ---
Progress Note Date of Service: 10/16/17 Note: ESTELLE BOUDREAUX was visited. Got dizzy in PT and SBP back down to 90's. He was brought back to the room and felt better when supine. Current Medications: Active Medications Generic Name Dose Route Start Last Admin Trade Name Freq PRN Reason Stop Dose Admin Acetaminophen 650 mg 10/13/17 12:50 Tylenol Tab* PO Q6H PRN FEVER > 101 Al Hydrox/Mg Hydrox/Simethicone 30 ml 10/13/17 12:50 Maalox Plus* PO Q6H PRN INDIGESTION Amlodipine Besylate 5 mg 10/14/17 09:00 10/16/17 08:31 Norvasc Tab* PO 5 mg DAILY YUMIKO Administration Aspirin 325 mg 10/14/17 09:00 10/16/17 08:32 Ecotrin Ec Tab* PO 325 mg DAILY YUMIKO Administration Atorvastatin Calcium 80 mg 10/13/17 21:00 10/15/17 22:12 Lipitor* PO 80 mg 2100 YUMIKO Administration Carvedilol 12.5 mg 10/13/17 21:00 10/16/17 08:31 Coreg Tab* PO 12.5 mg BID YUMIKO Administration Dextrose 12.5 gm 10/13/17 12:58 D50w Syringe 50 Ml* IV PUSH .FOR FS < 60 - SS PRN FS < 60 Docusate Sodium 100 mg 10/13/17 21:00 10/16/17 08:31 Colace Cap* PO 100 mg BID YUMIKO Administration Enoxaparin Sodium 40 mg 10/13/17 13:00 10/16/17 12:16 Lovenox(*) SUBCUT 40 mg Q24H YUMIKO Administration Gabapentin 900 mg 10/13/17 21:00 10/15/17 22:11 Neurontin Cap(*) PO 900 mg BEDTIME YUMIKO Administration Glipizide 20 mg 10/14/17 09:00 10/16/17 08:32 Glucotrol Xl* PO 20 mg DAILY YUMIKO Administration Hydrocortisone 1 applic 10/13/17 13:04 10/16/17 05:55 Hytone Cream 1%* TOPICAL 1 applic TID PRN Administration itching Sodium Chloride 2,000 mls @ 75 mls/hr 10/16/17 10:11 10/16/17 10:40 Ns 0.9% 1000 Ml* IV 10/17/17 12:50 75 mls/hr .PER RATE ONE Administration Sodium Chloride 3,000 mls @ 1,000 mls/hr 10/16/17 14:39 10/16/17 14:59 Ns 0.9% 1000 Ml* IV 10/16/17 17:38 1,000 mls/hr .PER RATE ONE Administration Vancomycin HCl 1,000 mg/ 250 mls @ 166.667 mls/hr 10/16/17 14:43 Sodium Chloride IVPB 10/16/17 16:12 ONCE ONE Piperacillin Sod/Tazobactam 100 mls @ 25 mls/hr 10/16/17 20:00 Sod 3.375 gm/ Sodium Chloride IVPB Q8H YUMIKO Insulin Glargine 24 units 10/16/17 21:00 Lantus(*) SUBCUT Q24H YUMIKO Insulin Human Lispro 0 units 10/13/17 17:24 10/16/17 12:16 Humalog* SUBCUT 6 units ACHS YUMIKO Administration Protocol Lisinopril 20 mg 10/14/17 09:00 10/16/17 08:31 Prinivil Tab* PO 20 mg DAILY YUMIKO Administration Metformin HCl 850 mg 10/13/17 17:00 10/16/17 08:31 Glucophage* PO 850 mg 0800,1700 YUMIKO Administration Nystatin 1 applic 10/13/17 21:00 10/16/17 08:32 Nystatin Top Powder* TOPICAL 1 applic BID YUMIKO Administration Pharmacy Consult 1 note 10/16/17 15:00 Zosyn Per Pharmacy* FOLLOW UP .ZOSYN PER PHARMACY [facility] Senna 2 tab 10/13/17 12:50 10/15/17 22:15 Senokot Tab* PO 2 tab BEDTIME PRN Administration CONSTIPATION Sertraline HCl 25 mg 10/14/17 09:00 10/16/17 08:31 Zoloft* PO 25 mg DAILY YUMIKO Administration Sitagliptin Phosphate 100 mg 10/14/17 09:00 10/16/17 08:31 Januvia (Nf) PO 100 mg DAILY YUMIKO Administration Tobramycin Sulfate 1 drop 10/15/17 10:00 10/16/17 13:41 Tobramycin 0.3% Ophth.Marie* BOTH EYES Not Given [id number] AWAKE [facility] Vital Signs: Vital Signs Temp Pulse Resp BP Pulse Ox 98.0 F 83 20 81/49 100 10/16/17 11:53 10/16/17 13:46 10/16/17 11:53 10/16/17 13:46 10/16/17 13:46 Lab Results: Laboratory Results - last 24 hr 10/15/17 10/15/17 10/16/17 16:37 20:01 07:32 WBC RBC Hgb Hct MCV MCH MCHC RDW Plt Count MPV Neut % (Auto) Lymph % (Auto) [place] % (Auto) Eos % (Auto) Baso % (Auto) Absolute Neuts (auto) Absolute Lymphs (auto) Absolute Monos (auto) Absolute Eos (auto) Absolute Basos (auto) Absolute Nucleated RBC Nucleated RBC % Sodium Potassium Chloride Carbon Dioxide Anion Gap BUN Creatinine Est GFR ( Amer) Est GFR (Non-Af Amer) BUN/Creatinine Ratio Glucose POC Glucose (mg/dL) 196 H 178 H 250 H Lactic Acid Calcium Total Bilirubin AST ALT Alkaline Phosphatase Troponin I Total Protein Albumin Globulin Albumin/Globulin Ratio 10/16/17 10/16/17 10/16/17 11:41 14:04 14:04 WBC 11.6 H RBC 5.56 H Hgb 16.1 Hct 47 MCV 84 MCH 29 MCHC 34 RDW 14 Plt Count 306 MPV 8.2 Neut % (Auto) 63.8 Lymph % (Auto) 25.0 Hudson % (Auto) 5.7 Eos % (Auto) 4.6 Baso % (Auto) 0.9 Absolute Neuts (auto) 7.4 Absolute Lymphs (auto) 2.9 Absolute Monos (auto) 0.7 Absolute Eos (auto) 0.5 Absolute Basos (auto) 0.1 Absolute Nucleated RBC 0 Nucleated RBC % 0 Sodium 134 L Potassium 4.5 Chloride 101 Carbon Dioxide 24 Anion Gap 9 BUN 19 Creatinine 1.10 Est GFR ( Amer) 79.0 Est GFR (Non-Af Amer) 65.3 BUN/Creatinine Ratio 17.3 Glucose 217 H POC Glucose (mg/dL) 221 H Lactic Acid Calcium 8.7 Total Bilirubin 0.60 AST 21 ALT 30 Alkaline Phosphatase 94 Troponin I 0.01 Total Protein 6.1 L Albumin 3.4 Globulin 2.7 Albumin/Globulin Ratio 1.3 10/16/17 14:05 WBC RBC Hgb Hct MCV MCH MCHC RDW Plt Count MPV Neut % (Auto) Lymph % (Auto) Hudson % (Auto) Eos % (Auto) Baso % (Auto) Absolute Neuts (auto) Absolute Lymphs (auto) Absolute Monos (auto) Absolute Eos (auto) Absolute Basos (auto) Absolute Nucleated RBC Nucleated RBC % Sodium Potassium Chloride Carbon Dioxide Anion Gap BUN Creatinine Est GFR ( Amer) Est GFR (Non-Af Amer) BUN/Creatinine Ratio Glucose POC Glucose (mg/dL) Lactic Acid 2.2 H* Calcium Total Bilirubin AST ALT Alkaline Phosphatase Troponin I Total Protein Albumin Globulin Albumin/Globulin Ratio Exam: GEN: No acute distress. Alert and appropriate but less energy than prior. CV: regular LUNGS: clear bilaterally ABD: + bowel sounds, soft, non-tender, non-distended EXT: no edema NEURO: unchanged with 4/5 in RUE. Assessment/Plan: 77yo man s/p bihemispheric ischemic strokes with carotid disease, possible cardioembolic source no observed, and recent abnormal cardiac stress test #Possible sepsis: I consulted hospitalist service who instructed in IVF, IV abx , cultures, CXR and plan to transfer to hospital telemetry. 10/16/17 15:20
[2017-10-16 17:00] LABS: Urine Appearance Clear; Urine Blood Negative (Negative); Urine Color Yellow; Urine Ketones Negative (Negative); Urine Protein Negative (Negative); Urine Specific Gravity 1.008 (1.010-1.030); Urine Urobilinogen Negative (Negative)
--- NOTE | 2017-10-16 17:33 | RAD ---
INDICATION: Leukocytosis COMPARISON: Chest x-ray October 11, 2017 TECHNIQUE: Single AP portable view of the chest was obtained. FINDINGS: Image quality is compromised due to the relative inferiority of a portable chest x-ray. The heart and mediastinum exhibit normal size and contour. The lungs are grossly clear. There is no evidence of a large pleural effusion. Visualized bones are normal for the patient's age. IMPRESSION: No radiographic evidence for acute cardiopulmonary abnormality on this portable chest x-ray.
[2017-10-16] MEDS ORDERED: ZOSYN 3.375 GM Q8H per EXTENDED INFUSION IVPB SCH ×2 (20:00)
[2017-10-16] MEDS ORDERED: Insulin GLARGINE(*) 1 UNITS UNIT SUBCUT SCH (21:00)
--- NOTE | 2017-10-17 03:07 | DS ---
CC: Dr. Mendez; Dr. Fragoso; Dr. Rose REHABILITATION DISCHARGE SUMMARY: DATE OF ADMISSION: 10/13/17 DATE OF DISCHARGE: 10/16/17 PRIMARY CARE PROVIDER: Dr. Mendez. TELEGRAPH OFFICE ROUTE AIDE: Dr. Fragoso. NEUROLOGIST: Dr. Rose. REASON FOR ADMISSION: Left-sided stroke with right hemiparesis. HISTORY OF PRESENT ILLNESS: For details of his initial acute hospitalization, his initial rehabilitation stay 10/06/17 through 10/10/17, and then hospital stay 10/10/17 to 10/13/17, please refer to those admission and discharge summaries as well as daily notes. REHABILITATION COURSE: During his time on the [facility] this time, he was doing well and progressing with PT and OT. Plans were for him to possibly go home on 10/20/17. However, on 10/16/17, he was not feeling very well. When he was sitting up, his systolic blood pressure was in the 70s. He responded to being back in bed supine with his systolic pressure going up to the 120s. He received a bolus of 500 mL of IV fluids with a continuous rate afterwards of 75 mL per hour. He was able to sit up and eat lunch with improvement in orthostatic vital signs. Then later, he was in the physical therapy gym doing exercises when he felt dizzy and his systolic blood pressure dropped again to the 90s and then later to the 80s. Laboratories revealed a mild elevation in his white blood cells as well as lactic acid of 2.2. Hospitalist service was consulted and following sepsis protocol, decision was made to have him transfer to the hospital for further evaluation and workup. He has already been initiated with IV fluid boluses. Cultures have been ordered. It is unclear if those have been drawn yet. Chest x-ray has not been done yet, although also it was ordered as well as urinalysis. DISCHARGE MEDICATIONS: Medications at the time of transfer: 1. Acetaminophen 650 mg p.o. q.6 hours p.r.n. 2. Norvasc 5 mg daily. 3. Aspirin 325 mg daily. 4. Lipitor 80 mg q.p.m. 5. Carvedilol 12.5 mg b.i.d. 6. Colace 100 mg b.i.d. 7. Lovenox 40 mg subcutaneously q.24 hours. 8. Gabapentin 900 mg q.h.s. 9. Glucotrol XL 20 mg daily. 10. Hytone cream 1% t.i.d. p.r.n. to his back for itching. 11. Lantus 24 units q.h.s. 12. Lispro sliding scale insulin. 13. Lisinopril 20 mg daily. 14. Metformin 850 mg b.i.d. 15. Nystatin powder topically b.i.d. 16. Orders have been put in for one-time doses of Zosyn 3.375 g IV and vancomycin 1 g IV, but these have not been hung yet. 17. Senna 2 tablets q.h.s. p.r.n. 18. Zoloft 25 mg daily. 19. Januvia 100 mg daily. 20. Tobramycin ophthalmic solution 1 drop both eyes while awake. DISCHARGE CONDITION: Guarded. DISCHARGE DISPOSITION: Hospitalist service on telemetry. DISCHARGE DIAGNOSES: 1. Bilateral hemispheric ischemic strokes with carotid disease. 2. Abnormal cardiac stress test x2 with coronary artery disease. 3. Right hemiplegia. 4. Chronic kidney disease. 5. Hypertension. 6. Diabetes mellitus. 7. Conjunctivitis. 8. Possible sepsis [id number]/[facility] #: [id number] MTDD
[2017-10-18] MEDS ORDERED: Dextrose 50% Syringe 50 ML* 25 GM/50 ML SYRINGE IV PUSH PRN (11:35)
[2017-10-18] MEDS ORDERED: Acetaminophen TAB* 325 MG PO PRN (11:40)
--- NOTE | 2017-10-18 11:51 | PN ---
Progress Note Date of Service: 10/18/17 Note: ESTELLE BOUDREAUX was visited. See dictated H&P for details. Current Medications: Active Medications Generic Name Dose Route Start Last Admin Trade Name Frejada PRN Reason Stop Dose Admin Acetaminophen 650 mg 10/18/17 11:40 Tylenol Tab* PO Q6H PRN mild pain Amlodipine Besylate 5 mg 10/19/17 09:00 Norvasc Tab* PO DAILY [facility] Aspirin 325 mg 10/19/17 09:00 Ecotrin Ec Tab* PO DAILY [facility] Atorvastatin Calcium 80 mg 10/18/17 21:00 Lipitor* PO 2100 YUMIKO Carvedilol 12.5 mg 10/18/17 21:00 Coreg Tab* PO BID [facility] Dextrose 12.5 gm 10/18/17 11:35 D50w Syringe 50 Ml* IV PUSH .FOR FS < 60 - SS PRN FS < 60 Gabapentin 900 mg 10/18/17 21:00 Neurontin Cap(*) PO BEDTIME [facility] Glipizide 20 mg 10/19/17 09:00 Glucotrol Xl* PO DAILY [facility] Heparin Sodium (Porcine) 5,000 units 10/18/17 14:00 Heparin Vial(*) SUBCUT Q8HR [facility] Hydrocortisone 1 applic 10/18/17 11:40 Hytone Cream 1%* TOPICAL TID PRN itching Insulin Glargine 36 units 10/19/17 09:00 Lantus(*) SUBCUT Q24H [facility] Insulin Human Lispro 1 units 10/18/17 16:30 Humalog* SUBCUT ACHS [facility] Protocol Lisinopril 20 mg 10/19/17 09:00 Prinivil Tab* PO DAILY [facility] Metformin HCl 850 mg 10/18/17 17:00 Glucophage* PO 0800,1700 [facility] Nystatin 1 applic 10/18/17 21:00 Nystatin Top Powder* TOPICAL BID [facility] Sertraline HCl 25 mg 10/19/17 09:00 Zoloft* PO DAILY [facility] Vital Signs: Assessment/Plan: 77yo man s/p bihemispheric ischemic strokes with carotid disease, possible cardioembolic source no observed, recent abnormal cardiac stress test and transient hypotensive event on 10/16 with interrupted stay. See H&P for full detailed plan. #Diabetes mellitus - I d/w Dr. Moultonone his diabetes medications since he has oral and also now lantus. Regimen will be simplified to once a day lantus 36u QAM, glucotrol XL 20mg qday and metformin 850mg bid. Januvia is discontinued. He will need to learn to use glucometer and do own insulin prior to d/c. 10/18/17 11:45
--- NOTE | 2017-10-18 13:12 | HP ---
CC: Dr. Mendez; Dr. Fragoso; Dr. Rose * REHABILITATION ADMISSION HISTORY AND PHYSICAL: A resumption of prior admission that started on 10/13/17 after interrupted stay, 10/16/17 through 10/18/17. ORIGINAL DATE OF ADMISSION: 10/13/17 through 10/16/17, resuming 10/18/17 after interrupted stay. PRIMARY CARE PROVIDER: Dr. Mendez. TEMPLATE INSPECTOR: Dr. Fragoso. NEUROLOGIST: Dr. Rose. REASON FOR ADMISSION: Left-sided stroke with right hemiparesis. HISTORY OF PRESENT ILLNESS: For full details of his initial acute hospitalization leading up to his admission regarding stroke, please see the note dictated by Dr. Mcclain on 10/06/17 as well as my discharge summary on when he was transferred to the acute hospital with elevated troponins and later had an abnormal nuclear stress test.. He was then later readmitted back to the rehabilitation unit on 10/13/17 and had been progressing well with his therapy until 10/16/17 when he woke not feeling well. While sitting, his systolic blood pressure was in the 70s. He initially responded to Trendelenburg position and IV fluids, was able to each lunch, and initially participated in some physical therapy, but then started feeling dizzy. His systolic blood pressure went down to the 90s. Laboratory studies revealed that he had a mildly elevated white blood cell count and lactic acid level. Hospitalist service was consulted and he was admitted to telemetry for the transient hypotension and rule out sepsis. He received IV fluids and 1 dose each of Zosyn and vancomycin. Urinalysis was negative. Chest x-ray was negative. Cultures are negative to date. The following day, his white blood cells normalized and his lactic acid was also normal. He now feels well and ready to resume his rehabilitation. It was felt that he had transient hypotension episode of unclear etiology. During this time his metformin and januvia were held while he continued glucotrol XL and lantus was increased to 24u bid. Per the hospitalist, he can go to lantus 36u qam and restart the metformin. Recommendation is he stay off januvia as it probably has limited benefit now. PAST MEDICAL HISTORY: 1. 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 2. Coronary artery disease with pending cardiac catheterization in the next few weeks. 3. Carotid stenosis. 4. Hypertension. 5. Diabetes mellitus. 6. Diabetic neuropathy. 7. Obstructive sleep apnea, not on CPAP. 8. Hyperlipidemia. MEDICATIONS: 1. Coreg 12.5 mg b.i.d. 2. Ecotrin 325 mg q. day. 3. Glucotrol XL 20 mg q. day 4. Heparin 5000 units q.8 hours for DVT prophylaxis. 5. Humalog sliding scale insulin. 6. Lantus 36u QAM. 7. Lipitor 80 mg q.h.s. 8. Neurontin 900 mg q.h.s. 9. Norvasc 5 mg q. day. 10. Nystatin topical powder. 11. Prinivil 20 mg q. day. 12. Zoloft 25 mg q. day 13. Hydrocortisone cream t.i.d. p.r.n. 14. Maalox 30 mL q.6 hours p.r.n. indigestion. 15. Milk of magnesia p.r.n. 16. Tylenol 650 mg q.6 hours p.r.n. 17. Restart metformin 850mg bid ALLERGIES: PLAVIX. SOCIAL HISTORY: He lives with grandson, who works during the day, in a 1-story house with 4 steps to enter. No smoking, no drinking. REVIEW OF SYSTEMS: See history of present illness and past medical history. The remainder of a 13-system review was completed. No significant findings. PHYSICAL EXAMINATION GENERAL: Well developed, well nourished, appearing stated age. Mental Status: Alert and appropriate. VITAL SIGNS: Temperature 97.8, pulse 61, respirations 14, oxygenation 100% on room air, blood pressure 132/71. HEENT: Normocephalic, atraumatic. Oropharynx clear. Moist mucous membranes. LUNGS: Clear to auscultation bilaterally. HEART: Regular rate and rhythm. ABDOMEN: Active bowel sounds, soft, nontender, and nondistended. EXTREMITIES: No clubbing, cyanosis, or edema. MUSCULOSKELETAL: He has functional range of motion in all of his major joints. NEUROLOGIC: Cranial nerves II through XII are intact. Motor testing is 5/5 in the left upper and bilateral lower extremities. He has 4/5 motor strength throughout the right upper extremity. Sensation is intact except for some stocking distribution. Sensation loss in his legs due to neuropathy. LABORATORY DATA: Today, his white blood cell count was 10.6, hemoglobin 15.4, hematocrit 45, and platelets 262. This morning, his lactic acid level was 1.1, within normal range. IMPRESSION: A 77-year-old man with right hemiparesis after ischemic stroke. We will resume his rehabilitation stay so that he can return to independent living. PLAN: 1. Stroke. Continue with aspirin. He will need followup with Neurology. Of note, he did not tolerate Plavix and got a rash on first exposure. 2. Abnormal cardiovascular stress test. He will have a cardiac catheterization in approximately 2 weeks when is further out from his stroke. He needs to follow up with Cardiology. 3. Chronic kidney disease, stage 3. His creatinine has been at baseline and today it is 0.96. 4. Hypertension. Continue with his current medications. 5. Diabetes mellitus. Lantus 36u qam, metformin 850mg bid and glucotrol XL 20mg qday. Keep off Januvia Sliding scale insulin while in hospital.. He will need to learn self-administration of insulin and monitoring. Order diabetes education. 6. Hyperlipidemia. Continue with atorvastatin. 7. Peripheral neuropathy. Continue with gabapentin. 8. DVT prophylaxis. Continue subcutaneous heparin. 9. Impaired mobility. He will be seen by Physical Therapy for ongoing bed mobility, transfer, and gait training, and stair training using least restrictive device. 10. Impaired self-care. He will be seen by Occupational Therapy for ADL and IADL training and evaluation for equipment. 11. [id number] expressive aphasia. He will be seen by Speech Therapy for ongoing evaluation. ADVANCE DIRECTIVES: He is a full code. If he cannot make decisions for himself , he would like his daughter, Rachelle, to make decisions for him. ESTIMATED LENGTH OF STAY: Two to three days, then return to home. His original discharge date was 10/20/17 and I assume that this will be delayed given his interrupted stay. [id number]/[facility] #: [id number] [id number]
[2017-10-18] MEDS: Heparin VIAL(*) 5000 UNITS/ML VIAL (FIVE THOUSAND) SUBCUT SCH ×2 (15:05→23:02)
[2017-10-18] MEDS: Insulin LISPRO* 1 UNITS UNIT SUBCUT SCH ×2 (17:03→23:03)
[2017-10-18] MEDS: metFORMIN* 850 MG TAB PO SCH (17:07)
[2017-10-18] MEDS: Nystatin TOP POWDER* 15 GM BTL TOPICAL SCH (22:03)
[2017-10-18] MEDS: Gabapentin CAP(*) 300 MG PO SCH (23:00)
[2017-10-18] MEDS: Atorvastatin* 80 MG TAB PO SCH (23:01)
[2017-10-18] MEDS: Carvedilol TAB* 6.25 MG PO SCH (23:02)
[2017-10-18] MEDS: Hydrocortisone 1% CREAM* 30 GM TUBE TOPICAL PRN (23:09)
[2017-10-19] MEDS: Heparin VIAL(*) 5000 UNITS/ML VIAL (FIVE THOUSAND) SUBCUT SCH ×3 (06:19→21:33)
[2017-10-19] MEDS: Insulin LISPRO* 1 UNITS UNIT SUBCUT SCH ×5 (07:54→21:31)
[2017-10-19] MEDS: Aspirin EC TAB* 325 MG PO SCH (08:47)
[2017-10-19] MEDS: Nystatin TOP POWDER* 15 GM BTL TOPICAL SCH ×2 (08:47→21:33)
[2017-10-19] MEDS: amLODIPine TAB* 5 MG PO SCH (08:47)
[2017-10-19] MEDS: Lisinopril TAB* 10 MG PO SCH (08:48)
[2017-10-19] MEDS: metFORMIN* 850 MG TAB PO SCH ×2 (08:48→17:05)
[2017-10-19] MEDS: Insulin GLARGINE(*) 1 UNITS UNIT SUBCUT SCH (08:48)
[2017-10-19] MEDS: glipiZIDE TAB.XL* 5 MG PO SCH (08:48)
[2017-10-19] MEDS: Carvedilol TAB* 6.25 MG PO SCH ×2 (08:48→21:32)
[2017-10-19] MEDS: Sertraline* 25 MG TAB PO SCH (08:48)
--- NOTE | 2017-10-19 17:34 | PN ---
Progress Note Date of Service: 10/19/17 Note: ESTELLE BOUDREAUX was visited. Therapy notes read and reviewed.He is in good spirits with no hypotension today. Blood sugars in fair control. Current Medications: Active Medications Generic Name Dose Route Start Last Admin Trade Name Freq PRN Reason Stop Dose Admin Acetaminophen 650 mg 10/18/17 11:40 Tylenol Tab* PO Q6H PRN mild pain Amlodipine Besylate 5 mg 10/19/17 09:00 10/19/17 08:47 Norvasc Tab* PO 5 mg DAILY YUMIKO Administration Aspirin 325 mg 10/19/17 09:00 10/19/17 08:47 Ecotrin Ec Tab* PO 325 mg DAILY YUMIKO Administration Atorvastatin Calcium 80 mg 10/18/17 21:00 10/18/17 23:01 Lipitor* PO 80 mg 2100 YUMIKO Administration Carvedilol 12.5 mg 10/18/17 21:00 10/19/17 08:48 Coreg Tab* PO 12.5 mg BID YUMIKO Administration Dextrose 12.5 gm 10/18/17 11:35 D50w Syringe 50 Ml* IV PUSH .FOR FS < 60 - SS PRN FS < 60 Gabapentin 900 mg 10/18/17 21:00 10/18/17 23:00 Neurontin Cap(*) PO 900 mg BEDTIME YUMIKO Administration Glipizide 20 mg 10/19/17 09:00 10/19/17 08:48 Glucotrol Xl* PO 20 mg DAILY WITH MEAL YUMIKO Administration Heparin Sodium (Porcine) 5,000 units 10/18/17 14:00 10/19/17 12:59 Heparin Vial(*) SUBCUT 5,000 units Q8HR YUMIKO Administration Hydrocortisone 1 applic 10/18/17 11:40 10/18/17 23:09 Hytone Cream 1%* TOPICAL 1 applic TID PRN Administration itching Insulin Glargine 36 units 10/19/17 09:00 10/19/17 08:48 Lantus(*) SUBCUT 36 units Q24H YUMIKO Administration Insulin Human Lispro 0 units 10/18/17 16:30 10/19/17 17:05 Humalog* SUBCUT 2 units ACHS YUMIKO Administration Protocol Lisinopril 20 mg 10/19/17 09:00 10/19/17 08:48 Prinivil Tab* PO 20 mg DAILY YUMIKO Administration Metformin HCl 850 mg 10/18/17 17:00 10/19/17 17:05 Glucophage* PO 850 mg 0800,1700 YUMIKO Administration Nystatin 1 applic 10/18/17 21:00 10/19/17 08:47 Nystatin Top Powder* TOPICAL 1 dose BID YUMIKO Administration Sertraline HCl 25 mg 10/19/17 09:00 10/19/17 08:48 Zoloft* PO 25 mg DAILY YUMIKO Administration Vital Signs: Vital Signs Temp Pulse Resp BP Pulse Ox 98.3 F 72 20 140/71 99 10/19/17 06:14 10/19/17 13:37 10/19/17 13:37 10/19/17 13:37 10/19/17 08:00 Lab Results: Laboratory Results - last 24 hr 10/18/17 10/18/17 10/19/17 16:44 20:23 07:43 POC Glucose (mg/dL) 179 H 206 H 125 H 10/19/17 10/19/17 12:00 16:32 POC Glucose (mg/dL) 211 H 188 H Exam: GENERAL: no acute distress. alert and appropriate. LUNGS: clear to auscultation bilaterally. HEART: regular rate and rhythm. ABDOMEN: + bowel sounds, soft, non-tender, non-distended EXTREMITIES: no edema NEUROLOGIC: CN II-XII intact. Motor 4/5 throughout right upper extremity. 5/5 in LUE and BLE. Normal sensation. Assessment/Plan: 1. 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 ASA 325mg/Lipitor 80mg. f/u neurology. 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 2. Reversible ischemia on nuclear stress test: Plan cardiac cath in 3weeks when further out from stroke. f/u with cardiology. 3. Chronic kidney disease: follow labs 4. Hypertension: continue current meds. Watch BP 5. Diabetes mellitus: Now off Januvia, on Glucophage, Glipizide, lantus and ssI. Teach self-administration of lantus and fingersticks. 6. DVT prophyllaxis: lovenox 7. Advanced directives: full code. Daughter, Rachelle, is hcp. 10/19/17 17:38 10/19/17 17:39
[2017-10-19] MEDS: Atorvastatin* 80 MG TAB PO SCH (21:30)
[2017-10-19] MEDS: Gabapentin CAP(*) 300 MG PO SCH (21:31)
[2017-10-19] MEDS: Hydrocortisone 1% CREAM* 30 GM TUBE TOPICAL PRN (21:32)
[2017-10-20] MEDS: Heparin VIAL(*) 5000 UNITS/ML VIAL (FIVE THOUSAND) SUBCUT SCH ×3 (05:44→20:47)
[2017-10-20] MEDS: glipiZIDE TAB.XL* 5 MG PO SCH (08:17)
[2017-10-20] MEDS: metFORMIN* 850 MG TAB PO SCH ×2 (08:17→16:43)
[2017-10-20] MEDS: Nystatin TOP POWDER* 15 GM BTL TOPICAL SCH ×2 (08:18→20:54)
[2017-10-20] MEDS: Sertraline* 25 MG TAB PO SCH (08:18)
[2017-10-20] MEDS: Aspirin EC TAB* 325 MG PO SCH (08:18)
[2017-10-20] MEDS: amLODIPine TAB* 5 MG PO SCH (08:18)
[2017-10-20] MEDS: Lisinopril TAB* 10 MG PO SCH (08:18)
[2017-10-20] MEDS: Carvedilol TAB* 6.25 MG PO SCH ×2 (08:18→20:48)
[2017-10-20] MEDS: Insulin GLARGINE(*) 1 UNITS UNIT SUBCUT SCH (08:18)
[2017-10-20] MEDS: Insulin LISPRO* 1 UNITS UNIT SUBCUT SCH ×4 (08:19→20:47)
--- NOTE | 2017-10-20 12:40 | PMRUTEAM ---
PMRU: Team Meeting Current Status: Nursing: Current Status Skin Deviations [Bilateral Other groin] Skin Deviations [Right Arm] Other Skin Deviations [Upper Back] Rash Skin Deviations [Right Knee] Abrasion Skin Deviation Description [ pink Bilateral groin] Skin Deviation Description [ trace edema; elevated on pillow Right Arm] Skin Deviation Description [ hydrocortisone cream applied Upper Back] Skin Deviation Description [ healing, KRYSTLE Right Knee] Physical Therapy: Current Status Bed Mobility Assistance Mod Assist Transfer Moblility Assistance Supervision Transfer/Bed Mobility Rolling Walker Recommended Devices Ambulation Assistance Supervision,Contact Guard Assist Ambulation Assistive Devices Rolling Walker Number of Feet Patient x90', 3x30' Ambulated Stairs Assistance Supervision,Contact Guard Assist Stairs Recommended Devices Two Rails Number of Stairs x5 Objective Comments trained pt in step-to pattern ascend/descending stairs, leading with RLE up, LLE down. Occupational Therapy: Current Status Upper Body Dressing Supervision Upper Body Dressing Progress requires cues Lower Body Dressing Min Assist Lower Body Dressing Progress A for pulling up / adjusting briefs on R side Bathing Supervision Toileting Supervision Toilet Transfer Supervision Shower Transfer Contact Guard Assist Eating Independent Rec Therapy: Current Status Summary of Assessment and RT assessment complete and pt. is aware of Clinical Impression services. Pt. is very social and engaged in leisure visits. Pt. was pleasant and cooperative. Pt. states he enjoys his life and is open to continued leisure visits on the unit. Treatment Goals Patient will engage in recreation and leisure activities while on the unit Treatment Plan Provide and encourage involvement in RT services Provide leisure visits for socialization and support Social Work: Current Status Discharge Plan return home with home care svs and family support Potential for Family Training TBD Anticipated Discharge Home Destination Discharge With home care svs and family support Nutrition: Current Status Monitoring Pt remains on a heart healthy consistent carbohydrate diet. Intake x past 2 days has ranged from 50-100% of meals, although mostly 98-100%; anticipate overall intake to be adequate. Labs reviewed; FS (10/19-): 87-211, which is an improvement from admission. Agree w/ continuing consistent carbohydrate diet. No GI s/sx, such as N/V, noted. Per nursing assessment, pt w/o difficulty chewing/swallowing. Regular textures remain appropriate. Per chart, pt w/o pressure related skin breakdown. Last BM documented 10/20. Will continue to monitor pt progress, and remain available to answer pt questions as indicated. Goals: Physical Therapy: Initial Goals Bed Mobility Assistance Independent Transfer Mobility Assistance Independent Transfer/Bed Mobility Rolling Walker Recommended Devices Ambulation Independent Ambulation Recommended Devices Rolling Walker Ambulation Distance 300 Stairs Assistance Independent Stair Recommended Devices One Rail Number of Stairs 12 Physical Therapy: Updated Goals Transfer/Bed Mobility Rolling Walker Recommended Devices Occupational Therapy: Initial Goals Goals to be Completed in (Days 5-7 ) Upper Body Bathing Routine Independent Lower Body Bathing Routine Modified Independent with Upper Body Dressing Routine Modified Independent with Lower Body Dressing Routine Modified Independent with Toilet Hygeine and Clothing Modified Independent with Management Routine Toilet Transfer Routine Modified Independent with Tub Transfer Routine Modified Independent with Functional Transfers for ADL Modified Independent with Feeding Routine Modified Independent with Nutrition: Goals Intervention Goals 1. Intake will be adequate to meet needs without contributing to excess wt gain 2. Glycemic control will improve on appropriate med regimen 3. Pt will maintain regular bowel pattern without constipation (or diarrhea) Speech: Goals Speech Goal 1 Expression Goal 1 Comments Long-Term Goal: Pt will use conversational repair strategies to cooperatively find words in structured conversation, 100% accuracy, given extra time, Independently. Short-Term Goal: Pt will use conversational repair strategies to cooperatively find words in structured language activities, 80% accuracy, given Moderate skilled instruction and cueing. Status: Progressing as expected. Social Work: Goals Discharge Plan return home with home care svs and family support Potential for Family Training TBD Anticipated Discharge Home Destination Discharge With home care svs and family support Care Plan: Care Plan ADL's - Improve/Maintain Start: 10/13/17 14:52 Freq: DAILY Status: Active Target: Protocol: Activity Type Activity Date Activity User E-Sign Co-Sign Detail Recorded Client Recorded Date Recorded By Document 10/16/17 14:52 [id number] [id number] 10/16/17 14:52 [id number] 10/16/17 14:52 PMRU Outcome: ADL's/ADL Transfers Orders/Interventions Occupational Therapy Evaluation & Treatment Communication Tool in Patient Room Device Yes Patient to receive OT 5x/wk for 60-120 Therex min/day Self Care Management Group Therapy Neuromuscular ReEducation UE/LE ADL's with Assist Yes: mod I ADL Transfers with Assist Yes: mod I Toileting: Transfers,Clothing Management Yes: mod I ,Hygeine w/Assist Light Kitchen/Laundry w/Assist Yes: mod I Progression Toward Outcome/Goals Progressing Outcome/Goals Met Pt's progress was limited today d/t frequent "tired " and staring episodes. 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 MD was made aware of all concerns today and pt's decline in functional performance. Cardiovascular- Improve/Maintain Start: 10/14/17 00:38 Freq: QSHIFT Status: Active Target: Protocol: Activity Type Activity Date Activity User E-Sign Co-Sign Detail Recorded Client Recorded Date Recorded By Document 10/20/17 00:00 [id number] 10/20/17 02:03 [id number] 10/20/17 00:00 PMRU Outcome: Cardiovascular Vital Signs q Shift for 48hrs Then BID Yes Daily Weight Ordered No Current Cardiovascular Outcome/Goal Maintain/ Achieve Baseline HR, BP , Perfusion Maintain/ Achieve Hemodynamic Stability Progression Toward Outcome/Goal Progressing Communication-Improve/Maintain Start: 10/13/17 18:03 Freq: DAILY Status: Active Target: Protocol: Activity Type Activity Date Activity User E-Sign Co-Sign Detail Recorded Client Recorded Date Recorded By Document 10/20/17 00:00 [id number] [email or web address] 10/20/17 02:03 [id number] 10/20/17 00:00 PMRU Outcome: Communication/Cognitive Status Outcome/Goals Makes Needs Known Effectively Other Outcomes/Goals Expression Long-Term Goal: Pt will use conversational repair strategies to cooperatively find words in structured conversation, 100% accuracy, given extra time, Independently. Short-Term Goal : Pt will use conversational repair strategies to cooperatively find words in structured language activities, 80% accuracy, given Moderate skilled instruction and cueing. Status: Progressing as expected. Progression Toward Outcomes/Goals Progressing DVT Prophylaxis- Improve/Maintain Start: 10/14/17 00:38 Freq: QSHIFT Status: Active Target: Protocol: Activity Type Activity Date Activity User E-Sign Co-Sign Detail Recorded Client Recorded Date Recorded By Document 10/20/17 00:00 [id number] [email or web address] 10/20/17 02:03 [id number] 10/20/17 00:00 PMRU Outcome: DVT Prophylaxis Outcome/Goals Remains Free of DVT Complies with DVT Prophylaxis /Treatment Progression Toward Outcome/Goals Progressing Discharge Planning - Improve/Maintain Start: 10/14/17 00:38 Freq: DAILY Status: Active Target: Protocol: Activity Type Activity Date Activity User E-Sign Co-Sign Detail Recorded Client Recorded Date Recorded By Document 10/20/17 00:00 [id number] 10/20/17 02:03 [id number] 10/20/17 00:00 PMRU Outcome: Discharge Planning Update Patient Family No Outcome/Goals Demonstrates Understanding of Discharge Plan Progression Toward Outcome/Goals Progressing Education-Improve/Maintain Start: 10/14/17 00:38 Freq: QSHIFT Status: Active Target: Protocol: Activity Type Activity Date Activity User E-Sign Co-Sign Detail Recorded Client Recorded Date Recorded By Document 10/20/17 00:00 [id number] 10/20/17 02:03 [id number] 10/20/17 00:00 PMRU Outcome: Education Outcome/Goals Demonstrate/ Verbalize Understanding of Written Discharge Instructions Demonstrates Skills Encourage Questions Progression Toward Outcome/Goals Progressing Metabolic Status- Improve/Maintain Start: 10/14/17 00:38 Freq: QSHIFT Status: Active Target: Protocol: Activity Type Activity Date Activity User E-Sign Co-Sign Detail Recorded Client Recorded Date Recorded By Document 10/20/17 00:00 [id number] [email or web address] 10/20/17 02:03 [id number] 10/20/17 00:00 PMRU Outcome: Metabolic Status Have Fingersticks Been Ordered Yes Fingerstick Order Frequency AC & HS Outcome/Goals Maintain/ Improve Metabolic Status Demonstrate Knowledge of Prevention/ Treatment of Metabolic Imbalances Progression Toward Outcome/Goals Progressing Mobility- Improve/Maintain Start: 10/13/17 18:16 Freq: DAILY Status: Active Target: Protocol: Activity Type Activity Date Activity User E-Sign Co-Sign Detail Recorded Client Recorded Date Recorded By Document 10/13/17 18:16 [id number] [email or web address] 10/13/17 18:17 [id number] 10/13/17 18:16 PMRU Outcome: Mobility Physical Therapy Evaluation and Yes Treatment Activity OOB with Assistance Yes WBAT Yes Device Yes Assistance Yes Patient to be seen 5x/wk for 60-120 min/ Therex day for: Mobility Training Gait Training W/C Mobility Balance Outcome/Goals Maintain/ Achieve Baseline Mobility Status Improve Mobility Status Demonstrates Proper Use of Assistive Devices Free from Complications of Immobility Bed Mobility Yes: independent Transfers Yes: independent with rolling walker Gait x ft Yes: independent with rolling walker. Up/Down Stairs Yes: independent up/ down 12 stairs with 1 rail Neurological- Improve/Maintain Start: 10/14/17 00:38 Freq: QSHIFT Status: Active Target: Protocol: Activity Type Activity Date Activity User E-Sign Co-Sign Detail Recorded Client Recorded Date Recorded By Document 10/20/17 00:00 [id number] 10/20/17 02:03 [id number] 10/20/17 00:00 PMRU Outcome: Neurological Weakness/Aphasia Weakness Right Side Outcome/Goals Maintain/ Achieve Baseline Neurological Status Prevent Avoidable Neurological Decline Maintain/ Improve Strength/ROM Progression Toward Outcome/Goals Progressing Safety- Improve/Maintain Start: 10/14/17 00:38 Freq: QSHIFT Status: Active Target: Protocol: Activity Type Activity Date Activity User E-Sign Co-Sign Detail Recorded Client Recorded Date Recorded By Document 10/20/17 00:00 [id number] 10/20/17 02:03 [id number] 10/20/17 00:00 PMRU Outcome: Safety Outcome/Goals Remain Free of Injury or Harm Cooperates with Safety Measures for Least Restrictive Environment Prevent Falls/ Injury Progression Toward Outcome/Goals Progressing Skin- Improve/Maintain Start: 10/14/17 00:38 Freq: QSHIFT Status: Active Target: Protocol: Activity Type Activity Date Activity User E-Sign Co-Sign Detail Recorded Client Recorded Date Recorded By Document 10/20/17 00:00 [id number] 10/20/17 02:03 [id number] 10/20/17 00:00 PMRU Outcome: Skin Skin Risk Level Low Outcome/Goals Maintain/ Improve Skin Intergrity Progression Toward Outcome/Goals Progressing Medicine Note: Length of Stay: 3 days Anticipated Discharge Destination: Home Tentative Discharge Date: 10/23/17 Discharged to: home
--- NOTE | 2017-10-20 17:16 | PN ---
Progress Note Date of Service: 10/20/17 Note: ESTELLE BOUDREAUX was visited. Therapy notes read and reviewed. He was discussed in interdisciplinary team rounds. Had LOB while making a turn with PT. Some questions about his ability to make decisions and pay bills. Will likely need help with medication administration after discharge. He does not have any prescription drug coverage. BG testing strips can be expensive. SW trying to assist in applications Current Medications: Active Medications Generic Name Dose Route Start Last Admin Trade Name Freq PRN Reason Stop Dose Admin Acetaminophen 650 mg 10/18/17 11:40 Tylenol Tab* PO Q6H PRN mild pain Amlodipine Besylate 5 mg 10/19/17 09:00 10/20/17 08:18 Norvasc Tab* PO 5 mg DAILY YUMIKO Administration Aspirin 325 mg 10/19/17 09:00 10/20/17 08:18 Ecotrin Ec Tab* PO 325 mg DAILY YUMIKO Administration Atorvastatin Calcium 80 mg 10/18/17 21:00 10/19/17 21:30 Lipitor* PO 80 mg 2100 YUMIKO Administration Carvedilol 12.5 mg 10/18/17 21:00 10/20/17 08:18 Coreg Tab* PO 12.5 mg BID YUMIKO Administration Dextrose 12.5 gm 10/18/17 11:35 D50w Syringe 50 Ml* IV PUSH .FOR FS < 60 - SS PRN FS < 60 Gabapentin 900 mg 10/18/17 21:00 10/19/17 21:31 Neurontin Cap(*) PO 900 mg BEDTIME YUMIKO Administration Glipizide 20 mg 10/19/17 09:00 10/20/17 08:17 Glucotrol Xl* PO 20 mg DAILY WITH MEAL YUMIKO Administration Heparin Sodium (Porcine) 5,000 units 10/18/17 14:00 10/20/17 13:41 Heparin Vial(*) SUBCUT 5,000 units Q8HR YUMIKO Administration Hydrocortisone 1 applic 10/18/17 11:40 10/19/17 21:32 Hytone Cream 1%* TOPICAL 1 applic TID PRN Administration itching Insulin Glargine 36 units 10/19/17 09:00 10/20/17 08:18 Lantus(*) SUBCUT 36 units Q24H YUMIKO Administration Insulin Human Lispro 0 units 10/18/17 16:30 10/20/17 13:41 Humalog* SUBCUT 6 units ACHS YUMIKO Administration Protocol Lisinopril 20 mg 10/19/17 09:00 10/20/17 08:18 Prinivil Tab* PO 20 mg DAILY YUMIKO Administration Metformin HCl 850 mg 10/18/17 17:00 10/20/17 16:43 Glucophage* PO 850 mg 0800,1700 YUMIKO Administration Nystatin 1 applic 10/18/17 21:00 10/20/17 08:18 Nystatin Top Powder* TOPICAL 1 applic BID YUMIKO Administration Sertraline HCl 25 mg 10/19/17 09:00 10/20/17 08:18 Zoloft* PO 25 mg DAILY YUMIKO Administration Vital Signs: Vital Signs Temp Pulse Resp BP Pulse Ox 97.3 F 65 18 135/61 100 10/20/17 06:23 10/20/17 06:23 10/20/17 06:23 10/20/17 06:23 10/20/17 06:23 Lab Results: Laboratory Results - last 24 hr 10/19/17 10/20/17 10/20/17 20:08 07:37 11:58 POC Glucose (mg/dL) 188 H 87 262 H 10/20/17 16:47 POC Glucose (mg/dL) 202 H Exam: GENERAL: no acute distress. alert and appropriate. LUNGS: clear to auscultation bilaterally. HEART: regular rate and rhythm. ABDOMEN: + bowel sounds, soft, non-tender, non-distended EXTREMITIES: no edema NEUROLOGIC: CN II-XII intact. Motor 4/5 throughout right upper extremity. 5/5 in LUE and BLE. Normal sensation. Assessment/Plan: 1. 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 ASA 325mg/Lipitor 80mg. f/u neurology. 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 2. Reversible ischemia on nuclear stress test: Plan cardiac cath in 3weeks when further out from stroke. f/u with cardiology. 3. Chronic kidney disease: follow labs 4. Hypertension: continue current meds. Watch BP 5. Diabetes mellitus: Now off Januvia, on Glucophage, Glipizide, lantus and ssI. Teach self-administration of lantus and fingersticks. 6. DVT prophyllaxis: lovenox 7. Advanced directives: full code. DaughterRachelle, is hcp. 10/20/17 17:17
[2017-10-20] MEDS: Gabapentin CAP(*) 300 MG PO SCH (20:48)
[2017-10-20] MEDS: Atorvastatin* 80 MG TAB PO SCH (20:49)
[2017-10-20] MEDS: Hydrocortisone 1% CREAM* 30 GM TUBE TOPICAL PRN (20:54)
[2017-10-21] MEDS: Heparin VIAL(*) 5000 UNITS/ML VIAL (FIVE THOUSAND) SUBCUT SCH ×3 (06:04→21:11)
[2017-10-21 07:28] LABS: ABS Basophils 0.1 10^3/ul (0-0.2); ABS Eosinophils 0.6 10^3/ul (0-0.6); ABS Monocytes 0.8 10^3/ul (0-0.8); ABS Neutrophils 5.8 10^3/ul (1.5-7.7); ABS Nucleated RBC 0 10^3/ul; Eosinophil % 5.4 % (0-6); Hematocrit 49 % (42-52); Hemoglobin 16.6 g/dl (14.0-18.0); Lymphocyte % 29.2 % (25-47); Mean Corpuscular HGB Conc 34 g/dl (31-36); Mean Corpuscular Hemoglobin 29 pg (27-31); Mean Corpuscular Volume 85 fL (80-94); Mean Platelet Volume 8.3 um3 (7.4-10.4); Nucleated Red Blood Cells % 0.1; Platelet Count 293 10^3/ul (150-450); Red Blood Count 5.74 10^6/ul (4.00-5.40); Red Cell Distribution Width 14 % (10.5-15); White Blood Count 10.2 10^3/ul (3.5-10.8)
[2017-10-21 07:45] LABS: EGFR Non-African American 72.8 (>60)
[2017-10-21] MEDS: Insulin LISPRO* 1 UNITS UNIT SUBCUT SCH ×4 (08:32→21:11)
[2017-10-21] MEDS: metFORMIN* 850 MG TAB PO SCH ×2 (08:32→17:24)
[2017-10-21] MEDS: glipiZIDE TAB.XL* 5 MG PO SCH (08:32)
[2017-10-21] MEDS: amLODIPine TAB* 5 MG PO SCH (08:35)
[2017-10-21] MEDS: Aspirin EC TAB* 325 MG PO SCH (08:35)
[2017-10-21] MEDS: Carvedilol TAB* 6.25 MG PO SCH ×2 (08:36→20:18)
[2017-10-21] MEDS: Lisinopril TAB* 10 MG PO SCH (08:36)
[2017-10-21] MEDS: Sertraline* 25 MG TAB PO SCH (08:37)
[2017-10-21] MEDS: Insulin GLARGINE(*) 1 UNITS UNIT SUBCUT SCH (08:39)
[2017-10-21] MEDS: Nystatin TOP POWDER* 15 GM BTL TOPICAL SCH ×2 (12:48→20:18)
--- NOTE | 2017-10-21 19:29 | PN ---
Progress Note Date of Service: 10/21/17 Note: ESTELLE BOUDREAUX was visited. Therapy notes read and reviewed. I discussed his case with the therapy team who has concerns about his returning home. I also met with Estelle and discussed the possibility of a short term stay in a SNF until after his cardiac catheterization. He seemed amenable to the idea, but will think it over. I met with his daughter and discussed his home situation: she staed she would be unable to assist with his insulin administration and that Estelle's son and grandson would also be unable to help. She also said Estelle' s house was on the verge of foreclosure for non-payment of property taxes. Current Medications: Active Medications Generic Name Dose Route Start Last Admin Trade Name Freq PRN Reason Stop Dose Admin Acetaminophen 650 mg 10/18/17 11:40 Tylenol Tab* PO Q6H PRN mild pain Aspirin 325 mg 10/19/17 09:00 10/21/17 08:35 Ecotrin Ec Tab* PO 325 mg DAILY YUMIKO Administration Atorvastatin Calcium 80 mg 10/18/17 21:00 10/20/17 20:49 Lipitor* PO 80 mg 2100 YUMIKO Administration Carvedilol 12.5 mg 10/18/17 21:00 10/21/17 08:36 Coreg Tab* PO 12.5 mg BID YUMIKO Administration Dextrose 12.5 gm 10/18/17 11:35 D50w Syringe 50 Ml* IV PUSH .FOR FS < 60 - SS PRN FS < 60 Gabapentin 900 mg 10/18/17 21:00 10/20/17 20:48 Neurontin Cap(*) PO 900 mg BEDTIME YUMIKO Administration Glipizide 20 mg 10/19/17 09:00 10/21/17 08:32 Glucotrol Xl* PO 20 mg DAILY WITH MEAL YUMIKO Administration Heparin Sodium (Porcine) 5,000 units 10/18/17 14:00 10/21/17 12:44 Heparin Vial(*) SUBCUT 5,000 units Q8HR YUMIKO Administration Hydrocortisone 1 applic 10/18/17 11:40 10/20/17 20:54 Hytone Cream 1%* TOPICAL 1 applic TID PRN Administration itching Insulin Glargine 36 units 10/19/17 09:00 10/21/17 08:39 Lantus(*) SUBCUT 36 units Q24H YUMIKO Administration Insulin Human Lispro 0 units 07/08/18 16:30 10/21/17 17:24 Humalog* SUBCUT 2 units ACHS YUMIKO Administration Protocol Lisinopril 20 mg 10/19/17 09:00 10/21/17 08:36 Prinivil Tab* PO 20 mg DAILY YUMIKO Administration Metformin HCl 850 mg 10/18/17 17:00 10/21/17 17:24 Glucophage* PO 850 mg 0800,1700 YUMIKO Administration Nystatin 1 applic 10/18/17 21:00 10/21/17 12:48 Nystatin Top Powder* TOPICAL 1 applic BID YUMIKO Administration Sertraline HCl 25 mg 10/19/17 09:00 10/21/17 08:37 Zoloft* PO 25 mg DAILY YUMIKO Administration Vital Signs: Vital Signs Temp Pulse Resp BP Pulse Ox 97.7 F 69 17 122/79 100 10/21/17 16:02 10/21/17 16:02 10/21/17 16:15 10/21/17 16:02 10/21/17 16:15 Lab Results: Laboratory Results - last 24 hr 10/20/17 10/21/17 10/21/17 20:19 07:05 07:05 WBC 10.2 RBC 5.74 H Hgb 16.6 Hct 49 MCV 85 MCH 29 MCHC 34 RDW 14 Plt Count 293 MPV 8.3 Neut % (Auto) 56.5 Lymph % (Auto) 29.2 Vernon % (Auto) 7.5 H Eos % (Auto) 5.4 Baso % (Auto) 1.4 Absolute Neuts (auto) 5.8 Absolute Lymphs (auto) 3.0 Absolute Monos (auto) 0.8 Absolute Eos (auto) 0.6 Absolute Basos (auto) 0.1 Absolute Nucleated RBC 0 Nucleated RBC % 0.1 Sodium 137 Potassium 4.2 Chloride 103 Carbon Dioxide 26 Anion Gap 8 BUN 18 Creatinine 1.00 Est GFR ( Amer) 88.1 Est GFR (Non-Af Amer) 72.8 BUN/Creatinine Ratio 18.0 Glucose 181 H POC Glucose (mg/dL) 182 H Calcium 9.2 Total Bilirubin 0.60 AST 29 ALT 49 Alkaline Phosphatase 120 H Total Protein 6.6 Albumin 3.7 Globulin 2.9 Albumin/Globulin Ratio 1.3 10/21/17 10/21/17 10/21/17 07:19 12:07 16:30 WBC RBC Hgb Hct MCV MCH MCHC RDW Plt Count MPV Neut % (Auto) Lymph % (Auto) Vernon % (Auto) Eos % (Auto) Baso % (Auto) Absolute Neuts (auto) Absolute Lymphs (auto) Absolute Monos (auto) Absolute Eos (auto) Absolute Basos (auto) Absolute Nucleated RBC Nucleated RBC % Sodium Potassium Chloride Carbon Dioxide Anion Gap BUN Creatinine Est GFR ( Amer) Est GFR (Non-Af Amer) BUN/Creatinine Ratio Glucose POC Glucose (mg/dL) 195 H 235 H 175 H Calcium Total Bilirubin AST ALT Alkaline Phosphatase Total Protein Albumin Globulin Albumin/Globulin Ratio Exam: GENERAL: no acute distress. alert and appropriate. LUNGS: clear to auscultation bilaterally. HEART: regular rate and rhythm. ABDOMEN: + bowel sounds, soft, non-tender, non-distended EXTREMITIES: no edema NEUROLOGIC: CN II-XII intact. Motor 4/5 throughout right upper extremity. 5/5 in LUE and BLE. Normal sensation. Assessment/Plan: 1. 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 ASA 325mg/Lipitor 80mg. f/u neurology. 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 2. Reversible ischemia on nuclear stress test: Plan cardiac cath in 3weeks when further out from stroke. f/u with cardiology. 3. Chronic kidney disease: follow labs 4. Hypertension: continue current meds. Watch BP. Will change Norvasc to nighttime dosing to help even out BP and prevent episodes of hypotension 5. Diabetes mellitus: Now off Januvia, on Glucophage, Glipizide, lantus and ssI. Teach self-administration of lantus and fingersticks. 6. DVT prophylaxis: lovenox 7. Advanced directives: full code. Daughter, Rachelle, is hcp. 10/21/17 19:30
[2017-10-21] MEDS: Atorvastatin* 80 MG TAB PO SCH (20:15)
[2017-10-21] MEDS: Gabapentin CAP(*) 300 MG PO SCH (20:15)
[2017-10-21] MEDS: Hydrocortisone 1% CREAM* 30 GM TUBE TOPICAL PRN (20:18)
[2017-10-22] MEDS: Heparin VIAL(*) 5000 UNITS/ML VIAL (FIVE THOUSAND) SUBCUT SCH ×3 (05:34→21:29)
[2017-10-22] MEDS: Aspirin EC TAB* 325 MG PO SCH (08:17)
[2017-10-22] MEDS: glipiZIDE TAB.XL* 5 MG PO SCH (08:17)
[2017-10-22] MEDS: Nystatin TOP POWDER* 15 GM BTL TOPICAL SCH ×2 (08:17→21:37)
[2017-10-22] MEDS: metFORMIN* 850 MG TAB PO SCH ×2 (08:17→17:56)
[2017-10-22] MEDS: Lisinopril TAB* 10 MG PO SCH (08:17)
[2017-10-22] MEDS: Carvedilol TAB* 6.25 MG PO SCH ×2 (08:17→21:27)
[2017-10-22] MEDS: Sertraline* 25 MG TAB PO SCH (08:17)
[2017-10-22] MEDS: Insulin LISPRO* 1 UNITS UNIT SUBCUT SCH ×4 (08:42→21:28)
[2017-10-22] MEDS: Insulin GLARGINE(*) 1 UNITS UNIT SUBCUT SCH (08:44)
[2017-10-22] MEDS: Hydrocortisone 1% CREAM* 30 GM TUBE TOPICAL PRN ×2 (14:49→21:38)
--- NOTE | 2017-10-22 17:53 | PN ---
Progress Note Date of Service: 10/22/17 Note: ESTELLE BOUDREAUX was visited. Therapy notes read and reviewed. He now does not wish to go to a subacute and prefers to go home. Will meet with family prior to discharge to express our concerns. Family training is scheduled for tomorrow, with discharge planned after training. Current Medications: Active Medications Generic Name Dose Route Start Last Admin Trade Name Freq PRN Reason Stop Dose Admin Acetaminophen 650 mg 10/18/17 11:40 Tylenol Tab* PO Q6H PRN mild pain Amlodipine Besylate 5 mg 10/22/17 21:00 Norvasc Tab* PO BEDTIME YUMIKO Aspirin 325 mg 10/19/17 09:00 10/22/17 08:17 Ecotrin Ec Tab* PO 325 mg DAILY YUMIKO Administration Atorvastatin Calcium 80 mg 10/18/17 21:00 10/21/17 20:15 Lipitor* PO 80 mg 2100 YUMIKO Administration Carvedilol 12.5 mg 10/18/17 21:00 10/22/17 08:17 Coreg Tab* PO 12.5 mg BID YUMIKO Administration Dextrose 12.5 gm 10/18/17 11:35 D50w Syringe 50 Ml* IV PUSH .FOR FS < 60 - SS PRN FS < 60 Gabapentin 900 mg 10/18/17 21:00 10/21/17 20:15 Neurontin Cap(*) PO 900 mg BEDTIME YUMIKO Administration Glipizide 20 mg 10/19/17 09:00 10/22/17 08:17 Glucotrol Xl* PO 20 mg DAILY WITH MEAL YUMIKO Administration Heparin Sodium (Porcine) 5,000 units 10/18/17 14:00 10/22/17 12:40 Heparin Vial(*) SUBCUT 5,000 units Q8HR YUMIKO Administration Hydrocortisone 1 applic 10/18/17 11:40 10/22/17 14:49 Hytone Cream 1%* TOPICAL 1 applic TID PRN Administration itching Insulin Glargine 36 units 10/19/17 09:00 10/22/17 08:44 Lantus(*) SUBCUT 36 units Q24H YUMIKO Administration Insulin Human Lispro 0 units 10/18/17 16:30 10/22/17 17:02 Humalog* SUBCUT Not Given ACHS [facility] Protocol Lisinopril 20 mg 10/19/17 09:00 07/12/18 08:17 Prinivil Tab* PO 20 mg DAILY YUMIKO Administration Metformin HCl 850 mg 10/18/17 17:00 10/22/17 08:17 Glucophage* PO 850 mg 0800,1700 YUMIKO Administration Nystatin 1 applic 10/18/17 21:00 10/22/17 08:17 Nystatin Top Powder* TOPICAL 1 applic BID YUMIKO Administration Sertraline HCl 25 mg 10/19/17 09:00 10/22/17 08:17 Zoloft* PO 25 mg DAILY YUMIKO Administration Vital Signs: Vital Signs Temp Pulse Resp BP Pulse Ox 97.5 F 66 18 151/76 98 10/22/17 15:47 10/22/17 15:47 10/22/17 15:47 10/22/17 15:47 10/22/17 15:47 Lab Results: Laboratory Results - last 24 hr 10/21/17 10/22/17 10/22/17 20:14 07:52 11:49 POC Glucose (mg/dL) 157 H 132 H 161 H 10/22/17 16:48 POC Glucose (mg/dL) 69 L Exam: GENERAL: no acute distress. alert and appropriate. LUNGS: clear to auscultation bilaterally. HEART: regular rate and rhythm. ABDOMEN: + bowel sounds, soft, non-tender, non-distended EXTREMITIES: no edema NEUROLOGIC: CN II-XII intact. Motor 4/5 throughout right upper extremity. 5/5 in LUE and BLE. Normal sensation. Assessment/Plan: 1. 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 ASA 325mg/Lipitor 80mg. f/u neurology. 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 2. Reversible ischemia on nuclear stress test: Plan cardiac cath in 3weeks when further out from stroke. f/u with cardiology. 3. Chronic kidney disease: follow labs 4. Hypertension: continue current meds. Watch BP. Changed Norvasc to nighttime dosing to help even out BP and prevent episodes of hypotension 5. Diabetes mellitus: Now off Januvia, on Glucophage, Glipizide, lantus and ssI. Teach self-administration of lantus and fingersticks. 6. DVT prophylaxis: lovenox 7. Advanced directives: full code. Daughter, Rachelle, is hcp. 10/22/17 17:53 10/22/17 17:54
[2017-10-22] MEDS ORDERED: amLODIPine TAB* 5 MG PO SCH (21:00)
[2017-10-22] MEDS: Atorvastatin* 80 MG TAB PO SCH (21:26)
[2017-10-22] MEDS: Gabapentin CAP(*) 300 MG PO SCH (21:26)
[2017-10-22] MEDS: Senna TAB PO SCH (21:27)
[2017-10-23] MEDS: Heparin VIAL(*) 5000 UNITS/ML VIAL (FIVE THOUSAND) SUBCUT SCH ×3 (05:42→22:25)
[2017-10-23] MEDS: metFORMIN* 850 MG TAB PO SCH ×2 (08:31→17:17)
[2017-10-23] MEDS: glipiZIDE TAB.XL* 5 MG PO SCH (08:31)
[2017-10-23] MEDS: Lisinopril TAB* 10 MG PO SCH (08:32)
[2017-10-23] MEDS: Sertraline* 25 MG TAB PO SCH (08:32)
[2017-10-23] MEDS: Aspirin EC TAB* 325 MG PO SCH (08:32)
[2017-10-23] MEDS: Carvedilol TAB* 6.25 MG PO SCH ×2 (08:32→20:53)
[2017-10-23] MEDS: Insulin GLARGINE(*) 1 UNITS UNIT SUBCUT SCH (10:11)
[2017-10-23] MEDS: Insulin LISPRO* 1 UNITS UNIT SUBCUT SCH ×4 (10:12→21:13)
[2017-10-23] MEDS: Nystatin TOP POWDER* 15 GM BTL TOPICAL SCH ×2 (10:15→21:20)
[2017-10-23] MEDS ORDERED: Polyethylene Glycol 3350* 17 GM PACKET PO PRN (12:08)
--- NOTE | 2017-10-23 15:49 | CONSULT ---
Consult Consult: Consult for Medical Decision Making Capacity S: Psychiatry is asked to evaluate capacity in this 77 y.o. recently , white male [place] with a history of cerebrovascular disease and other medical comorbidities, currently admitted to the [facility] for acute rehab related to recent left-sided stroke with right hemiparesis. Although the patient has made gains in this setting, the treatment team feels he would benefit from referral to sub-acute rehab for further therapy. The patient initially agreed, then disagreed, then agreed again and they, supported by his family, are wondering if he has capacity to make an informed decision. On exam, the patient is initially asleep and somewhat difficult to arouse. He is calm, polite and quite affable; able to state the nature of his illness ( "stroke") and the recommendations of his providers for future care ("the other rehab"). When asked about his vacillation between accepting and declining [facility] placement, he responds "These girls that work here. They have taken such good care of me. After speaking with them I decided that my family really can't take care of me at home." He goes on to explain his temporary reluctance to go to rehab in that he has a family reunion scheduled for October 31. "At first I didn't think they'd let me go but I guess they can give me a day pass." He reiterates his intention several times throughout my visit that he wishes to go to rehab. I asked what the risks of ultimately refusing rehab might be. "Well , my son and grandson couldn't take care of me. I'd end up back in the hospital." O: the patient is an aging white male, balding, wearing patient gown, laying supine in bed, propped up by pillow; clean and well-groomed; calm and polite; speech is fluent; euthymic with full affect; denies SI or HI; thought process is circumstantial; thought content concerning his concern about having a coronary cath procedure later this month; insight and judgment intact, asleep but arousable; The patient scored 27/30 on a MMSE, missing 2 points for attention and 1 point for delayed recall A/P: Capacity: the patient is able to reproduce his diagnosis; treatment plan and risks of refusing indicated treatment; he is cognitively intact and has capacity to accept or refuse [facility] placement. Psychiatry is signing off but can be re-consulted in the event of any significant changes in Mr. Krueger's presentation.
--- NOTE | 2017-10-23 17:34 | PN ---
Progress Note Date of Service: 10/23/17 Note: ESTELLE BOUDREAUX was visited. Therapy notes read and reviewed. At 1255 he went to the bathroom with OT, and was having a bowel movement. He felt not himself, and was difficult to engage. There may have been a brief LOC. A CAT team was called. He was transferred to bed and his vitals appeared stable. The case was discussed with the hospitalist, Dr. Jung and Nitish Ramon and it was decided to cut his Norvasc and decrease his Coreg to 6.25 mg BID, and to check orthostatics. May need to slowly titrate down and change Coreg to Toprol. I have also tried to call Dr. Dawson A family meeting had been scheduled for 1300. I met briefly with his daughter, son and grandson. They agree that he cannot manage at home. I met with Estelle after the meeting. He agrees now for a short stay in [facility] until he has his cardiac catheterization. Will proceed with looking for [facility] Current Medications: Active Medications Generic Name Dose Route Start Last Admin Trade Name Freq PRN Reason Stop Dose Admin Acetaminophen 650 mg 10/18/17 11:40 Tylenol Tab* PO Q6H PRN mild pain Aspirin 325 mg 10/19/17 09:00 10/23/17 08:32 Ecotrin Ec Tab* PO 325 mg DAILY YUMIKO Administration Atorvastatin Calcium 80 mg 10/18/17 21:00 10/22/17 21:26 Lipitor* PO 80 mg 2100 YUMIKO Administration Carvedilol 6.25 mg 10/23/17 21:00 Coreg Tab* PO BID YUMIKO Dextrose 12.5 gm 10/18/17 11:35 D50w Syringe 50 Ml* IV PUSH .FOR FS < 60 - SS PRN FS < 60 Docusate Sodium 100 mg 10/23/17 21:00 Colace Cap* PO BID YUMIKO Gabapentin 900 mg 10/18/17 21:00 10/22/17 21:26 Neurontin Cap(*) PO 900 mg BEDTIME YUMIKO Administration Glipizide 20 mg 10/19/17 09:00 10/23/17 08:31 Glucotrol Xl* PO 20 mg DAILY WITH MEAL YUMIKO Administration Heparin Sodium (Porcine) 5,000 units 10/18/17 14:00 10/23/17 13:39 Heparin Vial(*) SUBCUT 5,000 units Q8HR YUMIKO Administration Hydrocortisone 1 applic 10/18/17 11:40 10/22/17 21:38 Hytone Cream 1%* TOPICAL 1 applic TID PRN Administration itching Insulin Glargine 36 units 10/19/17 09:00 10/23/17 10:11 Lantus(*) SUBCUT 36 units Q24H YUMIKO Administration Insulin Human Lispro 0 units 10/18/17 16:30 10/23/17 17:05 Humalog* SUBCUT 1 units ACHS YUMIKO Administration Protocol Lisinopril 20 mg 10/19/17 09:00 10/23/17 08:32 Prinivil Tab* PO 20 mg DAILY YUMIKO Administration Metformin HCl 850 mg 10/18/17 17:00 10/23/17 17:17 Glucophage* PO 850 mg 0800,1700 YUMIKO Administration Nystatin 1 applic 10/18/17 21:00 10/23/17 10:15 Nystatin Top Powder* TOPICAL 1 applic BID YUMIKO Administration Polyethylene Glycol/Electrolytes 17 gm 10/23/17 12:08 Miralax* PO DAILY PRN CONSTIPATION Senna 2 tab 10/22/17 21:00 10/22/17 21:27 Senokot Tab* PO 2 tab BEDTIME YUMIKO Administration Sertraline HCl 25 mg 10/19/17 09:00 10/23/17 08:32 Zoloft* PO 25 mg DAILY YUMIKO Administration Vital Signs: Vital Signs Temp Pulse Resp BP Pulse Ox 97.4 F 71 18 120/63 97 10/23/17 16:07 10/23/17 16:07 10/23/17 16:07 10/23/17 16:07 10/23/17 16:22 Lab Results: Laboratory Results - last 24 hr 10/22/17 10/22/17 10/22/17 16:54 17:56 20:25 POC Glucose (mg/dL) 80 145 H 196 H 10/23/17 10/23/17 08:00 12:05 POC Glucose (mg/dL) 171 H 304 H Exam: GENERAL: no acute distress. alert and appropriate. LUNGS: clear to auscultation bilaterally. HEART: regular rate and rhythm. ABDOMEN: + bowel sounds, soft, non-tender, non-distended EXTREMITIES: no edema NEUROLOGIC: CN II-XII intact. Motor 4/5 throughout right upper extremity. 5/5 in LUE and BLE. Normal sensation. Assessment/Plan: 1. 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 ASA 325mg/Lipitor 80mg. f/u neurology. 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 2. Reversible ischemia on nuclear stress test: Plan cardiac cath in 3weeks when further out from stroke. f/u with cardiology. 3. Chronic kidney disease: follow labs 4. Hypertension: continue current meds. Watch BP. Changed Norvasc to nighttime dosing to help even out BP and prevent episodes of hypotension 5. Diabetes mellitus: Now off Januvia, on Glucophage, Glipizide, lantus and ssI. Teach self-administration of lantus and fingersticks. 6. DVT prophylaxis: Heparin S/Q 7. Advanced directives: full code. DaughterRachelle is hcp. 10/23/17 17:35 10/23/17 17:35 10/23/17 17:36
[2017-10-23] MEDS: Gabapentin CAP(*) 300 MG PO SCH (20:52)
[2017-10-23] MEDS: Atorvastatin* 80 MG TAB PO SCH (20:52)
[2017-10-23] MEDS: Hydrocortisone 1% CREAM* 30 GM TUBE TOPICAL PRN (21:20)
[2017-10-23] MEDS: Docusate CAP* 100 MG PO SCH (21:20)
[2017-10-23] MEDS: Senna TAB PO SCH (21:21)
[2017-10-24] MEDS: Heparin VIAL(*) 5000 UNITS/ML VIAL (FIVE THOUSAND) SUBCUT SCH ×3 (05:26→21:55)
[2017-10-24] MEDS: Insulin GLARGINE(*) 1 UNITS UNIT SUBCUT SCH (08:43)
[2017-10-24] MEDS: Carvedilol TAB* 6.25 MG PO SCH ×2 (08:44→20:13)
[2017-10-24] MEDS: Docusate CAP* 100 MG PO SCH ×2 (08:44→20:12)
[2017-10-24] MEDS: Lisinopril TAB* 10 MG PO SCH (08:44)
[2017-10-24] MEDS: Aspirin EC TAB* 325 MG PO SCH (08:44)
[2017-10-24] MEDS: glipiZIDE TAB.XL* 5 MG PO SCH (08:44)
[2017-10-24] MEDS: Insulin LISPRO* 1 UNITS UNIT SUBCUT SCH ×4 (08:44→20:46)
[2017-10-24] MEDS: Nystatin TOP POWDER* 15 GM BTL TOPICAL SCH ×2 (08:45→20:49)
[2017-10-24] MEDS: Sertraline* 25 MG TAB PO SCH (08:45)
[2017-10-24] MEDS: metFORMIN* 850 MG TAB PO SCH ×2 (08:45→16:57)
[2017-10-24] MEDS: Atorvastatin* 80 MG TAB PO SCH (20:12)
[2017-10-24] MEDS: Senna TAB PO SCH (20:12)
[2017-10-24] MEDS: Gabapentin CAP(*) 300 MG PO SCH (20:12)
--- NOTE | 2017-10-24 20:25 | PN ---
Progress Note Date of Service: 10/24/17 Note: ESTELLE BOUDREAUX was visited. Therapy notes read and reviewed. No further near syncopal events. BP still slightly low. May need further reductions in Lisinopril, but am hesitant as he had high BP last time we lowered Lisinopril Current Medications: Active Medications Generic Name Dose Route Start Last Admin Trade Name Freq PRN Reason Stop Dose Admin Acetaminophen 650 mg 10/18/17 11:40 Tylenol Tab* PO Q6H PRN mild pain Aspirin 325 mg 10/19/17 09:00 10/24/17 08:44 Ecotrin Ec Tab* PO 325 mg DAILY YUMIKO Administration Atorvastatin Calcium 80 mg 10/18/17 21:00 10/24/17 20:12 Lipitor* PO 80 mg 2100 YUMIKO Administration Carvedilol 6.25 mg 10/23/17 21:00 10/24/17 20:13 Coreg Tab* PO 6.25 mg BID YUMIKO Administration Dextrose 12.5 gm 10/18/17 11:35 D50w Syringe 50 Ml* IV PUSH .FOR FS < 60 - SS PRN FS < 60 Docusate Sodium 100 mg 10/23/17 21:00 10/24/17 20:12 Colace Cap* PO 100 mg BID YUMIKO Administration Gabapentin 900 mg 10/18/17 21:00 10/24/17 20:12 Neurontin Cap(*) PO 900 mg BEDTIME YUMIKO Administration Glipizide 20 mg 10/19/17 09:00 10/24/17 08:44 Glucotrol Xl* PO 20 mg DAILY WITH MEAL YUMIKO Administration Heparin Sodium (Porcine) 5,000 units 10/18/17 14:00 10/24/17 14:00 Heparin Vial(*) SUBCUT 5,000 units Q8HR YUMIKO Administration Hydrocortisone 1 applic 10/18/17 11:40 10/23/17 21:20 Hytone Cream 1%* TOPICAL 1 applic TID PRN Administration itching Insulin Glargine 36 units 10/19/17 09:00 10/24/17 08:43 Lantus(*) SUBCUT 36 units Q24H YUMIKO Administration Insulin Human Lispro 0 units 10/18/17 16:30 10/24/17 16:50 Humalog* SUBCUT 2 units ACHS YUMIKO Administration Protocol Lisinopril 20 mg 10/19/17 09:00 10/24/17 08:44 Prinivil Tab* PO 20 mg DAILY YUMIKO Administration Metformin HCl 850 mg 10/18/17 17:00 10/24/17 16:57 Glucophage* PO 850 mg 0800,1700 YUMIKO Administration Nystatin 1 applic 10/18/17 21:00 10/24/17 08:45 Nystatin Top Powder* TOPICAL 1 applic BID YUMIKO Administration Polyethylene Glycol/Electrolytes 17 gm 10/23/17 12:08 Miralax* PO DAILY PRN CONSTIPATION Senna 2 tab 10/22/17 21:00 10/24/17 20:12 Senokot Tab* PO 2 tab BEDTIME YUMIKO Administration Sertraline HCl 25 mg 10/19/17 09:00 10/24/17 08:45 Zoloft* PO 25 mg DAILY YUMIKO Administration Vital Signs: Vital Signs Temp Pulse Resp BP Pulse Ox 98.1 F 71 18 122/66 99 10/24/17 15:28 10/24/17 15:28 10/24/17 20:12 10/24/17 15:28 10/24/17 15:28 Lab Results: Laboratory Results - last 24 hr 10/23/17 10/23/17 10/24/17 16:39 21:00 07:34 POC Glucose (mg/dL) 148 H 131 H 186 H 10/24/17 10/24/17 11:01 16:23 POC Glucose (mg/dL) 275 H 175 H Exam: GENERAL: no acute distress. alert and appropriate. LUNGS: clear to auscultation bilaterally. HEART: regular rate and rhythm. ABDOMEN: + bowel sounds, soft, non-tender, non-distended EXTREMITIES: no edema NEUROLOGIC: CN II-XII intact. Motor 4+/5 throughout right upper extremity. 5/5 in LUE and BLE. Normal sensation. Assessment/Plan: 1. 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 ASA 325mg/Lipitor 80mg. f/u neurology. 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 2. Reversible ischemia on nuclear stress test: Plan cardiac cath in 3weeks when further out from stroke. f/u with cardiology. Coreg 6.25 BID 3. Chronic kidney disease: follow labs 4. Hypertension: continue current meds. Watch BP. Still a little low 5. Diabetes mellitus: Now off Januvia, on Glucophage, Glipizide, lantus and ssI. Teach self-administration of lantus and fingersticks. 6. DVT prophylaxis: Heparin S/Q 7. Advanced directives: full code. Daughter, Rachelle, is hcp 8. Near Syncope: No further events today. 10/24/17 20:26
[2017-10-25] MEDS: Heparin VIAL(*) 5000 UNITS/ML VIAL (FIVE THOUSAND) SUBCUT SCH ×3 (06:03→21:36)
[2017-10-25] MEDS: Docusate CAP* 100 MG PO SCH ×2 (07:54→20:01)
[2017-10-25] MEDS: metFORMIN* 850 MG TAB PO SCH ×2 (07:54→17:46)
[2017-10-25] MEDS: Lisinopril TAB* 10 MG PO SCH (07:54)
[2017-10-25] MEDS: glipiZIDE TAB.XL* 5 MG PO SCH (07:54)
[2017-10-25] MEDS: Sertraline* 25 MG TAB PO SCH (07:54)
[2017-10-25] MEDS: Carvedilol TAB* 6.25 MG PO SCH ×2 (07:54→20:01)
[2017-10-25] MEDS: Aspirin EC TAB* 325 MG PO SCH (07:54)
[2017-10-25] MEDS: Nystatin TOP POWDER* 15 GM BTL TOPICAL SCH ×2 (07:55→20:02)
[2017-10-25] MEDS: Insulin GLARGINE(*) 1 UNITS UNIT SUBCUT SCH (08:45)
[2017-10-25] MEDS: Insulin LISPRO* 1 UNITS UNIT SUBCUT SCH ×4 (08:46→20:50)
[2017-10-25] MEDS: Atorvastatin* 80 MG TAB PO SCH (20:01)
[2017-10-25] MEDS: Gabapentin CAP(*) 300 MG PO SCH (20:01)
[2017-10-25] MEDS: Senna TAB PO SCH (20:01)
[2017-10-25] MEDS: Hydrocortisone 1% CREAM* 30 GM TUBE TOPICAL PRN (20:02)
--- NOTE | 2017-10-25 20:46 | PN ---
Progress Note Date of Service: 10/25/17 Note: ESTELLE BOUDREAUX was visited. Therapy notes read and reviewed. Did get a little lightheaded when OOB for dinner but BP was ok. Will lower Lisinopril Current Medications: Active Medications Generic Name Dose Route Start Last Admin Trade Name Freq PRN Reason Stop Dose Admin Acetaminophen 650 mg 10/18/17 11:40 Tylenol Tab* PO Q6H PRN mild pain Aspirin 325 mg 10/19/17 09:00 10/25/17 07:54 Ecotrin Ec Tab* PO 325 mg DAILY YUMIKO Administration Atorvastatin Calcium 80 mg 10/18/17 21:00 10/25/17 20:01 Lipitor* PO 80 mg 2100 YUMIKO Administration Carvedilol 6.25 mg 10/23/17 21:00 10/25/17 20:01 Coreg Tab* PO 6.25 mg BID YUMIKO Administration Dextrose 12.5 gm 10/18/17 11:35 D50w Syringe 50 Ml* IV PUSH .FOR FS < 60 - SS PRN FS < 60 Docusate Sodium 100 mg 10/23/17 21:00 10/25/17 20:01 Colace Cap* PO 100 mg BID YUMIKO Administration Gabapentin 900 mg 10/18/17 21:00 10/25/17 20:01 Neurontin Cap(*) PO 900 mg BEDTIME YUMIKO Administration Glipizide 20 mg 10/19/17 09:00 10/25/17 07:54 Glucotrol Xl* PO 20 mg DAILY WITH MEAL YUMIKO Administration Heparin Sodium (Porcine) 5,000 units 10/18/17 14:00 10/25/17 14:31 Heparin Vial(*) SUBCUT 5,000 units Q8HR YUMIKO Administration Hydrocortisone 1 applic 10/18/17 11:40 10/25/17 20:02 Hytone Cream 1%* TOPICAL 1 applic TID PRN Administration itching Insulin Glargine 36 units 10/19/17 09:00 10/25/17 08:45 Lantus(*) SUBCUT 36 units Q24H YUMIKO Administration Insulin Human Lispro 0 units 10/18/17 16:30 10/25/17 16:40 Humalog* SUBCUT 2 units ACHS YUMIKO Administration Protocol Lisinopril 10 mg 10/26/17 09:00 Prinivil Tab* PO DAILY YUMIKO Metformin HCl 850 mg 10/18/17 17:00 10/25/17 17:46 Glucophage* PO 850 mg 0800,1700 YUMIKO Administration Nystatin 1 applic 10/18/17 21:00 10/25/17 20:02 Nystatin Top Powder* TOPICAL 1 applic BID YUMIKO Administration Polyethylene Glycol/Electrolytes 17 gm 10/23/17 12:08 Miralax* PO DAILY PRN CONSTIPATION Senna 2 tab 10/22/17 21:00 10/25/17 20:01 Senokot Tab* PO 2 tab BEDTIME YUMIKO Administration Sertraline HCl 25 mg 10/19/17 09:00 10/25/17 07:54 Zoloft* PO 25 mg DAILY YUMIKO Administration Vital Signs: Vital Signs Temp Pulse Resp BP Pulse Ox 98.2 F 75 16 119/60 98 10/25/17 16:20 10/25/17 16:20 10/25/17 20:01 10/25/17 16:20 10/25/17 18:36 Lab Results: Laboratory Results - last 24 hr 10/25/17 10/25/17 10/25/17 07:51 11:28 16:13 POC Glucose (mg/dL) 141 H 182 H 171 H 10/25/17 20:00 POC Glucose (mg/dL) 150 H Exam: GENERAL: no acute distress. alert and appropriate. LUNGS: clear to auscultation bilaterally. HEART: regular rate and rhythm. ABDOMEN: + bowel sounds, soft, non-tender, non-distended EXTREMITIES: no edema NEUROLOGIC: CN II-XII intact. Motor 4+/5 throughout right upper extremity. 5/5 in LUE and BLE. Normal sensation. Assessment/Plan: 1. 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 ASA 325mg/Lipitor 80mg. f/u neurology. 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 2. Reversible ischemia on nuclear stress test: Plan cardiac cath in 3weeks when further out from stroke. f/u with cardiology. Coreg 6.25 BID 3. Chronic kidney disease: follow labs 4. Hypertension: continue current meds. Watch BP. Still a little low 5. Diabetes mellitus: Now off Januvia, on Glucophage, Glipizide, lantus and ssI. Teach self-administration of lantus and fingersticks. 6. DVT prophylaxis: Heparin S/Q 7. Advanced directives: full code. Daughter, Rachelle, is hcp 8. Near Syncope: No further events today. 10/24/17 20:26
[2017-10-26] MEDS: Heparin VIAL(*) 5000 UNITS/ML VIAL (FIVE THOUSAND) SUBCUT SCH ×2 (06:13→12:54)
[2017-10-26 06:43] VITALS: BP 130/67
[2017-10-26] MEDS: Insulin LISPRO* 1 UNITS UNIT SUBCUT SCH ×2 (08:16→12:53)
[2017-10-26] MEDS: glipiZIDE TAB.XL* 5 MG PO SCH (08:28)
[2017-10-26] MEDS: Insulin GLARGINE(*) 1 UNITS UNIT SUBCUT SCH (08:28)
[2017-10-26] MEDS: metFORMIN* 850 MG TAB PO SCH (08:28)
[2017-10-26] MEDS: Docusate CAP* 100 MG PO SCH (08:28)
[2017-10-26] MEDS: Aspirin EC TAB* 325 MG PO SCH (08:28)
[2017-10-26] MEDS: Carvedilol TAB* 6.25 MG PO SCH (08:28)
[2017-10-26] MEDS: Sertraline* 25 MG TAB PO SCH (08:28)
[2017-10-26] MEDS ORDERED: Lisinopril TAB* 10 MG PO SCH (09:00)
[2017-10-26] MEDS: Nystatin TOP POWDER* 15 GM BTL TOPICAL SCH (10:07)
--- NOTE | 2017-10-26 13:44 | TRS ---
CC: Dr. Rio Allen DO; Dr. Nitesh Mendez; [facility]. * TRANSFER SUMMARY: DATE OF ADMISSION: 10/13/17 DATE OF DISCHARGE: 10/26/17 The patient is being transferred to [facility]. DISCHARGE DIAGNOSES: 1. Cerebrovascular accident with right hemiparesis. 2. Diabetes mellitus. 3. Abnormal nuclear stress test. 4. Chronic kidney disease. 5. Hypertension. 6. Syncope. 7. Elevated troponins. 8. Depression. HISTORY OF ILLNESS AND HOSPITAL COURSE: For complete history of events leading up to his rehab study, please see the history and physical dictated by Dr. Caitlyn Workman on 10/13/17 as well as the history and physical dictated by me on 10/06/17. Briefly, Dayton Krueger is a 77-year-old diabetic who was noncompliant with his medical care. He originally developed trouble on when he was having trouble getting up after sitting on his steps. He then went home to his family room but was unable to get up. He called for his grandson who called 911 and brought him to the hospital. He had an MRI of this brain that showed multiple infarcts. It was felt that he was symptomatic from a new stroke in the left internal capsule. He had a CT angio of his head and neck showing bilateral calcific plaque formation at the carotid bifurcations. There was stenosis 80% on the right and 70% on the left. He was admitted to rehab 10/06/17. The patient developed an episode of hypotension while working with physical therapy on 10/08/17. His blood pressure medicines were cut back. The patient was given IV fluids. Following that, his blood pressure larissa significantly. On 10/09/17 in the evening, the patient developed chest pain. His troponin was elevated. Troponins peaked at 0.12. He was transferred to the acute medical service. While on the acute medical service, he had a nuclear stress test. It showed a small area of partially reversible hypoperfusion of the inferior wall suggestive of ischemia. Cardiology felt that the patient would require a cardiac catheterization. However, given the proximity of his most recent stroke , it was felt that the patient should wait before having a cardiac catheterization. He was sent back down to rehabilitation. While working with rehab, the patient demonstrated gaps in his thinking and judgement. After meeting with the family, it was felt that these judgement difficulties were not new, but were in fact a longstanding problem that the family was trying to deal with. For instance, the patient had bought himself a new Corvette but did not have enough money to pay for his property taxes or for his medications and let his medications lapse. The patient had additional episodes of hypotension while on the rehab unit. His Norvasc was discontinued. His Coreg was cut from 12.5 twice a day to 6.25 twice a day. He remained on lisinopril but this was cut from 20 mg daily to 10 mg daily. The patient has an outpatient appointment with Dr. Rio Allen regarding a cardiac catheterization. As far as his carotid arteries, the patient initially was going to be seen in [place] for consideration of stents placed in his carotids. It was felt that this could wait given his new coronary symptoms. The patient was unable to return home as he was unable to master his activities of daily living including medication administration and insulin administration. He is now being transferred to [facility] to work on strengthening as well as cognitive rehab with speech therapy. The patient was seen by Physical Therapy/Occupational Therapy and Speech Therapy while on the rehab unit. As mentioned, he made gains with all disciplines particularly in the use of his right arm. However, he was unable to master insulin administration both cognitively and technically. He is being transferred to [facility] in order to undergo continued rehab on a slightly low risk care so that he might return to independent living. DISCHARGE DIET: Consistent carbohydrate. DISCHARGE MEDICATIONS: 1. Ecotrin 325 mg daily. 2. Lipitor 80 mg at 9 p.m. 3. Coreg 6.25 mg twice a day. 4. Colace 100 mg twice daily. 5. Neurontin 900 mg at bedtime. 6. Glucotrol XL 20 mg daily at 9 a.m. 7. Heparin 5000 units every 8 hours. 8. Lantus insulin 36 units given at 9 a.m. 9. Lisinopril 10 mg daily. 10. Metformin 850 mg at 8 a.m. and 5 p.m. 11. MiraLax 17 g in water daily as needed. 12. Zoloft 25 mg daily. 13. Senokot 2 tablets at bedtime. SERVICES AFTER DISCHARGE: He should have restorative physical therapy, occupational therapy and speech therapy. Follow up with Dr. Rio Allen on 01/28 at 12:30 p.m. He will also follow up with Dr. Nitesh Mendez, his primary care physician. [id number]/[facility] #: [id number]
== END 2017-10-26 14:00 | DRG 57 ==
LOC: PMRU 12:50 → UNDOADMIN 13:49 → UNDODISIN 10-16 16:50 → TMPLOALOC 10-16 16:50 → PMRU 10-18 11:20
PROVIDERS: ADMIT Physical Medicine & Rehabilitation; ATTEND Physical Medicine & Rehabilitation
PROC: F07Z5ZZ Bed Mobility Treatment (ICD-10-PCS; principal; 2017-10-13)
PROC: F07Z9ZZ Gait Training/Functional Ambulation Treatment (ICD-10-PCS; 2017-10-13)
PROC: F07Z8ZZ Transfer Training Treatment (ICD-10-PCS; 2017-10-13)
PROC: F08Z0ZZ Bathing/Showering Techniques Treatment (ICD-10-PCS; 2017-10-13)
PROC: F08Z1ZZ Dressing Techniques Treatment (ICD-10-PCS; 2017-10-13)
PROC: F08Z3ZZ Feeding/Eating Treatment (ICD-10-PCS; 2017-10-13)
PROC: F06ZBZZ Receptive/Expressive Language Treatment (ICD-10-PCS; 2017-10-13)
DX: I69.351 Hemiplegia and hemiparesis following cerebral infarction affecting right dominant side (principal); E11.22 Type 2 diabetes mellitus with diabetic chronic kidney disease; I13.10 Hypertensive heart and chronic kidney disease without heart failure, with stage 1 through stage 4 chronic kidney disease, or unspecified chronic kidney disease; N18.3 Chronic kidney disease, stage 3 (moderate); I25.10 Atherosclerotic heart disease of native coronary artery without angina pectoris; H10.9 Unspecified conjunctivitis; F32.9 Major depressive disorder, single episode, unspecified; I69.320 Aphasia following cerebral infarction; I65.29 Occlusion and stenosis of unspecified carotid artery; E11.42 Type 2 diabetes mellitus with diabetic polyneuropathy; G47.33 Obstructive sleep apnea (adult) (pediatric); E78.5 Hyperlipidemia, unspecified; Z79.84 Long term (current) use of oral hypoglycemic drugs; Z79.1 Long term (current) use of non-steroidal anti-inflammatories (NSAID); Z79.4 Long term (current) use of insulin; Z79.899 Other long term (current) drug therapy; Z88.8 Allergy status to other drugs, medicaments and biological substances
CPT/HCPCS: 36415; 71045; 80053; 81003; 83605; 84484; 85025; 87040; 93005; A9270-GY; G0515-GO; J1644; J1650; J2543; J3370

== ENCOUNTER 2017-10-16 16:51 | Inpatient (IN) | payer MEDICARE ==
[2017-10-16] MEDS ORDERED: Ondansetron INJ* 2 MG/ML VIAL IV PRN (17:20)
[2017-10-16] MEDS ORDERED: Magnesium Hydroxide LIQ* 30 ML UDC PO PRN (17:20)
[2017-10-16] MEDS ORDERED: Al Hydrox/Mg Hydrox/Simet LIQ* 30 ML UDC PO PRN (17:20)
[2017-10-16] MEDS ORDERED: Acetaminophen TAB* 325 MG PO PRN ×2 (17:20→17:30)
[2017-10-16] MEDS ORDERED: Dextrose 50% Syringe 50 ML* 25 GM/50 ML SYRINGE IV PUSH PRN (17:32)
--- NOTE | 2017-10-16 17:36 | PN ---
Sepsis Event Evaluation Date of Evaluation: 10/16/17 Time of Evaluation: 13:00 Current Stage of Sepsis: Sepsis Vital Signs - Last 12 Hours: Vital Signs - 12 hr Temp Pulse Resp BP Pulse Ox 10/16/17 16:53 98.0 F 82 18 143/72 100 Lactic Acid: Laboratory Tests 10/16/17 14:05 Lactic Acid 2.2 H* - Cardiopulmonary Exam Capillary Refill: Immediate Respiratory: Symmetrical Chest Expansion and Respiratory Effort Cardiovascular: NL Sounds; No Murmurs; No JVD - Peripheral Pulse Exam Radial Pulses: Bilateral Normal Pedal Pulses: Bilateral Normal Posterior Tibial Pulse: Bilateral Normal Femoral Pulses: Bilateral Normal Popliteal Pulses: Bilateral Normal - Skin Exam Skin Exam: Normal Turgor - [place] Coma Scale Best Eye Response: 4 - Spontaneous Best Motor Response: 6 - Obeys Commands Best Verbal Response: 5 - Oriented Coma Scale Total: 15 Assess/Plan/Problems-Billing . Assessment: patient admitted to medicine for hypotension and elevated lactic acid See H&P for further details.
[2017-10-16] MEDS: Insulin LISPRO* 1 UNITS UNIT SUBCUT SCH ×2 (18:09→21:23)
[2017-10-16] MEDS ORDERED: Vancomycin(*) 1,000 MG in NS 0.9% 250 ML* 250 ML IVPB ONE (18:27)
[2017-10-16] MEDS: NS 0.9% 1000 ML* 1,000 ML IV SCH (18:28)
[2017-10-16] MEDS: Gabapentin CAP(*) 300 MG PO SCH (21:20)
[2017-10-16] MEDS: Carvedilol TAB* 25 MG PO SCH (21:21)
[2017-10-16] MEDS: Insulin GLARGINE(*) 1 UNITS UNIT SUBCUT SCH (21:22)
[2017-10-16] MEDS: Atorvastatin* 80 MG TAB PO SCH (21:22)
[2017-10-16] MEDS: Nystatin TOP POWDER* 15 GM BTL TOPICAL SCH (21:24)
[2017-10-16] MEDS: Hydrocortisone 1% CREAM* 30 GM TUBE TOPICAL PRN (21:41)
[2017-10-16] MEDS: Heparin VIAL(*) 5000 UNITS/ML VIAL (FIVE THOUSAND) SUBCUT SCH (22:06)
[2017-10-17 06:01] LABS: ABS Basophils 0.1 10^3/ul (0-0.2); ABS Eosinophils 0.5 10^3/ul (0-0.6); ABS Lymphocytes 3.1 10^3/ul (1.0-4.8); ABS Monocytes 0.7 10^3/ul (0-0.8); ABS Neutrophils 6.1 10^3/ul (1.5-7.7); ABS Nucleated RBC 0 10^3/ul; Eosinophil % 5.1 % (0-6); Hematocrit 46 % (42-52); Hemoglobin 15.5 g/dl (14.0-18.0); Lymphocyte % 28.9 % (25-47); Mean Corpuscular HGB Conc 34 g/dl (31-36); Mean Corpuscular Hemoglobin 29 pg (27-31); Mean Corpuscular Volume 85 fL (80-94); Mean Platelet Volume 8.3 um3 (7.4-10.4); Nucleated Red Blood Cells % 0.1; Platelet Count 275 10^3/ul (150-450); Red Blood Count 5.34 10^6/ul (4.00-5.40); Red Cell Distribution Width 14 % (10.5-15); White Blood Count 10.6 10^3/ul (3.5-10.8)
[2017-10-17 06:20] LABS: EGFR Non-African American 84.4 (>60)
[2017-10-17] MEDS: Heparin VIAL(*) 5000 UNITS/ML VIAL (FIVE THOUSAND) SUBCUT SCH ×3 (06:24→21:47)
[2017-10-17] MEDS: Insulin GLARGINE(*) 1 UNITS UNIT SUBCUT SCH ×2 (08:36→21:47)
[2017-10-17] MEDS: Insulin LISPRO* 1 UNITS UNIT SUBCUT SCH ×4 (08:37→21:47)
[2017-10-17] MEDS: Sertraline* 25 MG TAB PO SCH (08:39)
[2017-10-17] MEDS: glipiZIDE TAB.XL* 5 MG PO SCH (08:39)
[2017-10-17] MEDS: amLODIPine TAB* 5 MG PO SCH (08:39)
[2017-10-17] MEDS: Aspirin EC TAB* 325 MG PO SCH (08:39)
[2017-10-17] MEDS: Carvedilol TAB* 25 MG PO SCH ×2 (08:40→21:45)
[2017-10-17] MEDS: Lisinopril TAB* 10 MG PO SCH (08:41)
[2017-10-17] MEDS: Nystatin TOP POWDER* 15 GM BTL TOPICAL SCH ×2 (08:46→21:48)
[2017-10-17] MEDS: NS 0.9% 1000 ML* 1,000 ML IV SCH (10:30)
[2017-10-17] MEDS: Atorvastatin* 80 MG TAB PO SCH (21:46)
[2017-10-17] MEDS: Gabapentin CAP(*) 300 MG PO SCH (21:46)
[2017-10-17] MEDS: Hydrocortisone 1% CREAM* 30 GM TUBE TOPICAL PRN (22:27)
[2017-10-18 05:15] LABS: ABS Basophils 0.1 10^3/ul (0-0.2); ABS Eosinophils 0.6 10^3/ul (0-0.6); ABS Lymphocytes 3.3 10^3/ul (1.0-4.8); ABS Monocytes 0.8 10^3/ul (0-0.8); ABS Neutrophils 5.9 10^3/ul (1.5-7.7); ABS Nucleated RBC 0 10^3/ul; Eosinophil % 5.9 % (0-6); Hematocrit 45 % (42-52); Hemoglobin 15.4 g/dl (14.0-18.0); Lymphocyte % 30.8 % (25-47); Mean Corpuscular HGB Conc 34 g/dl (31-36); Mean Corpuscular Hemoglobin 29 pg (27-31); Mean Corpuscular Volume 85 fL (80-94); Nucleated Red Blood Cells % 0.1; Platelet Count 262 10^3/ul (150-450); Red Blood Count 5.29 10^6/ul (4.00-5.40); Red Cell Distribution Width 14 % (10.5-15); White Blood Count 10.6 10^3/ul (3.5-10.8)
[2017-10-18 05:30] LABS: EGFR Non-African American 76.4 (>60)
[2017-10-18] MEDS: Heparin VIAL(*) 5000 UNITS/ML VIAL (FIVE THOUSAND) SUBCUT SCH (05:37)
[2017-10-18 08:38] VITALS: BP 132/71
[2017-10-18] MEDS: Insulin LISPRO* 1 UNITS UNIT SUBCUT SCH ×2 (08:38→12:04)
[2017-10-18] MEDS: Lisinopril TAB* 10 MG PO SCH (08:39)
[2017-10-18] MEDS: Aspirin EC TAB* 325 MG PO SCH (08:39)
[2017-10-18] MEDS: glipiZIDE TAB.XL* 5 MG PO SCH (08:39)
[2017-10-18] MEDS: amLODIPine TAB* 5 MG PO SCH (08:40)
[2017-10-18] MEDS: Carvedilol TAB* 25 MG PO SCH (08:40)
[2017-10-18] MEDS: Sertraline* 25 MG TAB PO SCH (08:40)
[2017-10-18] MEDS: Insulin GLARGINE(*) 1 UNITS UNIT SUBCUT SCH (08:44)
[2017-10-18] MEDS: Nystatin TOP POWDER* 15 GM BTL TOPICAL SCH (08:46)
--- NOTE | 2017-10-31 15:15 | HP ---
HISTORY AND PHYSICAL AND DISCHARGE SUMMARY: DATE OF ADMISSION: To inpatient medicine service was 10/16/17. DATE OF DISCHARGE: 10/18/17 PRIMARY CARE PROVIDER: Dr. Mendez. SURGICAL INSTRUMENT TECHNICIAN: Dr. Fragoso. NEUROLOGIST: Dr. Rose. REASON FOR ADMISSION TO INPATIENT MEDICINE: Hypotension/near syncope and suspected sepsis. HISTORY OF PRESENT ILLNESS: For more details regarding the acute hospitalization and admission to the [facility], please see the previous medical records, specifically in the discharge summary by Dr. Caitlyn Workman on . In brief, Mr. Krueger was rehabilitating at the [facility] for stroke. The patient was progressing well with therapy until 10/16/17 when he awoke not feeling well. His systolic blood pressure was measured in the 70s. He responded to IV fluids and Trendelenburg position and was able to eat lunch and continued to feel dizzy. His systolic pressure again went into the 90s. The patient had a mildly elevated white blood cell count and elevated lactic acid. The patient was admitted to telemetry for transient hypotension and rule out sepsis. He received IV fluids and a dose of IV Zosyn and vancomycin. His urinalysis was negative. Chest x-ray was negative. Cultures were negative and the following day after admission, his white blood cells normalized and his lactic acid also normalized. The patient was not treated subsequently and felt better. He was deemed stable to go back to the [facility] on 10/18/17. The patient will be continuing on Glucotrol and Lantus. His metformin and Januvia were held and the patient is going to continue on Lantus 36 units every morning, which was an intermediate dose relative to what he received while he came to the inpatient service. PAST MEDICAL HISTORY: 1. 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 2. Coronary disease, pending cardiac catheterization. 3. Carotid stenosis. 4. Hypertension. 5. Diabetes. 6. Diabetic neuropathy. 7. KEILA - not on CPAP. 8. Hyperlipidemia. MEDICATIONS: At transfer back to [facility]: 1. Coreg 12.5 mg by mouth twice daily. 2. Ecotrin 325 mg by mouth daily. 3. Glucotrol XL 20 mg q. day. 4. Heparin 5000 units every 8 hours, DVT prophylaxis. 5. Humalog sliding scale insulin. 6. Lantus 36 units subcu in the morning. 7. Lipitor 80 mg q.h.s. 8. Neurontin 900 mg q.h.s. 9. Norvasc 5 mg daily. 10. Nystatin topical powder. 11. Prinivil 20 mg by mouth daily. 12. Zoloft 25 mg by mouth daily. 13. Hydrocortisone cream t.i.d. p.r.n. itching/rash. 14. Maalox 30 mL every 6 hours p.r.n. indigestion. 15. Milk of magnesia as needed. 16. Tylenol 650 mg every 6 hours p.r.n. 17. Restart metformin 850 mg by mouth twice daily after hospitalization. ASSESSMENT/PLAN: In keeping with Dr. Workman's observation, the patient was hypotensive on the PMRU. He has been bolused 30 mL per kg normal saline. Blood cultures were drawn, urinalysis was collected, chest x-ray was done; none of which showed ominous signs. He did receive IV vanco and IV Zosyn. He is normotensive and has remained normotensive during his stay in the inpatient unit. The patient is prepared to cooperate with [facility] services and is deemed stable for transfer back on 10/18/17. For more details regarding the hospitalization, please see the full medical records. This is a highly summarized account of a complex hospitalization. [id number]/[facility] #: [id number] GUIDO
== END 2017-10-18 12:32 | DRG 315 ==
LOC: MEDTELE 16:51 → UNDODISIN 10-18 11:10
PROVIDERS: ADMIT Internal Medicine; ATTEND Internal Medicine
DX: I95.9 Hypotension, unspecified (principal); I69.359 Hemiplegia and hemiparesis following cerebral infarction affecting unspecified side; I25.10 Atherosclerotic heart disease of native coronary artery without angina pectoris; I11.9 Hypertensive heart disease without heart failure; I65.29 Occlusion and stenosis of unspecified carotid artery; E11.40 Type 2 diabetes mellitus with diabetic neuropathy, unspecified; G47.33 Obstructive sleep apnea (adult) (pediatric); E78.5 Hyperlipidemia, unspecified
CPT/HCPCS: 36415; 80048; 83605; 84484; 85025; A9270-GY; J1644; J3370

== ENCOUNTER → 2017-12-17 11:36 | Emergency (ER) | payer MEDICARE ==
[~2017-12-17 11:36] MED LIST: NS 0.9% 1000 ML* 1,000 ML IV ONE
--- NOTE | 2017-12-17 11:51 | ED ---
Syncope/Near Syncope - HPI Summary HPI Summary: This patient is a 77 year old M BIBA to [facility] from [facility] s/p fall due to near syncope. Pt states he felt good today, he did his morning walk, and after this he went to go eat breakfast when he began to feel dizzy. He started to walk back to his room, with his walker when staff stopped him to take his weight , while being weighed the dizziness increased causing the patient fall. Two weeks ago the patient had another episode of light headedness in the shower where he also fell. The patient rates the pain 0/10 in severity. Pt is at a rehab facility and ambulates with a walker but states he could walk without it. Patient reports weakness, diaphoresis, 40lbs weight loss in the last 4 months, and n/v. Patient denies CP, SOB, and VALERO. Pt states he has heart issues and that he is supposed to have a stent placed. Pt had a CVA 4 weeks ago. Pt states he has been having low BP. He states he feels good now and it resolved spontaneously. - History Of Current Complaint Chief Complaint: EDSyncope Time Seen by Provider: 12/17/17 11:42 Hx Obtained From: Patient Onset/Duration: Sudden Onset, Lasting Minutes, Resolved Timing: Seconds Context: Witnessed Activity At Onset: Other - walking Alleviating Factor(s): Spontaneous Resolution Associated Signs And Symptoms: Lightheadedness, Other - weakness, diaphoresis, - Allergies/Home Medications Allergies/Adverse Reactions: Allergies Allergy/AdvReac Type Severity Reaction Status Date / Time clopidogrel [From Plavix] Allergy Severe Hives Verified 10/03/17 14:07 Home Medications: Home Medications Aspirin 81 mg CHEW TAB* [Aspirin Low Dose TAB*] 81 mg PO DAILY 12/17/17 [ History Confirmed 12/17/17] Atorvastatin* [Lipitor 80 MG*] 80 mg PO QPM 12/17/17 [History Confirmed 12/17/17 ] Carvedilol TAB* [Coreg TAB*] 12.5 mg PO BID 12/17/17 [History Confirmed 12/17/17 ] Cyclobenzaprine TAB* [Flexeril 10 MG TAB*] 10 mg PO Q8HR PRN 12/17/17 [History Confirmed 12/17/17] Gabapentin CAP(*) [Neurontin 300 CAP(*)] 900 mg PO BEDTIME 12/17/17 [History Confirmed 12/17/17] Insulin GLARGINE(*) [Lantus(*)] 36 units SUBCUT BEDTIME 12/17/17 [History Confirmed 12/17/17] Lidocaine [Aspercreme Lidocaine Max] 4 % TOPICAL QAM 12/17/17 [History Confirmed 12/17/17] Sertraline* [Zoloft*] 25 mg PO DAILY 12/17/17 [History Confirmed 12/17/17] Ticagrelor (NF) [Brilinta 60 MG TAB] 60 mg PO BID 12/17/17 [History Confirmed ] amLODIPine TAB* [Norvasc 5 mg TAB*] 5 mg PO BEDTIME 12/17/17 [History Confirmed 12/17/17] glipiZIDE TAB* [Glucotrol TAB*] 10 mg PO QAM 12/17/17 [History Confirmed ] PMH/Surg Hx/FS Hx/Imm Hx Endocrine/Hematology History: Reports: Hx Diabetes - +diabetic peripheral neuropathy Denies: Hx Anticoagulant Therapy, Hx Thyroid Disease, Hx Anemia Cardiovascular History: Reports: Hx Hypertension - ON MEDS Denies: Hx Angina, Hx Coronary Artery Disease, Hx Hypercholesterolemia, Hx Myocardial Infarction, Hx Pacemaker/ICD, Hx Valvular Heart Disease Respiratory History: Reports: Hx Pneumonia, Hx Sleep Apnea Denies: Hx Chronic Obstructive Pulmonary Disease (COPD) History: Denies: Hx Dialysis, Hx Renal Disease Musculoskeletal History: Reports: Hx Arthritis Sensory History: Reports: Hx Contacts or Glasses, Hx Hearing Problem - mild Denies: Hx Hearing Aid Opthamlomology History: Reports: Hx Contacts or Glasses Neurological History: Reports: Hx CVA Denies: Hx Dementia, Hx Seizures, Other Neuro Impairments/Disorders Psychiatric History: Denies: Hx Panic Disorder - Surgical History Surgery Procedure, Year, and Place: SEBACIOUS CYST REMOVED FROM BACK OF NECK Hx Anesthesia Reactions: No - Immunization History Date of Tetanus Vaccine: unk Date of Influenza Vaccine: unk Infectious Disease History: No Infectious Disease History: Denies: Traveled Outside the [place] in Last 30 Days - Family History Known Family History: Positive: Other - no ulcers or intestinal diseases Negative: Respiratory Disease, Seizure Disorder - Social History Occupation: Retired Lives: Dormitory/Roommates Alcohol Use: Rare Hx Substance Use: No Substance Use Type: Reports: None Hx Tobacco Use: No Smoking Status (MU): Former Smoker Type: Cigarettes, Pipe Amount Used/How Often: occasional Length of Time of Smoking/Using Tobacco: Pt unable to give dates Have You Smoked in the Last Year: No Review of Systems Positive: Skin Diaphoresis, Other - weight loss Negative: Chest Pain Respiratory: Negative - VALERO Negative: Shortness Of Breath Positive: Vomiting, Nausea Neurological: Other - dizziness, light headedness Positive: Weakness, Syncope - near All Other Systems Reviewed And Are Negative: Yes Physical Exam - Summary Physical Exam Summary: Appearance: Well-appearing, Well-nourished, lying in bed comfortably Skin: Warm, dry, no obvious rash Eyes: sclera anicteric, no conjunctival pallor ENT: mucous membranes moist, pharynx appears normal Neck: Supple, nontender Respiratory: Clear to auscultation, no signs of respiratory distress Cardiovascular: Normal S1, S2. No murmurs. Normal distal pulses in tibial and radial bilaterally. BP is 106/89 on exam Abdomen: Soft, nontender, normal active bowel sounds present Musculoskeletal: Normal, Strength/ROM Intact Neurological: A&Ox3, awake and alert, mentation is normal, speech is fluent and appropriate Psychiatric: affect is normal, does not appear anxious or depressed Triage Information Reviewed: Yes Vital Signs On Initial Exam: Initial Vitals Temp Pulse Resp BP Pulse Ox 96.7 F 69 16 106/89 99 12/17/17 11:42 12/17/17 11:42 12/17/17 11:42 12/17/17 11:42 12/17/17 11:42 Vital Signs Reviewed: Yes Diagnostics - Vital Signs Vital Signs Temp Pulse Resp BP Pulse Ox 12/17/17 11:42 96.7 F 69 16 106/89 99 - Laboratory Result Diagrams: 12/17/17 12:06 12/17/17 12:06 Lab Statement: Any lab studies that have been ordered have been reviewed, and results considered in the medical decision making process. - EKG 11:59 Cardiac Rate: NL EKG Rhythm: Sinus Rhythm - at 68 BPM EKG Interpretation: prolonged MI interval, Borderline LAD Course/Dx Assessment/Plan: This patient is a 77 year old M BIBA to [facility] from [facility] s/p fall due to near syncope. An EKG reveals NSR at 68 BPM w/ prolonged MI interval, Borderline LAD. Bloodwork was obtained. In the ED course the patient was given IV fluids which increased the patients blood pressure. I believe that the patient may be experiencing these episodes due to low blood pressure. We discussed patient care with Dr. Fragoso and they recommended contacting Dr. Guzman as he may know more about the patient. I discussed patient care with Dr. Guzman and he suggested tostop lisinopril and he will see the patient in the office soon. Patient will be discharged and he was instructed to stop his lisinopril and follow up from Dr. guzman. The patient is agreeable with this plan. - Diagnoses Provider Diagnoses: Near syncope Discharge - Sign-Out/Discharge Documenting (check all that apply): Patient Departure - Discharge Plan Condition: Good Disposition: HOME Patient Education Materials: Near Syncope (ED) Referrals: Rio Guzman DO [Medical Doctor] - Nitesh Mendez MD [Primary Care Provider] - Additional Instructions: I think you may be getting these weak episodes when your BP gets too low. I spoke to Dr. Guzman and he would like you to stop taking the lisinopril for the time being. - Billing Disposition and Condition Condition: GOOD Disposition: Home - Attestation Statements Document Initiated by Bravoibe: Yes Documenting Scribe: Evans Peace Provider For Whom aHrshal is Documenting (Include Credential): Grant Galeana MD Scribe Attestation: Evans Tripathi, scribed for Grant Galeana MD on 12/18/17 at 0838. Scribe Documentation Reviewed: Yes Provider Attestation: The documentation as recorded by the Evans arellano accurately reflects the service I personally performed and the decisions made by me, Grant Galeana MD Consult Consult: 1516 We discussed patient care with Dr. Fragoso and they recommended contacting Dr. Guzman as he may know more about the patient. 1530 I discussed patient care with Dr. Guzman and he suggested to stop lisinopril and he will see the patient in the office
[2017-12-17 12:23] LABS: ABS Basophils 0.1 10^3/ul (0-0.2); ABS Eosinophils 0.7 10^3/ul (0-0.6); ABS Lymphocytes 2.7 10^3/ul (1.0-4.8); ABS Monocytes 0.8 10^3/ul (0-0.8); ABS Neutrophils 7.9 10^3/ul (1.5-7.7); ABS Nucleated RBC 0 10^3/ul; Eosinophil % 5.6 % (0-6); Hematocrit 48 % (42-52); Hemoglobin 16.3 g/dl (14.0-18.0); Mean Corpuscular HGB Conc 34 g/dl (31-36); Mean Corpuscular Hemoglobin 29 pg (27-31); Mean Corpuscular Volume 85 fL (80-94); Mean Platelet Volume 7.7 um3 (7.4-10.4); Nucleated Red Blood Cells % 0.1; Platelet Count 318 10^3/ul (150-450); Red Blood Count 5.64 10^6/ul (4.00-5.40); Red Cell Distribution Width 15 % (10.5-15); White Blood Count 12.1 10^3/ul (3.5-10.8)
[2017-12-17 12:40] LABS: EGFR Non-African American 60.8 (>60)
--- OUTSIDE RECORDS SUMMARY | 2017-12-17 13:17 | XMS REPORT ---
:1940 External Reference #:[id number] Author Organization [facility] [employer] Address [address] [place] [address] [place] [address] Phone [phone] Care Team Providers Name Role Phone Nitesh eMndez M.D. Primary Care Physician Unavailable Payers Type Date Identification Numbers Payment Provider Subscriber Medicare Primary Policy Number: [id number] Medicare Dayton Krueger PayID: [id number] [address] [place] [address] Medigap Part B Expires: 2017 Policy Number: BS Facets Dayton Krueger [id number] PayID: [id number] [address] [address] [place] [address] Problems Date Description Provider Status Onset: 09/19/2017 Dizziness and giddiness Dagmar Bennett M.D. Active Onset: 09/19/2017 Type 2 diabetes mellitus Dagmar Bennett M.D. Active Onset: 09/19/2017 Long-term current use of insulin Dagmar Bennett M.D. Active Onset: 09/19/2017 Orthostatic hypotension Dagmar Bennett M.D. Active Onset: 09/21/2017 Malaise and fatigue Christina Alfonso NP Active Onset: 09/21/2017 Closed fracture of one rib Christina Alfonso NP Active Onset: 09/21/2017 Hypoglycemic event in diabetes Christina Alfonso NP Active Onset: 09/23/2017 Type 2 diabetes mellitus with Milena Ca DO Active diabetic neuropathy, unsp Onset: 10/11/2017 Essential hypertension Reggie Solorzano MD Active Onset: 10/10/2017 Other specified abnormal Bakari Mckeon II, M.D. 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 ETOH Use Denies alcohol use Smoking Patient is a former smoker Allergies, Adverse Reactions, Alerts Date Description Reaction Status Severity Comments 06/21/2013 NKDA inactive Medications Medication Date Status Form Strength Qnty SIG Indications Ordering Provider Metformin HCL Active Tablets 850mg 60tab 1 po bid Unknown /0000 s Gabapentin Active Capsules 300mg 90cap 3 po qhs Unknown /0000 s Lisinopril Active Tablets 10mg 1 po qd Unknown /0000 Aspirin Active Tablets 325mg take 1 Unknown /0000 by mouth daily Atorvastatin Calcium Active Tablets 80mg 1 by Unknown /0000 mouth every day Coreg Active Tablets 6.25mg take one Unknown /0000 tablet by mouth twice a day Colace Active Capsules 100mg 1 tab by Unknown /0000 mouth 2-3 times a day as needed Glucotrol XL Active Tablets 10mg take two Unknown /0000 ER 24HR tablets by mouth every day in the morning Lantus Solostar Active Solution 100Unit/M 36 units Unknown /0000 Pen-Injec L am t Miralax Active Powder 3350NF 17 gm Unknown /0000 every day mixed w/ 8 oz water/ju ice Sertraline HCL Active Tablets 25mg 1 by Unknown /0000 mouth every day Senokot Active Tablets 8.6mg 2 Unknown /0000 tablets at bedtime Atenolol Hx Tablets 25mg 90tab 1 po qd Unknown /0000 s - 11/11 Pravastatin Sodium Hx Tablets 20mg 90tab 1 tablet Unknown /0000 s by mouth - once 11/11 daily at 2018 bedtime Amlodipine Besylate Hx Tablets 10mg 90tab 1 po qd Unknown /0000 s - 11/11 Hydrochlorothiazide Hx Tablets 25mg 30tab 1/2 po Unknown /0000 s qd - 11/11 Januvia Hx Tablets 100mg 30tab 1 po qd Unknown /0000 s - 11/11 Glipizide Hx Tablets 10mg 180ta 1 po bid Unknown /0000 bs - 11/11 Insulin 00 Hx sliding Unknown /0000 scale - 11/11 Vital Signs Date Vital Result Comment 07/19/2013 Height 69 inches 5'9" Weight 213.50 lb Heart Rate 67 /min BP Systolic Sitting 120 mmHg BP Diastolic Sitting 78 mmHg Respiratory Rate 16 /min BMI (Body Mass Index) 31.5 kg/m2 06/21/2013 Heart Rate 84 /min BP Systolic Sitting 96 mmHg BP Diastolic Sitting 60 mmHg Respiratory Rate 16 /min Results Test Date Test Result H/L Range Note Laboratory test finding 01/09/2014 Lactic Acid 2.6 mmol/L High 0.5-2.2 1 Urinalysis Profile 01/09/2014 Urine Color Yellow Urine Appearance Cloudy Urine Specific [place] 1.024 1.010-1.030 Urine pH 5.0 5-9 Urine Urobilinogen Negative Negative Urine Ketones Negative Negative Urine Protein Negative Negative Urine Leukocytes Negative Negative Urine Blood Negative Negative Urine Nitrite Negative Negative Urine Bilirubin Negative Negative Urine Glucose 2+(150 mg/dL) Negative CBC Auto Diff 01/09/2014 White Blood Count 11.8 10^3/uL High 4.8-10.8 Red Blood Count 5.35 10^6/uL 4.0-5.4 Hemoglobin 15.8 g/dL 14.0-18.0 Hematocrit 45 % 42-52 Mean Corpuscular Volume 84 fL 80-94 Mean Corpuscular Hemoglobin 30 pg 27-31 Mean Corpuscular HGB Conc 35 g/dL 31-36 Red Cell Distribution Width 14 % 10.5-15 Platelet Count 326 10^3/uL 150-450 Mean Platelet Volume 8 um3 7.4-10.4 Abs Neutrophils 7.6 10^3/uL 1.5-7.7 Abs Lymphocytes 2.7 10^3/uL 1.0-4.8 Abs Monocytes 0.9 10^3/uL High 0-0.8 Abs Eosinophils 0.5 10^3/uL 0-0.6 Abs Basophils 0.1 10^3/uL 0-0.2 Abs Nucleated RBC 0 10^3/uL Granulocyte % 64.5 % 38-83 Lymphocyte % 23.2 % Low 25-47 Monocyte % 7.4 % 1-9 Eosinophil % 3.8 % 0-6 Basophil % 1.1 % 0-2 Nucleated Red Blood Cells % 0 Laboratory test finding 01/09/2014 Lactic Acid 3.2 mmol/L High 0.5-2.2 2 Inr/Protime 01/09/2014 Inr 1.01 0.85-1.06 Laboratory test finding 01/09/2014 Activated Partial 29.4 seconds 24.0- 36.1 Thrombo Time B Type Natriuretic Peptide 24 pg/mL 3 Comp Metabolic Panel 01/09/2014 Sodium 134 mmol/L 133-145 Potassium 3.9 mmol/L 3.7-5.6 Chloride 99 mmol/L Low 101-111 Co2 Carbon Dioxide 26 mmol/L 22-32 Anion Gap 9 mmol/L 2-11 Glucose 186 mg/dL High 70-100 Blood Urea Nitrogen 28 mg/dL High 6-24 Creatinine 1.35 mg/dL High 0.67-1.17 BUN/Creatinine Ratio 20.7 High 8-20 Calcium 9.3 mg/dL 8.6-10.3 Total Protein 6.9 g/dL 6.4-8.9 Albumin 3.8 g/dL 3.2-5.2 Globulin 3.1 g/dL 2-4 Albumin/Globulin Ratio 1.2 1-3 Total Bilirubin 0.70 mg/dL 0.2-1.0 Alkaline Phosphatase 67 U/L 34-104 Alt 18 U/L 7-52 Ast 17 U/L 13-39 Egfr Non- 52.1 >60 Egfr 67.0 >60 4 Laboratory test finding 01/09/2014 Magnesium 1.9 mg/dL 1.9-2.7 Troponin I 0.01 ng/mL <0.03 5 TSH (Thyroid Stimulating Horm) 2.91 IU/mL 0.34-5.60 C Reactive Protein 7.95 mg/L High < 5.00 6 Comp Metabolic Panel 06/22/2013 Sodium 132 mmol/L Low 133-145 Potassium 4.5 mmol/L 3.7-5.6 Chloride 94 mmol/L Low 101-111 Co2 Carbon Dioxide 30 mmol/L 22-32 Anion Gap 8 mmol/L 2-11 Glucose 269 mg/dL High 70-100 Blood Urea Nitrogen 35 mg/dL High 6-24 Creatinine 1.61 mg/dL High 0.67-1.17 BUN/Creatinine Ratio 21.7 High 8-20 Calcium 9.6 mg/dL 8.6-10.3 Total Protein 6.7 g/dL 6.4-8.9 Albumin 3.9 g/dL 3.2-5.2 Globulin 2.8 g/dL 2-4 Albumin/Globulin Ratio 1.4 1-3 Total Bilirubin 1.00 mg/dL 0.2-1.0 Alkaline Phosphatase 83 U/L 34-104 Alt 16 U/L 7-52 Ast 16 U/L 13-39 Egfr Non- 42.6 >60 Egfr 54.8 >60 7 Laboratory test finding 06/22/2013 Vitamin B12 236 pg/mL 180-914 8 Free T4 1.25 ng/mL High 0.61-1.12 TSH (Thyroid Stimulating Horm) 1.89 IU/mL 0.34-5.60 Hemoglobin A1c 9.2 % High Less than 6.0 9 1 Critical Result LACT:2.6 Called to [id number] at: 18:36 by: Read back by:[id number] 2 Critical Result LACT:3.2 Called to [id number] at: 15:10:35 by: Read back by:[id number] 3 >100 to <200 pg/mL: likely compensated congestive heart failure (CHF) 200 to 400 pg/mL: likely moderate CHF >400 pg/mL: likely moderate to severe CHF PR HEART 4 Because ethnic data is not always readily available, this report includes an eGFR for both -Americans and non- Americans. The National Kidney Disease Education Program (NKDEP) does not endorse the use of the MDRD equation for patients that are not between the ages of 18 and 70, are , have extremes of body size, muscle mass, or nutritional status, or are non- or non-. According to the National Kidney Foundation, irrespective of diagnosis, the stage of the disease is based on the level of kidney function: Stage Description GFR(mL/min/1.73 m(2)) 1 Kidney damage with normal or decreased GFR 90 2 Kidney damage with mild decrease in GFR 60-89 3 Moderate decrease in GFR 30-59 4 Severe decrease in GFR 15-29 5 Kidney failure <15 (or dialysis) 5 Reference Range and Interpretation: TnI (ng/mL) Interpretation Less Than 0.03 ng/mL Not supportive of diagnosis of OK 0.03 - 0.50 ng/mL Indeterminate: suggest serial studies if clinically indicated. Greater than 0.5 ng/mL Consistent with diagnosis of [place] 6 Acute inflammation: >10.00 7 Because ethnic data is not always readily available, this report includes an eGFR for both -Americans and non- Americans. The National Kidney Disease Education Program (NKDEP) does not endorse the use of the MDRD equation for patients that are not between the ages of 18 and 70, are , have extremes of body size, muscle mass, or nutritional status, or are non- or non-. According to the National Kidney Foundation, irrespective of diagnosis, the stage of the disease is based on the level of kidney function: Stage Description GFR(mL/min/1.73 m(2)) 1 Kidney damage with normal or decreased GFR 90 2 Kidney damage with mild decrease in GFR 60-89 3 Moderate decrease in GFR 30-59 4 Severe decrease in GFR 15-29 5 Kidney failure <15 (or dialysis) 8 Normal Range 180 to 914 Indeterminate Range 145 to 180 Deficient Range <145 9 Therapeutic target for the treatment of diabetes Mellitus patients is <7% HBA1C, and in selective patients <6.0%.Please refer to [place] [employer] Diabetic care guidelines for further information. Procedures Date CPT Code Description Status 10/12/2017 98806 Treadmill Interp/Report Only Completed 10/12/2017 08226 Stress Test Supervsn W/Out I/R Completed 10/11/2017 80688 ECHO Transthorasic Realtime 2D W Doppler & Color Flow Completed Hosp 10/05/2017 99204 ECHO Transthorasic Realtime 2D W Doppler & Color Flow Completed Hosp 01/30/2017 99844 ECHO Transthorasic Realtime 2D W Doppler & Color Flow Completed Hosp 01/30/2017 18254 Treadmill Interp/Report Only Completed 01/30/2017 32800 Stress Test Supervsn W/Out I/R Completed 12/14/2012 16325 Color Flow Doppler/Interp & Reprt Completed 12/14/2012 33996 Pulse Wave/Continuous-Interp.RPT Completed 12/14/2012 72355 Echocardiography, Transesophageal, Real Time W/Image 2D Completed W/W/O M-M Encounters Type Date Location Provider CPT E/M Dx Office Visit 10/13/2017 [facility] MARLYN Burgess 50739 I69.351 8:59a Hospitalists R94.31 N18.9 E11.9 H10.9 Office Visit 10/12/2017 7:00a [facility] Eric Sanchez 28200 I63.233 Joya Fam I10 Office Visit 10/12/2017 8:59a [facility], MARLYN Burgess 86262 R94.39 Hospitalists R53.1 R79.89 R74.8 E11.9 E78.5 I10 Z86.73 G62.9 Office Visit 10/11/2017 3:39p [facility], 55087 I16.0 Martha Hinson R79.89 Office Visit 10/11/2017 8:58a [facility] Reggie Ayoub 05242 R79.89 Assoc, Hospitalbrodie Solorzano MD I10 E11.9 Office Visit 10/10/2017 8:57a [facility] [place], [address] R79.89 Assoc,pasquale Osborn M.D. E11.40 Office Visit 10/06/2017 7:00a [facility] [address] I63.233 I10 E11.9 E78.5 Office Visit 10/06/2017 9:41a [facility],pasquale Ramon, 76257 I63.9 Hospitalists PA Office Visit 10/05/2017 7:00a [facility] [address] G81.01 I65.23 I10 Z86.73 Office Visit 10/05/2017 9:41a [facility],MARLYN Garrett 90254 I63.9 Hospitalists Office Visit 10/04/2017 7:00a [facility] Clay Rose 69133 G81.01 Joya I65.23 I10 R21 Office Visit 10/04/2017 9:40a [facility],MARLYN Garrett 20723 I63.9 Hospitalists Office Visit 10/03/2017 9:40a [facility], Lul Faith, 10356 I63.9 Hospitalbrodie Hinson,FACP Office Visit 10/03/2017 7:00a [facility] Clay oRse 14462 G81.01 Joya I65.23 I10 Z86.73 Office Visit 09/23/2017 8:24a [facility] [address] R53.1 Hospitalists I95.1 S22.31xA E11.649 E11.40 Z79.4 Office Visit 09/21/2017 8:23a [facility] Christinajames Alfonso, 31901 R53.1 Assoc,pc PACU RN Hospitalists I95.1 S22.31xA E11.649 Office Visit 09/19/2017 1:40p [facility] Dagmar Bennett M.D. 05259 R42 Hospitalists E11.9 Z79.4 I95.1 Office Visit 01/30/2017 2:23p [facility] Christinajames Alfonso, 98352 R42 Assoc,pc PACU RN Hospitalists R74.8 D75.1 E11.8 Office Visit 01/30/2017 12:19p [facility] Jasontastephanie Marrufo, 69084 R55 MChrystal R42 R79.89 R94.39 Office Visit 01/29/2017 2:22p [facility] [address] R42 Hospitalists R74.8 D75.1 E11.8 Office Visit 07/19/2013 2:45p [facility] Eric Fam, 18985 434.91 [facility] [employer] MChrystal Office Visit 06/21/2013 2:00p [facility] Eric Fam, 55671 438.0 [facility] M.DFelicity Office Visit 12/14/2012 7:51p [facility],pasquale Phillip, 04429 433.81 Hospitalists D.O. 401.9 272.4 250.02 Office Visit 12/13/2012 9:08a [facility] Sarah Beth Lowe M.D. 64117 434.91 Services Of [facility] 401.9 272.4 250.62 Office Visit 12/13/2012 7:50p [facility],pasquale Phillip 35397 433.81 Hospitalists D.O. 401.9 250.02 272.4 Office Visit 12/12/2012 1:29p [facility] Tiff Mcneil, 55320 434.91 Services Of Martha Hinson Office Visit 12/12/2012 7:49p [facility] Val Phillip, 19220 433.81 ,pasquale Hospitalists D.O. 401.9 250.02 272.4 Plan of Care No Information Available
[2017-12-17 16:17] VITALS: BP 154/93
[2017-12-17 16:24] LABS: Urine Appearance Clear; Urine Blood Negative (Negative); Urine Color Yellow; Urine Ketones Negative (Negative); Urine Protein Negative (Negative); Urine Urobilinogen Negative (Negative)
== END | disposition home or self-care (01) ==
LOC: ED 11:36
DX: R55 Syncope and collapse (principal); R63.4 Abnormal weight loss; R11.2 Nausea with vomiting, unspecified; E11.42 Type 2 diabetes mellitus with diabetic polyneuropathy; Z79.4 Long term (current) use of insulin; Z79.84 Long term (current) use of oral hypoglycemic drugs; I10 Essential (primary) hypertension; Z88.8 Allergy status to other drugs, medicaments and biological substances; Z87.891 Personal history of nicotine dependence
CPT/HCPCS: 36415; 80053; 81003; 83605; 84443; 84484; 85025; 93005; 96360; 99283

== ENCOUNTER 2018-02-06 18:30 | Emergency (ER) | payer MEDICARE ==
--- NOTE | 2018-02-06 18:54 | ED ---
Dizziness - HPI Summary HPI Summary: This is a 77-year-old man with a history of coronary disease who presents after a near syncopal episode. He lives at [place] and was feeling well during the day. He was walking into a hockey arena at [place] to watch a game when he abruptly began to feel quite weak and lightheaded. He ended up having to sit down for a period of time and the person who was with him became concerned and called for EMS and patient was transported here, and at present feels back to normal. He has had similar episodes in the past without a definite explanation , although the last time he was seen and was felt to perhaps be related to blood pressure and he was taken off one of his blood pressure medications. He did not have any chest pain with this, nor any headache, abdominal pain, focal weakness, trouble with his vision, trouble with his speech, or any other neurologic complaint. - History Of Current Complaint Chief Complaint: EDWeakness Stated Complaint: WEAKNESS Time Seen by Provider: 02/06/18 18:44 - Allergies/Home Medications Allergies/Adverse Reactions: Allergies Allergy/AdvReac Type Severity Reaction Status Date / Time clopidogrel [From Plavix] Allergy Severe Hives Verified 10/03/17 14:07 PMH/Surg Hx/FS Hx/Imm Hx Endocrine/Hematology History: Reports: Hx Diabetes - +diabetic peripheral neuropathy Denies: Hx Anticoagulant Therapy, Hx Thyroid Disease, Hx Anemia Cardiovascular History: Reports: Hx Hypertension - ON MEDS Denies: Hx Angina, Hx Coronary Artery Disease, Hx Hypercholesterolemia, Hx Myocardial Infarction, Hx Pacemaker/ICD, Hx Valvular Heart Disease Respiratory History: Reports: Hx Pneumonia, Hx Sleep Apnea Denies: Hx Chronic Obstructive Pulmonary Disease (COPD) History: Denies: Hx Dialysis, Hx Renal Disease Musculoskeletal History: Reports: Hx Arthritis Sensory History: Reports: Hx Contacts or Glasses, Hx Hearing Problem - mild Denies: Hx Hearing Aid Opthamlomology History: Reports: Hx Contacts or Glasses Neurological History: Reports: Hx CVA Denies: Hx Dementia, Hx Seizures, Other Neuro Impairments/Disorders Psychiatric History: Denies: Hx Panic Disorder - Surgical History Surgery Procedure, Year, and Place: SEBACIOUS CYST REMOVED FROM BACK OF NECK Hx Anesthesia Reactions: No - Immunization History Date of Tetanus Vaccine: unk Date of Influenza Vaccine: unk Infectious Disease History: No Infectious Disease History: Denies: Traveled Outside the [place] in Last 30 Days - Family History Known Family History: Positive: Other - no ulcers or intestinal diseases Negative: Respiratory Disease, Seizure Disorder - Social History Alcohol Use: Rare Hx Substance Use: No Substance Use Type: Reports: None Hx Tobacco Use: No Smoking Status (MU): Former Smoker Type: Cigarettes, Pipe Amount Used/How Often: occasional Length of Time of Smoking/Using Tobacco: Pt unable to give dates Have You Smoked in the Last Year: No Review of Systems Negative: Fever, Chills Negative: Blurred Vision Negative: Palpitations, Chest Pain Negative: Shortness Of Breath, Cough Negative: Abdominal Pain, Vomiting, Diarrhea All Other Systems Reviewed And Are Negative: Yes Physical Exam - Summary Physical Exam Summary: General: This is a well-developed, well- nourished elderly man lying on the stretcher in no apparent distress. The patient does not appear ill or toxic. HEENT:Extraocular movements are intact. Conjunctiva are normal without pallor. Pharynx is clear without exudate or swelling. Dentition is unremarkable. There is no sign of head trauma. Neck: Supple, no adenopathy noted. Lungs: Lungs are clear to auscultation. There are no signs of respiratory distress. Coronary: Peripheral perfusion is good. Heart sounds are regular, a normal S1 and S2 were auscultated. There is no gallop rhythm, nor any pathological sounded murmurs. Abdomen: The abdomen appears normal and is nondistended. Normoactive bowel sounds are present. On palpation, there is no significant tenderness, nor any guarding or rebound. There is no hepatosplenomegaly, nor any masses. Genitourinary: Deferred Back: Good range of motion is observed. There are no surface abnormalities nor any scoliosis. Extremities: Good range of motion was observed in all 4 extremities. There is no sign of any trauma to the extremities. Neurologic: The patient is awake and alert, speech is fluent in conversation is appropriate. There are no focal motor abnormalities. Cranial nerves are grossly intact. Deep tendon reflexes are 2+ and symmetric. There is no ataxia observed. Psychiatric. The patients affect is felt to be normal and appropriate. There is no sign of any hallucinations or delusions, or any other signs of psychosis. Vital Signs On Initial Exam: Initial Vitals Temp Pulse Resp BP Pulse Ox 36.4 C 60 16 145/76 99 02/06/18 18:39 10/27/18 18:39 02/06/18 18:39 02/06/18 18:39 02/06/18 18:39 Diagnostics - Vital Signs Vital Signs Temp Pulse Resp BP Pulse Ox 02/06/18 18:39 36.4 C 60 16 145/76 99 - Laboratory Result Diagrams: 02/06/18 19:20 02/06/18 19:20 Lab Statement: Any lab studies that have been ordered have been reviewed, and results considered in the medical decision making process. - EKG 1920 Cardiac Rate: NL - 66 BPM EKG Rhythm: Sinus Rhythm Ectopy: PVCs Summary of EKG Findings: multiple PVCs Dizzy Course/Dx - Diagnoses Provider Diagnoses: Near syncope Discharge - Sign-Out/Discharge Documenting (check all that apply): Patient Departure - Discharge Plan Condition: Improved Disposition: HOME Patient Education Materials: Near Syncope (ED) Referrals: Nitesh Mendez MD [Primary Care Provider] - 2 Days - Billing Disposition and Condition Condition: IMPROVED Disposition: Home - Attestation Statements Document Initiated by Harshal: Mary
[2018-02-06] MEDS ORDERED: NS 0.9% 1000 ML* 1,000 ML IV ONE (18:57)
[2018-02-06 19:37] LABS: ABS Basophils 0.1 10^3/ul (0-0.2); ABS Eosinophils 0.7 10^3/ul (0-0.6); ABS Lymphocytes 1.6 10^3/ul (1.0-4.8); ABS Monocytes 0.9 10^3/ul (0-0.8); ABS Neutrophils 8.7 10^3/ul (1.5-7.7); ABS Nucleated RBC 0 10^3/ul; Eosinophil % 6.1 % (0-6); Hematocrit 47 % (42-52); Hemoglobin 15.9 g/dl (14.0-18.0); Lymphocyte % 13.3 % (25-47); Mean Corpuscular HGB Conc 34 g/dl (31-36); Mean Corpuscular Hemoglobin 30 pg (27-31); Mean Corpuscular Volume 88 fL (80-94); Mean Platelet Volume 8.2 um3 (7.4-10.4); Nucleated Red Blood Cells % 0.1; Platelet Count 296 10^3/ul (150-450); Red Blood Count 5.28 10^6/ul (4.00-5.40); Red Cell Distribution Width 15 % (10.5-15)
[2018-02-06 19:49] LABS: EGFR Non-African American 62.6 (>60)
[2018-02-06 22:04] VITALS: BP 159/81
--- NOTE | 2018-02-07 07:09 | RAD ---
INDICATION: Near syncope. COMPARISON: Comparison is made with a prior study from October 16, 2017. TECHNIQUE: Comparison is made to prior study from October 16, 2017. FINDINGS: Cardiac and mediastinal contours appear to be within normal limits. The lungs are clear. No pleural effusion is seen. IMPRESSION: NO EVIDENCE FOR ACUTE DISEASE. [id number]
== END 2018-02-06 23:20 | disposition home or self-care (01) ==
LOC: ED 18:30
DX: R55 Syncope and collapse (principal); I10 Essential (primary) hypertension; Z88.8 Allergy status to other drugs, medicaments and biological substances; Z87.891 Personal history of nicotine dependence
CPT/HCPCS: 36415; 71045; 80053; 84484; 85025; 93005; 99283

== ENCOUNTER 2018-08-18 03:19 | Observation (INO) | payer MEDICARE ==
[2018-08-18] MEDS ORDERED: NS 0.9% 1000 ML** 1,000 ML IV ONE (04:06)
--- NOTE | 2018-08-18 04:15 | ED ---
Syncope/Near Syncope - HPI Summary HPI Summary: A 78 y/o male brought in by [facility] ambulance presents to [facility] with a chief complaint of a syncopal episode today. Per EMS the patient's systolic BP was in the 60s and the patient was lethargic. In the ED his BP is more stable and he is feeling less lethargic, only lightheaded. He claims that before his syncopal episode he felt dizzy, but not a room-spinning dizziness. He denies any SOB or current pain. He claims that he walks fine. He states that he has had a Hx of two or three syncopal episodes. - History Of Current Complaint Chief Complaint: EDSyncope Time Seen by Provider: 08/18/18 03:25 Hx Obtained From: Patient, EMS Onset/Duration: Sudden Onset, Lasting Hours, Resolved Timing: Intermittent Episode Lasting - unknown Context: Other - unknown Activity At Onset: Other - in bathtub Associated Head Trauma: No Aggravating Factor(s): Nothing Alleviating Factor(s): Nothing Associated Signs And Symptoms: Negative - fever, SOB, Lightheadedness - Allergies/Home Medications Allergies/Adverse Reactions: Allergies Allergy/AdvReac Type Severity Reaction Status Date / Time clopidogrel [From Plavix] Allergy Severe Hives Verified 08/18/18 03:42 Home Medications: Home Medications Aspirin [Aspirin EC] 81 mg PO DAILY 08/18/18 [History Confirmed 08/18/18] Brilinta 60 MG TAB 60 mg PO BID 08/18/18 [History Confirmed 08/18/18] Carvedilol [Coreg] 6.25 mg PO BID 08/18/18 [History Confirmed 08/18/18] Gabapentin 900 mg PO BEDTIME 08/18/18 [History Confirmed 08/18/18] Metformin HCl 1,000 mg PO BID 08/18/18 [History Confirmed 08/18/18] PMH/Surg Hx/FS Hx/Imm Hx Endocrine/Hematology History: Reports: Hx Diabetes - +diabetic peripheral neuropathy Denies: Hx Anticoagulant Therapy, Hx Thyroid Disease, Hx Anemia Cardiovascular History: Reports: Hx Hypertension - ON MEDS Denies: Hx Angina, Hx Coronary Artery Disease, Hx Hypercholesterolemia, Hx Myocardial Infarction, Hx Pacemaker/ICD, Hx Valvular Heart Disease Respiratory History: Reports: Hx Pneumonia, Hx Sleep Apnea Denies: Hx Chronic Obstructive Pulmonary Disease (COPD) History: Denies: Hx Dialysis, Hx Renal Disease Musculoskeletal History: Reports: Hx Arthritis Sensory History: Reports: Hx Contacts or Glasses, Hx Hearing Problem - mild Denies: Hx Hearing Aid Opthamlomology History: Reports: Hx Contacts or Glasses Neurological History: Reports: Hx CVA Denies: Hx Dementia, Hx Seizures, Other Neuro Impairments/Disorders Psychiatric History: Denies: Hx Panic Disorder - Surgical History Surgery Procedure, Year, and Place: SEBACIOUS CYST REMOVED FROM BACK OF NECK Hx Anesthesia Reactions: No - Immunization History Date of Tetanus Vaccine: unk Date of Influenza Vaccine: unk Infectious Disease History: No Infectious Disease History: Denies: Traveled Outside the [place] in Last 30 Days - Family History Known Family History: Positive: Other - no ulcers or intestinal diseases Negative: Respiratory Disease, Seizure Disorder - Social History Alcohol Use: None Hx Substance Use: No Substance Use Type: Reports: None Hx Tobacco Use: No Smoking Status (MU): Former Smoker Type: Cigarettes, Pipe Amount Used/How Often: occasional Length of Time of Smoking/Using Tobacco: Pt unable to give dates Have You Smoked in the Last Year: No Review of Systems Negative: Fever Negative: Shortness Of Breath Neurological: Other - positive: currently lightheaded Positive: Syncope All Other Systems Reviewed And Are Negative: Yes Physical Exam - Summary Physical Exam Summary: VITAL SIGNS: Reviewed. GENERAL: Patient is a well-developed and nourished MALE who is lying comfortable in the stretcher. Patient is not in any acute respiratory distress. HEAD AND FACE: No signs of trauma. No ecchymosis, hematomas or skull depressions. No sinus tenderness. EYES: PERRLA, EOMI x 2, No injected conjunctiva, no nystagmus. EARS: Hearing grossly intact. Ear canals and tympanic membranes are within normal limits. MOUTH: Oropharynx within normal limits. NECK: Supple, trachea is midline, no adenopathy, no JVD, no carotid bruit, no c- spine tenderness, neck with full ROM CHEST: Symmetric, no tenderness at palpation LUNGS: Clear to auscultation bilaterally. No wheezing or crackles. CVS: Regular rate and rhythm, S1 and S2 present, no murmurs or gallops appreciated. ABDOMEN: Soft, non-tender. No signs of distention. No rebound no guarding, and no masses palpated. Bowel sounds are normal. EXTREMITIES: FROM in all major joints, no edema, no cyanosis or clubbing. NEURO: Alert and oriented x 3. No acute neurological deficits. Speech is normal and follows commands. SKIN: Dry and warm Triage Information Reviewed: Yes Vital Signs On Initial Exam: Initial Vitals Temp Pulse Resp BP Pulse Ox 96.9 F 77 19 116/65 97 08/18/18 03:33 08/18/18 03:33 08/18/18 03:33 08/18/18 03:33 08/18/18 03:33 Vital Signs Reviewed: Yes Diagnostics - Vital Signs Vital Signs Temp Pulse Resp BP Pulse Ox 08/18/18 04:00 82 17 98 08/18/18 03:36 76 16 139/73 97 08/18/18 03:33 96.9 F 77 19 116/65 97 - Laboratory Result Diagrams: 08/18/18 04:17 08/18/18 04:17 Lab Statement: Any lab studies that have been ordered have been reviewed, and results considered in the medical decision making process. - Radiology CXR Radiology Interpretation Completed By: ED Physician Summary of Radiographic Findings: No acute process. Pending official imaging report. - EKG 04:46 Cardiac Rate: NL - 90 bpm EKG Rhythm: Sinus Rhythm Summary of EKG Findings: NSR at 90 bpm with first degree AV block. Course/Dx Course Of Treatment: A 78 y/o male brought in by [facility] ambulance presents to [facility] with a chief complaint of a syncopal episode today. Per EMS the patient's systolic BP was in the 60s and the patient was lethargic. In the ED his BP is more stable and he is feeling less lethargic, only lightheaded. The physical exam was unremarkable. In the ED course the patient was given sodium chloride IV. EKG showed NSR at 90 bpm with first degree AV block. Bloodwork, chemistries and urines obtained. Urine glucose 3+, Urine RBC 3+, Urine WBC 1+. Troponin of 0.04 at 04:17. CXR showed no acute process. Case discussed with Dr. Reddy, hospitalist, who accepted the patient for admission. The patient is agreeable with this plan. - Diagnoses Provider Diagnoses: UTI (urinary tract infection) - Physician Notifications Discussed Care of Patient With: Dolly Reddy Time Discussed With Above Provider: 06:14 Instructed by Provider To: Admit As Inpatient Discharge - Sign-Out/Discharge Documenting (check all that apply): Patient Departure - admit Patient Received Moderate/Deep Sedation with Procedure: No - Discharge Plan Condition: Fair Disposition: ADMITTED TO [facility] Referrals: Val Phillip DO [Primary Care Provider] - - Billing Disposition and Condition Condition: FAIR Disposition: Admitted to [facility] - Attestation Statements Document Initiated by Scribe: Yes Documenting Scribe: Edmund Tony Provider For Whom Harshal is Documenting (Include Credential): Griselda Pride MD Scribe Attestation: Edmund Tripathi, scribed for Griselda Pride MD on 08/18/18 at 0644. Scribe Documentation Reviewed: Yes Provider Attestation: The documentation as recorded by the Edmund arellano accurately reflects the service I personally performed and the decisions made by Flakito blanchard MD Status of Scribe Document: Viewed
[2018-08-18 04:24] LABS: Hematocrit 47 % (42-52); Hemoglobin 16.1 g/dL (14.0-18.0); Mean Corpuscular HGB Conc 34 g/dL (31-36); Mean Corpuscular Hemoglobin 29 pg (27-31); Mean Corpuscular Volume 86 fL (80-94); Platelet Count 265 10^3/uL (150-450); Red Cell Distribution Width 15 % (10.5-15); White Blood Count 18.2 10^3/uL (3.5-10.8)
[2018-08-18 04:36] LABS: Activated Partial Thrombo Time 32.8 seconds (26.0-36.3); INR 1.21 (0.82-1.09)
[2018-08-18 04:57] LABS: ALT 24 U/L (7-52); Albumin 3.7 g/dL (3.2-5.2); Albumin/Globulin Ratio 1.2 (1-3); Alkaline Phosphatase 118 U/L (34-104); BUN/Creatinine Ratio 11.6 (8-20); Blood Urea Nitrogen 13 mg/dL (6-24); CO2 Carbon Dioxide 26 mmol/L (22-32); Calcium 8.7 mg/dL (8.6-10.3); Chloride 101 mmol/L (101-111); EGFR African American 77.1 (>60); EGFR Non-African American 63.7 (>60); Globulin 3.1 g/dL (2-4); Glucose 170 mg/dL (70-100); Magnesium 1.9 mg/dL (1.9-2.7); Sodium 134 mmol/L (135-145); Total Protein 6.8 g/dL (6.4-8.9)
[2018-08-18 05:06] LABS: ABS Basophils 0.1 10^3/ul (0-0.2); ABS Eosinophils 0.5 10^3/ul (0-0.6); ABS Lymphocytes 2.1 10^3/ul (1.0-4.8); ABS Monocytes 1.8 10^3/ul (0-0.8); ABS Neutrophils 13.8 10^3/ul (1.5-7.7); Eosinophil % 2.9 %; Lymphocyte % 11.3 %
[2018-08-18 05:11] LABS: Anion Gap 7 mmol/L (2-11); Troponin I 0.04 ng/mL (<0.04)
[2018-08-18 05:12] LABS: TSH (Thyroid Stimulating Horm) 2.05 mcIU/mL (0.34-5.60)
[2018-08-18 06:07] LABS: Urine Appearance Clear; Urine Bacteria 1+ (Absent); Urine Bilirubin Negative (Negative); Urine Blood 1+ (Negative); Urine Color Yellow; Urine Glucose 3+(>=500 mg/dL) (Negative); Urine Ketones Trace (Negative); Urine Nitrite Negative (Negative); Urine Protein Negative (Negative); Urine Red Blood Cell 3+(>10/hpf) (Absent); Urine Specific Gravity 1.007 (1.010-1.030); Urine Urobilinogen Negative (Negative); Urine White Blood Cell 1+(6-10/hpf) (Absent)
[2018-08-18] MEDS ORDERED: Levofloxacin 750 MG IVPREMIX(* 750 MG/150 ML BAG IVPB ONE (06:10)
[2018-08-18] MEDS ORDERED: Acetaminophen TAB* 325 MG PO PRN (09:34)
[2018-08-18] MEDS ORDERED: Magnesium Hydroxide LIQ* 30 ML UDC PO PRN (09:34)
[2018-08-18] MEDS ORDERED: Dextrose 50% Syringe 50 ML* 25 GM/50 ML SYRINGE IV PUSH PRN (09:45)
[2018-08-18] MEDS ORDERED: Cyclobenzaprine TAB* 10 MG PO PRN (09:46)
[2018-08-18] MEDS: NS 0.9% 1000 ML** 2,000 ML IV ONE (09:52)
--- NOTE | 2018-08-18 11:55 | HP ---
CC: Dr. Val Phillip, [facility]* HISTORY AND PHYSICAL: DATE OF ADMISSION: 08/18/18 PRIMARY CARE PROVIDER: Dr. Val Phillip from [facility]. QUARRY WORKER: Dr. Rio Allen. CHIEF COMPLAINT: Dizziness and near syncope. 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 The patient is currently residing at [facility] undergoing rehabilitation. He stated that for his birthday he had "nothing but cake" 2 days ago. Subsequently, he urinated "a lot." Today , early in the morning when nursing staff helped him to go to the bathroom, he felt very dizzy and lightheaded and near syncopal. Subsequently, he came into the ED for evaluation. He denies any dysuria apart from increase in urinary frequency. He has no burning with urination and no pain. He stated that he had 1 episode of a little bit of blood with his urine, but otherwise no other abnormalities in urine were noted. The patient denied any chest pain or shortness of breath. When he presented to the ED, he was noted to have abnormal urinalysis with likely urinary tract infection. His troponin is 0.04, but the patient has history of coronary artery disease and his troponins had been elevated in the past. He is otherwise asymptomatic from cardiac standpoint. He is going to be admitted with a diagnosis of UTI/sepsis. PAST MEDICAL HISTORY: 1. History of CVA in September 2017 with residual right-sided weakness. 2. History of a CVA in 2012. 3. History of coronary artery disease. The patient stated that he had an episode of chest pain and EKG changes during his last hospital stay a year ago and he was supposed to get cardiac catheterization, but it was too high of a risk and he has not had one done yet. 4. History of carotid stenosis which is left carotid at 70%. 5. History of obstructive sleep apnea, not on CPAP. 6. Hypertension. 7. Diabetes, insulin dependent. 8. Dyslipidemia. 9. Depression. 10. History of abnormal nuclear cardiac stress test. 11. Implanted by Dr. Fragoso in February 2018 cardiac rehab nurse. MEDICATIONS: At [facility] include: 1. Amlodipine 2.5 mg at bedtime. 2. Brilinta 60 mg b.i.d. 3. Gabapentin 900 mg at bedtime. 4. Aspirin 81 mg daily. 5. Zoloft 25 mg daily. 6. Glipizide XL 20 mg daily. 7. Metformin 1000 mg b.i.d. 8. Insulin glargine 85 units at bedtime. 9. Lipitor 80 mg daily. 10. Coreg 6.25 mg b.i.d. 11. Flexeril 10 mg every 8 hours p.r.n. 12. Gabapentin 300 mg 3 times a day. ALLERGIES: PLAVIX. FAMILY HISTORY: The patient is adopted. Family history of unknown. 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 He is . He has 3 children and his son, Hardeep Krueger, with a phone number [phone] is his healthcare proxy. He has history of remote smoking. He denies any alcohol or drug use. REVIEW OF SYSTEMS: Please see history of present illness. All the remaining 12 systems were reviewed with the patient and were otherwise negative. PHYSICAL EXAMINATION GENERAL: The patient is a very pleasant 78-year-old male who is in no acute distress. He is alert and oriented x3. VITAL SIGNS: Blood pressure 138/68, heart rate of 80 and regular, respiratory rate 20, oxygen saturation 97% on room air, temperature of 96.9. HEENT: Head atraumatic, normocephalic. Eyes: Pupils are equal and reactive to light and accommodation. Oropharynx is clear. Mucosa moist. NECK: Supple. No JVD. No bruits bilaterally. RESPIRATORY: Clear to auscultation bilaterally. CARDIOVASCULAR: Regular rate and rhythm. No murmur. ABDOMEN: Soft, nontender. Bowel sounds are present in all 4 quadrants. EXTREMITIES: There is no edema. Pulses are +2 bilaterally. No clubbing or cyanosis. NEURO EVALUATION: Cranial nerves II through XII grossly intact. Speech clear. Motor strength is minimally diminished in the right upper and right lower extremities at 4+/5. Motor strength on the left side is 5/5 in both extremities. Ambulation was not evaluated during my visit. PSYCHIATRIC EVALUATION: Oriented x3 with no evidence of anxiety or depression. DIAGNOSTIC STUDIES/LAB DATA: Laboratory data and studies performed in the ED includes: EKG shows sinus tachycardia with a heart of 90 beats per minute with left axis deviation, QTc at 489 milliseconds. Comparing with EKG from January 2018, QTc was slightly less pronounced, otherwise the changes appear similar. Portable chest x-ray, impression: "No active cardiopulmonary disease." Laboratory data showed sodium of 134, potassium unfortunately hemolyzed, chloride of 101, carbon dioxide 26, BUN 13, creatinine of 1.12. Liver function tests showed bilirubin of 1.3, alkaline phosphatase which is currently elevated in this patient at 118, ALT of 24. AST was unable to be obtained due to hemolysis of the sample. The patient's troponin was 0.04. White blood cell count was 18.2, hemoglobin 16.1, hematocrit 47, platelets of 265. The patient's INR was slightly elevated at 1.2. The patient's lactic acid is pending at the time of dictation. Urinalysis: +1 wbc's, +3 rbc's, +1 bacteria, trace blood, negative for nitrite , negative for esterase. ASSESSMENT AND PLAN: 1. Near syncopal episode. The patient with history of polyuria after he had cake for his birthday 2 days ago. His urinalysis is mildly positive for possibility of urinary tract infection, but the patient has no esterase and no nitrites in his urinalysis. Nevertheless, the patient is going to be empirically treated with ceftriaxone, we will wait cultures, and we will observe the patient on telemetry monitored bed. Although I do not believe that the syncope was neurogenic of origin due to the patient's strong history of cerebrovascular accident and that he has history of carotid artery stenosis that was not operated on, we will place him on neuro checks every 4 hours. The patient has elevated white blood cell count and tachycardia. His lactic acid is going to be checked and blood cultures have already been obtained in the emergency department. With his likely urinary infection as a source, he is septic at admission. 2. The patient's troponin is mildly elevated. He is asymptomatic from cardiac standpoint. His EKG has not significantly changed from prior. The patient has known abnormal cardiac stress test, but had decided with his production maintenance technician not to undergo cardiac catheterization. At this point, the patient is going to be observed on telemetry monitored bed and we will follow up troponins. He is already on statin, Brilinta, and aspirin which are going to be continued. 3. For the patient's diabetes, oral agents are going to be stopped, his insulin Lantus is going to be lowered since the patient is going to be on hospital diabetic diet. We will also continue insulin sliding scale. 4. For his dyslipidemia, his statin is going to be continued. 5. His code status is full. His surrogate is his son, Hardeep. 6. For DVT prophylaxis, the patient is going to placed on heparin subcutaneously. TIME SPENT: Approximately 65 minutes was spent on admission of this patient, more than half that time was spent [id number] with the patient during the interview and physical exam. [id number]/[facility] #: [id number] GUIDO
[2018-08-18] MEDS: Heparin VIAL(*) 5000 UNITS/ML VIAL (FIVE THOUSAND) SUBCUT SCH ×2 (13:03→21:05)
[2018-08-18] MEDS: Insulin LISPRO* 1 UNITS UNIT SUBCUT SCH ×3 (13:08→21:09)
[2018-08-18] MEDS: Gabapentin CAP(*) 300 MG PO SCH ×2 (13:11→17:22)
[2018-08-18] MEDS: Tamsulosin CAP* 0.4 MG PO SCH (17:19)
[2018-08-18] MEDS ORDERED: Atorvastatin* 80 MG TAB PO SCH (18:00)
[2018-08-18] MEDS ORDERED: Insulin GLARGINE(*) 1 UNITS UNIT SUBCUT SCH (21:00)
[2018-08-18] MEDS ORDERED: amLODIPine TAB* 5 MG PO SCH (21:00)
[2018-08-18] MEDS ORDERED: Gabapentin CAP(*) 300 MG PO SCH (21:00)
[2018-08-18] MEDS: Carvedilol TAB* 6.25 MG PO SCH (21:05)
[2018-08-18] MEDS: Docusate CAP* 100 MG PO SCH (21:05)
[2018-08-18] MEDS: CMCS:Ticagrelor (NF) 60 MG TAB PO SCH (21:05)
[2018-08-19] MEDS: Heparin VIAL(*) 5000 UNITS/ML VIAL (FIVE THOUSAND) SUBCUT SCH (05:23)
[2018-08-19 06:24] LABS: ABS Basophils 0.1 10^3/ul (0-0.2); ABS Eosinophils 0.4 10^3/ul (0-0.6); ABS Lymphocytes 3.2 10^3/ul (1.0-4.8); ABS Neutrophils 7.8 10^3/ul (1.5-7.7); Eosinophil % 3.3 %; Hematocrit 41 % (42-52); Hemoglobin 13.9 g/dL (14.0-18.0); Lymphocyte % 25.6 %; Mean Corpuscular HGB Conc 34 g/dL (31-36); Mean Corpuscular Hemoglobin 29 pg (27-31); Mean Corpuscular Volume 85 fL (80-94); Mean Platelet Volume 8.2 fL (7.4-10.4); Platelet Count 229 10^3/uL (150-450); Red Blood Count 4.85 10^6 /uL (4.18-5.48); Red Cell Distribution Width 15 % (10.5-15); White Blood Count 12.5 10^3/uL (3.5-10.8)
[2018-08-19 06:36] LABS: BUN/Creatinine Ratio 13.6 (8-20); Calcium 8.3 mg/dL (8.6-10.3); EGFR African American 78.7 (>60); EGFR Non-African American 65.1 (>60); Potassium 3.3 mmol/L (3.5-5.0)
[2018-08-19] MEDS ORDERED: cefTRIAXone(*) 1 GM in NS 0.9% 50 ML* 50 ML IVPB SCH (07:00)
[2018-08-19 07:24] VITALS: BP 151/75
[2018-08-19] MEDS ORDERED: Potassium Chlor TAB* 10 MEQ TAB.ER PO ONE (07:38)
[2018-08-19] MEDS: Docusate CAP* 100 MG PO SCH (08:10)
[2018-08-19] MEDS: Insulin LISPRO* 1 UNITS UNIT SUBCUT SCH ×2 (08:11→11:28)
[2018-08-19] MEDS: Carvedilol TAB* 6.25 MG PO SCH (08:11)
[2018-08-19] MEDS: CMCS:Ticagrelor (NF) 60 MG TAB PO SCH (08:11)
[2018-08-19] MEDS: Tamsulosin CAP* 0.4 MG PO SCH (08:11)
[2018-08-19] MEDS: Gabapentin CAP(*) 300 MG PO SCH (08:42)
[2018-08-19] MEDS ORDERED: Aspirin EC TAB* 81 MG TAB.EC PO SCH (09:00)
[2018-08-19] MEDS ORDERED: Sertraline* 25 MG TAB PO SCH (09:00)
--- NOTE | 2018-08-19 12:37 | DS ---
CC: Dr. Phillip, [facility]* DISCHARGE SUMMARY: DATE OF ADMISSION: 08/18/18 DATE OF DISCHARGE: 08/19/18 PRIMARY CARE PROVIDER: Dr. Phillip from [facility]. The patient is being discharged back to [facility]. Please also regard this dictation as admission history and physical to [facility] on 08/19/18. CONDITION ON DISCHARGE: Stable. DISCHARGE DIAGNOSIS: Sepsis due to Enterococcus faecalis urinary tract infection. SECONDARY DIAGNOSES: 1. History of cerebrovascular accident with residual right-sided weakness. 2. Coronary artery disease with history of abnormal cardiac stress test. So far it was decided for the patient not to undergo cardiac catheterization and he is under care of Dr. Rio Allen from Cardiology. 3. History of carotid artery stenosis, left carotid at 70%. 4. History of obstructive sleep apnea, not on CPAP. 5. Hypertension 6. Diabetes, insulin dependent. 7. Dyslipidemia. 8. Depression. 9. History of implantable quality assurance monitor chassis by Dr. Fragoso in February 2018. MEDICATIONS AT DISCHARGE: Include Augmentin 875 mg p.o. b.i.d. for a total of 7 days. This antibiotic should be adjusted according to patient's urine cultures and sensitivities that should be resulted on 08/20/18 at [facility]. The remaining medications are unchanged, include: 1. Amlodipine 2.5 mg at bedtime. 2. Aspirin 81 mg daily. 3. Lipitor 80 mg daily. 4. Brilinta 60 mg b.i.d. 5. Coreg 6.25 mg b.i.d. 6. Flexeril 10 mg every 8 hours p.r.n. 7. Gabapentin 900 mg at bedtime. 8. Gabapentin 300 mg 3 times a day. 9. Glipizide XL 20 mg q.a.m. 10. Insulin glargine 85 units subcutaneously at bedtime. 11. Metformin 1000 mg b.i.d. 12. Zoloft 25 mg daily. LABORATORY DATA AND STUDIES PERFORMED DURING THE HOSPITAL STAY: Include on 12/30; Sodium of 134, potassium of 3.3, chloride 103, carbon dioxide 23, BUN 15 , creatinine 1.1. White blood cell count of 12.5, hemoglobin of 13.9, hematocrit 41, platelets 229. Urinalysis showed +1 wbc's, +3 rbc's, +1 bacteria, negative for nitrite, negative for esterase. Microbiology studies showed urine cultures preliminary report Enterococcus faecalis of 100,000 colonies with sensitives pending. Blood cultures were negative. Abdomen and bladder ultrasound obtained on 08/18/18, impression: "No evidence for hydronephrosis. Enlarged prostate gland and large postvoid residual." Please note that the large postvoid residual reported was only 87 mL in total. HOSPITALIZATION COURSE: Dayton Krueger is a 78-year-old male with a history of old CVA with residual mild right-sided weakness with dysfunction, and still a resident of [facility]. He ambulates with the assistance of a nurse, and when he was assisted to go to the bathroom in the evening of 08/18/18, he developed dizziness and near syncope. Apparently, there was hypotension reported at [facility]. When he presented to the emergency room at our hospital, he was noted to have leukocytosis and tachycardia, but continued to be afebrile. His blood pressures were stable and patient never developed hypotension during his hospital stay. He was noted to have sepsis, likely due to UTI. His urine cultures were positive for Enterococcus faecalis. He was on ceftriaxone at the time of discharge when his urine cultures were identified, and at that point, he was changed to Augmentin. He is to take Augmentin for total of 7 days unless his sensitivities in a day come back with different antibiogram and at that point, that will need to be adjusted at [facility]. PHYSICAL EXAM AT THE TIME OF DISCHARGE: Blood pressure of 151/75, heart rate of 80 and regular, respiratory rate 16, oxygen saturation 98% on room air, temperature 97.8. General: The patient is a very pleasant 78-year-old male, who is not in acute distress. Alert, awake, and oriented x3. HEENT: Head: Atraumatic, normocephalic. Eyes: Pupils are equal, reactive to light and accommodation. Oropharynx is clear. Mucosa moist. Neck: Supple. No JVD. No bruits bilaterally. Cardiovascular: Regular rate and rhythm. No murmur. Respiratory: Clear to auscultation bilaterally. Abdomen: Soft, nontender. Bowel sounds are present in all 4 quadrants. Extremities: There is no edema. Pulses +2 bilaterally. No clubbing or cyanosis. On neuro evaluation, the patient has proximal right arm and right leg weakness at 4/5, distal right arm weakness is at +4/5 and right leg is also at 4+/5. He has no impairment in motor function on the left. His cranial nerves II through XII grossly intact. Motor strength as above. Speech clear. Please note that this is a short summary of the patient's hospital stay. Please refer to further medical records for details. TIME SPENT: Approximately 35 minutes was spent on patient's discharge. [id number]/[facility] #: [id number] GUIDO
== END 2018-08-19 12:12 ==
LOC: ED 03:19 → INTOOBSV 10:48 → MEDTELE 10:48
PROVIDERS: ADMIT Internal Medicine; ATTEND Internal Medicine
DX: A41.81 Sepsis due to Enterococcus (principal); N39.0 Urinary tract infection, site not specified; I69.30 Unspecified sequelae of cerebral infarction; I25.10 Atherosclerotic heart disease of native coronary artery without angina pectoris; I65.22 Occlusion and stenosis of left carotid artery; G47.33 Obstructive sleep apnea (adult) (pediatric); I10 Essential (primary) hypertension; E11.9 Type 2 diabetes mellitus without complications; Z79.4 Long term (current) use of insulin; E78.5 Hyperlipidemia, unspecified; F32.9 Major depressive disorder, single episode, unspecified; Z95.818 Presence of other cardiac implants and grafts; R55 Syncope and collapse; Z79.82 Long term (current) use of aspirin; Z87.891 Personal history of nicotine dependence; R42 Dizziness and giddiness
CPT/HCPCS: 36415; 71045; 76770; 80048; 80053; 81003; 81015; 83605; 83735; 84443; 84484; 85025; 85610; 85730; 87040; 87077; 87086; 87186; 87641; 93005; 96361; 96365; 96372; 96375; 99284; A9270-GY; G0378; J0696; J1644

== ENCOUNTER 2018-10-06 04:17 | Emergency (ER) | payer MEDICARE, MEDICAID ==
--- NOTE | 2018-10-06 04:44 | ED ---
Syncope/Near Syncope - HPI Summary HPI Summary: A 78 y/o M brought in by ambulance presents to ED s/p near-syncopal episode approx 0330 this date. Patient ambulated to the bathroom with his walker and became dizzy. He describes the dizziness as lightheadedness. He urinated, then he walked back to his room and still felt wobbly. When he got to his bed, felt dizzy and fell breaking his night stand. Staff helped him get back into his bed. Denies CP, head trauma. He has had previous episodes of syncope/near- syncope and [place] [facility] [place] gets fluids and is discharged. Sees Dr. Allen, cardiology. He is on a blood thinner. Patient under recent stress as he sold his house yesterday. - History Of Current Complaint Chief Complaint: EDSyncope Time Seen by Provider: 10/06/18 04:28 Hx Obtained From: Patient Onset/Duration: Sudden Onset, Still Present - mostly resolved Timing: Intermittent Episode Lasting - minutes Context: Unwitnessed Activity At Onset: Exertion - mild exertion - ambulating Alleviating Factor(s): Spontaneous Resolution - mostly Associated Signs And Symptoms: Dizzy, Lightheadedness, Other - neg: CP, head trauma. - Allergies/Home Medications Allergies/Adverse Reactions: Allergies Allergy/AdvReac Type Severity Reaction Status Date / Time clopidogrel [From Plavix] Allergy Severe Hives Verified 10/06/18 04:28 Home Medications: Home Medications Ticagrelor (NF) [Brilinta 60 MG TAB] 60 mg PO BID 10/06/18 [History Confirmed ] PMH/Surg Hx/FS Hx/Imm Hx Previously Healthy: No Endocrine/Hematology History: Reports: Hx Diabetes - +diabetic peripheral neuropathy Denies: Hx Anticoagulant Therapy, Hx Thyroid Disease, Hx Anemia Cardiovascular History: Reports: Hx Hypertension - ON MEDS Denies: Hx Angina, Hx Coronary Artery Disease, Hx Hypercholesterolemia, Hx Myocardial Infarction, Hx Pacemaker/ICD, Hx Valvular Heart Disease Respiratory History: Reports: Hx Pneumonia, Hx Sleep Apnea Denies: Hx Chronic Obstructive Pulmonary Disease (COPD) History: Denies: Hx Dialysis, Hx Renal Disease Musculoskeletal History: Reports: Hx Arthritis Sensory History: Reports: Hx Contacts or Glasses, Hx Hearing Problem - mild Denies: Hx Hearing Aid Opthamlomology History: Reports: Hx Contacts or Glasses Neurological History: Reports: Hx CVA Denies: Hx Dementia, Hx Seizures, Other Neuro Impairments/Disorders Psychiatric History: Denies: Hx Panic Disorder - Surgical History Surgery Procedure, Year, and Place: SEBACIOUS CYST REMOVED FROM BACK OF NECK Hx Anesthesia Reactions: No - Immunization History Date of Tetanus Vaccine: unk Date of Influenza Vaccine: unk Infectious Disease History: No Infectious Disease History: Denies: Traveled Outside the [place] in Last 30 Days - Family History Known Family History: Positive: Other - no ulcers or intestinal diseases Negative: Respiratory Disease, Seizure Disorder - Social History Occupation: Retired Lives: At [employer] Alcohol Use: Rare Hx Substance Use: No Substance Use Type: Reports: None Hx Tobacco Use: No Smoking Status (MU): Former Smoker Type: Cigarettes, Pipe Amount Used/How Often: occasional Length of Time of Smoking/Using Tobacco: Pt unable to give dates Have You Smoked in the Last Year: No Review of Systems Negative: Chest Pain Musculoskeletal: Other - neg: head trauma. Neurological: Other - pos: dizzy/lightheadedness Positive: Syncope - near-syncope All Other Systems Reviewed And Are Negative: Yes Physical Exam - Summary Physical Exam Summary: Constitutional: Well-developed, Well-nourished, Alert. (-) Distressed Skin: Warm, Dry, Small abrasion to L elbow and ecchymosis to R hand HENT: Normocephalic; Atraumatic Eyes: Conjunctiva normal Neck: Musculoskeletal ROM normal neck. (-) JVD, (-) Stridor, (-) Tracheal deviation, no C-spine tenderness Cardio: Rhythm regular, rate normal, Heart sounds normal; Intact distal pulses; The pedal pulses are 2+ and symmetric. Radial pulses are 2+ and symmetric. (-) Murmur Pulmonary/Chest wall: Effort normal. (-) Respiratory distress, (-) Wheezes, (-) Rales Abd: Soft, (-) tenderness, (-) Distension, (-) Guarding, (-) Rebound Musculoskeletal: (-) Edema Lymph: (-) Cervical adenopathy Neuro: Alert, Oriented x3 Psych: Mood and affect Normal Triage Information Reviewed: Yes Vital Signs On Initial Exam: Initial Vitals Temp Pulse Resp BP Pulse Ox 97.3 F 78 12 125/76 98 10/06/18 04:22 10/06/18 04:22 10/06/18 04:22 10/06/18 04:22 10/06/18 04:22 Vital Signs Reviewed: Yes - [place] Coma Scale Best Eye Response: 4 - Spontaneous Best Motor Response: 6 - Obeys Commands Best Verbal Response: 5 - Oriented Coma Scale Total: 15 Diagnostics - Vital Signs Vital Signs Temp Pulse Resp BP Pulse Ox 10/06/18 04:26 61 18 99 10/06/18 04:23 60 14 99 10/06/18 04:22 97.3 F 78 12 125/76 98 - Laboratory Result Diagrams: 10/06/18 05:16 10/06/18 05:16 Lab Statement: Any lab studies that have been ordered have been reviewed, and results considered in the medical decision making process. - Radiology CXR Radiology Interpretation Completed By: ED Physician Summary of Radiographic Findings: poor inspiratory film, but no obvious acute process. - EKG 0500 Cardiac Rate: NL - 65 bpm EKG Rhythm: Sinus Rhythm Summary of EKG Findings: EKG shows NSR at 65 bpm, LAD, prolonged MN with 1st degree AV block. Overall 1st degree AV block and LAD. Non-specific EKG. Course/Dx Course Of Treatment: Patient is a 78 y/o M presenting s/p near-syncopal episode approx 0330 this date. He describes the dizziness as lightheadedness. He fell breaking his night stand, but denies head trauma. PE finds small abrasion to L elbow and ecchymosis to R hand; no c-spine tenderness. Critical lab value: lactic acid: 2.5. CXR is a poor inspiratory film, but shows no obvious acute process. EKG shows NSR at 65 bpm, LAD, prolonged MN with 1st degree AV block. Overall 1st degree AV block and LAD, non-specific EKG. Patient will be signed out to Dr. Tyson at shift change pending CT and admission. Discharge - Sign-Out/Discharge Documenting (check all that apply): Sign-Out Patient Signing out patient TO: Pam Tyson - pending CT, admission Patient Received Moderate/Deep Sedation with Procedure: No - Discharge Plan Condition: Stable Referrals: Val Phillip, [Primary Care Provider] - - Attestation Statements Document Initiated by Scribe: Yes Documenting Scribe: SooYoung VanDeMark Provider For Whom Scribe is Documenting (Include Credential): Dr. Yamini Martinez MD Scribe Attestation: I, Martha Salguero, scribed for Dr. Yamini Martinez MD on at 0717. Status of Scribe Document: Ready
[2018-10-06 05:31] LABS: ABS Basophils 0.1 10^3/ul (0-0.2); ABS Eosinophils 0.9 10^3/ul (0-0.6); ABS Lymphocytes 2.1 10^3/ul (1.0-4.8); ABS Monocytes 1.1 10^3/ul (0-0.8); ABS Neutrophils 9.3 10^3/ul (1.5-7.7); Eosinophil % 6.4 %; Hematocrit 45 % (42-52); Hemoglobin 15.3 g/dL (14.0-18.0); Lymphocyte % 15.7 %; Mean Corpuscular HGB Conc 34 g/dL (31-36); Mean Corpuscular Hemoglobin 29 pg (27-31); Mean Corpuscular Volume 86 fL (80-94); Platelet Count 276 10^3/uL (150-450); Red Blood Count 5.22 10^6 /uL (4.18-5.48); Red Cell Distribution Width 15 % (10-15); White Blood Count 13.5 10^3/uL (3.5-10.8)
[2018-10-06 05:52] LABS: Albumin 3.6 g/dL (3.2-5.2); Albumin/Globulin Ratio 1.2 (1-3); BUN/Creatinine Ratio 13.3 (8-20); Calcium 9.1 mg/dL (8.6-10.3); EGFR African American 83.1 (>60); EGFR Non-African American 68.7 (>60); Globulin 2.9 g/dL (2-4); Total Protein 6.5 g/dL (6.4-8.9)
[2018-10-06 05:54] LABS: Troponin I 0.03 ng/mL (<0.04)
[2018-10-06] MEDS ORDERED: NS 0.9% 1000 ML** 1,000 ML IV ONE (06:46)
--- NOTE | 2018-10-06 07:42 | ED ---
Progress - Progress Note Progress Note: Pt is a signout from Dr. Martinez at 0700 on 10/06/[address] as well as repeat lactic acid and troponin. He states that he had two canisters of vanilla ice cream on 10/05 around 1300, and while he was using the bathroom after, he began to feel dizzy. He made it back to the side of his bed, but then fell and broke the nightstand with his shoulder. He denies head injury, dizziness, CP, or SOB. He states he feels fine and would like to go home to close on his house. He reports hx of DM and CVA, and also notes that Dr. Allen wanted him to have a carotid endarterectomy but thought the risk of the operation was too high. Pt denies any headache, dizziness, weakness, chest pain or SOB at this time. Is eating a turkey sandwich. He states he takes his insulin only at night. Vital signs while in room: HR 65bpm, SaO2 100% on room air with 19 respirations per minute, BP 157/77. Appearance: Well-appearing, no pain distress, well-nourished Skin: Warm, color reflects adequate perfusion, dry Head: Normal Head/Face inspection, atraumatic Eyes: Conjunctiva clear ENT: Normal inspection Neck: Supple, no nodes, no JVD Respiratory: Lungs clear, normal breath sounds, no respiratory distress Cardio: RRR, No murmur, pulses normal, brisk capillary refill Abdomen: Soft, nontender Bowel sounds: Present Musculoskeletal: Strength Intact/ROM intact, no calf tenderness, no edema. Psychological: Normal Neuro: Alert, muscle tone normal, no focal deficit Home Medications Medication Instructions Recorded Confirmed Type Atorvastatin* [Lipitor 80 MG*] 80 mg PO QPM 12/17/17 10/06/18 History Gabapentin CAP(*) [Neurontin 300 300 mg PO TID 12/17/17 10/06/18 History CAP(*)] Insulin GLARGINE(*) [Lantus(*)] 85 units SUBCUT BEDTIME 12/17/17 10/06/18 History Sertraline* [Zoloft*] 25 mg PO DAILY 12/17/17 10/06/18 History amLODIPine TAB* [Norvasc 5 mg TAB*] 2.5 mg PO BEDTIME 12/17/17 10/06/18 History glipiZIDE [Glucotrol Xl] 20 mg PO QAM 03/05/18 10/06/18 History Aspirin [Aspirin EC] 81 mg PO DAILY 08/18/18 10/06/18 History Carvedilol [Coreg] 6.25 mg PO BID 08/18/18 10/06/18 History Gabapentin 900 mg PO BEDTIME 08/18/18 10/06/18 History Metformin HCl 1,000 mg PO BID 08/18/18 10/06/18 History Ticagrelor (NF) [Brilinta 60 MG 60 mg PO BID 10/06/18 10/06/18 History TAB] - Results/Orders Results/Orders: Pt's lactic acid is 1.8 and his second troponin is 0.02. Brain CT shows: 1. NO EVIDENCE FOR ACUTE INTRACRANIAL ABNORMALITY. 2. OLD INFARCTS IN THE LEFT CAUDATE AND LENTIFORM NUCLEI, UNCHANGED. ED physician has reviewed this report. Re-Evaluation - Re-Evaluation 1st re-eval Re-Evaluation Time: 08:58 Change: Improved Comment: Pt's orthostatics are noted, his systolic BP dropped 40 points, but the pt is not hypotensive, and his pulse does not increase. Second Eval Re-Evaluation Time: 09:15 Change: Improved Comment: Pt able to walk with walker unassisted. Course/Dx - Course Course Of Treatment: Pt is a signout from Dr. Martinez at [address] as well as repeat lactic acid and troponin after a syncopal event at [facility], where he broke a nightstand when he fell. He denies head injury, dizziness, CP, or SOB. He states he feels fine and would like to go home to close on his house. Nurse's notes reviewed. Medications reviewed this visit, allergies also reviewed. Vital signs while in room: HR 65bpm, SaO2 100% on room air with 19 respirations per minute, BP 157/77. Brain CT shows: 1. NO EVIDENCE FOR ACUTE INTRACRANIAL ABNORMALITY. 2. OLD INFARCTS IN THE LEFT CAUDATE AND LENTIFORM NUCLEI, UNCHANGED. Pt's lactic acid is now 1.8 and his second troponin is 0.02. [id number] Ramirez of the patients current status. She states that pt is not known to her. Pt's orthostatics are noted, his systolic BP dropped 40 points, but the pt is not hypotensive, and his pulse does not increase. Pt is able to walk with a walker prior to DC without any adverse symptoms. Pt will go back to [facility] via wheelchair van. The pt will be d/c'ed home with dx including syncope, orthostatic hypotension, dehydration, and elevated lactic acid. - Diagnoses Provider Diagnoses: Syncope, Orthostatic hypotension, Dehydration, Elevated lactic acid level Discharge - Sign-Out/Discharge Documenting (check all that apply): Patient Departure - home , Receiving Sign- Out Receiving patient FROM: Yamini Martinez Patient Received Moderate/Deep Sedation with Procedure: No - Discharge Plan Condition: Stable Disposition: HOME Patient Education Materials: Syncope (ED) Referrals: Val Phillip DO [Primary Care Provider] - 2 Days Additional Instructions: You were given normal saline IV while you here, so you were probably dehydrated , since your blood pressure did not drop the way it did when you came to the ER. Continue all of your usual medications. Return to the ER if you have new or worsening symptoms. - Billing Disposition and Condition Condition: STABLE Disposition: Home - Attestation Statements Document Initiated by Bravoibandi: Yes Documenting Scribe: Dolly Bañuelos Provider For Whom Harshal is Documenting (Include Credential): Dr. Pam Tyson MD. Scribe Attestation: Dolly Tripathi scribed for Dr. Pam Tyson MD. on 10/07/18 at 0119. Scribe Documentation Reviewed: Yes Provider Attestation: The documentation as recorded by the Dolly arellano accurately reflects the service I personally performed and the decisions made by me, Dr. Pam Tyson MD. Status of Scribe Document: Viewed
[2018-10-06 08:04] LABS: INR 1.08 (0.82-1.09)
[2018-10-06 08:49] LABS: Urine Appearance Clear; Urine Bilirubin Negative (Negative); Urine Blood Negative (Negative); Urine Color Yellow; Urine Glucose 1+(50 mg/dL) (Negative); Urine Ketones Negative (Negative); Urine Nitrite Negative (Negative); Urine Protein Negative (Negative); Urine Specific Gravity 1.009 (1.010-1.030); Urine Urobilinogen Negative (Negative)
[2018-10-06 09:51] VITALS: BP 160/83
== END 2018-10-06 09:50 | disposition home or self-care (01) ==
LOC: ED 04:17
DX: I95.1 Orthostatic hypotension (principal); E86.0 Dehydration; R74.0 Nonspecific elevation of levels of transaminase and lactic acid dehydrogenase [LDH]
CPT/HCPCS: 36415; 70450; 71045; 80053; 81003; 83605; 84484; 85025; 85610; 93005; 99285

== ENCOUNTER 2019-06-06 14:40 | Inpatient (IN) | payer MEDICARE ==
[2019-06-06] MEDS ORDERED: Ondansetron INJ* 2 MG/ML VIAL IV PRN (16:57)
[2019-06-06] MEDS ORDERED: Acetaminophen TAB* 325 MG PO PRN (16:57)
[2019-06-06] MEDS ORDERED: Dextrose 50% VIAL 50 ml IV PUSH PRN (17:25)
[2019-06-06] MEDS: Insulin LISPRO* 1 UNITS UNIT SUBCUT SCH ×2 (17:59→23:42)
[2019-06-06] MEDS: Enoxaparin(*) 40 MG/0.4 ML SYR SUBCUT SCH (18:07)
[2019-06-06] MEDS: Atorvastatin* 80 MG TAB PO SCH (18:07)
[2019-06-06] MEDS: cefTRIAXone(*) 1 GM in NS 0.9% 50 ML* 50 ML IVPB SCH (18:07)
[2019-06-06 18:47] LABS: ABS Basophils 0.1 10^3/ul (0-0.2); ABS Eosinophils 0.1 10^3/ul (0-0.6); ABS Lymphocytes 1.6 10^3/ul (1.0-4.8); ABS Monocytes 1.4 10^3/ul (0-0.8); ABS Neutrophils 8.2 10^3/ul (1.5-7.7); Eosinophil % 0.6 %; Hematocrit 52 % (42-52); Hemoglobin 17.9 g/dL (14.0-18.0); Lymphocyte % 13.9 %; Mean Corpuscular HGB Conc 35 g/dL (31-36); Mean Corpuscular Hemoglobin 30 pg (27-31); Mean Corpuscular Volume 86 fL (80-94); Mean Platelet Volume 7.8 fL (7.4-10.4); Platelet Count 263 10^3/uL (150-450); Red Blood Count 5.99 10^6 /uL (4.18-5.48); Red Cell Distribution Width 15 % (10-15); White Blood Count 11.3 10^3/uL (3.5-10.8)
[2019-06-06 19:05] LABS: Albumin/Globulin Ratio 1.3 (1-3); C Reactive Protein 11.76 mg/L (<8.01); Calcium 8.8 mg/dL (8.6-10.3); EGFR African American 87.9 (>60); EGFR Non-African American 72.6 (>60); Globulin 3.2 g/dL (2-4); Magnesium 2.2 mg/dL (1.9-2.7); Total Bilirubin 1.6 mg/dL (0.2-1.0); Total Protein 7.2 g/dL (6.4-8.9)
[2019-06-06] MEDS: DOXYcycline IV* 100 MG in NS 0.9% 250 ML* 250 ML IVPB SCH (19:21)
[2019-06-06] MEDS ORDERED: Iodixanol* (CONTRAST) 320 MG/ML 100 ML SDV IV ONE (19:21)
--- NOTE | 2019-06-06 20:04 | HP ---
CC: Dr. aJmil Cartagena * ADMISSION HISTORY AND PHYSICAL: DATE OF ADMISSION: 06/06/19 PRIMARY CARE PROVIDER: Dr. Jamil Cartagena. MY ATTENDING WHILE IN THE HOSPITAL: Dr. Val Phillip.* (DICTATED BY MARLYN VALENTINO) CHIEF COMPLAINT: Encephalopathy x3 days. HISTORY OF PRESENT ILLNESS: Mr. Krueger is a 78-year-old male with past medical history significant for diabetes mellitus type 2, difficult to control; history of multiple CVAs; hypertension. The patient on 06/03/19 presented to [facility] with complaint of dizziness, which he has had before in the past. This started suddenly while he was lying in bed with no other associated symptoms. The patient previously had dizziness in association with dehydration related to uncontrolled blood glucoses. The patient at [facility] was found to have very high blood pressures in the range of 200s/100s. The patient was admitted to the hospital, restarted on his home meds for which there was some concern that he was not being compliant with. The patient did not have any signs of new acute infarct on CT of the head. Over the weekend, the patient 's blood pressure improved; however, the patient began to develop marked encephalopathy of unclear etiology. The patient was noted to have slightly elevated white blood cell count on admission, which initially stayed elevated and then got slightly better. The patient's urinalysis on admission was clear except for a 3+ glucose. The patient had some low blood glucoses while encephalopathic, but had no other obvious metabolic causes of encephalopathy including an ammonia that was low enough to be undetectable. The patient was noted to have no respiratory symptoms and no focal neurologic deficits while he was in the hospital; however, given his worsening of unclear etiology, the patient was transferred to [facility] on 06/06/19. Of note, the patient was reported to have a normal neurologic exam on the morning of and a normal brain MRI showing no acute infarct. Upon arrival to [facility] around 5 o'clock on 06/06/19, the patient was noted to have right -sided weakness that was similar to when he previously was admitted to [facility] with a stroke in 2018. At that time, the patient also had hypertensive urgency. The patient while at [facility] had a chest x-ray , which was read as showing a mild haziness in the left lung base, which could represent a small infiltrate or atelectasis with probable small pleural effusion. The patient on presentation is unable to answer any questions except to deny significant pain or other symptoms. The patient is entirely unable to move his right arm or right leg, does not know where he is and is unable to give any past medical history. PAST MEDICAL HISTORY: CVA in September 2017, CVA in 2012; history of coronary artery disease; history of bilateral carotid stenosis; obstructive sleep apnea, not on CPAP; hypertension; diabetes mellitus type 2; hyperlipidemia; depression. PAST SURGICAL HISTORY: Implantable event monitor in 2018. MEDICATIONS: Home medications per records from outside hospital: 1. Aspirin 81 mg p.o. daily. 2. Farxiga 5 mg p.o. daily. 3. Glipizide 20 mg p.o. daily. 4. Brilinta 60 mg p.o. b.i.d. 5. Carvedilol 6.25 mg p.o. b.i.d. 6. Metformin 1000 mg p.o. b.i.d. 7. Gabapentin 300 mg p.o. daily. 8. Gabapentin 600 mg p.o. nightly. 9. Amlodipine 2.5 mg p.o. nightly. 10. Atorvastatin 80 mg p.o. daily. 11. Insulin glargine 70 units subcutaneous daily. 12. Sertraline 25 mg p.o. daily. 13. Ibuprofen 400 mg p.o. 4 times daily. 14. Vardenafil 10 mg p.o. daily. 15. Tylenol 650 mg p.o. q.4 hours as needed for pain. ALLERGIES: TRAZODONE, CLOPIDOGREL. FAMILY HISTORY: The patient is adopted and his family history is unknown. 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 He is . He has 3 children. He has a remote history of smoking. Denies alcohol or drug use. His surrogate decision maker was previously his son, Hardeep Krueger. REVIEW OF SYSTEMS: Unable to be obtained at this time. PHYSICAL EXAMINATION GENERAL: The patient is a 78-year-old male who appears older than stated age and sitting comfortably in bed, in no acute distress. VITAL SIGNS: At the time of evaluation, not available. HEENT: Head: Normocephalic, atraumatic. Sclerae anicteric. No conjunctival injection. Nasal mucosa moist. Oral mucosa moist. No pharyngeal erythema, discharge, or exudate. NECK: Supple, nontender. No lymphadenopathy. No carotid bruits auscultated. No JVD. RESPIRATORY: Clear to auscultation bilaterally. No wheezes, rales, or rhonchi. Good air exchange bilaterally. CARDIAC: Regular rate and rhythm. No clicks, murmurs, gallops, or rubs. Pulses are 2+ in the bilateral dorsalis pedis, posterior tibial, and radial areas. ABDOMEN: Soft, nontender, nondistended. Bowel sounds present and normoactive in all 4 quadrants. No hepatosplenomegaly. No abdominal bruits auscultated. No hepatojugular reflux. GENITOURINARY: No suprapubic or CVA tenderness. NEURO: Alert, not oriented. Dense right-sided weakness with grade 0/5 strength in the right upper and lower extremities distally and proximally, grade 3/5 strength in the left upper and lower extremities distally and proximally. Reflexes hypoactive on the right side. Babinski's downgoing bilaterally. PSYCHIATRIC: Very sedated. SKIN: Clean, dry, and intact. No rash. DIAGNOSTIC STUDIES/LAB DATA: From [facility] on the day of admission: White blood cell count 10.14, platelet count 284, hemoglobin 16.8, hematocrit 48.1. Sodium 134, potassium 3.6, chloride 99, anion gap 12, BUN 31, creatinine 1.0, glucose 56, calcium 8.2. Ammonia less than 12. Studies from [place] admission: CT of the head shows no acute intracranial hemorrhage, subdural or epidural collections. Ventricular and sulcal prominence associated with diminished deep white matter densities consistent with atrophy and microvascular change. Old ischemic infarcts involving the deep caudate and basal ganglia structures similar to earlier study with compensatory enlargement of the anterior horn of left lateral ventricle. Brain MRI from 06/06/19 read as left basal ganglia encephalomalacia with old infarct, age appropriate brain atrophy with [id number] chronic microvascular angiopathy. Chest x-ray from 06/06/19 read as mild haziness in the left lung base may represent small infiltrate or atelectasis with probable small pleural effusion. ASSESSMENT AND PLAN: Impression: Mr. Krueger is a 78-year-old male with past medical history significant for multiple cerebrovascular accidents, hypertension , diabetes, hyperlipidemia, who was admitted to [facility] with dizziness and hypertensive urgency, with improvement in his blood pressure, was noted to be markedly encephalopathic with progressive worsening, who is now transferred to [facility], found to have right-sided weakness of unclear duration. 1. Right-sided weakness of unclear duration. The patient was noted by physician studio assistant at outside hospital to have a normal neuro exam this morning ; however, the patient is not very cooperative with exam and his last well known was unable to be determined at this point. However, given his history of multiple strokes, we will obtain a repeat CT and CTA. Though given the similarity of this to his previous neurologic deficits, it is unlikely that this represents new ischemic infarct. This is more likely recrudescence in the setting of some sort of systemic insult. The patient is noted to have infiltrate on chest x-ray, which has not been previously treated. The patient will be started on antibiotics for community- acquired pneumonia. A sputum sample will be attempted to be obtained. Given the onset of the patient's symptoms, it is very unlikely to be hospital-acquired pneumonia and the patient will not be started on antibiotics for hospital-acquired pneumonia at this time ; however, if the patient does not improve, these may be considered or if resistant organism grows in the patient's sputum. Blood cultures will also be ordered and a repeat urine culture will be ordered. If the patient does not improve on antibiotics, reconsultation with Neurology will be considered if the patient CT and CTA are negative. Given the patient has negative MRI this morning, repeat MRI could be considered tomorrow as MRI now may represent a false negative result and given the patient is not a tPA candidate due to unclear last known well, this will not manager change at this time. The patient has a low suspicion for meningitis or encephalitis at this time. Lumbar puncture is likely not indicated, though this should be considered at later time. The patient has no metabolic derangement to indicate hypercarbia and has no other indications that this may be related to metabolic cause. The patient does have a history of multiple strokes. If the patient continues to be encephalopathic, EEG will be ordered to rule out recurrent seizures with postictal state. The patient will have Physical Therapy, Occupational Therapy and Speech and Language. The patient will be n.p.o. until able to pass a swallow evaluation as the patient's pneumonia may be related to aspiration. 2. Community-acquired pneumonia. Management as above. The patient will be started on ceftriaxone and doxycycline, have urine antigens and pulmonary toileting. 3. Hypertensive urgency. The patient is currently hypertensive. Given the concern for possible cerebrovascular accident, we will have permissive hypertension at this time. The patient's amlodipine will be resumed tomorrow tentatively, but may be resumed earlier. The patient has had in the past difficulty with orthostatic hypotension when his blood pressure gets too low, so overtreatment of the patient's blood pressure should be avoided. 4. Diabetes mellitus type 2. The patient's metformin will be held due to his poor oral intake and use of CT contrast. The patient's glipizide will also be held given his poor oral intake. The patient will have insulin glargine at a reduced rate at 40 units nightly and insulin sliding scale q.6 hours while n.p.o. 5. History of carotid stenosis. This will be further evaluated with CTA. 6. Obstructive sleep apnea. The patient has never tolerated CPAP. He will likely not at this time either. 7. Hyperlipidemia. Continue the patient's maximum dose metoprolol. 8. Depression. Continue the patient's sertraline. 9. DVT prophylaxis: Lovenox subcu. 10. FEN: The patient will be n.p.o. at this time and have a swallow evaluation and diet will be resumed when able. 11. Disposition: The patient is admitted inpatient to the hospital. 12. Code status: The patient is a full code. TIME SPENT: Approximately 60 minutes was spent on the admission of this patient , 30 of which was spent [id number] with the patient obtaining history and physical and discussing the treatment plan. This plan was discussed with my attending, Dr. Val Phillip, and she is in agreement. MARLYN VALENTINO [id number]/[facility] #: [id number] GUIDO
[2019-06-06] MEDS ORDERED: Insulin GLARGINE(*) 1 UNITS UNIT SUBCUT SCH (21:00)
[2019-06-06] MEDS ORDERED: metFORMIN* 1,000 MG TAB PO SCH (21:00)
[2019-06-06] MEDS: CMCS:Ticagrelor (NF) 60 MG TAB PO SCH (21:12)
[2019-06-06] MEDS: Insulin GLARGINE(*) 1 UNITS UNIT SUBCUT SCH (21:12)
[2019-06-06] MEDS: Carvedilol TAB* 6.25 MG PO SCH (21:12)
[2019-06-06] MEDS: guaiFENesin ER TAB 600 MG PO SCH (21:13)
[2019-06-06] MEDS: Gabapentin CAP(*) 300 MG PO SCH (21:19)
[2019-06-06] MEDS: Nystatin TOP POWDER* 15 GM BTL TOPICAL SCH (21:21)
[2019-06-07] MEDS: DOXYcycline IV* 100 MG in NS 0.9% 250 ML* 250 ML IVPB SCH ×2 (05:48→18:14)
[2019-06-07] MEDS: Insulin LISPRO* 1 UNITS UNIT SUBCUT SCH ×3 (05:48→18:12)
[2019-06-07 07:07] LABS: Albumin 3.5 g/dL (3.2-5.2); Albumin/Globulin Ratio 1.1 (1-3); BUN/Creatinine Ratio 39.5 (8-20); Calcium 8.3 mg/dL (8.6-10.3); EGFR African American 104.6 (>60); EGFR Non-African American 86.5 (>60); Globulin 3.1 g/dL (2-4); HDL Cholesterol 25.8 mg/dL; Potassium 3.7 mmol/L (3.5-5.0); Total Bilirubin 1.5 mg/dL (0.2-1.0); Total Protein 6.6 g/dL (6.4-8.9)
[2019-06-07 08:34] LABS: ABS Basophils 0.1 10^3/ul (0-0.2); ABS Eosinophils 0.1 10^3/ul (0-0.6); ABS Lymphocytes 2.5 10^3/ul (1.0-4.8); ABS Monocytes 1.8 10^3/ul (0-0.8); ABS Neutrophils 9.3 10^3/ul (1.5-7.7); Eosinophil % 0.7 %; Hematocrit 50 % (42-52); Hemoglobin 17.1 g/dL (14.0-18.0); Mean Corpuscular HGB Conc 34 g/dL (31-36); Mean Corpuscular Hemoglobin 29 pg (27-31); Mean Corpuscular Volume 85 fL (80-94); Mean Platelet Volume 8.2 fL (7.4-10.4); Nucleated Red Blood Cells % 0.2; Platelet Count 247 10^3/uL (150-450); Red Blood Count 5.83 10^6 /uL (4.18-5.48); Red Cell Distribution Width 15 % (10-15); White Blood Count 13.8 10^3/uL (3.5-10.8)
[2019-06-07] MEDS: hydrALAZINE IV* 20 MG/ML VIAL IV SLOW PU PRN ×2 (09:29→18:54)
[2019-06-07] MEDS: guaiFENesin ER TAB 600 MG PO SCH ×2 (10:18→21:11)
[2019-06-07] MEDS: Carvedilol TAB* 6.25 MG PO SCH ×2 (11:09→21:11)
[2019-06-07] MEDS: Gabapentin CAP(*) 300 MG PO SCH ×2 (11:10→21:11)
[2019-06-07] MEDS: Sertraline* 25 MG TAB PO SCH (11:10)
[2019-06-07] MEDS: CMCS:Ticagrelor (NF) 60 MG TAB PO SCH (11:12)
[2019-06-07] MEDS: Nystatin TOP POWDER* 15 GM BTL TOPICAL SCH ×2 (11:20→21:12)
--- NOTE | 2019-06-07 12:53 | PN ---
Subjective Date of Service: 06/07/19 Interval History: Pt is currently nonverbal. From the d/w pt's nurse, pt was able to answer with "Hellinda" and occasionally said "thank you" This AM, he had > 500 ml post void residual and Rodriguez was placed. He appears to be able to follow some simple directions, but most of them he seems not to understand. Objective Active Medications: Acetaminophen (Tylenol Tab*) 650 mg PO Q6H PRN PRN Reason: MILD PAIN or TEMP > 100.4 Amlodipine Besylate (Norvasc Tab*) 2.5 mg PO BEDTIME [facility] Atorvastatin Calcium (Lipitor*) 80 mg PO QPM [facility] Last Admin: 06/06/19 18:07 Dose: 80 mg Carvedilol (Coreg Tab*) 6.25 mg PO BID [facility] Last Admin: 06/07/19 11:09 Dose: 6.25 mg Dextrose (Dextrose 50% Vial 50 Ml*) 25 ml IV PUSH .FOR FS < 60 - SS PRN PRN Reason: FS < 60 Enoxaparin Sodium (Lovenox(*)) 40 mg SUBCUT Q24H [facility] Last Admin: 06/06/19 18:07 Dose: 40 mg Gabapentin (Neurontin Cap(*)) 600 mg PO BEDTIME [facility] Last Admin: 06/06/19 21:19 Dose: 600 mg Gabapentin (Neurontin Cap(*)) 300 mg PO DAILY [facility] Last Admin: 06/07/19 11:10 Dose: 300 mg Guaifenesin (Mucinex*) 1,200 mg PO BID [facility] Last Admin: 06/07/19 10:18 Dose: Not Given Hydralazine HCl (Apresoline Iv*) 5 mg IV SLOW PU Q6H PRN PRN Reason: BLOOD PRESSURE Last Admin: 06/07/19 09:29 Dose: 5 mg Doxycycline Hyclate 100 mg/ (Sodium Chloride) 250 mls @ 250 mls/hr IVPB Q12H [facility] Last Admin: 06/07/19 05:48 Dose: 250 mls/hr Ceftriaxone Sodium 1 gm/ (Sodium Chloride) 50 mls @ 100 mls/hr IVPB Q24H [facility] Last Admin: 06/06/19 18:07 Dose: 100 mls/hr Insulin Glargine (Lantus(*)) 40 units SUBCUT BEDTIME [facility] Last Admin: 06/06/19 21:12 Dose: 40 unit Insulin Human Lispro (Humalog*) 0 units SUBCUT Q6HR [facility]; Protocol Last Admin: 06/07/19 11:58 Dose: Not Given Nystatin (Nystatin Top Powder*) 1 applic TOPICAL BID [facility] Last Admin: 06/07/19 11:20 Dose: 1 appful Ondansetron HCl (Zofran Inj*) 4 mg IV Q6H PRN PRN Reason: NAUSEA Sertraline HCl (Zoloft*) 25 mg PO DAILY [facility] Last Admin: 06/07/19 11:10 Dose: 25 mg Ticagrelor (Brilinta (Nf)) 60 mg PO BID [facility] Last Admin: 06/07/19 11:12 Dose: 60 mg Vital Signs - 8 hr 06/07/19 06/07/19 06/07/19 07:42 08:00 10:25 Temperature 98.1 F Pulse Rate 90 93 Respiratory 20 16 Rate Blood Pressure 193/89 170/86 (mmHg) O2 Sat by Pulse 97 Oximetry 06/07/19 06/07/19 11:06 11:10 Temperature 98.8 F Pulse Rate 94 Respiratory 20 18 Rate Blood Pressure 146/79 (mmHg) O2 Sat by Pulse 97 Oximetry Oxygen Devices in Use Now: None Appearance: 78 yo M, awake, sitting in bed, alert, nonverbal Eyes: No Scleral Icterus, PERRLA Ears/Nose/Mouth/Throat: NL Teeth, Lips, Gums, Mucous Membranes Moist Neck: NL Appearance and Movements; NL JVP, Trachea Midline Respiratory: Symmetrical Chest Expansion and Respiratory Effort, Clear to Auscultation Cardiovascular: NL Sounds; No Murmurs; No JVD, RRR Abdominal: NL Sounds; No Tenderness; No Distention Lymphatic: No Cervical Adenopathy Extremities: No Edema, No Clubbing, Cyanosis Skin: No Nodules or Sclerosis Neurological: - - R UE at 3+/5, R LE at 3/4, nonverbal, unable to follow commands, no increased muscle tone Result Diagrams: 06/07/19 06:28 06/07/19 06:28 Assess/Plan/Problems-Billing Assessment: 78 yo M with 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 Fam's consult (2) Urinary retention Comment: post void residual >500 ml, Rodriguez placed 06/07 (3) HTN (hypertension) Comment: -continue home meds, BP better controled, cont prn hydralazine IV (4) Elevated serum creatinine Comment: Pt appears to be within his baseline CKD stage 3 A. at baseline (5) Right sided weakness Comment: chronic, but worse this admission H/o CVA: cont ASA/Brilinta (6) Diabetes Comment: Continue Insulin SS (7) Pneumonia Comment: CXR at [place] shows possible inflitrate cont Doxy/Ceftriaxone (8) DVT prophylaxis Comment: Continue Lovenox SQ Status and Disposition: Inpatient
[2019-06-07] MEDS ORDERED: NS 0.9% 1000 ML** 1,000 ML IV SCH (13:30)
[2019-06-07 13:58] LABS: Urine Appearance Clear; Urine Bilirubin Negative (Negative); Urine Blood Negative (Negative); Urine Color Yellow; Urine Glucose 2+(150 mg/dL) (Negative); Urine Ketones Trace (Negative); Urine Nitrite Negative (Negative); Urine Protein 1+(30 mg/dL) (Negative); Urine Specific Gravity 1.033 (1.010-1.030); Urine Urobilinogen Negative (Negative)
[2019-06-07 14:04] LABS: Urine Bacteria Absent (Absent); Urine Red Blood Cell 3+(>10/hpf) (Absent); Urine White Blood Cell Trace(0-5/hpf) (Absent)
[2019-06-07] MEDS ORDERED: Lorazepam PYXIS KEY ONE (15:27)
[2019-06-07] MEDS ORDERED: LORazepam INJ* 2 MG/ML 1 ML VIAL IV PUSH ONE (15:27)
[2019-06-07] MEDS ORDERED: levETIRAcetam 1000MG IVPREMIX* 1,000 MG/100 ML BAG IVPB ONE (15:28)
[2019-06-07 16:34] LABS: INR 1.31 (0.82-1.09)
[2019-06-07] MEDS: cefTRIAXone(*) 1 GM in NS 0.9% 50 ML* 50 ML IVPB SCH (17:35)
[2019-06-07] MEDS: Enoxaparin(*) 40 MG/0.4 ML SYR SUBCUT SCH (17:41)
--- NOTE | 2019-06-07 18:00 | CONS ---
NEUROLOGY CONSULTATION: DATE OF CONSULT: 06/07/19 LOCATION: He is an inpatient in room 435. HOSPITALIST: Dr. Bennett. CHIEF COMPLAINT: Diminished responsiveness. HISTORY OF PRESENT ILLNESS: Dayton Krueger is a 78-year-old man who I have seen previously in the past in 2018 for cerebrovascular disease. He presented to [facility] according to the admission records here on 06/03/19 apparently with complaints of dizziness. He was hypertensive at [facility] and there was subsequently diminished responsiveness. Apparently, this was over this past weekend. He was then noted to have new or worsened right-sided weakness. 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 However, this was apparently a change in his exam from admission and so he was transferred here. Since arrival here, he has been extremely encephalopathic. Dr. Bennett noted that he had some twitching of his perioral muscles. I was asked to see him in consultation. Further history from the patient is nonproductive. He will answer sometimes with 1 word answers, but generally does not answer questions. There is no history of epilepsy in the past. He has a complex medical history otherwise. PAST MEDICAL HISTORY: Also notable for bilateral intracranial carotid stenosis; obstructive sleep apnea, not on CPAP; type 2 diabetes; hypertension; hyperlipidemia; coronary artery disease. PAST SURGICAL HISTORY: Implantable event monitor. MEDICATIONS: At the time of admission consist of: 1. Aspirin 81 mg p.o. daily. 2. Brilinta 60 mg p.o. b.i.d. 3. Glipizide 20 mg p.o. daily. 4. Carvedilol 6.25 mg p.o. b.i.d. 5. Metformin 1000 mg p.o. b.i.d. 6. Gabapentin 300 mg p.o. q.a.m. and 600 mg q.h.s. 7. Amlodipine 2.5 mg p.o. q.h.s. 8. Atorvastatin 80 mg p.o. daily. 9. Insulin. 10. Sertraline 25 mg p.o. daily. 11. Vardenafil 10 mg p.o. daily. 12. Tylenol. ALLERGIES: He is listed as having allergies to TRAZODONE and PLAVIX. FAMILY HISTORY: Taken from the records and indicates the patient is adopted. 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 He is . PHYSICAL EXAM: He is an overweight gentleman, lying in his hospital bed. Temperature 98.5, blood pressure 146/79, heart rate running in the 90s. Oral mucosa is moist and atraumatic. Head is atraumatic. Neck is supple. Neurological Exam: Pupils react to light from 3 down to 2 mm. Eye movements seem full with tracking, but there is impersistence of gaze. He responds to visual threat bilaterally. There is intermittent irregular clonic twitching of the left lower facial muscles. There is no other facial twitching and no abnormal movements noted in the extremities. He does not follow commands. He has some spasticity of the right arm. He has plantarflexion responses bilaterally. He occasionally answers with single word answers, but is otherwise nonverbal. He does visually track the examiner throughout the visit. DIAGNOSTIC STUDIES/LAB DATA: Includes an MRI of the brain from [facility], which I reviewed the images of. It reveals multiple old cerebrovascular lesions, but nothing that looks acute. The largest lesion is in the left hemisphere adjacent to the frontal horn of the lateral ventricle. Other laboratory data from today notable for an elevated white blood cell count at 13.8 with elevated neutrophils at 9.3. Chemistry profile notable for sodium of 131, glucose was 80 this morning. Hemoglobin A1c was 7.3%. Calcium is a little low this morning at 8.3. Liver enzymes are normal. Ammonia level was undetectable. Urinalysis is notable for 1+ protein and 2+ glucose. He had a CT scan of the brain yesterday, which I reviewed and it reveals the similar findings to his MRI scan from the day before. He had a CT angiogram of the head, which is unremarkable. He had an EEG earlier today, which revealed diffuse slowing more prominent from the left hemisphere than the right. There were no epileptiform discharges during that recording. IMPRESSION AND PLAN: Impression is that Mr. Krueger may be having focal seizures with altered awareness. His EEG earlier today just revealed slowing, but clinically he looks like he is having focal clonic seizures of the left facial musculature. I have put in orders and asked his nurse to give him lorazepam 2 mg IV. I have called semiconductor processing technician to come up and repeat his EEG. I put in orders to start levetiracetam 1000 mg IV to be followed by 1000 mg every 12 hours. If he does not seem to come around quickly, we may have to stick in the intensive care unit for more extensive EEG monitoring. I have discussed with Dr. Bennett getting a lumbar puncture. He has been on antibiotics for several days and so it is not likely that we will culture anything and his MRI scan is unremarkable and therefore less likely that he has viral encephalitis. Initial consultation with Anesthesiology is that they would not be able to do a lumbar puncture until he is off Brilinta for 7 days. We will hold off on that at this point in time. I will follow him along with you. [id number]/[facility] #: [id number] GUIDO
[2019-06-07] MEDS: Atorvastatin* 80 MG TAB PO SCH (18:15)
--- NOTE | 2019-06-07 19:22 | CONS ---
NEUROLOGY CONSULTATION: DATE OF CONSULTATION: 06/07/19. REFERRING PROVIDER: Dr. Bennett. CHIEF COMPLAINT: Diminished responsiveness. HISTORY OF PRESENT ILLNESS: DICTATION ENDS HERE [id number]/[facility] #: [id number] [facility]
--- NOTE | 2019-06-07 20:37 | EEG ---
ELECTROENCEPHALOGRAM REPORT: DATE OF STUDY: 06/07/19 - ROOM #435 REFERRING PROVIDER: MARLYN Burgess LOCATION: He is an inpatient on . CLINICAL PROBLEM: Confusion, prior history of stroke. MEDICATIONS: Include: 1. Insulin. 2. Ticagrelor. 3. Sertraline. 4. Gabapentin. 5. Coreg. 6. Zofran. 7. Norvasc. 8. Doxycycline. 9. Lovenox. 10. Rocephin. 11. Lipitor. REPORT: This 19-channel EEG is remarkable for background rhythms consisting of diffuse moderate to high voltage mixed delta and theta activity. The patient is described as confused, but awake. There are larger voltage central and bifrontal delta activity which has a somewhat M-wave configuration. These are more prominent from the left hemisphere than the right, but are present bilaterally. There are no clinical events. There are no epileptiform discharges. CLINICAL IMPRESSION: Abnormal EEG due to marked slowing and disorganization of background rhythms consistent with a diffuse encephalopathic process. Slower rhythms are seen in the left hemisphere suggestive of worsened dysfunction from that hemisphere. There were no epileptiform discharges during this recording. [id number]/[facility] #: [id number] [facility]
[2019-06-07] MEDS ORDERED: amLODIPine TAB* 5 MG PO SCH (21:00)
[2019-06-07] MEDS: Insulin GLARGINE(*) 1 UNITS UNIT SUBCUT SCH (21:12)
[2019-06-08] MEDS: Insulin LISPRO* 1 UNITS UNIT SUBCUT SCH ×2 (00:29→05:36)
--- NOTE | 2019-06-08 02:51 | EEG ---
ELECTROENCEPHALOGRAM REPORT: DATE OF STUDY: 06/07/19 REFERRING PROVIDER: Dr. Fam. LOCATION: He is an inpatient in room 435. CLINICAL PROBLEM: Encephalopathy, left facial twitching. MEDICATIONS: Include lorazepam 2 mg which was given intravenously right before this recording. Other medications include: 1. Hydralazine. 2. Gabapentin. 3. Sertraline. 4. Doxycycline. 5. Amlodipine. 6. Insulin. 7. Rocephin. 8. Atorvastatin. 9. Keppra which was given, I believe, after the recording. REPORT: This 19-channel EEG is remarkable for background rhythms consisting of mixed theta patterns with some delta activity. Rhythms are a bit slower from the left hemisphere than the right. There are occasionally sharply contoured rhythms seen frontally with following slow wave or clear epileptiform morphology. There is 1 phase reversing spike with a following slow wave around the P3 electrode at one portion in the tracing. There are fairly abundant beta rhythms of low voltage. The patient is clinically stuporous. There are no clinical events described. CLINICAL IMPRESSION: Abnormal EEG due to generalized slowing and disorganization of background rhythms. There is 1 phase reversing spike in the left parietal region but no other clear epileptiform discharges. This tracing is compatible with diffuse cerebral dysfunction as well as benzodiazepine drug effect. There are no definitive epileptiform abnormalities, although there is a suspicious left parietal spike and slow wave at one point. [id number]/[facility] #: [id number] [facility]
[2019-06-08] MEDS ORDERED: levETIRAcetam 1000MG IVPREMIX* 1,000 MG/100 ML BAG IVPB SCH (04:00)
[2019-06-08] MEDS: DOXYcycline IV* 100 MG in NS 0.9% 250 ML* 250 ML IVPB SCH (05:45)
[2019-06-08 06:22] LABS: Hematocrit 46 % (42-52); Mean Corpuscular HGB Conc 35 g/dL (31-36); Mean Corpuscular Hemoglobin 30 pg (27-31); Mean Corpuscular Volume 86 fL (80-94); Mean Platelet Volume 7.8 fL (7.4-10.4); Platelet Count 253 10^3/uL (150-450); Red Blood Count 5.36 10^6 /uL (4.18-5.48); Red Cell Distribution Width 15 % (10-15); White Blood Count 13.6 10^3/uL (3.5-10.8)
[2019-06-08 06:39] LABS: BUN/Creatinine Ratio 37.2 (8-20); Calcium 8.1 mg/dL (8.6-10.3); EGFR African American 117.1 (>60); EGFR Non-African American 96.8 (>60); Potassium 3.4 mmol/L (3.5-5.0)
[2019-06-08] MEDS: Carvedilol TAB* 6.25 MG PO SCH ×2 (09:32→22:52)
[2019-06-08] MEDS: Gabapentin CAP(*) 300 MG PO SCH ×2 (09:32→22:50)
[2019-06-08] MEDS: Aspirin EC TAB* 81 MG TAB.EC PO SCH (09:32)
[2019-06-08] MEDS: Sertraline* 25 MG TAB PO SCH (09:33)
[2019-06-08] MEDS: guaiFENesin ER TAB 600 MG PO SCH ×2 (09:33→22:51)
[2019-06-08] MEDS: Nystatin TOP POWDER* 15 GM BTL TOPICAL SCH ×2 (10:30→22:53)
[2019-06-08] MEDS: D5NS 0.9% 1000 ML BAG* 1,000 ML IV SCH (10:31)
[2019-06-08] MEDS ORDERED: Cefepime 1 GM in Dextrose(*) 1 GM/50 ML q12h (Duplex) IV SCH (12:00)
[2019-06-08] MEDS ORDERED: Cefepime ADVAN(*) 1 GM in NS 0.9% 50 ML* 50 ML IVPB SCH (12:00)
[2019-06-08] MEDS ORDERED: Dextrose 50% Syringe 50 ML* 25 GM/50 ML SYRINGE IV PUSH PRN (12:01)
--- NOTE | 2019-06-08 12:01 | PN ---
Subjective Date of Service: 06/08/19 Interval History: Pt is seen with his son and RN by the bedside. Was awake enough to eat breakfast , but during my eval very difficult to arouse. Finally woke up when his Babinski's were checked and was able to tell me his is in [facility], his and that he's been here for 2 days. c/o feeling very tired. Noted that the R ear has been bothering him for "long time", then fell asleep again. BG low at 64 this AM Objective Active Medications: Acetaminophen (Tylenol Tab*) 650 mg PO Q6H PRN PRN Reason: MILD PAIN or TEMP > 100.4 Amlodipine Besylate (Norvasc Tab*) 2.5 mg PO BEDTIME [facility] Last Admin: 06/07/19 21:11 Dose: Not Given Aspirin (Aspirin Ec Tab*) 81 mg PO DAILY [facility] Last Admin: 06/08/19 09:32 Dose: 81 mg Atorvastatin Calcium (Lipitor*) 80 mg PO QPM [facility] Last Admin: 06/07/19 18:15 Dose: Not Given Carvedilol (Coreg Tab*) 6.25 mg PO BID [facility] Last Admin: 06/08/19 09:32 Dose: 6.25 mg Dextrose (Dextrose 50% Vial 50 Ml*) 25 ml IV PUSH .FOR FS < 60 - SS PRN PRN Reason: FS < 60 Enoxaparin Sodium (Lovenox(*)) 40 mg SUBCUT Q24H [facility] Last Admin: 06/07/19 17:41 Dose: 40 mg Gabapentin (Neurontin Cap(*)) 600 mg PO BEDTIME [facility] Last Admin: 06/07/19 21:11 Dose: Not Given Gabapentin (Neurontin Cap(*)) 300 mg PO DAILY [facility] Last Admin: 06/08/19 09:32 Dose: 300 mg Guaifenesin (Mucinex*) 1,200 mg PO BID [facility] Last Admin: 06/08/19 09:33 Dose: 1,200 mg Hydralazine HCl (Apresoline Iv*) 5 mg IV SLOW PU Q6H PRN PRN Reason: BLOOD PRESSURE Last Admin: 06/07/19 18:54 Dose: 5 mg Doxycycline Hyclate 100 mg/ (Sodium Chloride) 250 mls @ 250 mls/hr IVPB Q12H [facility] Last Admin: 06/08/19 05:45 Dose: 250 mls/hr Levetiracetam (Keppra Iv Premix*) 1,000 mg in 100 mls @ 400 mls/hr IVPB Q12H [facility] Last Admin: 06/08/19 03:33 Dose: 400 mls/hr Dextrose/Sodium Chloride (D5ns 0.9% 1000 Ml Bag*) 1,000 mls @ 100 mls/hr IV PER RATE [facility] Last Admin: 06/08/19 10:31 Dose: 100 mls/hr Cefepime HCl 1 gm/ Sodium (Chloride) 50 mls @ 100 mls/hr IVPB Q12H [facility] Nystatin (Nystatin Top Powder*) 1 applic TOPICAL BID [facility] Last Admin: 06/08/19 10:30 Dose: 1 applic Ondansetron HCl (Zofran Inj*) 4 mg IV Q6H PRN PRN Reason: NAUSEA Sertraline HCl (Zoloft*) 25 mg PO DAILY [facility] Last Admin: 06/08/19 09:33 Dose: 25 mg Vital Signs - 8 hr 06/08/19 06/08/19 06/08/19 08:02 08:10 09:32 Temperature 98.4 F Pulse Rate 75 Respiratory 20 18 18 Rate Blood Pressure 170/82 (mmHg) O2 Sat by Pulse 99 Oximetry 06/08/19 06/08/19 11:54 11:56 Temperature 98.3 F Pulse Rate 74 Respiratory 24 16 Rate Blood Pressure 161/84 (mmHg) O2 Sat by Pulse 97 Oximetry Oxygen Devices in Use Now: None Appearance: 78 yo m in nAD, aaOx3 Eyes: No Scleral Icterus, PERRLA Ears/Nose/Mouth/Throat: NL Teeth, Lips, Gums, Mucous Membranes Moist, - - R external ear canal with purulent an "crusty" discharge. R ear pinna with a crater like structure-likely basal cell ca with 5 mm eschar on top-very edematous and tender to palpation Neck: NL Appearance and Movements; NL JVP, Trachea Midline Respiratory: Symmetrical Chest Expansion and Respiratory Effort, Clear to Auscultation Cardiovascular: NL Sounds; No Murmurs; No JVD, RRR Abdominal: NL Sounds; No Tenderness; No Distention, No Hepatosplenomegaly Lymphatic: No Cervical Adenopathy Extremities: No Edema Skin: No Nodules or Sclerosis Neurological: - - mild flattening of R nasolabial fold, Babinski neg b/l, moves all extremities spontaneusly, unable to follow commands re: move raise his legs. Unable to assess specific weakness at this time Result Diagrams: 06/08/19 06:16 06/08/19 06:16 Microbiology and Other Data: Microbiology 06/07/19 10:30 Urine Culture - Final Urine No Growth (<1,000 CFU/mL) 06/06/19 18:37 Aerobic Blood Culture - Preliminary Blood Venous No Growth Day 1 Anaerobic Blood Culture - Preliminary No Growth Day 1 06/07/19 10:30 Legionella Urinary Antigen - Final Urine Negative Legionella Antigen Streptococcus pneumoniae Ag Screen - Final Negative S. pneumo Antigen Assess/Plan/Problems-Billing Assessment: 78 yo M with h/o CVA in 2012 and 2018 with residual R sided weakness , DM2 who is a resident of the [facility] presents from [facility] with HTN and AMS - Patient Problems (1) Encephalopathy acute Comment: differential includes: HTN encephalopathy, seizure, infection related encephalopathy or another CVA(less likely since MRI at [place] on 06/06 was neg) EEG was neg, but presentation so suggestive of seizure, that pt was placed empirically on Keppra on 06/07/19. Dr. Cristel bryan. Todat pt's mentation appear to improve-he is verbal (2) Urinary retention Comment: post void residual >500 ml, Rodriguez placed 06/07 (3) HTN (hypertension) Comment: -continue home meds, BP better controled, cont prn hydralazine IV (4) Elevated serum creatinine Comment: Pt appears to be within his baseline CKD stage 3 A. at baseline (5) Right sided weakness Comment: chronic H/o CVA: was on ASA/Brilinta (for CVA and Plavix allergy), now off Brilinta in case he needs LP(needs to be off Brilinta x 7 days to have LP done safely as per anesthesia (6) Diabetes Comment: Hypoglycemic this aM will d/c all insulin and cont fingersticks, start D5NS for IVF (7) Pneumonia Comment: CXR at [place] shows possible inflitrate cont Doxy/Ceftriaxone to be switched to Cefepime today (8) Pinna infection, acute Comment: Of R ear-suspect Pseudomonas Asked ID to see pt, switching Ceftriaxone to Cefepime (9) Hyponatremia Comment: suspect prerenal state-pt is not awake enough to keep drinking liquids. Started D5NS, repeat BMP tonight (10) DVT prophylaxis Comment: Continue Lovenox SQ Status and Disposition: Inpatient
[2019-06-08] MEDS ORDERED: Zosyn per Pharmacy* NOTE FOLLOW UP SCH (13:00)
[2019-06-08] MEDS ORDERED: Piperacillin/Tazobac ADVAN(*) 3.375 GM in NS 0.9% 100 ML* 100 ML IVPB ONE (13:00)
--- NOTE | 2019-06-08 13:52 | CONS ---
NEUROLOGY FOLLOWUP CONSULT: DATE OF FOLLOWUP: 06/08/19 LOCATION: He is in room 435. HOSPITALIST: Dr. Bennett. CHIEF COMPLAINT: Encephalopathy, possible seizures. INTERVAL HISTORY: Since yesterday, Mr. Krueger has been quite somnolent, but intermittently more interactive. There have been no observed seizures. There have been no new clinical events. MEDICATIONS: Reviewed and he is on: 1. Keppra 1000 mg IV q.12 hours. 2. Amlodipine 5 mg p.o. q.h.s. 3. Aspirin 81 mg p.o. daily. 4. Atorvastatin 80 mg p.o. daily. 5. Coreg 6.25 mg p.o. b.i.d. 6. Doxycycline 100 mg IV q.12 hours. 7. Lovenox 40 mg subcutaneous q.24 hours. 8. Gabapentin 300 mg p.o. b.i.d. and 600 mg p.o. q.h.s. 9. Zosyn. 10. Sertraline 25 mg p.o. daily. PHYSICAL EXAM: He is well hydrated. He has a crusty, swollen, erythematous right tragus of his ear. Temperature 98.3, blood pressure 161/84, heart rate in the 70s. Oxygen saturation is 97% on room air. Neurologically, he is asleep when I entered, but arouses to voice. He responds sluggishly, but reasonably consistently. He does not always follow commands, but he does intermittently. There is no clonic facial twitching like I had observed previously. There is no asterixis in the outstretched hands. He occasionally completes full sentence such as "thank you for coming and visiting me" at the end of the visit. DIAGNOSTIC STUDIES/LAB DATA: Includes an EEG from today, which reveals mild generalized slowing, but no epileptiform discharges. CBC from today is notable for persistently elevated white blood cell count at 13.6, which is a slight improvement from yesterday. Chemistries today notable for a sodium of 129; glucose of 64 earlier today, 134 closer to noon. Ammonia is slightly elevated today at 62. IMPRESSION AND PLAN: Impression is that Mr. Krueger was probably having focal seizures with altered awareness. There is possibility of an ear infection. He is quite somnolent today. I have put in orders to decrease his Keppra to 750 mg q.12 hours. I will go ahead and decrease his gabapentin to 300 mg 3 times per day as well because of his somnolence. I will continue to follow him along with you. [id number]/[facility] #: [id number] MTDD
[2019-06-08 17:18] LABS: BUN/Creatinine Ratio 32.5 (8-20); Calcium 7.9 mg/dL (8.6-10.3); EGFR Non-African American 90.1 (>60); Potassium 3.6 mmol/L (3.5-5.0)
[2019-06-08] MEDS: levETIRAcetam IV* 750 MG in NS 0.9% 100 ML* 100 ML IVPB SCH (17:36)
[2019-06-08] MEDS: Atorvastatin* 80 MG TAB PO SCH (17:36)
[2019-06-08] MEDS: Enoxaparin(*) 40 MG/0.4 ML SYR SUBCUT SCH (17:36)
[2019-06-08] MEDS ORDERED: KCL 20 MEQ/100 ML IVPREMIX* 20 MEQ/100 ML BAG IV ONE (18:06)
[2019-06-08] MEDS: ZOSYN 3.375 GM Q8H per EXTENDED INFUSION IVPB SCH ×2 (18:24)
--- NOTE | 2019-06-08 22:34 | EEG ---
CC: Dr. Bennett * ELECTROENCEPHALOGRAM REPORT: DATE OF STUDY: 06/08/19 REFERRING PROVIDER: Dr. Fam LOCATION: He is an inpatient in room 435. CLINICAL PROBLEM: Episode of unresponsiveness and left facial twitching. The patient has been somnolent this morning. MEDICATIONS: Include: 1. Keppra 1000 mg q.12 hours IV. 2. Gabapentin. 3. Coreg. 4. Sertraline. 5. Vibramycin. REPORT: This 19-channel EEG is remarkable for background rhythms consisting of diffuse gpp-oz-pumoboga voltage mixed theta and delta activity. Much movable since beta rhythms are see bifrontally and centrally. There is an occasional low abundance alpha rhythm at approximately 7.5 to 8 cycles per second occipitally, but it is a very low abundance. The patient is clinically asleep and hard to arouse. Activation procedures are not attempted other than opening the patient's eyes. There are no clinical events. There are no focal, lateralized, or epileptiform abnormalities. CLINICAL IMPRESSION: Abnormal EEG due to generalized slowing and disorganization of background rhythms consisting of diffuse cerebral dysfunction. There are no focal or epileptiform features to this recording. [id number]/[facility] #: [id number] [facility]
[2019-06-08] MEDS: amLODIPine TAB* 5 MG PO SCH (22:51)
[2019-06-09] MEDS: D5NS 0.9% 1000 ML BAG* 1,000 ML IV SCH (00:23)
[2019-06-09] MEDS ORDERED: Dextrose 50% Syringe 50 ML* 25 GM/50 ML SYRINGE IV PUSH PRN ×2 (00:29→09:57)
[2019-06-09] MEDS: ZOSYN 3.375 GM Q8H per EXTENDED INFUSION IVPB SCH ×6 (00:54→17:47)
[2019-06-09 02:32] LABS: BUN/Creatinine Ratio 31.3 (8-20); Calcium 8.1 mg/dL (8.6-10.3); EGFR Non-African American 90.1 (>60); Potassium 3.6 mmol/L (3.5-5.0)
[2019-06-09] MEDS ORDERED: Potassium Chlor TAB* 20 MEQ TAB.ER PO ONE (03:51)
[2019-06-09 05:34] LABS: ABS Basophils 0.1 10^3/ul (0-0.2); ABS Eosinophils 0.8 10^3/ul (0-0.6); ABS Lymphocytes 2.7 10^3/ul (1.0-4.8); ABS Monocytes 1.1 10^3/ul (0-0.8); ABS Neutrophils 7.5 10^3/ul (1.5-7.7); Eosinophil % 6.7 %; Hematocrit 44 % (42-52); Hemoglobin 14.8 g/dL (14.0-18.0); Lymphocyte % 21.9 %; Mean Corpuscular HGB Conc 34 g/dL (31-36); Mean Corpuscular Hemoglobin 30 pg (27-31); Mean Corpuscular Volume 86 fL (80-94); Mean Platelet Volume 7.6 fL (7.4-10.4); Platelet Count 248 10^3/uL (150-450); Red Blood Count 5.04 10^6 /uL (4.18-5.48); Red Cell Distribution Width 15 % (10-15); White Blood Count 12.1 10^3/uL (3.5-10.8)
[2019-06-09] MEDS: levETIRAcetam IV* 750 MG in NS 0.9% 100 ML* 100 ML IVPB SCH ×2 (05:48→17:49)
[2019-06-09 06:39] LABS: Potassium 3.9 mmol/L (3.5-5.0)
[2019-06-09 06:45] LABS: BUN/Creatinine Ratio 29.8 (8-20); C Reactive Protein 10.77 mg/L (<8.01); EGFR African American 107.5 (>60); EGFR Non-African American 88.8 (>60)
[2019-06-09] MEDS ORDERED: Insulin LISPRO* 1 UNITS UNIT SUBCUT SCH (07:30)
[2019-06-09] MEDS: guaiFENesin ER TAB 600 MG PO SCH ×2 (09:10→20:20)
[2019-06-09] MEDS: Nystatin TOP POWDER* 15 GM BTL TOPICAL SCH ×2 (09:10→20:27)
[2019-06-09] MEDS: Aspirin EC TAB* 81 MG TAB.EC PO SCH (09:10)
[2019-06-09] MEDS: Carvedilol TAB* 6.25 MG PO SCH ×2 (09:10→20:20)
[2019-06-09] MEDS: Gabapentin CAP(*) 300 MG PO SCH ×2 (09:10→20:18)
[2019-06-09] MEDS: Sertraline* 25 MG TAB PO SCH (09:10)
--- NOTE | 2019-06-09 09:49 | PN ---
Subjective Date of Service: 06/09/19 Interval History: pt feels "back to baseline". He has no idea what happened to him in the past 3 days. R ear is not hurting him anymore. has no new complaints. Stated that he'd like to go back to [facility] and that there he ambulates with a roller walker. Pt also noted that at baseline he has no residual deficit from his CVA that caused R weakness Objective Active Medications: Acetaminophen (Tylenol Tab*) 650 mg PO Q6H PRN PRN Reason: MILD PAIN or TEMP > 100.4 Amlodipine Besylate (Norvasc Tab*) 5 mg PO BEDTIME [facility] Last Admin: 06/08/19 22:51 Dose: 5 mg Aspirin (Aspirin Ec Tab*) 81 mg PO DAILY [facility] Last Admin: 06/09/19 09:10 Dose: 81 mg Atorvastatin Calcium (Lipitor*) 80 mg PO QPM [facility] Last Admin: 06/08/19 17:36 Dose: 80 mg Carvedilol (Coreg Tab*) 6.25 mg PO BID [facility] Last Admin: 06/09/19 09:10 Dose: 6.25 mg Dextrose (Dextrose 50% Vial 50 Ml*) 25 ml IV PUSH .FOR FS < 60 - SS PRN PRN Reason: FS < 60 Dextrose (D50w Syringe 50 Ml*) 25 gm IV PUSH ONCE PRN PRN Reason: FS < 60 Stop: 06/09/19 12:00 Dextrose (D50w Syringe 50 Ml*) 12.5 gm IV PUSH .FOR FS < 60 - SS PRN PRN Reason: FS < 60 Enoxaparin Sodium (Lovenox(*)) 40 mg SUBCUT Q24H [facility] Last Admin: 06/08/19 17:36 Dose: 40 mg Gabapentin (Neurontin Cap(*)) 300 mg PO BID [facility] Last Admin: 06/09/19 09:10 Dose: 300 mg Guaifenesin (Mucinex*) 1,200 mg PO BID [facility] Last Admin: 06/09/19 09:10 Dose: 1,200 mg Hydralazine HCl (Apresoline Iv*) 5 mg IV SLOW PU Q6H PRN PRN Reason: BLOOD PRESSURE Last Admin: 06/07/19 18:54 Dose: 5 mg Levetiracetam 750 mg/ Sodium (Chloride) 107.5 mls @ 430 mls/hr IVPB Q12H [facility] Last Admin: 06/09/19 05:48 Dose: 430 mls/hr Piperacillin Sod/Tazobactam (Sod 3.375 gm/ Sodium Chloride) 100 mls @ 25 mls/ hr IVPB Q8H [facility] Last Admin: 06/09/19 00:54 Dose: 25 mls/hr Nystatin (Nystatin Top Powder*) 1 applic TOPICAL BID [facility] Last Admin: 06/09/19 09:10 Dose: 1 applic Ondansetron HCl (Zofran Inj*) 4 mg IV Q6H PRN PRN Reason: NAUSEA Pharmacy Consult (Zosyn Per Pharmacy*) 1 note FOLLOW UP .ZOSYN PER PHARMACY [facility] Sertraline HCl (Zoloft*) 25 mg PO DAILY [facility] Last Admin: 06/09/19 09:10 Dose: 25 mg Vital Signs - 8 hr 06/09/19 06/09/19 06/09/19 03:45 07:43 08:00 Temperature 98 F 98.5 F Pulse Rate 73 64 Respiratory 18 18 18 Rate Blood Pressure 149/76 147/53 (mmHg) O2 Sat by Pulse 96 98 Oximetry 06/09/19 09:10 Temperature Pulse Rate Respiratory 18 Rate Blood Pressure (mmHg) O2 Sat by Pulse Oximetry Oxygen Devices in Use Now: None Appearance: 78 yo M in nAD, aAOx3 Eyes: No Scleral Icterus, PERRLA Ears/Nose/Mouth/Throat: NL Teeth, Lips, Gums, - - R ear erythema and purulent discharge is much improved Neck: NL Appearance and Movements; NL JVP, Trachea Midline Respiratory: Symmetrical Chest Expansion and Respiratory Effort, Clear to Auscultation Cardiovascular: NL Sounds; No Murmurs; No JVD, RRR Abdominal: NL Sounds; No Tenderness; No Distention Lymphatic: No Cervical Adenopathy Extremities: No Edema Skin: No Nodules or Sclerosis Neurological: Alert and Oriented x 3, - - mild flattening of r nasolabial fold, no other focal ne deficit, apart for R plantar dorsiflexion at 4+/5-likely baseline Lines/Tubes/Other Access: Clean, Dry and Intact Endotracheal Tube Result Diagrams: 06/09/19 05:25 06/09/19 05:25 Microbiology and Other Data: Microbiology 06/07/19 10:30 Urine Culture - Final Urine No Growth (<1,000 CFU/mL) 06/06/19 18:37 Aerobic Blood Culture - Preliminary Blood Venous No Growth Day 1 Anaerobic Blood Culture - Preliminary No Growth Day 1 06/07/19 10:30 Legionella Urinary Antigen - Final Urine Negative Legionella Antigen Streptococcus pneumoniae Ag Screen - Final Negative S. 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 Dr. Cristel bryan. Pt appears to be back to baseline mentation irvin and has no marked neuro deficits, apart fro chronic flattening of r naseolabial fold and possible r plantar flexion that is weaker. Will start PT/OT eval to see if pt can go back to [facility]. (2) Urinary retention Comment: post void residual >500 ml, Rodriguez placed 06/07 will d/c today (3) HTN (hypertension) Comment: controlled, cont increase Norvasc and home dose Coreg (4) Elevated serum creatinine Comment: Pt appears to be within his baseline CKD stage 3 A. at baseline (5) Right sided weakness Comment: chronic H/o CVA: was on ASA/Brilinta (for CVA and Plavix allergy), off Brilinta in case he needed LP , but due to major improvement will restart today (6) Diabetes Comment: hypoglycemia resolved. will restart ISS (7) Pneumonia Comment: CXR at [place] shows possible inflitrate cont Zosyn (8) Pinna infection, acute Comment: Of R ear-suspect Pseudomonas Asked ID to see pt, cont Zosyn (9) Hyponatremia Comment: worsened by IVF. Stopped IVF last night. will monitor without any further major intervention right now (10) DVT prophylaxis Comment: Continue Lovenox SQ Status and Disposition: Inpatient
[2019-06-09] MEDS: Ciproflox/Dexameth OTIC.SUSP* 7.5 ML BTL RIGHT EAR SCH ×2 (11:43→20:23)
--- NOTE | 2019-06-09 11:54 | CONS ---
CONSULTATION REPORT: DATE OF CONSULT: 06/09/19 REQUESTING PHYSICIAN: Dr. Bennett. CONSULTING SERVICE: Infectious Disease. REASON FOR CONSULT: Otitis externa. IMPRESSION: 1. Severe otitis externa, right ear involving canal and the external ear with significant erythema, edema, and some purulent drainage, all of which have improved after a day of IV Zosyn. He feels a little bit muffled on that side. Tympanic membrane appears intact. 2. Recent seizures. 3. History of stroke in 2018. 4. Coronary artery disease. 5. Carotid stenosis, status post stenting. 6. Type 2 diabetes mellitus. RECOMMENDATION: Continue Zosyn another 24 hours. We will add Ciprodex drops to the right ear. If he is not improving, we can add a wick. HISTORY OF PRESENT ILLNESS: This is a 78-year-old man admitted with encephalopathy. He cannot provide much of the history what brought him into the hospital. He recalls that he was at the [facility]. He thinks he may have been having some right ear pain over the last couple of days. No fevers, chills , or sweats. When he came to the hospital, he was minimally responsive and eventually found having seizures, which are now controlled. He was noted to have redness, swelling, and some crusting and discharge from his right ear. He was started on Zosyn yesterday. I discussed the case with Dr. Bennett at that time. Today, the pain, swelling, and redness are significantly improved. He has some crusting and still feels a little bit muffled in that ear. He has no fevers or chills, has not had ear infection like this in the past. PAST MEDICAL HISTORY: 1. Type 2 diabetes mellitus. 2. Seizure disorder. 3. Stroke in 2018 and 2013. 4. Coronary artery disease. 5. Carotid stenosis, bilateral. 6. Obstructive sleep apnea. 7. Hypertension. 8. Hyperlipidemia. 9. Depression. MEDICATIONS: 1. Tylenol. 2. Amlodipine. 3. Aspirin. 4. Lipitor. 5. Coreg. 6. Enoxaparin. 7. Gabapentin. 8. Guaifenesin. 9. Keppra. 10. Zosyn 3.375 g every 8 hours extended infusion. 11. Sertraline. 12. Brilinta. ALLERGIES: TRAZODONE and PLAVIX. FAMILY HISTORY: He is adopted, unknown family history. SOCIAL HISTORY: He has been living in the [facility]. He is . He has 3 kids. Past smoker. REVIEW OF SYSTEMS: All negative except as noted above to 12-point review of systems. PHYSICAL EXAM: Vital Signs: Temperature 37, heart rate 64, respiratory rate 18 , blood pressure 147/53, oxygen saturation 98% on room air. In general, he is awake, not in distress. Neurologic: He is oriented x3. Follows all commands. Moves all extremities. HEENT: There is diffuse edema right external ear with mild erythema around the canal where there is also some debris. Minimal tenderness to movement and the TM is somewhat obscured but appears intact. Neck is supple without mass. Heart is regular rate and rhythm without murmurs, rubs, or gallops. Lungs are clear to auscultation bilaterally. Abdomen: Soft , nontender, nondistended. There are bowel sounds present. Skin: There is no rash or splinter hemorrhage. Musculoskeletal: There is no spine tenderness to palpation or right mastoid tenderness. DIAGNOSTIC STUDIES/LAB DATA: White blood cell count 12, down from 13.8; hemoglobin 14.8; platelets 248. Creatinine 0.8; CRP 10. Please see impressions and recommendations outlined above that I discussed with Dr. Bennett. Thanks for asking me to see Felicity Pati in consultation. [id number]/[facility] #: [id number] MTDD
[2019-06-09] MEDS: Insulin LISPRO* 1 UNITS UNIT SUBCUT SCH ×3 (12:34→20:23)
--- NOTE | 2019-06-09 14:15 | CONS ---
NEUROLOGY CONSULT FOLLOWUP: DATE OF FOLLOWUP: 06/09/19 LOCATION: He is an inpatient in room 435. HOSPITALIST: Dr. Bennett. CHIEF COMPLAINT: Diminished responsiveness, seizures. INTERVAL HISTORY: Since yesterday, Mr. Krueger is doing considerably better from a mental status perspective. He is able to answer questions. He does not have any new complaints. MEDICATIONS: Reviewed and he is on: 1. Keppra 750 mg IV q.12 hours. 2. Gabapentin 300 mg p.o. b.i.d. 3. Lovenox 40 mg subcutaneous q.24 hours. 4. Ciprofloxacin/dexamethasone otic suspension 4 drops in the right ear b.i.d. 5. Coreg 6.25 mg p.o. b.i.d. 6. Atorvastatin 80 mg p.o. daily. 7. Aspirin 81 mg p.o. daily. 8. Amlodipine 5 mg p.o. daily. 9. Sliding scale insulin. 10. Zosyn q.8 hours. PHYSICAL EXAM: He is overweight and well hydrated. Temperature 98.5, blood pressure is running high today at 192/92, it is the last value in the EMR. He is alert, he is conversant. There are no lapses in attention. Speech is clear, and language is fluent. IMPRESSION: Much improved encephalopathy. I think he probably was having focal seizures perhaps triggered in part by otitis. Recommend continuing Keppra and switching it to p.o. I think we could drop the dose to 500 mg twice per day since it may have been a provoked seizure in a patient with cerebrovascular disease and I may be able to taper him off of it as an outpatient. At this point, I sign off on his case unless he has recurrent episodes in which case please contact Neurology. [id number]/[facility] #: [id number] GUIDO
[2019-06-09] MEDS: Atorvastatin* 80 MG TAB PO SCH (17:50)
[2019-06-09] MEDS: Enoxaparin(*) 40 MG/0.4 ML SYR SUBCUT SCH (17:50)
[2019-06-09] MEDS: amLODIPine TAB* 5 MG PO SCH (20:20)
[2019-06-09] MEDS: CMC:Ticagrelor (NF) 60 MG TAB PO SCH (20:22)
[2019-06-10] MEDS: ZOSYN 3.375 GM Q8H per EXTENDED INFUSION IVPB SCH ×4 (00:45→09:01)
[2019-06-10] MEDS: levETIRAcetam IV* 750 MG in NS 0.9% 100 ML* 100 ML IVPB SCH (05:47)
[2019-06-10] MEDS: CMC:Ticagrelor (NF) 60 MG TAB PO SCH (08:52)
[2019-06-10] MEDS: Aspirin EC TAB* 81 MG TAB.EC PO SCH (08:52)
[2019-06-10] MEDS: Gabapentin CAP(*) 300 MG PO SCH (08:52)
[2019-06-10] MEDS: Insulin LISPRO* 1 UNITS UNIT SUBCUT SCH (08:52)
[2019-06-10] MEDS: Ciproflox/Dexameth OTIC.SUSP* 7.5 ML BTL RIGHT EAR SCH (08:53)
[2019-06-10] MEDS: Nystatin TOP POWDER* 15 GM BTL TOPICAL SCH (08:53)
[2019-06-10] MEDS: guaiFENesin ER TAB 600 MG PO SCH (08:53)
[2019-06-10] MEDS: Carvedilol TAB* 6.25 MG PO SCH (08:53)
[2019-06-10] MEDS: Sertraline* 25 MG TAB PO SCH (08:55)
--- NOTE | 2019-06-10 09:16 | PN ---
Progress Note - Progress Note Date of Service: 06/10/19 SOAP: Subjective: CC: Right ear infection HPI: Mr. Krueger is a 78 yo male with PMH significant for DM2, seizure disorder, CVA , CAD, bilateral carotid stenosis, KEILA, HTN, HLD, and depression; who presented to the hospital for AMS. He was noted to have a severe right outer ear infection. Denies fever, chills, nausea, or vomiting. Reports that the discomfort in the right ear is improved today. Objective: Vital Signs - 8 hr 06/10/19 06/10/19 06/10/19 04:00 07:34 08:52 Temperature 97.2 F 96.6 F Pulse Rate 67 69 Respiratory 16 18 18 Rate Blood Pressure 137/84 148/66 (mmHg) O2 Sat by Pulse 99 100 Oximetry Physical Exam: General: NAD, sitting up in a chair Neurological: Alert and Oriented HEENT: Moist MM. Right external ear with mild erythema and edema, right pinna with small amount of eschar present, no purulent drainage Cardiovascular: Heart rate regular Respiratory: Lung sounds clear Abdominal: Bowel sounds present; ABD soft, non tender and large Skin: No rash Laboratory Last Values WBC 12.1 10^3/uL (3.5-10.8) H 06/09/19 05:25 RBC 5.04 10^6 /uL (4.18-5.48) 06/09/19 05:25 Hgb 14.8 g/dL (14.0-18.0) 06/09/19 05:25 Hct 44 % (42-52) 06/09/19 05:25 MCV 86 fL (80-94) 06/09/19 05:25 MCH 30 pg (27-31) 06/09/19 05:25 MCHC 34 g/dL (31-36) 06/09/19 05:25 RDW 15 % (10-15) 06/09/19 05:25 Plt Count 248 10^3/uL (150-450) 06/09/19 05:25 MPV 7.6 fL (7.4-10.4) 06/09/19 05:25 Neut % (Auto) 61.7 % 06/09/19 05:25 Lymph % (Auto) 21.9 % 06/09/19 05:25 [place] % (Auto) 9.0 % 06/09/19 05:25 Eos % (Auto) 6.7 % 06/09/19 05:25 Baso % (Auto) 0.7 % 06/09/19 05:25 Absolute Neuts (auto) 7.5 10^3/ul (1.5-7.7) 06/09/19 05:25 Absolute Lymphs (auto) 2.7 10^3/ul (1.0-4.8) 06/09/19 05:25 Absolute Monos (auto) 1.1 10^3/ul (0-0.8) H 06/09/19 05:25 Absolute Eos (auto) 0.8 10^3/ul (0-0.6) H 06/09/19 05:25 Absolute Basos (auto) 0.1 10^3/ul (0-0.2) 06/09/19 05:25 Absolute Nucleated RBC 0.0 10^3/ul 06/09/19 05:25 Nucleated RBC % 0.0 06/09/19 05:25 INR (Anticoag Therapy) 1.31 (0.82-1.09) H 06/07/19 16:23 Sodium 128 mmol/L (135-145) L 06/09/19 05:25 Potassium 3.9 mmol/L (3.5-5.0) 06/09/19 05:25 Chloride 103 mmol/L (101-111) 06/09/19 05:25 Carbon Dioxide 20 mmol/L (22-32) L 06/09/19 05:25 Anion Gap 5 mmol/L (2-11) 06/09/19 05:25 BUN 25 mg/dL (6-24) H 06/09/19 05:25 Creatinine 0.84 mg/dL (0.67-1.17) 06/09/19 05:25 Est GFR ( Amer) 107.5 (>60) 06/09/19 05:25 Est GFR (Non-Af Amer) 88.8 (>60) 06/09/19 05:25 BUN/Creatinine Ratio 29.8 (8-20) H 06/09/19 05:25 Glucose 143 mg/dL (70-100) H 06/09/19 05:25 POC Glucose (mg/dL) 168 mg/dL (70-100) H 06/10/19 07:22 Hemoglobin A1c 7.3 % (4.0-5.6) H 06/07/19 06:28 Lactic Acid 1.7 mmol/L (0.5-2.0) 06/06/19 18:38 Calcium 8.0 mg/dL (8.6-10.3) L 06/09/19 05:25 Magnesium 2.0 mg/dL (1.9-2.7) 06/09/19 02:09 Total Bilirubin 1.50 mg/dL (0.2-1.0) H 06/07/19 06:28 AST 33 U/L (13-39) 06/07/19 06:28 ALT 35 U/L (7-52) 06/07/19 06:28 Alkaline Phosphatase 103 U/L (34-104) 06/07/19 06:28 Ammonia 62 mcmol/L (16-53) H 06/08/19 11:20 C-Reactive Protein 10.77 mg/L (<8.01) H 06/09/19 05:25 Total Protein 6.6 g/dL (6.4-8.9) 06/07/19 06:28 Albumin 3.5 g/dL (3.2-5.2) 06/07/19 06:28 Globulin 3.1 g/dL (2-4) 06/07/19 06:28 Albumin/Globulin Ratio 1.1 (1-3) 06/07/19 06:28 Triglycerides 71 mg/dL 06/07/19 06:28 Cholesterol 55 mg/dL 06/07/19 06:28 LDL Cholesterol 15 mg/dL 06/07/19 06:28 HDL Cholesterol 25.8 mg/dL 06/07/19 06:28 Urine Color Yellow 06/07/19 10:30 Urine Appearance Clear 06/07/19 10:30 Urine pH 5.0 (5-9) 06/07/19 10:30 Ur Specific [place] 1.033 (1.010-1.030) H 06/07/19 10:30 Urine Protein 1+(30 mg/dl) (Negative) A 06/07/19 10:30 Urine Ketones Trace (Negative) A 06/07/19 10:30 Urine Blood Negative (Negative) 06/07/19 10:30 Urine Nitrate Negative (Negative) 06/07/19 10:30 Urine Bilirubin Negative (Negative) 06/07/19 10:30 Urine Urobilinogen Negative (Negative) 06/07/19 10:30 Ur Leukocyte Esterase Negative (Negative) 06/07/19 10:30 Urine WBC (Auto) Trace(0-5/hpf) (Absent) 06/07/19 10:30 Urine RBC (Auto) 3+(>10/hpf) (Absent) A 06/07/19 10:30 Urine Bacteria Absent (Absent) 06/07/19 10:30 Urine Glucose 2+(150 mg/dl) (Negative) A 06/07/19 10:30 Urine Ascorbic Acid * (Negative) A 06/07/19 10:30 Microbiology 06/06/19 18:37 Aerobic Blood Culture - Preliminary Blood Venous No Growth Day 3 Anaerobic Blood Culture - Preliminary No Growth Day 3 06/07/19 10:30 Urine Culture - Final Urine No Growth (<1,000 CFU/mL) 06/07/19 10:30 Legionella Urinary Antigen - Final Urine Negative Legionella Antigen Streptococcus pneumoniae Ag Screen - Final Negative S. pneumo Antigen Assessment: 1. Right otitis externa, severe. Blood cultures with no growth. CRP slightly elevated. Afebrile and mild leukocytosis. Continued improvement of erythema, edema, and drainage while on IV ABX. 2. Seizure disorder. 3. Hx CVA with hx carotid stenosis. 4. CAD. 5. DM2. Plan: Discontinue Zosyn at discharge and change to Augmentin 500 mg PO BID for 5 days. Continue Ciprodex for 7 days.
[2019-06-10 11:45] VITALS: BP 108/68
[2019-06-10] MEDS ORDERED: levETIRAcetam TAB* 500 MG PO SCH (12:00)
--- NOTE | 2019-06-10 12:48 | DS ---
CC: Dr. Jamil Cartagena; Dr. Chance; Dr. Fam; [facility] * DISCHARGE SUMMARY: DATE OF ADMISSION: 06/06/19 DATE OF DISCHARGE: 06/10/19 PRIMARY CARE PROVIDER: Dr. Jamil Cartagena. DISPOSITION AT DISCHARGE: To [facility]. CONDITION AT DISCHARGE: Stable. DISCHARGE DIAGNOSES: 1. Acute encephalopathy likely related to seizure and nonconvulsive status epilepticus that occurred due to an ongoing infection. The patient had possible pneumonia and right external ear infection including his right pinna and cellulitis. 2. Hyponatremia more than likely iatrogenic. 3. Hypotension at admission that resolved by the time of discharge. CONSULTATIONS DURING HOSPITAL STAY: Dr. Fam from Neurology. LABORATORY DATA AND STUDIES PERFORMED DURING HOSPITAL STAY: Included: On , sodium 128, potassium 3.9, chloride 103, carbon dioxide 20, BUN 25, creatinine 0.84. The patient's lactic acid on admission was 1.7. Hemoglobin A1c was 7.3. C-reactive protein was 10.77 obtained 06/09/19. The patient's liver function tests obtained on 06/07/19 showed bilirubin a total of 1.5, AST of 33, ALT of 35. Ammonia was noted to be 62 on 06/08/19. CBC last obtained on 06/09/19 showed white blood cell count of 12.1, hemoglobin of 14.8, hematocrit of 44, and platelets of 248. Microbiology studies showed blood culture that were negative to date which was for the past three days. Urine legionella and Strep pneumo antigens were negative and urine culture showed no growth. MEDICATIONS AT DISCHARGE: 1. Aspirin 81 mg daily. 2. Atorvastatin 80 mg daily. 3. Coreg 6.25 mg b.i.d. 4. Dapagliflozin 5 mg daily. 5. Neurontin 300 mg daily. 6. Zoloft 12.5 mg daily. 7. Brilinta 60 mg b.i.d. 8. Vardenafil 10 mg daily. 9. Acetaminophen on a p.r.n. basis. 10. Norvasc 5 mg daily. 11. Eliquis 2.5 mg daily. 12. Augmentin 500 mg twice a day for a total of 5 days total for his right ear cellulitis. 13. Ciprofloxacin dexamethasone ear drops 4 drops right ear b.i.d. for a total of 7 days. 14. Insulin glargine was lowered from 70 units previously to 10 units subcutaneously daily at bedtime. 15. Keppra 500 mg b.i.d. which is a new medication. 16. Nystatin topical powder apply b.i.d. to affected areas. The patient's glipizide and metformin were discontinued. At discharge, the patient was recommended to follow up with the retirement provider within the next 3 to 7 days. The patient is also recommended to call Dr. Fam's office and follow up with an appointment in approximately 4 to 6 weeks. RADIOLOGY AND OTHER STUDIES: Included: EEG obtained on 06/09/19, impression: "Abnormal EEG due to generalized slowing and disorganization of background rhythm consisting of diffuse cerebral dysfunction. There are no focal epileptiform features to this recording." Head CTA obtained on 06/06/19, impression: "No acute findings on the brain CTA. Findings of the neck showed right carotid stenosis of 53% and left carotid stenosis of 38%. Brain CTA obtained on admission, impression: "No acute intracranial abnormality. Chronic microvascular ischemic changes." HOSPITALIZATION COURSE: Dayton Krueger is a 78-year-old male with history of 2 CVAs in the past, one of them with mild residual right-sided weakness, who stated by himself that he does not feel any residual deficits and he is ambulating with a roller walker and at baseline he lives at [facility], who presented from [facility] as a transfer for hypertension and altered mental status on 06/06/19. Shortly, the patient was noted to have mild hypoglycemia, systolic blood pressure in the 180s, and basically obtundation and being nonverbal. He was transferred to our facility for further neuro evaluation. Here initially he was noted to be awake and able to track with his eyes, but nonverbal. There were periods of times when he will be able to speak with one to two word sentences. He was not able to follow commands. He had mild leukocytosis. His chest x-ray from [facility] noted that he had possibility of lung infiltrate. There was an MRI obtained at [facility] that was unremarkable and negative for acute stroke. He was evaluated by Dr. Fam here, had overall 3 EEGs. None of them show clearly cut epileptiform abnormalities but the patient had highly disorganized EEG suggestive of encephalopathy. The patient was placed on broad spectrum antibiotics for question of pneumonia. 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 His mental state appeared have improved and on 06/08/19, he was noted to have cellulitis of his right ear specifically including the right pinna region with a purulent discharge. At that point, his antibiotics were switched from ceftriaxone to doxycycline to Zosyn. He was seen by Dr. Welch, infectious disease specialist, who recommended continuation of Zosyn for another 24 hours and placing the patient on Cipro and dexamethasone combination of drops into the ear. By the time of discharge, the patient's cellulitis has greatly improved and the discharge from the right ear resolved. Please also note, on evaluation of the right ear canal, there were no abnormalities noted apart for some mild swelling proximally. The patient's Keppra was gradually tapered down from IV to p.o. and the dose tapered down from 1000 mg b.i.d. to 500 mg b.i.d. by the time of discharge. On 06/09/19, the patient's mental state was back to his baseline. He was alert, cooperative, sometimes a poor historian that may be impaired due to problems with hearing but otherwise family felt that he was back to his baseline. He did not appear to have major neuro deficits apart from his right nasolabial fold that is slightly flattened and he has problems with right plantar dorsiflexion, which is likely chronic. At this point, the suspicion is that the patient likely had a seizure nonconvulsive status due to lowering his seizure threshold by ongoing infection that is pneumonia and right ear cellulitis. The patient is to be continued to be on Keppra. He also is to be continued on Augmentin for 5 days and Ciprodex drops for the right ear for 7 days. The patient is recommended to follow up with his primary care provider at the retirement in 3 to [address] Fam from Neurology in approximately 4 to 6 weeks. Please note, that the patient was hypoglycemic when he arrived from [facility] and he continued to have episodes of hypoglycemia. Due to that, his glipizide and metformin were held as well as insulin Lantus. By the time of discharge, we are restarting the patient's insulin Lantus at only 10 units a day. Metformin and glipizide are going to be held. I suspect that once his diet and p.o. intake is back to his baseline, he will require more diabetic medication. PHYSICAL EXAM AT THE TIME OF DISCHARGE: Blood pressure of 148/66, heart rate of 69 and regular, respiratory rate 18, oxygen saturation 100% on room air, temperature 96.6. General: The patient is a very pleasant 78-year-old male, who is in no acute distress. The patient is alert and oriented x3, but a poor historian. HEENT: Head: Atraumatic, normocephalic. Eyes: Pupils are equal, reactive to light and accommodation. Oropharynx is clear. Mucosa moist. Neck : Supple. No JVD. No bruits bilaterally. Cardiovascular: Regular rate and rhythm. No murmur. Respiratory: Clear to auscultation bilaterally. Abdomen: Soft, nontender. Bowel sounds are present in all 4 quadrants. Extremities: There is no edema. Pulses +2 bilaterally. No clubbing and no cyanosis. On neuro evaluation, the patient has mild flattening of the right nasolabial fold. His motor strength in bilateral upper extremities are 5/5, bilateral lower extremities appears to be 5/5 apart from right foot dorsiflexion is 4+/5. Speech is clear. On evaluation of the right ear, the patient's external ear canal has minor edema proximally. The area of the right pinna is covered with eschar. There is no further purulent discharge. The erythema has recessed greatly. Please note that this is a short summary of the patient's hospital stay. Please refer to further medical records for details. TIME SPENT: Approximately 45 minutes was spent on the patient's discharge. [id number]/[facility] #: [id number] [facility]PITALTiffanie
== END 2019-06-10 12:45 | DRG 100 ==
LOC: MEDTELE 16:40
PROVIDERS: ADMIT Hospitalist; ATTEND Internal Medicine
PROC: 4A00X4Z Measurement of Central Nervous Electrical Activity, External Approach (ICD-10-PCS; principal; 2019-06-07)
DX: G40.901 Epilepsy, unspecified, not intractable, with status epilepticus (principal); J18.9 Pneumonia, unspecified organism; E87.1 Hypo-osmolality and hyponatremia; I69.351 Hemiplegia and hemiparesis following cerebral infarction affecting right dominant side; G47.33 Obstructive sleep apnea (adult) (pediatric); E78.5 Hyperlipidemia, unspecified; I25.10 Atherosclerotic heart disease of native coronary artery without angina pectoris; I65.23 Occlusion and stenosis of bilateral carotid arteries; H66.91 Otitis media, unspecified, right ear; F32.9 Major depressive disorder, single episode, unspecified; R33.9 Retention of urine, unspecified; N18.3 Chronic kidney disease, stage 3 (moderate); I12.9 Hypertensive chronic kidney disease with stage 1 through stage 4 chronic kidney disease, or unspecified chronic kidney disease; E11.22 Type 2 diabetes mellitus with diabetic chronic kidney disease; I16.0 Hypertensive urgency; E11.649 Type 2 diabetes mellitus with hypoglycemia without coma; H60.11 Cellulitis of right external ear; H60.91 Unspecified otitis externa, right ear; I95.9 Hypotension, unspecified; Z79.82 Long term (current) use of aspirin; Z79.899 Other long term (current) drug therapy; Z87.891 Personal history of nicotine dependence; Z88.8 Allergy status to other drugs, medicaments and biological substances; Z79.02 Long term (current) use of antithrombotics/antiplatelets; Z79.01 Long term (current) use of anticoagulants; Z79.4 Long term (current) use of insulin
CPT/HCPCS: 36415; 70450; 70496; 70498; 80048; 80053; 80061; 80346; 81003; 81015; 82140; 83036; 83605; 83735; 85025; 85027; 85610; 86140; 87040; 87086; 87899; 95816; 95822; A9270-GY; G0480; J0360; J0692; J0696; J1650; J1953; J2060; J2543; J3480; Q9967